=== PATIENT | male | born 1930 | race Caucasian/White ===

== ENCOUNTER → 2016-03-05 | Day surgery (SDC) | payer OTHER ==
[2016-02-26 10:08] VITALS: Ht 174 cm; Wt 75.0 kg
[~2016-03-05] VITALS: Ht 174 cm; Wt 75.0 kg
[~2016-03-05] MED LIST: ACET-1256 PO; ALBINS/ INH; ASCO500T16 PO; ASPI325T39 PO; ASPI81TA28 PO; BISM262T3 PO; CHOL1000 PO; CLC150 PO; CLR10 PO; CMD/2 PO; CMD5 PO; COLC0.6T54 PO; DIPH-416 PO; ERYOPO TOP; ETOMIDATE 2 MG/ML 20 ML VIAL IV ONE; EpHEDrine SULFATE 50MG/5ML SYR ONE; FERR1TAB13 PO; FERR325T PO; FRS/40 PO; LEUP1INJ15 IM; LIDOCAINE HCL 2% 2 ML VIAL (20MG/ML) ONE; MELO15TA10 PO; MELO7.5T5 PO; MESA800T5 PO; METO25TA3 PO; MULT-506 PO; MULT-513 PO; OXYB5TAB74 PO; OXYC-57 PO; PANT40TA PO; POTA20TA16 PO; PRLSR20 PO; PROPOFOL IV EMULSION 10 MG/ML 20 ML VIAL IV ONE; SIMV10TA2 PO; SIMV20TA2 PO; TAMS0.4C38 PO; WARF3TAB6 PO
--- NOTE | 2016-03-05 14:51 | Endo History and Physical ---
History & Physical Date of Service: Mar 05, 2016. Chief Complaint: DIARRHEA Referring Physician: SUNIL PACHECO History of Present Illness For colonoscopy Past Surgical History Hx Cardiac Surgery: No Hx Internal Defibrillator: No Hx Pacemaker: No Hx Abdominal Surgery: Yes ("STOMACH ULCER REPAIR") Hx of Implantable Prosthesis: No Hx Post-Op Nausea and Vomiting: No Hx Cancer Surgery: No Hx Thoracic Surgery: No Hx Orthopedic: Yes (RT TKA) Hx Urinary Tract Surgery: No Family History None Social History Smoking Status: Never Smoker Hx Substance Use: No Hx Alcohol Use: No Allergies Coded Allergies: No Known Allergies (Verified , 03/05/16) Current Medications Reported Home Medications Medications Dose Route/Sig Max Daily Dose Days Date Category Zocor (Simvastatin) 20 Mg Tab 0.5 Tab PO HS 11/25/15 Reported Flomax (Tamsulosin Hcl) 0.4 Mg Cap 0.4 Mg PO HS 11/25/15 Reported Kp Ferrous Sulfate (Ferrous Sulfate) 325 Mg Tab 1 Tab PO QPM 11/25/15 Reported Ascorbic Acid 500 Mg Tab 500 Mg PO QPM 11/25/15 Reported Multivitamin (Multivitamins) Tab 1 Tab PO NOON 11/25/15 Reported Ditropan (Oxybutynin Chloride) 5 Mg Tab 5 Mg PO BID 11/25/15 Reported Vitamin D3 (Cholecalciferol) 1,000 Unit Tab 2 Tabs PO NOON 11/25/15 Reported Aspirin Ec (Aspirin) 325 Mg Tab 325 Mg PO NOON 11/25/15 Reported Toprol-Xl (Metoprolol Succinate) 25 Mg Tabcr 0.5 Mg PO BID 11/25/15 Reported Lasix (Furosemide) 40 Mg Tab 40 Mg PO QAM 11/25/15 Reported Klor-Con (Potassium Chloride) 20 Meq Tabcr 20 Meq PO QAM 11/25/15 Reported Prilosec (Omeprazole) 20 Mg Capcr 20 Mg PO QAM 11/25/15 Reported Lomotil (Diphenoxylate HCl/Atropine) Tab 2 Tabs PO QID 11/25/15 Reported Vital Signs Weight (Kilograms): 75 Height (Feet): 5 Height (Inches): 8.5 Date Time Temp Pulse Resp B/P Pulse Ox O2 Delivery O2 Flow Rate FiO2 03/05/16 14:10 36.8 66 18 136/75 97 Room Air Physical Exam General Appearance: WD/WN Respiratory/Chest: Respiratory effort: no dyspnea Cardiovascular: Heart Auscultation: RRR Abdomen: Inspection & Palpation: soft Assessment and Plan diarrhea for colonoscopy
--- NOTE | 2016-03-05 15:17 | Discharge Instructions ---
Endoscopy Patient Instructions Date / Procedure(s) Performed Mar 05, 2016. Colonoscopy Allergy Information Coded Allergies: No Known Allergies (Verified , 03/05/16) Discharge Date / Findings Mar 05, 2016. Diverticulosis, hemorrhoids, polyp Medication Instructions Stopped Medication(s): ASPIRIN STOPPED 03/02/16 Restart Stopped Medication(s): resume meds Reported Home Medications Medications Dose Route/Sig Max Daily Dose Days Date Category Zocor (Simvastatin) 20 Mg Tab 0.5 Tab PO HS 11/25/15 Reported Flomax (Tamsulosin Hcl) 0.4 Mg Cap 0.4 Mg PO HS 11/25/15 Reported Kp Ferrous Sulfate (Ferrous Sulfate) 325 Mg Tab 1 Tab PO QPM 11/25/15 Reported Ascorbic Acid 500 Mg Tab 500 Mg PO QPM 11/25/15 Reported Multivitamin (Multivitamins) Tab 1 Tab PO NOON 11/25/15 Reported Ditropan (Oxybutynin Chloride) 5 Mg Tab 5 Mg PO BID 11/25/15 Reported Vitamin D3 (Cholecalciferol) 1,000 Unit Tab 2 Tabs PO NOON 11/25/15 Reported Aspirin Ec (Aspirin) 325 Mg Tab 325 Mg PO NOON 11/25/15 Reported Toprol-Xl (Metoprolol Succinate) 25 Mg Tabcr 0.5 Mg PO BID 11/25/15 Reported Lasix (Furosemide) 40 Mg Tab 40 Mg PO QAM 11/25/15 Reported Klor-Con (Potassium Chloride) 20 Meq Tabcr 20 Meq PO QAM 11/25/15 Reported Prilosec (Omeprazole) 20 Mg Capcr 20 Mg PO QAM 11/25/15 Reported Lomotil (Diphenoxylate HCl/Atropine) Tab 2 Tabs PO QID 11/25/15 Reported Provider Instructions Activity Restrictions - No exercising or heavy lifting for 24 hours. - Do not drink alcohol the day of the procedure. - Do not drive a car or operate machinery until the day after the procedure. - Do not make any important decisions or sign important papers in 24 hours after the procedure. Following Day: - Return to full activity which may include returning to work/school. Diet Start your diet with liquids and light foods (jello, soup, juice, toast). Then eat your usual diet if not nauseated. Treatment For Common After Affects For mild abdominal pain, bloating, or excessive gas: - Rest - Eat lightly - Lie on right side Follow-Up Information Follow-up with SUNIL PACHECO as scheduled Anesthesia Information What You Should Know You have had a procedure that required some medicine to reduce anxiety and discomfort. This treatment is called moderate sedation. After receiving the treatment, you may be sleepy, but you will be able to breathe on your own. The effects of the treatment may last for several hours. Follow these instructions along with Activity/Diet recommendations noted above: * Do NOT do anything where dizziness or clumsiness would be dangerous. * Rest quietly at home today, then you can be up and about tomorrow. * Have a responsible person stay with you the rest of today. * You may have had an I.V. today. If so, you may take the dressing off later today. Recommendations Call your doctor if: * Trouble breathing * Continuous vomiting for more than 24 hours * Temperature above 101 degrees * Severe abdominal pain or bloating * Pain not relieved by pain medicine ordered * There is increased drainage or redness from any incision * A large amount of rectal bleeding greater than 2-3 tablespoons. (If you had a polyp/s removed or have hemorrhoids, a small amount of blood - from the rectum is to be expected.) * You have any unanswered questions or concerns. IN THE EVENT OF A SERIOUS EMERGENCY, GO TO THE NEAREST EMERGENCY ROOM Your discharge instructions were prepared by provider Billy Hernandez. Patient Instructions Signature Page Charles Tyler Patient (or Guardian) Signature/Date: I have read and understand the instructions given to me by my caregivers. Caregiver/RN/Doctor Signature/Date: The above-named patient and/or guardian has received patient instructions on this date. + Original Patient Signature Page (only) stays with chart. Please make copy for patient.
--- NOTE | 2016-03-05 15:22 | GI REPORT ---
Procedure Date: 03/05/2016 2:52 PM Procedure: Colonoscopy Indications: Clinically significant diarrhea of unexplained origin Medicines: Propofol total dose 100 mg IV, Ephedrine 10 mg IV, Lidocaine 40 mg IV Complications: No immediate complications. Estimated Blood Loss: Estimated blood loss was minimal. Procedure: Pre-Anesthesia Assessment: - Prior to the procedure, a History and Physical was performed, and patient medications, allergies and sensitivities were reviewed. The patient's tolerance of previous anesthesia was reviewed. - The risks and benefits of the procedure and the sedation options and risks were discussed with the patient. All questions were answered and informed consent was obtained. After I obtained informed consent, the scope was passed under direct vision. Throughout the procedure, the patient's blood pressure, pulse, and oxygen saturations were monitored continuously. The On-site loaner was introduced through the anus and advanced to the cecum, identified by appendiceal orifice and ileocecal valve. The colonoscopy was performed without difficulty. The patient tolerated the procedure well. The quality of the bowel preparation was good. Findings: Multiple diverticula were found in the sigmoid colon. Non-bleeding internal hemorrhoids were found during endoscopy. The hemorrhoids were mild. A 18 mm polyp was found in the cecum. The polyp was sessile. The polyp was removed with a hot snare. Resection and retrieval were complete. To prevent bleeding post-intervention, one hemostatic clip was successfully placed (MR conditional). There was no bleeding during, and at the end, of the procedure. Estimated blood loss: none. Normal mucosa was found in the entire colon. Biopsies for histology were taken with a cold forceps from the ascending colon, transverse colon, descending colon and sigmoid colon for evaluation of microscopic colitis. Estimated blood loss was minimal. Impression: - Diverticulosis in the sigmoid colon. - Non-bleeding internal hemorrhoids. - One 18 mm polyp in the cecum, removed with a hot snare. Resected and retrieved. Clip (MR conditional) was placed. Recommendation: - Discharge patient to home (ambulatory). - Continue present medications. - Await pathology results. - Return to primary care physician PRN. Billy Hernandez M.D. Billy Hernandez MD 03/05/2016 3:21:21 PM This report has been signed electronically. Note Initiated On: 03/05/2016 2:52 PM
[2016-03-05 15:49] VITALS: BP 159/84; PULSE 68; O2SAT 96
--- NOTE | 2016-03-05 15:53 | Anesthesiology Progress Note ---
Anesthesia Post Op Note Date & Time Mar 05, 2016 at 15:49 Vital Signs Pain Intensity: 0 Vital Signs Past 12 Hours Date Time Temp Pulse Resp B/P Pulse Ox O2 Delivery O2 Flow Rate FiO2 03/05/16 15:34 72 20 134/80 96 Room Air 03/05/16 15:19 66 20 137/84 98 Room Air 03/05/16 14:10 36.8 66 18 136/75 97 Room Air Notes Mental Status: alert / awake / arousable, participated in evaluation Pt Amnestic to Procedure: Yes Nausea / Vomiting: adequately controlled Pain: adequately controlled Airway Patency, RR, SpO2: stable & adequate BP & HR: stable & adequate, see Notes Hydration State: stable & adequate Anesthetic Complications: no major complications apparent Preoperatively the patient had a questionable history of arrhythmia, but no EKG was available. The patient was noted to be in possible afib during the procedure. A 12 lead EKG was obtained in recovery that showed afib rate controlled along with a bifascicular block. I spoke with Dr. Meyer who follows the patient and told me that this is his normal baseline. The patient is not on anticoagulation due to his fall risk. The patient's vital signs are otherwise stable and he is awake and comfortable.
== END | disposition home or self-care (01) ==
LOC: C.GI 13:35
PROVIDERS: ATTEND Internal Medicine Gastroenterology
DX: D12.0 Benign neoplasm of cecum (principal); K57.30 Diverticulosis of large intestine without perforation or abscess without bleeding; K64.8 Other hemorrhoids; R19.7 Diarrhea, unspecified; G47.33 Obstructive sleep apnea (adult) (pediatric); I10 Essential (primary) hypertension; I73.9 Peripheral vascular disease, unspecified; E78.5 Hyperlipidemia, unspecified; Z86.79 Personal history of other diseases of the circulatory system; K21.9 Gastro-esophageal reflux disease without esophagitis; K25.9 Gastric ulcer, unspecified as acute or chronic, without hemorrhage or perforation; G62.9 Polyneuropathy, unspecified; Z85.46 Personal history of malignant neoplasm of prostate; M21.372 Foot drop, left foot

== ENCOUNTER 2016-06-05 21:06 | Inpatient (IN) | payer OTHER ==
[~2016-06-05] VITALS: Ht 172.7 cm; Wt 79.6 kg
[~2016-06-05 21:06] MED LIST changes: -ACET-1256 PO; -ALBINS/ INH; -ASPI81TA28 PO; -BISM262T3 PO; -CLC150 PO; -CLR10 PO; -CMD/2 PO; -CMD5 PO; -COLC0.6T54 PO; +DTR/5 PO; -ERYOPO TOP; -ETOMIDATE 2 MG/ML 20 ML VIAL IV ONE; -EpHEDrine SULFATE 50MG/5ML SYR ONE; -FERR325T PO; -LEUP1INJ15 IM; -LIDOCAINE HCL 2% 2 ML VIAL (20MG/ML) ONE; -MELO15TA10 PO; -MELO7.5T5 PO; -MESA800T5 PO; -MULT-513 PO; -OXYB5TAB74 PO; -OXYC-57 PO; -PANT40TA PO; -PROPOFOL IV EMULSION 10 MG/ML 20 ML VIAL IV ONE; -SIMV10TA2 PO; -WARF3TAB6 PO
[2016-06-05] MEDS ORDERED: SODIUM CHLORIDE 0.9% 1000ML 250 ML IV STA (22:10)
[2016-06-05] MEDS ORDERED: SODIUM CHLORIDE 0.9% 1000ML 1,000 ML IV STA (22:10)
--- NOTE | 2016-06-05 22:11 | EMERGENCY ROOM VISIT NOTE ---
History Report prepared by Phani: Derrick Arreguin Under the Supervision of: Dr. Werner Uribe M.D. First contact with patient: 22:00 Chief Complaint: INFECTION Stated Complaint: INFECTION IN BLOODSTREAM, INFECTION ON FACE Nursing Triage Summary: see triage note History of Present Illness The patient is an 85 year old male who presents to the Emergency Room with complaints of a worsening facial infection for the past week. The patient's symptoms started with a red nose that resembled sun burn six days ago. Throughout the week the redness spread down his cheeks and around his eyes. The patient's right eye became swollen shut. His family notes that there was pus draining from his face. He was admitted to [facility] ED in [place] three days ago, where he was given IV antibiotics. His family decided to bring him here so he left that hospital earlier today. The patient is reportedly feeling and looking a lot better than he did prior to admission. He does complain of shortness of breath. He denies fevers, headaches, chest pain, or abdominal pain. Source of History: patient, family Onset: one week Position: other (face) Quality: other (skin infection) Timing: worsening Associated Symptoms: + SOB, No abdominal pain, No chest pain, No fevers, No headache Review of Systems See HPI for pertinent positives & negatives. A total of 10 systems reviewed and were otherwise negative. Past Medical & Surgical Medical Problems: (1) Cellulitis and abscess of face (2) HLD (hyperlipidemia) (3) HTN (hypertension) Old medical records were reviewed. Nurse's notes were reviewed and I agree with. Family History No pertinent family history Social History Smoking Status: Never Smoker Drug Use: none Housing Status: lives with family Current/Historical Medications Scheduled Ascorbic Acid (Ascorbic Acid), 500 MG PO QPM Aspirin (Aspirin Ec), 325 MG PO NOON Bismuth Subsalicylate (Pepto Bismol Chew Tab), 2 TAB PO BID Cholecalciferol (Vitamin D3), 2 TABS PO NOON Diphenoxylate/Atropine (Lomotil), 2 TABS PO QID Ferrous Sulfate (Ferrous Sulfate), 325 MG PO QAM Furosemide (Lasix), 40 MG PO QAM Leuprolide Acetate (Lupron Depot), 1 DOSE IM q6 months Loratadine (Claritin), 10 MG PO DAILY Meloxicam (Mobic), 15 MG PO DAILY Mesalamine (Asacol Hd), 800 MG PO TID Metoprolol Succ (Toprol Xl) (Toprol-Xl), 0.5 MG PO BID Multivitamin (Multivitamin), 1 TAB PO NOON Omeprazole (Prilosec), 20 MG PO QAM Oxybutynin Chloride (Ditropan), 5 MG PO BID Potassium Ext Rel (Klor-Con), 20 MEQ PO QAM Simvastatin (Zocor), 0.5 TAB PO HS Tamsulosin Hcl (Flomax), 0.4 MG PO HS Scheduled PRN Albuterol Sulf (Proventil 0.083% 2.5MG/3ML), 2.5 MG INH Q6 PRN for Wheezing Allergies Coded Allergies: No Known Allergies (Verified , 03/05/16) Physical Exam Vital Signs Date Time Temp Pulse Resp B/P Pulse Ox O2 Delivery O2 Flow Rate FiO2 06/05/16 23:52 74 18 103/71 95 Room Air 06/05/16 22:42 66 06/05/16 22:31 88 18 143/78 95 Room Air 06/05/16 21:17 36.5 71 20 137/79 91 Room Air Physical Exam General: Non ill appearing older male in no acute distress, redness and swelling of the right side of face with crusty scaling, no definite purulent lesions, unable to open eyelid secondary to pain and swelling. HEENT: Normal cephalic atraumatic. Extraocular movements are intact. Sclera anicteric. Oropharynx is pink with moist mucous membranes. No swelling of the mouth lips or tongue. Neck: Supple with a midline trachea. No meningeal signs or stiffness, no JVD or bruits. No Stridor. Chest: Clear to auscultation bilaterally. No wheezes or rhonchi. No increased work of breathing. Heart: regular rate and rhythm. Abdomen: Soft nontender, nondistended without rebound guarding or rigidity. Extremities: No cyanosis clubbing or edema. No calf tenderness or assymetry Spine/Back. Non tender to palpation. No CVA tenderness Skin: Good turgor. Neurologic exam: Cranial nerves two through 12 are intact. Motor and sensation are intact and symmetrical throughout. Medical Decision & Procedures Laboratory Results 06/05/16 21:40 Red Blood Count 3.73, Mean Corpuscular Volume 96.2, Mean Corpuscular Hemoglobin 33.2, Mean Corpuscular Hemoglobin Concent 34.5, Mean Platelet Volume 9.9, Neutrophils (%) (Auto) 66.3, Lymphocytes (%) (Auto) 19.8, Monocytes (%) (Auto) 7.9, Eosinophils (%) (Auto) 4.8, Basophils (%) (Auto) 0.2, Neutrophils # (Auto) 5.55, Lymphocytes # (Auto) 1.66, Monocytes # (Auto) 0.66, Eosinophils # (Auto) 0.40, Basophils # (Auto) 0.02 06/05/16 21:40 Test 06/05/16 21:40 06/05/16 22:28 06/05/16 23:47 White Blood Count 8.37 K/uL (4.8-10.8) Red Blood Count 3.73 M/uL (4.7-6.1) Hemoglobin 12.4 g/dL (14.0-18.0) Hematocrit 35.9 % (42-52) Mean Corpuscular Volume 96.2 fL (80-100) Mean Corpuscular Hemoglobin 33.2 pg (25-34) Mean Corpuscular Hemoglobin Concent 34.5 g/dl (32-36) Platelet Count 192 K/uL (130-400) Mean Platelet Volume 9.9 fL (7.4-10.4) Neutrophils (%) (Auto) 66.3 % Lymphocytes (%) (Auto) 19.8 % Monocytes (%) (Auto) 7.9 % Eosinophils (%) (Auto) 4.8 % Basophils (%) (Auto) 0.2 % Neutrophils # (Auto) 5.55 K/uL (1.4-6.5) Lymphocytes # (Auto) 1.66 K/uL (1.2-3.4) Monocytes # (Auto) 0.66 K/uL (0.11-0.59) Eosinophils # (Auto) 0.40 K/uL (0-0.5) Basophils # (Auto) 0.02 K/uL (0-0.2) RDW Standard Deviation 50.0 fL (36.4-46.3) RDW Coefficient of Variation 14.1 % (11.5-14.5) Immature Granulocyte % (Auto) 1.0 % Immature Granulocyte # (Auto) 0.08 K/uL (0.00-0.02) Anion Gap 9.0 mmol/L (3-11) Estimated GFR () 78.6 Estimated GFR (Non- 67.8 BUN/Creatinine Ratio 24.0 (10-20) Calcium Level 9.0 mg/dl (8.5-10.1) Total Bilirubin 0.3 mg/dl (0.2-1) Direct Bilirubin < 0.1 mg/dl (0-0.2) Aspartate Amino Transf (AST/SGOT) 66 U/L (15-37) Alanine Aminotransferase (ALT/SGPT) 53 U/L (12-78) Alkaline Phosphatase 103 U/L (45-117) Total Protein 6.5 gm/dl (6.4-8.2) Albumin 2.6 gm/dl (3.4-5.0) Lipase 40 U/L (73-393) Bedside Lactic Acid Venous 1.64 mmol/L (0.90-1.70) Laboratory studies as stated above per my review. Medications Administered Medications (Trade) Dose Ordered Sig/Desmond Route Start Time Stop Time Status Last Admin Dose Admin Sodium Chloride 250 ml @ 999 mls/hr Q16M STAT IV 06/05/16 22:10 06/05/16 22:25 DC 06/05/16 22:33 999 MLS/HR Sodium Chloride (Nss 1000ml) 1,000 ml @ 100 mls/hr Q10H STAT IV 06/05/16 22:10 06/06/16 08:09 06/05/16 22:33 100 MLS/HR ECG Indication: SOB/dyspnea Rate (beats per minute): 57 Rhythm: atrial fibrillation Findings: LAFB, RBBB Change: Lateral T wave inversions have improved compared to EKG dated 2016 ED Course 2200: Past medical records reviewed. The patient was evaluated in room A10, and a complete history and physical examination were performed. 0: NSS 1000 ml @ 100 mls/hr, NSS 250 ml @ 999 mls/hr. 5: Patient's records show that he was seen by Ophthalmology earlier today. They signed off on him and said that he was doing much better. 2301: Discussed the case with Dr. Johnson, [facility]ist. The patient will be evaluated. Medical Decision Differential diagnosis includes facial cellulitis, shingles, abscess, electrolyte or metabolic abnormality. This patient comes in as described above. He has a facial cellulitis. Because of the swelling, I am unable to see his right orbit. He has no proptosis. He was just discharged from a hospital in [place] today. He has had his morning IV antibiotics. He had ID and ophthalmologic consult apparently as well. I read the ophthalmology consult today they felt that he had gotten significantly better. They did not think it was shingles at this point although I think that still in the differential. He has been receiving acyclovir as well as Rocephin at one point also received IV vancomycin. He did have a CAT scan at one point which did not show any orbital cellulitis and he is clinically getting better. According the family, they wanted to keep him longer but he refused to stay and signed out and came here which is close to his home. IV access established EKG shows baseline A. fib. he has no white count or elevated lactic acid to suggest sepsis. I do think he needs to be admitted for further treatment and evaluation further antibiotics. I have consulted Dr. Steward who saw the patient the ER will admit him for these measures. Consults Time Called: [phone] Consulting Physician: Dr. Johnson, [facility]. Returned Call: [phone]: Discussed the case with Dr. Johnson, [facility]. The patient will be evaluated. Impression Primary Impression: Facial cellulitis Scribe Attestation The scribe's documentation has been prepared under my direction and personally reviewed by me in its entirety. I confirm that the note above accurately reflects all work, treatment, procedures, and medical decision making performed by me. Departure Information Dispostion Being Evaluated By Hospitalist Referrals Kayleen Thomas (PCP) Patient Instructions My [facility]
[2016-06-05 22:20] LABS: BASO % 0.2 %; BASO ABS # 0.02 K/uL (0-0.2); COMPLETE YES; EOS % 4.8 %; HEMATOCRIT 35.9 % (42-52); LYMPH % 19.8 %; LYMPH ABS # 1.66 K/uL (1.2-3.4); MEAN CELL VOLUME 96.2 fL (80-100); MEAN CORPUSCULAR HEMOGLOBIN 33.2 pg (25-34); MEAN CORPUSCULAR HGB CONC 34.5 g/dl (32-36); MEAN PLATELET VOLUME 9.9 fL (7.4-10.4); MONO % 7.9 %; NEUT % 66.3 %; PLATELET COUNT 192 K/uL (130-400); RED BLOOD COUNT 3.73 M/uL (4.7-6.1); WHITE BLOOD COUNT 8.37 K/uL (4.8-10.8)
[2016-06-05 22:27] LABS: ALT/SGPT 53 U/L (12-78); BLOOD UREA NITROGEN 24 mg/dl (7-18); CARBON DIOXIDE 29 mmol/L (21-32); CHLORIDE 100 mmol/L (98-107); GLUCOSE 111 mg/dl (70-99); POTASSIUM 3.4 mmol/L (3.5-5.1); SODIUM 138 mmol/L (136-145)
[2016-06-05 22:30] LABS: ALKALINE PHOSPHATASE 103 U/L (45-117); AST/SGOT 66 U/L (15-37)
--- NOTE | 2016-06-05 22:56 | History and Physical ---
History & Physical Date & Time of Service: Jun 05, 2016 at 22:56 Chief Complaint: Infection In Bloodstream, Infection On Face Primary Care Physician: Kayleen Thomas History of Present Illness Source: patient, family The patient is an 85-year-old male who presents to the emergency department with history of a right sided facial infection. The patient was in [place] at the time, when 6 days ago he developed a sunburn type redness of his nose, that throughout the week spread down his cheeks and around his eyes. His right eye became swollen shut and his family noticed that there was pus draining from his face as well. He was admitted to [facility] in [place] 3 days ago, and was placed on IV antibiotics. He left the hospital earlier in the day today, returns back to this area, and his hemoglobin brought him into the emergency department to hopefully finish treatment. 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 Past Medical/Surgical History Medical Problems: (1) HLD (hyperlipidemia) Status: Chronic (2) HTN (hypertension) Status: Chronic Family History No pertinent family history Social History Smoking Status: Never Smoker Smokeless Tobacco Use: No Drug Use: none Occupational Status: retired Multi-Drug Resistant Organisms History of MDRO: No Allergies Coded Allergies: No Known Allergies (Verified , 03/05/16) Home Medications Scheduled Ascorbic Acid (Ascorbic Acid), 500 MG PO QPM Aspirin (Aspirin Ec), 325 MG PO NOON Bismuth Subsalicylate (Pepto Bismol Chew Tab), 2 TAB PO BID Cholecalciferol (Vitamin D3), 2 TABS PO NOON Diphenoxylate/Atropine (Lomotil), 2 TABS PO QID Ferrous Sulfate (Ferrous Sulfate), 325 MG PO QAM Furosemide (Lasix), 40 MG PO QAM Leuprolide Acetate (Lupron Depot), 1 DOSE IM q6 months Loratadine (Claritin), 10 MG PO DAILY Meloxicam (Mobic), 15 MG PO DAILY Mesalamine (Asacol Hd), 800 MG PO TID Metoprolol Succ (Toprol Xl) (Toprol-Xl), 0.5 MG PO BID Multivitamin (Multivitamin), 1 TAB PO NOON Omeprazole (Prilosec), 20 MG PO QAM Oxybutynin Chloride (Ditropan), 5 MG PO BID Potassium Ext Rel (Klor-Con), 20 MEQ PO QAM Simvastatin (Zocor), 0.5 TAB PO HS Tamsulosin Hcl (Flomax), 0.4 MG PO HS Scheduled PRN Albuterol Sulf (Proventil 0.083% 2.5MG/3ML), 2.5 MG INH Q6 PRN for Wheezing Review of Systems The patient denies chest pain, palpitations, shortness of breath, lower extremity swelling, vision change, hearing change, chills, sweats, weight change , nausea, vomiting, abdominal pain, pelvic pain, blood in urine or stool, dysuria, urinary frequency or urgency, lightheadedness, dizziness, memory loss , rash, abnormal bruising or bleeding, imbalance, focal or generalized weakness , numbness or tingling in arms or legs, arthralgias or myalgias, back or neck pain, night sweats, or allergy symptoms. The review of systems is otherwise negative other than for that already noted above, and at least 10 systems have been reviewed. Physical Exam Vital Signs Date Time Temp Pulse Resp B/P Pulse Ox O2 Delivery O2 Flow Rate FiO2 06/05/16 22:42 66 06/05/16 22:31 88 18 143/78 95 Room Air 06/05/16 21:17 36.5 71 20 137/79 91 Room Air The patient is awake, well-developed and adequately nourished, alert and oriented 3, has a resolving mildly erythematous/scab right side of face bulbing right frontal area supraorbital and infraorbital skin with right eye closed shut. HEENT--mucous membranes and oropharynx dry. Neck--supple, no JVD or bruits, thyroid normal, trachea midline, no adenopathy. Heart--normal S1 and S2, no extra beats, no murmurs, rubs or gallops. Lungs--few scattered rhonchi bilaterally, no respiratory distress, no accessory muscle use. Abdomen--normal bowel sounds and soft, nontender and nondistended, no hernias or masses, no organomegaly. Extremities--no cyanosis, clubbing or edema. There are good distal pulses b/l. Dermatologic--normal skin turgor, normal color, warm and dry, no abnormal lymph nodes, no rash. Neurologic--cranial nerves II through XII grossly intact, motor and sensory examination normal. Rheumatologic--normal range of motion, nontender, muscles and joints. Psychiatric--normal affect. Diagnostics Laboratory Results Results Past 24 Hours Test 06/05/16 21:40 06/05/16 22:28 Range/Units White Blood Count 8.37 4.8-10.8 K/uL Red Blood Count 3.73 4.7-6.1 M/uL Hemoglobin 12.4 14.0-18.0 g/dL Hematocrit 35.9 42-52 % Mean Corpuscular Volume 96.2 80-100 fL Mean Corpuscular Hemoglobin 33.2 25-34 pg Mean Corpuscular Hemoglobin Concent 34.5 32-36 g/dl Platelet Count 192 130-400 K/uL Mean Platelet Volume 9.9 7.4-10.4 fL Neutrophils (%) (Auto) 66.3 % Lymphocytes (%) (Auto) 19.8 % Monocytes (%) (Auto) 7.9 % Eosinophils (%) (Auto) 4.8 % Basophils (%) (Auto) 0.2 % Neutrophils # (Auto) 5.55 1.4-6.5 K/uL Lymphocytes # (Auto) 1.66 1.2-3.4 K/uL Monocytes # (Auto) 0.66 0.11-0.59 K/uL Eosinophils # (Auto) 0.40 0-0.5 K/uL Basophils # (Auto) 0.02 0-0.2 K/uL RDW Standard Deviation 50.0 36.4-46.3 fL RDW Coefficient of Variation 14.1 11.5-14.5 % Immature Granulocyte % (Auto) 1.0 % Immature Granulocyte # (Auto) 0.08 0.00-0.02 K/uL Sodium Level 138 136-145 mmol/L Potassium Level 3.4 3.5-5.1 mmol/L Chloride Level 100 98-107 mmol/L Carbon Dioxide Level 29 21-32 mmol/L Anion Gap 9.0 3-11 mmol/L Blood Urea Nitrogen 24 7-18 mg/dl Creatinine 1.00 0.60-1.40 mg/dl Estimated GFR () 78.6 Estimated GFR (Non- 67.8 BUN/Creatinine Ratio 24.0 10-20 Random Glucose 111 70-99 mg/dl Calcium Level 9.0 8.5-10.1 mg/dl Total Bilirubin 0.3 0.2-1 mg/dl Direct Bilirubin < 0.1 0-0.2 mg/dl Aspartate Amino Transf (AST/SGOT) 66 15-37 U/L Alanine Aminotransferase (ALT/SGPT) 53 12-78 U/L Alkaline Phosphatase 103 45-117 U/L Total Protein 6.5 6.4-8.2 gm/dl Albumin 2.6 3.4-5.0 gm/dl Lipase 40 73-393 U/L Bedside Lactic Acid Venous 1.64 0.90-1.70 mmol/L Microbiology Results 06/05/16 Blood Culture, Received Pending 06/05/16 Blood Culture, Received Pending Impression Assessment and Plan Right sided facial cellulitis and abscess--the patient did complete 3 days of IV Zosyn, ceftriaxone and acyclovir in [place], and then wanted to return to [facility]. He'll be admitted to the medical floor, placed on vancomycin IV, Zosyn 4.5 g IV every 8 hours, and acyclovir 800 mg IV every 8 hours. We'll consult infectious disease. The patient reportedly had cultures performed that didn't reveal an organism, however, is documentation that he brought with him from the hospital there does not show any culture results. He was seen by ophthalmology at the [facility], he was felt to not have any herpetic lesions. Hypercholesterolemia--continue simvastatin. GERD--change omeprazole to pantoprazole. Hypertension--continue metoprolol succinate, enteric-coated aspirin and hold furosemide. Bladder spasm--continue oxybutynin chloride 5 mg by mouth twice a day. Chronic diarrhea--continue Lomotil 2 tablets by mouth 4 times a day. Prostate cancer in the outpatient setting has Lupron Depot shots IM every 6 months. Continue tamsulosin 0.4 mg by mouth at bedtime. Inflammatory bowel disease--continue mesalamine and milligrams by mouth 3 times a day. Level of Care Med/Surg Advanced Directives Existing Advance Directive: No Existing Living Will: No Existing Power of Flare Stitcher: No Resuscitation Status FULL RESUSCITATION VTE Prophylaxis VTE Risk Assessment Done? Y/N: Yes Risk Level: Moderate Given or contraindicated: SCD's
[2016-06-05] MEDS ORDERED: ALBINS/ INH (23:39)
[2016-06-05] MEDS ORDERED: VANCOMYCIN INJ 1,000 MG in SODIUM CHLORIDE 0.9% 250ML 250 ML IV STA (23:41)
[2016-06-05] MEDS ORDERED: FERR1TAB62 PO (23:43)
[2016-06-05] MEDS ORDERED: CLR10 PO (23:43)
[2016-06-05] MEDS ORDERED: PIPERACILL/TAZOBAC IV 4.5 GM in DEXTROSE 5% 100ML 100 ML IV SCH (23:45)
[2016-06-05] MEDS ORDERED: BISM262T3 PO (23:45)
[2016-06-05] MEDS ORDERED: MESA800T5 PO (23:45)
[2016-06-05] MEDS ORDERED: ZOLPIDEM TARTRATE 5 MG TAB PO PRN (23:45)
[2016-06-05] MEDS ORDERED: MELO15TA10 PO (23:46)
[2016-06-05] MEDS ORDERED: LEUP1INJ15 IM (23:48)
[2016-06-05] MEDS ORDERED: VANCOMYCIN INJ 1,600 MG in SODIUM CHLORIDE 0.9% 500ML 500 ML IV STA (23:57)
[2016-06-06] MEDS ORDERED: PIPERACILL/TAZOBAC CONSULT ACTIVE PRN (00:30)
[2016-06-06] MEDS ORDERED: VANCOMYCIN CONSULT ACTIVE PRN (00:30)
[2016-06-06 00:44] LABS: LYME DISEASE AB IGG NEG (NEG); LYME DISEASE AB IGM NEG (NEG)
[2016-06-06 00:52] VITALS: BP 158/81; PULSE 77; TEMP 36.4; O2SAT 94
[2016-06-06] MEDS: ACETAMINOPHEN 325 MG TAB PO PRN (01:18)
[2016-06-06] MEDS: ACYCLOVIR SOD INJ 800 MG in DEXTROSE 5% 250ML 250 ML IV SCH ×3 (01:19→17:42)
[2016-06-06 01:44] VITALS: BP 158/87; PULSE 77; TEMP 36; O2SAT 94; Ht 172.7 cm; Wt 79.6 kg
[2016-06-06] MEDS ORDERED: PIPERACILL/TAZOBAC IV 3.375 GM in DEXTROSE 5% 100ML IV ONE (02:00)
[2016-06-06] MEDS: PIPERACILL/TAZOBAC IV 3.375 GM in DEXTROSE 5% 100ML IV SCH ×3 (05:45→22:44)
[2016-06-06 06:58] VITALS: BP 116/54; PULSE 64; TEMP 36.4; O2SAT 97
[2016-06-06] MEDS: MULTIVITAMIN TAB PO SCH (09:05)
[2016-06-06] MEDS: DIPHENOXYLATE/ATROPINE 2.5/0.025MG TAB PO SCH ×4 (09:05→22:49)
[2016-06-06] MEDS: PANTOprazole SOD 40 MG TAB PO SCH (09:05)
[2016-06-06] MEDS: FUROSEMIDE 40 MG TAB PO SCH (09:05)
[2016-06-06] MEDS: OXYBUTYNIN CHLORIDE 5 MG TAB PO SCH ×2 (09:06→22:46)
[2016-06-06] MEDS: POTASSIUM CHLORIDE 20 MEQ TABCR PO SCH (09:06)
[2016-06-06] MEDS: METOPROLOL SUCC 25MG EXT REL TAB PO SCH ×2 (09:06→22:47)
[2016-06-06] MEDS: FERROUS SULFATE 325 MG TAB PO SCH (09:06)
--- NOTE | 2016-06-06 10:43 | Pharmacy Progress Note ---
Pharmacy Antibiotic Consult Date of Service: Jun 06, 2016. Pharmacy Dosing Scope Pharmacy is consulted to initiate IV Vancomycin dosing therapy, order appropriate labs and adjust drug dose/frequency. Subjective The patient is a 85 year old male admitted on Jun 05, 2016 at 23:37. Objective Height (Feet): 5 Height (Inches): 8.00 Weight (Kilograms): 79.600 Lab Results (24hrs): Laboratory Tests Test 06/05/16 21:40 BUN/Creatinine Ratio 24.0 Blood Urea Nitrogen 24 mg/dl Creatinine 1.00 mg/dl White Blood Count 8.37 K/uL Red Blood Count 3.73 M/uL Hemoglobin 12.4 g/dL Hematocrit 35.9 % Mean Corpuscular Volume 96.2 fL Mean Corpuscular Hemoglobin 33.2 pg Mean Corpuscular Hemoglobin Concent 34.5 g/dl Platelet Count 192 K/uL Mean Platelet Volume 9.9 fL Neutrophils (%) (Auto) 66.3 % Lymphocytes (%) (Auto) 19.8 % Monocytes (%) (Auto) 7.9 % Eosinophils (%) (Auto) 4.8 % Basophils (%) (Auto) 0.2 % Neutrophils # (Auto) 5.55 K/uL Lymphocytes # (Auto) 1.66 K/uL Monocytes # (Auto) 0.66 K/uL Eosinophils # (Auto) 0.40 K/uL Basophils # (Auto) 0.02 K/uL Micro Results: Item Value Date Time Blood Culture Received 06/05/16 2140 Blood Pending Blood Culture Received 06/05/16 2220 Blood Pending Recent Pertinent Medications Item Value Date Time Vancomycin HCl 532 ml @ 200 mls/hr 06/05/16 2357 1600 mg/Sodium NOW STAT/IV 06/06/16 0117 Chloride Vancomycin HCl 274 ml @ 125 mls/hr 06/06/16 1100 1200 mg/Sodium Q12@1000,2200/IV Chloride Item Value Date Time Piperacillin Sod/ 115 ml @ 230 mls/hr 06/06/16 0200 Tazobactam Sod TODAY@0200 ONCE/IV 06/06/16 0237 3.375 gm/Dextrose Piperacillin Sod/ 115 ml @ 28.75 mls/hr 06/06/16 0600 Tazobactam Sod Q8H/IV 06/06/16 0545 3.375 gm/Dextrose Item Value Date Time Acyclovir Sodium 266 ml @ 265 mls/hr 06/06/16 0100 800 mg/Dextrose Q8H/IV 06/06/16 0905 Assessment & Plan Vancomycin * 85 yo M admitted with right-sided facial cellulitis/abscess (rec'd 3 days of IV zosyn, rocephin & acyclovir at hospital in [place]) * Loading dose: Vancomycin 1600mg IV x 1 dose * Goal peak level: 30-40mcg/mL * Goal trough level: ~15mcg/mL * Est half-life ~ 10hr * Maintenance dose: Vancomycin 1200mg IV q12h * Trough level has been ordered for: 06/07/16 1000 dose Pharmacy will continue to follow and will adjust dose/frequency as necessary. Thank you
[2016-06-06] MEDS: VANCOMYCIN INJ 1,200 MG in SODIUM CHLORIDE 0.9% 250ML 250 ML IV SCH ×2 (10:50→22:44)
[2016-06-06] MEDS: ASPIRIN 325 MG ECTAB PO SCH (11:38)
[2016-06-06] MEDS: CHOLECALCIFEROL 1000 INTER.UNIT TAB PO SCH (11:38)
[2016-06-06 14:52] VITALS: BP 128/77; PULSE 93; TEMP 36.8; O2SAT 96
--- NOTE | 2016-06-06 15:02 | Progress Note ---
Subjective Date of Service: Jun 06, 2016. Subjective Pt evaluation today including: conversation w/ patient, physical exam, chart review, lab review, review of inpatient medication list waiting on records from [facility] notes that he thinks he's feeling a little better - definitely better than when he first came in no f/c/s did have shaking chills before admission in [place]; also notes that he previously had pain from about the side of his head to his shoulder - now just numb. can't really open eye, but moves it and no pain with eye movement. relates ophtho eval in [place] - again waiting on records whole thing seems to have come on fairly suddenly - was out fishing and things felt just like sunburn, then seems that fairly quickly it devolved into large area of painful swelling and chills Problem List Medical Problems: (1) Facial cellulitis Status: Acute Review of Systems ros otherwise negative except for as above Objective Vital Signs Date Time Temp Pulse Resp B/P Pulse Ox O2 Delivery O2 Flow Rate FiO2 06/06/16 08:30 Room Air 06/06/16 06:58 36.4 64 20 116/54 97 Nasal Cannula 2.0 06/06/16 01:44 36.0 77 24 158/87 94 Nasal Cannula 2.0 06/06/16 00:52 36.4 77 24 158/81 94 Nasal Cannula 2.0 06/05/16 23:52 74 18 103/71 95 Room Air 06/05/16 22:42 66 06/05/16 22:31 88 18 143/78 95 Room Air 06/05/16 21:17 36.5 71 20 137/79 91 Room Air Physical Exam General Appearance: no apparent distress Eyes: EOMI (L eye. can see that he's moving right eye under swelling but can' t fully assess truly EOMI. clearly no pain with movement though) ENT: hearing grossly normal, + pertinent finding (R eyelid and cheek, side of head extending towards temporal area red, tender, not really hot no clear fluctuance, crusted scab in the middle of the area, no vesicles/pustules. 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, alert, normal mood/affect Skin: normal color, warm/dry Laboratory Results Last 24 Hours Test 06/05/16 21:40 06/05/16 22:28 06/05/16 23:47 White Blood Count 8.37 K/uL Red Blood Count 3.73 M/uL Hemoglobin 12.4 g/dL Hematocrit 35.9 % Mean Corpuscular Volume 96.2 fL Mean Corpuscular Hemoglobin 33.2 pg Mean Corpuscular Hemoglobin Concent 34.5 g/dl Platelet Count 192 K/uL Mean Platelet Volume 9.9 fL Neutrophils (%) (Auto) 66.3 % Lymphocytes (%) (Auto) 19.8 % Monocytes (%) (Auto) 7.9 % Eosinophils (%) (Auto) 4.8 % Basophils (%) (Auto) 0.2 % Neutrophils # (Auto) 5.55 K/uL Lymphocytes # (Auto) 1.66 K/uL Monocytes # (Auto) 0.66 K/uL Eosinophils # (Auto) 0.40 K/uL Basophils # (Auto) 0.02 K/uL RDW Standard Deviation 50.0 fL RDW Coefficient of Variation 14.1 % Immature Granulocyte % (Auto) 1.0 % Immature Granulocyte # (Auto) 0.08 K/uL Sodium Level 138 mmol/L Potassium Level 3.4 mmol/L Chloride Level 100 mmol/L Carbon Dioxide Level 29 mmol/L Anion Gap 9.0 mmol/L Blood Urea Nitrogen 24 mg/dl Creatinine 1.00 mg/dl Estimated GFR () 78.6 Estimated GFR (Non- 67.8 BUN/Creatinine Ratio 24.0 Random Glucose 111 mg/dl Calcium Level 9.0 mg/dl Total Bilirubin 0.3 mg/dl Direct Bilirubin < 0.1 mg/dl Aspartate Amino Transf (AST/SGOT) 66 U/L Alanine Aminotransferase (ALT/SGPT) 53 U/L Alkaline Phosphatase 103 U/L Total Protein 6.5 gm/dl Albumin 2.6 gm/dl Lipase 40 U/L Bedside Lactic Acid Venous 1.64 mmol/L Lyme Disease IgG Antibody NEG Lyme Disease IgM Antibody NEG Assessment and Plan Right sided facial cellulitis and ?abscess (listed as such by admitting physician, no discrete area of fluctuance i can appreciate; awaiting imaging done in [facility]) --the patient did complete 3 days of IV Zosyn, ceftriaxone and acyclovir in [place], and then wanted to return to [facility]. -continue zosyn/vanco pending further input from ID and/or culture results from [place] -continue acyclovir for now - doesn't clearly fit a V1 distribution but quite unilateral and crusted. VERY abrupt onset favors bacterial, but until clearly not shingles, he appears to be tolerating acyclovir well. -await records on imaging and consultations (reportedly had ophthalmology eval there not c/w shingles on eye) mild hypokalemia -recheck Hypercholesterolemia--continue simvastatin. GERD-- no complaints; on pantoprazole Hypertension--continue metoprolol succinate, enteric-coated aspirin and hold furosemide for now; continue to follow. BP somewhat erratic thus far but overall reasonable control Bladder spasm--continue oxybutynin chloride 5 mg by mouth twice a day. Chronic diarrhea--continue Lomotil 2 tablets by mouth 4 times a day. Prostate cancer in the outpatient setting has Lupron Depot shots IM every 6 months. Continue tamsulosin 0.4 mg by mouth at bedtime. Inflammatory bowel disease--continue mesalamine and milligrams by mouth 3 times a day. DVT proph - lovenox
[2016-06-06 16:19] LABS: PROTHROMBIN TIME (PATIENT) 10.9 SECONDS (9.0-12.0)
[2016-06-06] MEDS: ASCORBIC ACID 500 MG TAB PO SCH (22:46)
[2016-06-06] MEDS: SIMVASTATIN 20 MG TAB PO SCH (22:47)
[2016-06-06] MEDS: TAMSULOSIN HCL 0.4 MG CAP PO SCH (22:49)
[2016-06-06 23:07] VITALS: BP 135/75; PULSE 74; TEMP 36.4; O2SAT 95
[2016-06-07] MEDS: ACYCLOVIR SOD INJ 800 MG in DEXTROSE 5% 250ML 250 ML IV SCH ×2 (01:18→09:56)
[2016-06-07] MEDS: PIPERACILL/TAZOBAC IV 3.375 GM in DEXTROSE 5% 100ML IV SCH ×3 (05:59→21:59)
[2016-06-07 07:17] VITALS: BP 129/68; PULSE 70; TEMP 37.1; O2SAT 92
[2016-06-07] MEDS: FERROUS SULFATE 325 MG TAB PO SCH (08:23)
[2016-06-07] MEDS: MULTIVITAMIN TAB PO SCH (08:26)
[2016-06-07] MEDS: ENOXAPARIN 40 MG/0.4 ML SYR SQ SCH (08:26)
[2016-06-07] MEDS: OXYBUTYNIN CHLORIDE 5 MG TAB PO SCH ×2 (08:26→20:54)
[2016-06-07] MEDS: DIPHENOXYLATE/ATROPINE 2.5/0.025MG TAB PO SCH ×4 (08:26→20:53)
[2016-06-07] MEDS: FUROSEMIDE 40 MG TAB PO SCH (08:27)
[2016-06-07] MEDS: POTASSIUM CHLORIDE 20 MEQ TABCR PO SCH (08:27)
[2016-06-07] MEDS: PANTOprazole SOD 40 MG TAB PO SCH (08:27)
[2016-06-07] MEDS: METOPROLOL SUCC 25MG EXT REL TAB PO SCH ×2 (08:28→20:53)
[2016-06-07] MEDS ORDERED: VANCOMYCIN TROUGH SCH (09:30)
[2016-06-07] MEDS: VANCOMYCIN INJ 1,200 MG in SODIUM CHLORIDE 0.9% 250ML 250 ML IV SCH (09:56)
[2016-06-07 09:58] LABS: MEAN CELL VOLUME 97.5 fL (80-100); MEAN CORPUSCULAR HEMOGLOBIN 31.5 pg (25-34); MEAN CORPUSCULAR HGB CONC 32.3 g/dl (32-36); MEAN PLATELET VOLUME 9.3 fL (7.4-10.4); PLATELET COUNT 175 K/uL (130-400); RED BLOOD COUNT 3.59 M/uL (4.7-6.1); WHITE BLOOD COUNT 9.13 K/uL (4.8-10.8)
--- NOTE | 2016-06-07 10:04 | Family Medicine Progress Note ---
Progress Note Date of Service Jun 07, 2016. Subjective Pt evaluation today including: conversation w/ patient, physical exam, chart review, lab review Pain: denied pain PO Intake: good Voiding: no voiding problems 85-year-old male presented to the ER with complaints of right-sided facial cellulitis involving his right eyelid which started about 6 days ago. He was treated at a hospital in [place] and he transferred care to [facility]. Denies any pain currently but complains of tenderness on palpation on the affected area. Is still unable to open his right eye. Denies any painful eye movements. Denies any fevers or chills. Constitutional: No chills, No fever Eyes: + problem reported (right eye swelling with eye shut) ENT: + problem reported (facial swelling), No hearing loss Respiratory: No cough, No shortness of breath, No sputum, No wheezing Cardiovascular: No chest pain Abdomen: + diarrhea, No nausea, No pain, No vomiting Musculoskeletal: No joint pain Male : No dysuria Neurologic: No memory loss Medications Current Inpatient Medications Medications (Trade) Dose Ordered Sig/Desmond Route Start Time Stop Time Status Last Admin Dose Admin Acetaminophen (Tylenol Tab) 650 mg Q4H PRN PO 06/05/16 23:45 07/05/16 23:44 06/06/16 01:18 650 MG Zolpidem Tartrate (Ambien Tab) 5 mg HSZ PRN PO 06/05/16 23:45 07/05/16 23:44 Ascorbic Acid (Vitamin C Tab) 500 mg QPM PO 06/06/16 21:00 07/06/16 20:59 06/06/16 22:46 500 MG Aspirin (Ecotrin Tab) 325 mg DAILY@1200 PO 06/06/16 12:00 07/06/16 11:59 06/06/16 11:38 325 MG Cholecalciferol (Vitamin D Tab) 2,000 inter.unit DAILY@1200 PO 06/06/16 12:00 07/06/16 11:59 06/06/16 11:38 2,000 INTER.UNIT Diphenoxylate HCl/ Atropine (Lomotil Tab) 2 tab QID PO 06/06/16 09:00 07/06/16 08:59 06/07/16 08:26 2 TAB Furosemide (Lasix Tab) 40 mg QAM PO 06/06/16 09:00 07/06/16 08:59 06/07/16 08:27 40 MG Metoprolol Succinate (Toprol Xl Tab) 12.5 mg BID PO 06/06/16 09:00 07/06/16 08:59 06/07/16 08:28 12.5 MG Multivitamins (Multivitamin Tab) 1 tab DAILY PO 06/06/16 09:00 07/06/16 08:59 06/07/16 08:26 1 TAB Oxybutynin Chloride (Ditropan Tab) 5 mg BID PO 06/06/16 09:00 07/06/16 08:59 06/07/16 08:26 5 MG Potassium Chloride (Klor-Con Tab) 20 meq QAM PO 06/06/16 09:00 07/06/16 08:59 06/07/16 08:27 20 MEQ Simvastatin (Zocor Tab) 10 mg HS PO 06/06/16 21:00 07/06/16 20:59 06/06/16 22:47 10 MG Tamsulosin HCl (Flomax Cap) 0.4 mg HS PO 06/06/16 21:00 07/06/16 20:59 06/06/16 22:49 0.4 MG Ferrous Sulfate (Feosol Tab) 325 mg QAM PO 06/06/16 09:00 07/06/16 08:59 06/07/16 08:23 325 MG Pantoprazole Sodium 40 mg 40 mg QAM PO 06/06/16 09:00 07/06/16 08:59 06/07/16 08:27 40 MG Acyclovir Sodium/ Dextrose (Zovirax Inj/D5 250ml) 266 ml @ 265 mls/hr Q8H IV 06/06/16 01:00 06/16/16 00:59 06/07/16 09:56 265 MLS/HR Vancomycin HCl (Consult) 1 ea UD PRN N/A 06/06/16 00:30 07/06/16 00:29 Piperacillin Sod/ Tazobactam Sod 1 ea 1 ea UD PRN N/A 06/06/16 00:30 07/06/16 00:29 Piperacillin Sod/ Tazobactam Sod 3.375 gm/Dextrose 115 ml @ 28.75 mls/ hr Q8H IV 06/06/16 06:00 06/16/16 05:59 06/07/16 05:59 28.75 MLS/HR Vancomycin HCl/ Sodium Chloride (Vancomycin Inj/ Nss 250ml) 274 ml @ 125 mls/hr Q12@1000,2200 IV 06/06/16 11:00 06/16/16 10:59 06/07/16 09:56 125 MLS/HR Enoxaparin Sodium (Lovenox Inj) 40 mg QAM SQ 06/07/16 09:00 07/07/16 08:59 06/07/16 08:26 40 MG Objective Vital Signs Date Time Temp Pulse Resp B/P Pulse Ox O2 Delivery O2 Flow Rate FiO2 06/07/16 08:00 Room Air 06/07/16 07:17 37.1 70 20 129/68 92 Room Air 06/06/16 23:59 Room Air 06/06/16 23:07 36.4 74 24 135/75 95 Room Air 06/06/16 16:00 Room Air 06/06/16 14:52 36.8 93 20 128/77 96 Room Air Physical Exam General Appearance: WD/WN, no apparent distress Eyes: + pertinent finding (Right periorbital area swelling with tenderness and crusted lesions. ) Neck: supple Respiratory/Chest: chest non-tender, lungs clear, normal breath sounds, no accessory muscle use Abdomen: normal bowel sounds, non tender, soft Extremities: normal range of motion, non-tender, normal inspection Neurologic/Psychiatric: alert, normal mood/affect, oriented x 3 Skin: normal color Laboratory Results 06/07/16 09:45 Red Blood Count 3.59, Mean Corpuscular Volume 97.5, Mean Corpuscular Hemoglobin 31.5, Mean Corpuscular Hemoglobin Concent 32.3, Mean Platelet Volume 9.3, Neutrophils (%) (Auto) 68.9, Lymphocytes (%) (Auto) 15.3, Monocytes (%) (Auto) 9.9, Eosinophils (%) (Auto) 4.3, Basophils (%) (Auto) 0.2, Neutrophils # (Auto) 6.29, Lymphocytes # (Auto) 1.40, Monocytes # (Auto) 0.90, Eosinophils # (Auto) 0.39, Basophils # (Auto) 0.02 06/07/16 09:45 Test 06/07/16 09:45 White Blood Count 9.13 K/uL (4.8-10.8) Red Blood Count 3.59 M/uL (4.7-6.1) Hemoglobin 11.3 g/dL (14.0-18.0) Hematocrit 35.0 % (42-52) Mean Corpuscular Volume 97.5 fL (80-100) Mean Corpuscular Hemoglobin 31.5 pg (25-34) Mean Corpuscular Hemoglobin Concent 32.3 g/dl (32-36) Platelet Count 175 K/uL (130-400) Mean Platelet Volume 9.3 fL (7.4-10.4) Neutrophils (%) (Auto) 68.9 % Lymphocytes (%) (Auto) 15.3 % Monocytes (%) (Auto) 9.9 % Eosinophils (%) (Auto) 4.3 % Basophils (%) (Auto) 0.2 % Neutrophils # (Auto) 6.29 K/uL (1.4-6.5) Lymphocytes # (Auto) 1.40 K/uL (1.2-3.4) Monocytes # (Auto) 0.90 K/uL (0.11-0.59) Eosinophils # (Auto) 0.39 K/uL (0-0.5) Basophils # (Auto) 0.02 K/uL (0-0.2) RDW Standard Deviation 50.4 fL (36.4-46.3) RDW Coefficient of Variation 14.1 % (11.5-14.5) Immature Granulocyte % (Auto) 1.4 % Immature Granulocyte # (Auto) 0.13 K/uL (0.00-0.02) Toxic Granulation 3+ Anion Gap 10.0 mmol/L (3-11) Est Creatinine Clear Calc Drug Dose 46.6 ml/min Estimated GFR () 70.1 Estimated GFR (Non- 60.5 BUN/Creatinine Ratio 12.4 (10-20) Calcium Level 8.2 mg/dl (8.5-10.1) Vancomycin Level Trough 23.6 mcg/ml (SEE COMMENT) Assessment and Plan 85-year-old male presented to the ER with complaints of right-sided facial cellulitis involving his right eyelid which started about 6 days ago. He was treated at a hospital in [place] and he transferred care to [facility]. Right sided facial cellulitis and periorbital cellulitis - Results obtained from [facility] revealed strep pyo on wound culture and blood cultures 2 - received Zosyn, ceftriaxone and acyclovir X 3 days at outside hospital - ID consult- appreciate input - Continue Zosyn, acyclovir, vancomycin - Concern for herpes zoster ophthalmicus: - Per records from [facility] [place]: HSV culture negative and HSV 1/2 IGM negative Hypercholesterolemia - continue simvastatin. GERD: - Continue pantoprazole Hypertension - continue metoprolol succinate, enteric-coated aspirin and hold furosemide for now; continue to follow. Bladder spasm -continue oxybutynin chloride 5 mg by mouth twice a day. Chronic diarrhea -continue Lomotil 2 tablets by mouth 4 times a day. Prostate cancer: - Continue tamsulosin 0.4 mg by mouth at bedtime. Inflammatory bowel disease--continue mesalamine and milligrams by mouth 3 times a day. DVT proph - lovenox Full code Disposition: MedSur Resident Physician Supervision Note: I was present with Dr. Spann during the history and exam. I discussed the case with the resident and agree with the findings and plan as documented in the note. Any exceptions or clarifications are listed here: Upon initial examination, there is a lobe of a diagnostic dilemma. Parts of his exam seemed to suggest zoster, although we reviewed with the patient provided history, it seems more consistent with a cellulitis. Unfortunately, records are received from the hospital where he was hospitalized previous for the same condition - it appears as if he signed out AGAINST MEDICAL ADVICE and was driven by his family here to [place]. The records indicate the patient had a wound culture and 2 out of 2 blood cultures for strep pyogenes , and a wound cultures negative for HSV; this along with the inpatient notes there seem to support that this is a cellulitis and not zoster. THE first day of seeing the patient, per the patient's report and reviewing prior records, there seems to be interval improvement with each day. Documented By: Jhony Hirsch Resident Tracking Resident Involvement: Resident Care Provided Care Provided: Adult Hospital Medicine
--- NOTE | 2016-06-07 10:08 | Progress Note ---
Progress Note Date of Service Jun 07, 2016. Progress Note ID Consult Dictated #[id number] A/P: 1. Facial Cellulitis/?Zoster -Continue current abx and IV acyclovir -Would suggest ct orbit as he has induration and reports increase purulent drainage -Warm compress -Will follow, thank you
--- NOTE | 2016-06-07 10:27 | INFECT. DISEASE CONSULTATION ---
DATE OF CONSULTATION: 06/07/2016 DATE OF CONSULTATION: 06/07/2016. REQUESTING PHYSICIAN: Dr. Johnson. HISTORY OF PRESENT ILLNESS: This is an 85-year-old gentleman who was admitted to the hospital for ongoing treatment of previously diagnosed facial cellulitis. He was recently in [place] when he had sudden onset of erythema over the nose and progression to the right cheek and cross his eye. His right eye was swollen shut and there is report per the H\T\P that there is purulent drainage from the face. He was admitted to hospital in [place] and was placed on IV antibiotics. He requested returning home and was discharged from the hospital with plans to present to the Emergency Room here. He presented here on the and was admitted to the hospital. He was placed on vancomycin, Zosyn and the Acyclovir for concern of shingles. He states overall he feels he is improving. He is tolerating his antibiotics well. He has no fevers or chills. He states yesterday he had a significant amount of purulent drainage from around the eye. He states the pain is mostly gone, but he still does admit to tenderness to palpation over that area. He has not had leukocytosis. Blood cultures were obtained here and are negative; however, he did have at least 3 days of IV antibiotics prior to presentation here. Records were requested from this hospital in [place] and those are pending. He currently denies any headache. He denies any neck pain. He denies any difficulty with eating. He has no nausea, vomiting, diarrhea or abdominal pain. He has no chest pain, cough or shortness of breath. He has no other areas of rash on his skin. All remaining review of systems are reviewed and are negative. PAST MEDICAL HISTORY: Significant for high cholesterol and hypertension. FAMILY HISTORY: Noncontributory. SOCIAL HISTORY: Negative for tobacco use, alcohol use or drug use. ALLERGIES: He has no known drug allergies. CURRENT MEDICATIONS: Include Lovenox, vitamin C, Zocor, Flomax, Ecotrin, vitamin D, vancomycin, , Lasix, Toprol-XL, multivitamins, Ditropan, potassium, iron, Protonix, Zosyn, acyclovir intravenous, Tylenol and Ambien. PHYSICAL EXAMINATION: VITAL SIGNS: He is afebrile and has been since admission to the hospital, pulse is 70, respiratory rate is 20, blood pressure is 129/68. Oxygen saturation is 92-96% on room air. GENERAL: He is awake, alert and oriented x3. He is in no acute distress. HEAD, EYES, EARS, NOSE, AND THROAT: Mucous membranes are moist. Left eye is within normal limits, however there is significant swelling and erythema around the right eye and this is closed shut. There is some drainage from the area noted. There is erythema and crusted lesions over the area of the right eye extending back to the right islam. This does not cross the midline of his face. There are no vesicular lesions noted on exam; however, there is significant crusting and scabbing noted. There is underlying induration, warmth, tenderness and erythema. HEART: Regular. LUNGS: Clear bilaterally. ABDOMEN: Soft, nontender, nondistended. There is no lower extremity edema bilaterally. SKIN EXAMINATION: Otherwise unremarkable. LABORATORY STUDIES: CBC reveals a white blood cell count of 8.3, hemoglobin 12.4 and platelets are 192. Chemistry panel reveals a sodium of 138, potassium 3.4, chloride 100, bicarbonate 29, BUN 24, creatinine 1.0, glucose 111. LFTs are within normal limits with the exception of a mildly elevated AST is 66 on admission. Repeat laboratory studies from this morning are pending. Vancomycin level is pending. A Lyme titer was negative. Blood cultures are no growth to date x2 sets from the Emergency Room. There is no imaging to review. ASSESSMENT AND PLAN: Facial cellulitis concerned for bacterial infection such as impetigo in addition to zoster. He does not have any vesicular lesions on my exam; however, he has had multiple days of antibiotics and antivirals and this may be the reason for this. Certainly, this does not cross the midline and does have a distribution that would be typical for shingles. I would recommend continuing acyclovir. He does have significant induration and had significant drainage from the face yesterday. I would recommend CT of the orbit to look for any drainable focus. His blood cultures are negative. His records from [place] are pending at this time. I would not make changes to antibiotics at this time. He does have a warm compress on his face and I would continue with this. An ophthalmology exam may be required, although he claims to have had one done while hospitalized in [place]. We will follow along with you. Thank you for this consultation. RASTA
[2016-06-07 10:31] LABS: BASO % 0.2 %; BASO ABS # 0.02 K/uL (0-0.2); COMPLETE YES; EOS % 4.3 %; IG% 1.4 %; LYMPH % 15.3 %; MONO % 9.9 %; NEUT % 68.9 %; TOXIC GRANULATION 3+
[2016-06-07 11:13] LABS: BUN/CREATININE RATIO 12.4 (10-20); CALCIUM 8.2 mg/dl (8.5-10.1); CREATININE 1.1 mg/dl (0.60-1.40); POTASSIUM 3.8 mmol/L (3.5-5.1)
[2016-06-07] MEDS: ASPIRIN 325 MG ECTAB PO SCH (11:47)
[2016-06-07] MEDS: CHOLECALCIFEROL 1000 INTER.UNIT TAB PO SCH (11:47)
--- NOTE | 2016-06-07 14:25 | Pharmacy Progress Note ---
Pharmacy Antibiotic Prog Note Date of Service Jun 07, 2016. Subjective The patient is currently receiving Vancomycin 1200mg IV every 12 hours. The patient is currently on day # 3 of Vancomycin IV therapy. Objective Height (Feet): 5 Height (Inches): 8.00 Weight (Kilograms): 79.600 Levels: Item Value Date Time Vancomycin Level Trough 23.6 mcg/ml 06/07/16 0945 Lab Results (24hrs): Laboratory Tests Test 06/07/16 09:45 BUN/Creatinine Ratio 12.4 Blood Urea Nitrogen 14 mg/dl Creatinine 1.10 mg/dl White Blood Count 9.13 K/uL Red Blood Count 3.59 M/uL Hemoglobin 11.3 g/dL Hematocrit 35.0 % Mean Corpuscular Volume 97.5 fL Mean Corpuscular Hemoglobin 31.5 pg Mean Corpuscular Hemoglobin Concent 32.3 g/dl Platelet Count 175 K/uL Mean Platelet Volume 9.3 fL Neutrophils (%) (Auto) 68.9 % Lymphocytes (%) (Auto) 15.3 % Monocytes (%) (Auto) 9.9 % Eosinophils (%) (Auto) 4.3 % Basophils (%) (Auto) 0.2 % Neutrophils # (Auto) 6.29 K/uL Lymphocytes # (Auto) 1.40 K/uL Monocytes # (Auto) 0.90 K/uL Eosinophils # (Auto) 0.39 K/uL Basophils # (Auto) 0.02 K/uL Micro Results: Item Value Date Time Blood Culture - Preliminary Resulted 06/05/16 2220 Blood NO GROWTH TO DATE. Blood Culture - Preliminary Resulted 06/05/16 2140 Blood NO GROWTH TO DATE. Recent Pertinent Medications Item Value Date Time Piperacillin Sod/ 115 ml @ 28.75 mls/hr 06/06/16 0600 Tazobactam Sod Q8H/IV 06/07/16 1409 3.375 gm/Dextrose Acyclovir Sodium 266 ml @ 265 mls/hr 06/06/16 0100 800 mg/Dextrose Q8H/IV 06/07/16 0956 Assessment & Plan This drug level is: Supratherapeutic. Based on high trough I will change frequency of Vancomycin to every 18 hours. I will check a trough level prior to 06/10/16 midnight dose. Patient remains with severe facial cellulitis/Zoster Goal trough level estimate: between 15-20 mcg/mL. Pharmacy will continue to follow and will adjust dose/frequency as necessary. Thank you
[2016-06-07] MEDS ORDERED: ACYCLOVIR CONSULT ACTIVE PRN (14:45)
[2016-06-07 15:06] VITALS: BP 119/76; PULSE 70; TEMP 36.7; O2SAT 94
[2016-06-07] MEDS: ACYCLOVIR SOD INJ 650 MG in DEXTROSE 5% 100ML 100 ML IV SCH (17:13)
[2016-06-07] MEDS: TAMSULOSIN HCL 0.4 MG CAP PO SCH (20:51)
[2016-06-07] MEDS: ASCORBIC ACID 500 MG TAB PO SCH (20:52)
[2016-06-07] MEDS: SIMVASTATIN 20 MG TAB PO SCH (20:53)
[2016-06-08 00:32] VITALS: BP 110/66; PULSE 61; TEMP 36.6; O2SAT 96
[2016-06-08] MEDS: ACYCLOVIR SOD INJ 650 MG in DEXTROSE 5% 100ML 100 ML IV SCH ×2 (01:01→09:20)
[2016-06-08] MEDS: PIPERACILL/TAZOBAC IV 3.375 GM in DEXTROSE 5% 100ML IV SCH (05:49)
[2016-06-08 07:23] VITALS: BP 131/73; PULSE 63; TEMP 36.5; O2SAT 96
[2016-06-08 07:40] LABS: HEMATOCRIT 33.5 % (42-52); MEAN CELL VOLUME 98.2 fL (80-100); MEAN CORPUSCULAR HEMOGLOBIN 32.3 pg (25-34); MEAN CORPUSCULAR HGB CONC 32.8 g/dl (32-36); MEAN PLATELET VOLUME 9.7 fL (7.4-10.4); PLATELET COUNT 170 K/uL (130-400); RED BLOOD COUNT 3.41 M/uL (4.7-6.1); WHITE BLOOD COUNT 8.27 K/uL (4.8-10.8)
[2016-06-08 08:00] LABS: CALCIUM 8.2 mg/dl (8.5-10.1); CREATININE 0.98 mg/dl (0.60-1.40); POTASSIUM 3.9 mmol/L (3.5-5.1)
[2016-06-08] MEDS: OXYBUTYNIN CHLORIDE 5 MG TAB PO SCH ×2 (09:03→20:03)
[2016-06-08] MEDS: FUROSEMIDE 40 MG TAB PO SCH (09:04)
[2016-06-08] MEDS: POTASSIUM CHLORIDE 20 MEQ TABCR PO SCH (09:04)
[2016-06-08] MEDS: MULTIVITAMIN TAB PO SCH (09:05)
[2016-06-08] MEDS: DIPHENOXYLATE/ATROPINE 2.5/0.025MG TAB PO SCH ×4 (09:05→20:02)
[2016-06-08] MEDS: FERROUS SULFATE 325 MG TAB PO SCH (09:05)
[2016-06-08] MEDS: PANTOprazole SOD 40 MG TAB PO SCH (09:06)
[2016-06-08] MEDS: ENOXAPARIN 40 MG/0.4 ML SYR SQ SCH (09:06)
[2016-06-08] MEDS: METOPROLOL SUCC 25MG EXT REL TAB PO SCH ×2 (09:06→20:10)
--- NOTE | 2016-06-08 11:26 | Progress Note ---
Subjective Date of Service: Jun 08, 2016. Subjective facial swelling, drainage less today. still with significant findings, crusting skin, eye remains closed. afebrile overnight. tolerating abx. blood cultures negative to date. tolerating abx. wbc nml today. Old records reviewed, had GAS in blood initially, no echo done, ct and ultrasound negative for abscess, optho eval nml. unclear if repeat blood cultures done there, hsv culture negative of eye drainage. Problem List Medical Problems: (1) Facial cellulitis Status: Acute Objective Vital Signs Date Time Temp Pulse Resp B/P Pulse Ox O2 Delivery O2 Flow Rate FiO2 06/08/16 08:00 Room Air 06/08/16 07:23 36.5 63 18 131/73 96 Nasal Cannula 2.0 06/08/16 00:32 36.6 61 19 110/66 96 Nasal Cannula 2.0 06/08/16 00:00 Nasal Cannula 2.0 06/07/16 16:00 Room Air 06/07/16 15:06 36.7 70 20 119/76 94 Room Air Physical Exam General Appearance: WD/WN, no apparent distress Eyes: + pertinent finding (right eye remains swollen shut, still wih erythema but improvd today, less drainage, no vesicles, some crusting) Neck: supple Respiratory/Chest: normal breath sounds, no respiratory distress Cardiovascular: no edema Extremities: no pedal edema Skin: normal color Laboratory Results Item Value Date Time Blood Culture - Preliminary Resulted 06/05/160 Blood NO GROWTH TO DATE. Blood Culture - Preliminary Resulted 06/05/160 Blood NO GROWTH TO DATE. Last 24 Hours Test 06/08/16 06:50 06/08/16 06:54 White Blood Count 8.27 K/uL Red Blood Count 3.41 M/uL Hemoglobin 11.0 g/dL Hematocrit 33.5 % Mean Corpuscular Volume 98.2 fL Mean Corpuscular Hemoglobin 32.3 pg Mean Corpuscular Hemoglobin Concent 32.8 g/dl RDW Standard Deviation 51.7 fL RDW Coefficient of Variation 14.3 % Platelet Count 170 K/uL Mean Platelet Volume 9.7 fL Sodium Level 141 mmol/L Potassium Level 3.9 mmol/L Chloride Level 106 mmol/L Carbon Dioxide Level 31 mmol/L Anion Gap 4.0 mmol/L Blood Urea Nitrogen 11 mg/dl Creatinine 0.98 mg/dl Est Creatinine Clear Calc Drug Dose 52.3 ml/min Estimated GFR () 80.6 Estimated GFR (Non- 69.5 BUN/Creatinine Ratio 11.0 Random Glucose 109 mg/dl Calcium Level 8.2 mg/dl Assessment and Plan (1) Facial cellulitis Assessment & Plan: pt with GAS sepsis in [place], blood culture negative here, would check echo r/o veg for completeness. will change abx to cx and po clinda. will stop additional abx. Doubt seeding of joint but will continue IV abx. continue warm compress. will follow.
[2016-06-08] MEDS ORDERED: VANCOMYCIN INJ 1,200 MG in SODIUM CHLORIDE 0.9% 250ML 250 ML IV SCH (12:00)
[2016-06-08] MEDS: CEFTRIAXONE SOD INJ 2,000 MG in DEXTROSE 5% 50ML 50 ML IV SCH (13:13)
[2016-06-08] MEDS: CHOLECALCIFEROL 1000 INTER.UNIT TAB PO SCH (13:13)
[2016-06-08] MEDS: CLINDAMYCIN HCL 150 MG CAP PO SCH ×2 (13:13→17:48)
[2016-06-08] MEDS: ASPIRIN 325 MG ECTAB PO SCH (13:14)
--- NOTE | 2016-06-08 13:15 | Family Medicine Progress Note ---
Progress Note Date of Service Jun 08, 2016. Subjective Pt evaluation today including: conversation w/ patient, physical exam, chart review, lab review Pain: denies pain PO Intake: good Voiding: no voiding problems 85-year-old male presented to the ER with complaints of right-sided facial cellulitis involving his right eyelid which started about 6 days ago. He was treated at a hospital in [place] and he transferred care to [facility]. Denies any pain currently but complains of soreness in the affected area .is still unable to open his right eye. Denies any painful eye movements. Denies any fevers or chills. No acute events overnight Constitutional: No chills, No fever Eyes: No worsening of vision ENT: No hearing loss Respiratory: No cough Breast: No breast lump Abdomen: No nausea, No pain Male : No dysuria Neurologic: No memory loss Psychiatric: No depression symptoms Heme: No abnormal bleeding/bruising Medications Current Inpatient Medications Medications (Trade) Dose Ordered Sig/Desmond Route Start Time Stop Time Status Last Admin Dose Admin Acetaminophen (Tylenol Tab) 650 mg Q4H PRN PO 06/05/16 23:45 07/05/16 23:44 06/06/16 01:18 650 MG Zolpidem Tartrate (Ambien Tab) 5 mg HSZ PRN PO 06/05/16 23:45 07/05/16 23:44 Ascorbic Acid (Vitamin C Tab) 500 mg QPM PO 06/06/16 21:00 07/06/16 20:59 06/07/16 20:52 500 MG Aspirin (Ecotrin Tab) 325 mg DAILY@1200 PO 06/06/16 12:00 07/06/16 11:59 06/08/16 13:14 325 MG Cholecalciferol (Vitamin D Tab) 2,000 inter.unit DAILY@1200 PO 06/06/16 12:00 07/06/16 11:59 06/08/16 13:13 2,000 INTER.UNIT Diphenoxylate HCl/ Atropine (Lomotil Tab) 2 tab QID PO 06/06/16 09:00 07/06/16 08:59 06/08/16 13:14 2 TAB Furosemide (Lasix Tab) 40 mg QAM PO 06/06/16 09:00 07/06/16 08:59 06/08/16 09:04 40 MG Metoprolol Succinate (Toprol Xl Tab) 12.5 mg BID PO 06/06/16 09:00 07/06/16 08:59 06/08/16 09:06 12.5 MG Multivitamins (Multivitamin Tab) 1 tab DAILY PO 06/06/16 09:00 07/06/16 08:59 06/08/16 09:05 1 TAB Oxybutynin Chloride (Ditropan Tab) 5 mg BID PO 06/06/16 09:00 07/06/16 08:59 06/08/16 09:03 5 MG Potassium Chloride (Klor-Con Tab) 20 meq QAM PO 06/06/16 09:00 07/06/16 08:59 06/08/16 09:04 20 MEQ Simvastatin (Zocor Tab) 10 mg HS PO 06/06/16 21:00 07/06/16 20:59 06/07/16 20:53 10 MG Tamsulosin HCl (Flomax Cap) 0.4 mg HS PO 06/06/16 21:00 07/06/16 20:59 06/07/16 20:51 0.4 MG Ferrous Sulfate (Feosol Tab) 325 mg QAM PO 06/06/16 09:00 07/06/16 08:59 06/08/16 09:05 325 MG Pantoprazole Sodium (Protonix Tab) 40 mg QAM PO 06/06/16 09:00 07/06/16 08:59 06/08/16 09:06 40 MG Enoxaparin Sodium 40 mg 40 mg QAM SQ 06/07/16 09:00 07/07/16 08:59 06/08/16 09:06 40 MG Ceftriaxone Sodium/Dextrose (Rocephin Inj/D5 50ml) 70 ml @ 100 mls/hr Q24H IV 06/08/16 13:00 06/22/16 11:29 06/08/16 13:13 100 MLS/HR Clindamycin HCl (Cleocin Cap) 300 mg Q6 PO 06/08/16 12:00 06/10/16 11:59 06/08/16 13:13 300 MG Objective Vital Signs Date Time Temp Pulse Resp B/P Pulse Ox O2 Delivery O2 Flow Rate FiO2 06/08/16 14:55 36.5 58 20 131/64 94 Nasal Cannula 2.0 06/08/16 08:00 Room Air 06/08/16 07:23 36.5 63 18 131/73 96 Nasal Cannula 2.0 06/08/16 00:32 36.6 61 19 110/66 96 Nasal Cannula 2.0 06/08/16 00:00 Nasal Cannula 2.0 06/07/16 16:00 Room Air Physical Exam General Appearance: WD/WN, no apparent distress Eyes: + pertinent finding (right eye closure with crusted lesions in the periorbital area. Swelling decreased compared to yesterday. Tender to palpation.) Neck: supple Respiratory/Chest: chest non-tender, lungs clear Abdomen: normal bowel sounds, non tender, soft Extremities: non-tender, no pedal edema Neurologic/Psychiatric: alert, normal mood/affect, oriented x 3 Laboratory Results Last 24 Hours Test 06/08/16 06:50 06/08/16 06:54 White Blood Count 8.27 K/uL Red Blood Count 3.41 M/uL Hemoglobin 11.0 g/dL Hematocrit 33.5 % Mean Corpuscular Volume 98.2 fL Mean Corpuscular Hemoglobin 32.3 pg Mean Corpuscular Hemoglobin Concent 32.8 g/dl RDW Standard Deviation 51.7 fL RDW Coefficient of Variation 14.3 % Platelet Count 170 K/uL Mean Platelet Volume 9.7 fL Sodium Level 141 mmol/L Potassium Level 3.9 mmol/L Chloride Level 106 mmol/L Carbon Dioxide Level 31 mmol/L Anion Gap 4.0 mmol/L Blood Urea Nitrogen 11 mg/dl Creatinine 0.98 mg/dl Est Creatinine Clear Calc Drug Dose 52.3 ml/min Estimated GFR () 80.6 Estimated GFR (Non- 69.5 BUN/Creatinine Ratio 11.0 Random Glucose 109 mg/dl Calcium Level 8.2 mg/dl Assessment and Plan 85-year-old male presented to the ER with complaints of right-sided facial cellulitis involving his right eyelid which started about 6 days ago. He was treated at a hospital in [place] and he transferred care to [facility]. Blood cultures while at [place] had grown strep pyogenes. 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 GERD: - Continue pantoprazole Hypertension - continue metoprolol succinate, enteric-coated aspirin and hold furosemide for now; continue to follow. Bladder spasm -continue oxybutynin chloride 5 mg by mouth twice a day. Chronic diarrhea -continue Lomotil 2 tablets by mouth 4 times a day. Prostate cancer: - Continue tamsulosin 0.4 mg by mouth at bedtime. Inflammatory bowel disease--continue mesalamine and milligrams by mouth 3 times a day. DVT proph - lovenox Full code Disposition: MedSur Resident Physician Supervision Note: I was present with Dr. Spann during the history and exam. I discussed the case with the resident and agree with the findings and plan as documented in the note. Any exceptions or clarifications are listed here: Upon exam today, the swelling on the right eye seems to have lessened, although I was still unable to manually separate the eye lids. I personally discussed the case with ID outside solar sales consultant. 1) Streamline antibiotics for Group A strep identified in blood (x2) and wound culture at OSH. 2) Echocardiogram 3) PT/OT consult. Documented By: Jhony Hirsch Resident Tracking Resident Involvement: Resident Care Provided Care Provided: Adult Hospital Medicine
[2016-06-08 14:55] VITALS: BP 131/64; PULSE 58; TEMP 36.5; O2SAT 94
[2016-06-08 20:00] VITALS: BP 129/65; PULSE 56; O2SAT 96
[2016-06-08] MEDS: SIMVASTATIN 20 MG TAB PO SCH (20:00)
[2016-06-08] MEDS: ASCORBIC ACID 500 MG TAB PO SCH (20:03)
[2016-06-08] MEDS: TAMSULOSIN HCL 0.4 MG CAP PO SCH (20:04)
[2016-06-08 23:25] VITALS: BP 102/52; PULSE 59; TEMP 36.4; O2SAT 95
[2016-06-09] MEDS: CLINDAMYCIN HCL 150 MG CAP PO SCH ×4 (00:22→17:21)
[2016-06-09 07:40] VITALS: BP 104/64; PULSE 88; TEMP 36.7; O2SAT 98
[2016-06-09 07:42] LABS: HEMATOCRIT 33.4 % (42-52); MEAN CELL VOLUME 98.8 fL (80-100); MEAN CORPUSCULAR HEMOGLOBIN 32.5 pg (25-34); MEAN CORPUSCULAR HGB CONC 32.9 g/dl (32-36); MEAN PLATELET VOLUME 9.9 fL (7.4-10.4); PLATELET COUNT 191 K/uL (130-400); RED BLOOD COUNT 3.38 M/uL (4.7-6.1); WHITE BLOOD COUNT 9.44 K/uL (4.8-10.8)
[2016-06-09 08:16] LABS: CREATININE 0.91 mg/dl (0.60-1.40)
[2016-06-09] MEDS: METOPROLOL SUCC 25MG EXT REL TAB PO SCH ×2 (08:53→20:37)
[2016-06-09] MEDS: POTASSIUM CHLORIDE 20 MEQ TABCR PO SCH (08:53)
[2016-06-09] MEDS: DIPHENOXYLATE/ATROPINE 2.5/0.025MG TAB PO SCH ×4 (08:54→20:35)
[2016-06-09] MEDS: MULTIVITAMIN TAB PO SCH (08:54)
[2016-06-09] MEDS: FUROSEMIDE 40 MG TAB PO SCH (08:54)
[2016-06-09] MEDS: OXYBUTYNIN CHLORIDE 5 MG TAB PO SCH ×2 (08:54→20:37)
[2016-06-09] MEDS: FERROUS SULFATE 325 MG TAB PO SCH (08:54)
[2016-06-09] MEDS: PANTOprazole SOD 40 MG TAB PO SCH (08:54)
[2016-06-09] MEDS: ENOXAPARIN 40 MG/0.4 ML SYR SQ SCH (08:55)
--- NOTE | 2016-06-09 11:30 | Progress Note ---
Subjective Date of Service: Jun 09, 2016. Subjective changed to ctx and clinda yesterday, tolerating, 06/05 blood culture negative to date, echo pending. eye culture obtained today, pending. afebrile. wbc nml. no overnight events. Problem List Medical Problems: (1) Facial cellulitis Status: Acute Objective Vital Signs Date Time Temp Pulse Resp B/P Pulse Ox O2 Delivery O2 Flow Rate FiO2 06/09/16 08:30 Nasal Cannula 2.0 06/09/16 07:40 36.7 88 20 104/64 98 Room Air 06/09/16 00:00 Nasal Cannula 2.0 06/08/16 23:25 36.4 59 20 102/52 95 Nasal Cannula 2.0 06/08/16 20:00 56 16 129/65 96 Nasal Cannula 2.0 06/08/16 20:00 Nasal Cannula 2.0 06/08/16 14:55 36.5 58 20 131/64 94 Nasal Cannula 2.0 Physical Exam General Appearance: WD/WN, no apparent distress Laboratory Results Item Value Date Time Blood Culture - Preliminary Resulted 06/05/16 2220 Blood NO GROWTH TO DATE. Blood Culture - Preliminary Resulted 06/05/16 2140 Blood NO GROWTH TO DATE. Last 24 Hours Test 06/09/16 07:17 White Blood Count 9.44 K/uL Red Blood Count 3.38 M/uL Hemoglobin 11.0 g/dL Hematocrit 33.4 % Mean Corpuscular Volume 98.8 fL Mean Corpuscular Hemoglobin 32.5 pg Mean Corpuscular Hemoglobin Concent 32.9 g/dl RDW Standard Deviation 50.9 fL RDW Coefficient of Variation 14.2 % Platelet Count 191 K/uL Mean Platelet Volume 9.9 fL Creatinine 0.91 mg/dl Est Creatinine Clear Calc Drug Dose 56.4 ml/min Estimated GFR () 88.1 Estimated GFR (Non- 76.0 Assessment and Plan (1) Facial cellulitis Assessment & Plan: pt with GAS sepsis in [place], blood culture negative here, would check echo r/o veg for completeness abx changed to cx and po clinda. Doubt seeding of joint but will continue IV abx. continue warm compress. will follow. await eye culture, would give 21 days abx.
--- NOTE | 2016-06-09 11:45 | Family Medicine Progress Note ---
Progress Note Date of Service Jun 09, 2016. Subjective Pt evaluation today including: conversation w/ patient, conversation w/ family , physical exam, chart review, lab review, review of studies Pain: denies pain PO Intake: good Voiding: no voiding problems has had some oozing today from one of the lesions around his right eye. denies fevers/chills. denies any worsening of pain. still able to move eye without pain but unable to open it. Constitutional: No chills, No fever Eyes: + discharge, No worsening of vision ENT: No hearing loss Respiratory: + shortness of breath, No cough, No sputum Cardiovascular: No chest pain Breast: No breast lump Abdomen: No nausea, No pain Musculoskeletal: No joint pain Male : No dysuria Psychiatric: No depression symptoms Medications Current Inpatient Medications Medications (Trade) Dose Ordered Sig/Desmond Route Start Time Stop Time Status Last Admin Dose Admin Acetaminophen (Tylenol Tab) 650 mg Q4H PRN PO 06/05/16 23:45 07/05/16 23:44 06/06/16 01:18 650 MG Zolpidem Tartrate (Ambien Tab) 5 mg HSZ PRN PO 06/05/16 23:45 07/05/16 23:44 Ascorbic Acid (Vitamin C Tab) 500 mg QPM PO 06/06/16 21:00 07/06/16 20:59 06/08/16 20:03 500 MG Aspirin (Ecotrin Tab) 325 mg DAILY@1200 PO 06/06/16 12:00 07/06/16 11:59 06/08/16 13:14 325 MG Cholecalciferol (Vitamin D Tab) 2,000 inter.unit DAILY@1200 PO 06/06/16 12:00 07/06/16 11:59 06/08/16 13:13 2,000 INTER.UNIT Diphenoxylate HCl/ Atropine (Lomotil Tab) 2 tab QID PO 06/06/16 09:00 07/06/16 08:59 06/09/16 08:54 2 TAB Furosemide (Lasix Tab) 40 mg QAM PO 06/06/16 09:00 07/06/16 08:59 06/09/16 08:54 40 MG Metoprolol Succinate (Toprol Xl Tab) 12.5 mg BID PO 06/06/16 09:00 07/06/16 08:59 06/09/16 08:53 12.5 MG Multivitamins (Multivitamin Tab) 1 tab DAILY PO 06/06/16 09:00 07/06/16 08:59 06/09/16 08:54 1 TAB Oxybutynin Chloride (Ditropan Tab) 5 mg BID PO 06/06/16 09:00 07/06/16 08:59 06/09/16 08:54 5 MG Potassium Chloride (Klor-Con Tab) 20 meq QAM PO 06/06/16 09:00 07/06/16 08:59 06/09/16 08:53 20 MEQ Simvastatin (Zocor Tab) 10 mg HS PO 06/06/16 21:00 07/06/16 20:59 06/08/16 20:00 10 MG Tamsulosin HCl (Flomax Cap) 0.4 mg HS PO 06/06/16 21:00 07/06/16 20:59 06/08/16 20:04 0.4 MG Ferrous Sulfate (Feosol Tab) 325 mg QAM PO 06/06/16 09:00 07/06/16 08:59 06/09/16 08:54 325 MG Pantoprazole Sodium (Protonix Tab) 40 mg QAM PO 06/06/16 09:00 07/06/16 08:59 06/09/16 08:54 40 MG Enoxaparin Sodium 40 mg 40 mg QAM SQ 06/07/16 09:00 07/07/16 08:59 06/09/16 08:55 40 MG Ceftriaxone Sodium/Dextrose (Rocephin Inj/D5 50ml) 70 ml @ 100 mls/hr Q24H IV 06/08/16 13:00 06/22/16 11:29 06/08/16 13:13 100 MLS/HR Clindamycin HCl (Cleocin Cap) 300 mg Q6 PO 06/08/16 12:00 06/10/16 11:59 06/09/16 06:05 300 MG Objective Vital Signs Date Time Temp Pulse Resp B/P Pulse Ox O2 Delivery O2 Flow Rate FiO2 06/09/16 08:30 Nasal Cannula 2.0 06/09/16 07:40 36.7 88 20 104/64 98 Room Air 06/09/16 00:00 Nasal Cannula 2.0 06/08/16 23:25 36.4 59 20 102/52 95 Nasal Cannula 2.0 06/08/16 20:00 56 16 129/65 96 Nasal Cannula 2.0 06/08/16 20:00 Nasal Cannula 2.0 06/08/16 14:55 36.5 58 20 131/64 94 Nasal Cannula 2.0 Physical Exam General Appearance: WD/WN, no apparent distress Eyes: + pertinent finding (Right periorbital area with crusted lesions. new serous/bloody drainage from one of the lesions. Tender to palpation) Neck: supple Respiratory/Chest: chest non-tender, lungs clear, no respiratory distress, no accessory muscle use, + pertinent finding (on nasal cannula) Cardiovascular: regular rate, rhythm Abdomen: normal bowel sounds, non tender, soft Extremities: normal range of motion, non-tender, normal inspection, no pedal edema Neurologic/Psychiatric: alert, normal mood/affect, oriented x 3 Laboratory Results 06/09/16 07:17 06/09/16 07:17 Test 06/09/16 07:17 Red Blood Count 3.38 M/uL (4.7-6.1) Mean Corpuscular Volume 98.8 fL (80-100) Mean Corpuscular Hemoglobin 32.5 pg (25-34) Mean Corpuscular Hemoglobin Concent 32.9 g/dl (32-36) RDW Standard Deviation 50.9 fL (36.4-46.3) RDW Coefficient of Variation 14.2 % (11.5-14.5) Mean Platelet Volume 9.9 fL (7.4-10.4) Est Creatinine Clear Calc Drug Dose 56.4 ml/min Estimated GFR () 88.1 Estimated GFR (Non- 76.0 Assessment and Plan 85-year-old male presented to the ER with complaints of right-sided facial cellulitis involving his right eyelid which started about 6 days ago. He was treated at a hospital in [place] and he transferred care to [facility]. Blood cultures while at [place] had grown strep pyogenes. had some serous drainage from one of the lesions since last night. 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 GERD: - Continue pantoprazole Hypertension - continue metoprolol succinate, enteric-coated aspirin and lasix Bladder spasm -continue oxybutynin chloride 5 mg by mouth twice a day. Chronic diarrhea -continue Lomotil 2 tablets by mouth 4 times a day. Prostate cancer: - Continue tamsulosin 0.4 mg by mouth at bedtime. Inflammatory bowel disease--continue mesalamine DVT proph - lovenox Full code Disposition: MedSur Resident Physician Supervision Note: I was present with Dr. Spann during the history and exam. I discussed the case with the resident and agree with the findings and plan as documented in the note. Any exceptions or clarifications are listed here: The erythema and swelling about the right eye appears similar to yesterday, with the exception of some yellow drainage - this has been cultured. He remains afebrile. There is not seem to be much pain and thus the skin around the eye manipulated. The patient had CT scan at the hospital in [place] which did not reveal any localized fluid collections. Certainly if improvement were to level off for the patient had increased pain or edema would consider reimaging. Documented By: Jhony Hirsch Continued [facility] stay due to: multiple IV medications needed Resident Tracking Resident Involvement: Resident Care Provided Care Provided: Adult Hospital Medicine
[2016-06-09] MEDS: CHOLECALCIFEROL 1000 INTER.UNIT TAB PO SCH (11:59)
[2016-06-09] MEDS: ASPIRIN 325 MG ECTAB PO SCH (11:59)
[2016-06-09] MEDS: CEFTRIAXONE SOD INJ 2,000 MG in DEXTROSE 5% 50ML 50 ML IV SCH (13:23)
[2016-06-09 14:52] VITALS: BP 119/73; PULSE 59; TEMP 36.5; O2SAT 96
[2016-06-09] MEDS ORDERED: PERFLUTREN LIPID MICROSPHERE (DEFINITY) IV ONE (15:55)
--- NOTE | 2016-06-09 18:36 | ECHOCARDIOGRAM REPORT ---
*NOTICE TO RECEIVING [facility] This information is strictly Confidential and protected under [place] law. [place] law prohibits you from making any further disclosure of this information unless further disclosure is expressly permitted by the written consent of the person to whom it pertains or is authorized by law. A general authorization for the release of medical or other information is not sufficient for this purpose. Hospital accepts no responsibility if the information is made available to any other person, INCLUDING THE PATIENT. Interpretation Summary * Name: JIGNESH KLEIN Study Date: 06/09/2016 03:04 PM BP: 119/73 mmHg * Patient Location: .MS2W\S\W260\S\1 HR: 59 * : 1930 (M/d/yyyy) Gender: Male Height: 68 in * Age: 85 yrs Ethnicity: [place] Weight: 175 lb * Ordering Physician: Jhony Hirsch * Referring Physician: Jeremy Le * Performed By: Elizabeth Easton RDCS * * Reason For Study: bacteremia * BSA: 1.9 m2 * Normal biventricular systolic function. * Mild concentric left ventricular hypertrophy. * Mild aortic root dilatation. * Trace aortic, pulmonic, and tricuspid regurgitation. * There is no evidence of a mass or vegetation. This does not rule out endocarditis. * -- Conclusions -- * Aortic valve sclerosis moderate, without significant aortic valvular stenosis. Procedure Details * A complete two-dimensional transthoracic echocardiogram was performed (2D, M-mode, Doppler and color flow Doppler). * The study was technically limited. * The study was technically difficult. * Limited views were obtained. * There were technical limitations due to patient'sbody habitus * A contrast injection of Definity was performed to improve assessment of LV function. * Contrast was injected into an intravenous site in the right arm. * One vial of Definity ultrasound contrast was diluted in normal saline to a total volume of 10 ml. A total of '2' ml of solution was administered during imaging. * Lot # [id number] of Definity utilized for procedure. * Expiration date JUN 01. * The attending nurse who injected the contrast agent was Afsaneh Vicente RN. Left Ventricle * The left ventricle is normal in size. * There is mild concentric left ventricular hypertrophy. * Left ventricular systolic function is normal. * Ejection Fraction = 55-60%. * The left ventricular wall motion is normal. Right Ventricle * The right ventricular systolic function is normal as assessed by tricuspid annular plane systolic excursion (TAPSE) (normal >1.5 cm). Atria * The left atrial size is normal. * Right atrial size is normal. * No ASD detected; PFO is not assessed. Mitral Valve * There is mild mitral annular calcification. * There is no vegetation seen on the mitral valve. * There is no mitral valve stenosis. * There is no mitral regurgitation noted. Tricuspid Valve * The tricuspid valve is not well visualized, but is grossly normal. * There is no tricuspid valve vegetation. * Right ventricular systolic pressure is normal. * There is trace tricuspid regurgitation. Aortic Valve * The aortic valve is trileaflet. * Aortic valve sclerosis moderate, without significant aortic valvular stenosis. * The aortic valve opens well. * There is no aortic valvular vegetation. * Trace aortic regurgitation. Pulmonic Valve * The pulmonic valve is not well visualized. * The pulmonary valve is inadequately visualized, but the Doppler data is adequate for interpretation. * There is no pulmonic valvular stenosis. * Trace pulmonic valvular regurgitation. Great Vessels * Mild aortic root dilatation. Pericardium/Pleural * There is no pericardial effusion. Great Vessels * Normal inferior vena cava diameter and respiratory variation suggests normal central venous pressure. MMode 2D Measurements and Calculations IVSd 1.3 cm LVIDd 5.2 cm LVIDs 3.5 cm LVPWd 1.3 cm IVS/LVPW 0.98 FS 32.2 % EDV(Teich) 127.1 ml ESV(Teich) 50.8 ml EF(Teich) 60.1 % EDV(cubed) 137.2 ml ESV(cubed) 42.8 ml EF(cubed) 68.8 % LV mass(C)d 265.7 grams LV mass(C)dI 137.6 grams/m\S\2 SV(Teich) 76.3 ml SI(Teich) 39.5 ml/m\S\2 SV(cubed) 94.5 ml SI(cubed) 48.9 ml/m\S\2 Ao root diam 4.2 cm Ao root area 14.2 cm\S\2 ACS 2.3 cm LA dimension 3.8 cm asc Aorta Diam 4.9 cm LA/Ao 0.90 LVOT diam 2.0 cm LVOT area 3.1 cm\S\2 Doppler Measurements and Calculations MV E max helena 101.4 cm/sec MV dec time 0.18 sec Ao V2 max 87.6 cm/sec Ao max PG 3.1 mmHg Ao max PG (full) 0.78 mmHg CHERELLE(V,A) 2.6 cm\S\2 CHERELLE(V,D) 2.6 cm\S\2 LV V1 max PG 2.3 mmHg LV V1 max 75.7 cm/sec PA V2 max 99.9 cm/sec PA max PG 4.0 mmHg PA acc slope 338.9 cm/sec\S\2 PA acc time 0.18 sec PI max helena 104.2 cm/sec PI max PG 4.3 mmHg PI dec slope 54.7 cm/sec\S\2 PI P1/2t 558.3 msec TR max helena 107.0 cm/sec PA pr(Accel) -0.22 mmHg
[2016-06-09] MEDS: TAMSULOSIN HCL 0.4 MG CAP PO SCH (20:35)
[2016-06-09] MEDS: ASCORBIC ACID 500 MG TAB PO SCH (20:35)
[2016-06-09] MEDS: SIMVASTATIN 20 MG TAB PO SCH (20:37)
[2016-06-09 20:38] VITALS: BP 113/73; PULSE 73; TEMP 36.7; O2SAT 96
[2016-06-09] MEDS ORDERED: VANCOMYCIN TROUGH SCH (23:30)
[2016-06-09 23:45] VITALS: BP 131/65; PULSE 60; TEMP 36.7; O2SAT 98
[2016-06-10] MEDS: CLINDAMYCIN HCL 150 MG CAP PO SCH ×4 (05:29→22:56)
[2016-06-10 07:45] VITALS: BP 124/82; PULSE 70; TEMP 36.6; O2SAT 98
[2016-06-10 08:12] LABS: HEMATOCRIT 33.9 % (42-52); MEAN CELL VOLUME 98.8 fL (80-100); MEAN CORPUSCULAR HEMOGLOBIN 32.4 pg (25-34); MEAN CORPUSCULAR HGB CONC 32.7 g/dl (32-36); MEAN PLATELET VOLUME 9.8 fL (7.4-10.4); PLATELET COUNT 225 K/uL (130-400); RED BLOOD COUNT 3.43 M/uL (4.7-6.1); WHITE BLOOD COUNT 9.34 K/uL (4.8-10.8)
[2016-06-10] MEDS: ENOXAPARIN 40 MG/0.4 ML SYR SQ SCH (08:19)
[2016-06-10] MEDS: DIPHENOXYLATE/ATROPINE 2.5/0.025MG TAB PO SCH ×4 (08:20→19:57)
[2016-06-10] MEDS: OXYBUTYNIN CHLORIDE 5 MG TAB PO SCH ×2 (08:21→19:56)
[2016-06-10] MEDS: POTASSIUM CHLORIDE 20 MEQ TABCR PO SCH (08:21)
[2016-06-10] MEDS: MULTIVITAMIN TAB PO SCH (08:21)
[2016-06-10] MEDS: METOPROLOL SUCC 25MG EXT REL TAB PO SCH ×2 (08:21→19:57)
[2016-06-10] MEDS: FERROUS SULFATE 325 MG TAB PO SCH (08:22)
[2016-06-10] MEDS: FUROSEMIDE 40 MG TAB PO SCH (08:22)
[2016-06-10] MEDS: PANTOprazole SOD 40 MG TAB PO SCH (08:23)
[2016-06-10] MEDS: ACETAMINOPHEN 325 MG TAB PO PRN (08:30)
[2016-06-10 08:42] LABS: CREATININE 0.83 mg/dl (0.60-1.40); POTASSIUM 4.1 mmol/L (3.5-5.1)
[2016-06-10 09:01] LABS: CALCIUM 8.7 mg/dl (8.5-10.1)
[2016-06-10] MEDS: ASPIRIN 325 MG ECTAB PO SCH (11:49)
[2016-06-10] MEDS: CHOLECALCIFEROL 1000 INTER.UNIT TAB PO SCH (11:49)
--- NOTE | 2016-06-10 12:13 | Progress Note ---
Subjective Date of Service: Jun 10, 2016. Subjective Pt evaluation today including: conversation w/ family, physical exam, chart review, lab review, conversation w/ spa consultant, review of inpatient medication list Pain: upon my examination, he does not complain of significant pain. PO Intake: excellent Voiding: no voiding problems, no incontinence 85-year-old male with strep pyogenes cellulitis of the right face with 2/2 positive blood cultures for same. I saw the patient this morning, he had just finished soaking his right eye with a warm washcloth. This had effectively debrided the scab material from the right eye; the eye remains erythematous and swollen shut. He does not complain of increased pain. Problem List Medical Problems: (1) Facial cellulitis Status: Acute Review of Systems Constitutional: No chills, No fever Eyes: + problem reported ENT: No problem reported Respiratory: No cough Cardiac: No chest pain Abdomen: No diarrhea, No nausea, No pain, No vomiting Male : No dysuria, No urinary frequency Objective Vital Signs Date Time Temp Pulse Resp B/P Pulse Ox O2 Delivery O2 Flow Rate FiO2 06/10/16 09:00 Nasal Cannula 2.0 06/10/16 07:45 36.6 70 18 124/82 98 2.0 06/10/16 00:00 Nasal Cannula 2.0 06/09/16 23:45 36.7 60 16 131/65 98 Room Air 06/09/16 21:00 Room Air 06/09/16 20:38 36.7 73 18 113/73 96 Room Air 06/09/16 15:35 Nasal Cannula 2.0 06/09/16 14:52 36.5 59 18 119/73 96 Nasal Cannula 2.0 Physical Exam General Appearance: WD/WN, no apparent distress Eyes: + pertinent finding (the right eye is erythematous. There is edema consistent with yesterday. The eye is swollen shut. Today I am able to manually separate the eyelids by a few millimeters to visualize the eyeball. This does not seem to cause discomfort. He does have some mild tenderness with palpation of the right upper eyelid. There is no discharge as it was yesterday. The right eye has been debrided of scabbed material. ) Neck: supple, no adenopathy Respiratory/Chest: chest non-tender, lungs clear Cardiovascular: regular rate, rhythm Abdomen: normal bowel sounds, non tender, soft Extremities: normal range of motion, non-tender, no pedal edema Neurologic/Psychiatric: no motor/sensory deficits, alert, normal mood/affect, oriented x 3 Laboratory Results Last 24 Hours Test 06/09/16 23:20 06/10/16 07:58 Vancomycin Level Trough 8.9 mcg/ml White Blood Count 9.34 K/uL Red Blood Count 3.43 M/uL Hemoglobin 11.1 g/dL Hematocrit 33.9 % Mean Corpuscular Volume 98.8 fL Mean Corpuscular Hemoglobin 32.4 pg Mean Corpuscular Hemoglobin Concent 32.7 g/dl RDW Standard Deviation 50.7 fL RDW Coefficient of Variation 14.3 % Platelet Count 225 K/uL Mean Platelet Volume 9.8 fL Sodium Level 138 mmol/L Potassium Level 4.1 mmol/L Chloride Level 103 mmol/L Carbon Dioxide Level 29 mmol/L Anion Gap 6.0 mmol/L Blood Urea Nitrogen 11 mg/dl Creatinine 0.83 mg/dl Est Creatinine Clear Calc Drug Dose 61.8 ml/min Estimated GFR () 92.3 Estimated GFR (Non- 79.7 BUN/Creatinine Ratio 13.0 Random Glucose 110 mg/dl Calcium Level 8.7 mg/dl Assessment and Plan 85-year-old male presented to the ER with complaints of right-sided facial cellulitis involving his right eyelid which started about 6 days ago. He was treated at a hospital in [place], [facility], and family subsequent drove him to the emergency department here at [place]. Blood cultures (03/18) while at [place] had grown strep pyogenes, as did a culture from the right eye. Right sided facial cellulitis and periorbital cellulitis He is now on monotherapy with ceftriaxone. Subtle improvement, but not as quickly as I would've hoped for. A culture of the discharge was obtained yesterday and is pending. Repeat blood cultures here upon admission have been negative. Echocardiogram completed yesterday (transthoracic) not have any signs of vegetations, suspicion for endocarditis was and remains low. I added erythromycin ophthalmic ointment today We'll discuss with infectious disease. DVT proph Lovenox daily Quiescent Issues Hypercholesterolemia Simvastatin GERD Pantoprazole Hypertension Good control metoprolol succinate, enteric-coated aspirin and lasix Bladder spasm oxybutynin chloride 5 mg by mouth twice a day. Chronic diarrhea Lomotil 2 tablets by mouth 4 times a day. Prostate cancer: tamsulosin 0.4 mg by mouth at bedtime. Inflammatory bowel disease mesalamine The patient is a full code. Remains hospitalized due to for need for intravenous antibiotics as well as monitoring of his infection. Continued [facility] stay due to: multiple IV medications needed
[2016-06-10] MEDS: ERYTHROMYCIN OP OINT 1 GM PKT OP SCH ×2 (13:50→19:56)
[2016-06-10] MEDS: CEFTRIAXONE SOD INJ 2,000 MG in DEXTROSE 5% 50ML 50 ML IV SCH (13:50)
--- NOTE | 2016-06-10 14:27 | Progress Note ---
Subjective Date of Service: Jun 10, 2016. Subjective blood cultures remain negative, echo negative for veg. wbc nml. afebrile. warm compress to face. eye drainage culture negative. tolerating ctx, clinda stopped. no overnight events. Problem List Medical Problems: (1) Facial cellulitis Status: Acute Objective Vital Signs Date Time Temp Pulse Resp B/P Pulse Ox O2 Delivery O2 Flow Rate FiO2 06/10/16 09:00 Nasal Cannula 2.0 06/10/16 07:45 36.6 70 18 124/82 98 2.0 06/10/16 00:00 Nasal Cannula 2.0 06/09/16 23:45 36.7 60 16 131/65 98 Room Air 06/09/16 21:00 Room Air 06/09/16 20:38 36.7 73 18 113/73 96 Room Air 06/09/16 15:35 Nasal Cannula 2.0 06/09/16 14:52 36.5 59 18 119/73 96 Nasal Cannula 2.0 Laboratory Results Last 24 Hours Test 06/09/16 23:20 06/10/16 07:58 Vancomycin Level Trough 8.9 mcg/ml White Blood Count 9.34 K/uL Red Blood Count 3.43 M/uL Hemoglobin 11.1 g/dL Hematocrit 33.9 % Mean Corpuscular Volume 98.8 fL Mean Corpuscular Hemoglobin 32.4 pg Mean Corpuscular Hemoglobin Concent 32.7 g/dl RDW Standard Deviation 50.7 fL RDW Coefficient of Variation 14.3 % Platelet Count 225 K/uL Mean Platelet Volume 9.8 fL Sodium Level 138 mmol/L Potassium Level 4.1 mmol/L Chloride Level 103 mmol/L Carbon Dioxide Level 29 mmol/L Anion Gap 6.0 mmol/L Blood Urea Nitrogen 11 mg/dl Creatinine 0.83 mg/dl Est Creatinine Clear Calc Drug Dose 61.8 ml/min Estimated GFR () 92.3 Estimated GFR (Non- 79.7 BUN/Creatinine Ratio 13.0 Random Glucose 110 mg/dl Calcium Level 8.7 mg/dl Assessment and Plan (1) Facial cellulitis Assessment & Plan: continue with current abx, will re order clinda, would give 21 days. continue local care to face. culture from drainage ngtd. Continued [facility] stay due to: multiple IV medications needed
[2016-06-10 16:04] VITALS: O2SAT 98
[2016-06-10 16:20] VITALS: BP 123/67; PULSE 66; TEMP 36.7; O2SAT 96
[2016-06-10 19:38] VITALS: O2SAT 97
[2016-06-10] MEDS: SIMVASTATIN 20 MG TAB PO SCH (19:56)
[2016-06-10] MEDS: ASCORBIC ACID 500 MG TAB PO SCH (19:56)
[2016-06-10] MEDS: TAMSULOSIN HCL 0.4 MG CAP PO SCH (22:13)
[2016-06-10 23:08] VITALS: BP 94/53; PULSE 60; TEMP 36.8; O2SAT 97
[2016-06-11] VITALS: O2SAT 97
[2016-06-11] MEDS: CLINDAMYCIN HCL 150 MG CAP PO SCH ×3 (05:19→17:34)
[2016-06-11] MEDS: ACETAMINOPHEN 325 MG TAB PO PRN (05:20)
[2016-06-11 07:29] VITALS: BP 111/66; PULSE 62; TEMP 36.3; O2SAT 96
[2016-06-11] MEDS: FERROUS SULFATE 325 MG TAB PO SCH (08:40)
[2016-06-11] MEDS: DIPHENOXYLATE/ATROPINE 2.5/0.025MG TAB PO SCH ×4 (08:40→21:33)
[2016-06-11] MEDS: POTASSIUM CHLORIDE 20 MEQ TABCR PO SCH (08:41)
[2016-06-11] MEDS: FUROSEMIDE 40 MG TAB PO SCH (08:41)
[2016-06-11] MEDS: MULTIVITAMIN TAB PO SCH (08:41)
[2016-06-11] MEDS: PANTOprazole SOD 40 MG TAB PO SCH (08:41)
[2016-06-11] MEDS: METOPROLOL SUCC 25MG EXT REL TAB PO SCH ×2 (08:41→21:34)
[2016-06-11] MEDS: ERYTHROMYCIN OP OINT 1 GM PKT OP SCH ×3 (08:42→21:33)
[2016-06-11] MEDS: ENOXAPARIN 40 MG/0.4 ML SYR SQ SCH (08:42)
[2016-06-11] MEDS: OXYBUTYNIN CHLORIDE 5 MG TAB PO SCH ×2 (09:46→21:34)
--- NOTE | 2016-06-11 11:40 | Family Medicine Progress Note ---
Progress Note Date of Service Jun 11, 2016. Subjective Pt evaluation today including: conversation w/ patient, conversation w/ family , physical exam, chart review, lab review Pain: denies pain PO Intake: good Voiding: no voiding problems 85-year-old male admitted for right sided facial cellulitis involving the right periorbital area Denies pain today. The scabs had fallen off yesterday. The area is still " sore on touching". still unable to open eye but denies any pain on eye movement. Denies fevers /chills, chest pain, shortness of breath, palpitations Constitutional: No chills, No fever Eyes: + problem reported (right-sided facial swelling around the periorbital area), No worsening of vision Respiratory: No cough, No shortness of breath, No sputum, No wheezing Cardiovascular: No chest pain Abdomen: No nausea, No pain Musculoskeletal: No joint pain Male : No dysuria Neurologic: No memory loss, No paralysis Heme: No abnormal bleeding/bruising Medications Current Inpatient Medications Medications (Trade) Dose Ordered Sig/Desmond Route Start Time Stop Time Status Last Admin Dose Admin Acetaminophen (Tylenol Tab) 650 mg Q4H PRN PO 06/05/16 23:45 07/05/16 23:44 06/11/16 05:20 650 MG Zolpidem Tartrate (Ambien Tab) 5 mg HSZ PRN PO 06/05/16 23:45 07/05/16 23:44 Ascorbic Acid (Vitamin C Tab) 500 mg QPM PO 06/06/16 21:00 07/06/16 20:59 06/10/16 19:56 500 MG Aspirin (Ecotrin Tab) 325 mg DAILY@1200 PO 06/06/16 12:00 07/06/16 11:59 06/10/16 11:49 325 MG Cholecalciferol (Vitamin D Tab) 2,000 inter.unit DAILY@1200 PO 06/06/16 12:00 07/06/16 11:59 06/10/16 11:49 2,000 INTER.UNIT Diphenoxylate HCl/ Atropine (Lomotil Tab) 2 tab QID PO 06/06/16 09:00 07/06/16 08:59 06/11/16 08:40 2 TAB Furosemide (Lasix Tab) 40 mg QAM PO 06/06/16 09:00 07/06/16 08:59 06/11/16 08:41 40 MG Metoprolol Succinate (Toprol Xl Tab) 12.5 mg BID PO 06/06/16 09:00 07/06/16 08:59 06/11/16 08:41 12.5 MG Multivitamins (Multivitamin Tab) 1 tab DAILY PO 06/06/16 09:00 07/06/16 08:59 06/11/16 08:41 1 TAB Oxybutynin Chloride (Ditropan Tab) 5 mg BID PO 06/06/16 09:00 07/06/16 08:59 06/11/16 09:46 5 MG Potassium Chloride (Klor-Con Tab) 20 meq QAM PO 06/06/16 09:00 07/06/16 08:59 06/11/16 08:41 20 MEQ Simvastatin (Zocor Tab) 10 mg HS PO 06/06/16 21:00 07/06/16 20:59 06/10/16 19:56 10 MG Tamsulosin HCl (Flomax Cap) 0.4 mg HS PO 06/06/16 21:00 07/06/16 20:59 06/10/16 22:13 0.4 MG Ferrous Sulfate (Feosol Tab) 325 mg QAM PO 06/06/16 09:00 07/06/16 08:59 06/11/16 08:40 325 MG Pantoprazole Sodium (Protonix Tab) 40 mg QAM PO 06/06/16 09:00 07/06/16 08:59 06/11/16 08:41 40 MG Enoxaparin Sodium 40 mg 40 mg QAM SQ 06/07/16 09:00 07/07/16 08:59 06/11/16 08:42 40 MG Ceftriaxone Sodium/Dextrose (Rocephin Inj/D5 50ml) 70 ml @ 100 mls/hr Q24H IV 06/08/16 13:00 06/22/16 11:29 06/10/16 13:50 100 MLS/HR Erythromycin (Erythromycin Oph Oint) 1 appln TID OP 06/10/16 14:00 06/20/16 13:59 06/11/16 08:42 1 APPLN Clindamycin HCl (Cleocin Cap) 300 mg Q6 PO 06/10/16 18:00 06/24/16 17:59 06/11/16 05:19 300 MG Objective Vital Signs Date Time Temp Pulse Resp B/P Pulse Ox O2 Delivery O2 Flow Rate FiO2 06/11/16 09:00 Nasal Cannula 2.0 06/11/16 07:29 36.3 62 16 111/66 96 Nasal Cannula 2.0 06/11/16 00:00 97 Nasal Cannula 2.0 06/10/16 23:08 36.8 60 18 94/53 97 Nasal Cannula 2.0 06/10/16 19:38 97 Nasal Cannula 2.0 06/10/16 16:20 36.7 66 20 123/67 96 Nasal Cannula 2.0 06/10/16 16:04 98 Nasal Cannula 2.0 Physical Exam General Appearance: WD/WN, no apparent distress Eyes: + pertinent finding (right-sided periorbital area swollen with no crusted areas/scabs. TTP.) Neck: supple Respiratory/Chest: chest non-tender, lungs clear, normal breath sounds Cardiovascular: regular rate, rhythm Abdomen: normal bowel sounds, non tender, soft Extremities: no pedal edema Neurologic/Psychiatric: alert, normal mood/affect, oriented x 3 Skin: normal color Laboratory Results Test 06/11/16 06:51 Erythrocyte Sedimentation Rate 53 mm/hr (0-14) C-Reactive Protein 2.53 mg/dl (0-0.29) Assessment and Plan 85-year-old male presented to the ER with complaints of right-sided facial cellulitis involving his right eyelid which started about 6 days ago. He was treated at a hospital in [place] and he transferred care to [facility]. Blood cultures while at [place] had grown strep pyogenes. The dried crusted areas/scabs had fallen off yesterday . Still unable to open the right eye but denies any pain with eye movement. Will discuss with ID about using prednisone for decreasing the swelling Right sided facial cellulitis and periorbital cellulitis - Results obtained from [place] [facility] revealed strep pyo on wound culture and blood cultures 2 - received Zosyn, ceftriaxone and acyclovir X 3 days at outside hospital - BC negative so far - Wound culture no growth so far - ID consult -appreciate input -Transthoracic echo ordered for possible vegetations considering bacteremia while at OSH- negative for vegetations -Switched to ceftriaxone only - Erythromycin ointment in the affected eye Hypercholesterolemia - continue simvastatin. GERD: - Continue pantoprazole Hypertension - continue metoprolol succinate, enteric-coated aspirin and lasix Bladder spasm -continue oxybutynin chloride 5 mg by mouth twice a day. Chronic diarrhea -continue Lomotil 2 tablets by mouth 4 times a day. Prostate cancer: - Continue tamsulosin 0.4 mg by mouth at bedtime. Inflammatory bowel disease--continue mesalamine DVT proph - lovenox PT/OT Full code Disposition: [facility] Resident Physician Supervision Note: I was present with Dr. Spann during the history and exam. I discussed the case with the resident and agree with the findings and plan as documented in the note. Any exceptions or clarifications are listed here: 1 compared to yesterday, there seems to be interval improvement. The erythema is less intense, admissions to be less edema. I'm able to separate the upper eyelid from the lower eyelid by about 0.5 cm, which is an improvement compared to yesterday. The patient has been afebrile. She does not note any increased pain. Both blood cultures and wound culture from this facility are negative. Blood cultures and wound cultures from outside facility reported as strep pyogenes. PLAN 1) continue IV ceftriaxone 2) continue topical erythromycin ophthalmic ointment 3) given the positive blood cultures, urine extended course of antibiotics. 4) given his duration of hospitalization and need for extended antibiotics, will likely need temporary skilled placement. This was discussed with the family today and with case management previously. I would not entertain the idea discharge until the swelling has decreased enough that the eye is visible. 5) PT consult placed. Documented By: Jhony Hirsch Continued [facility] stay due to: multiple IV medications needed Resident Tracking Resident Involvement: Resident Care Provided Care Provided: Adult [facility] Medicine
[2016-06-11] MEDS: ASPIRIN 325 MG ECTAB PO SCH (12:01)
[2016-06-11] MEDS: CHOLECALCIFEROL 1000 INTER.UNIT TAB PO SCH (12:01)
[2016-06-11] MEDS: CEFTRIAXONE SOD INJ 2,000 MG in DEXTROSE 5% 50ML 50 ML IV SCH (13:11)
[2016-06-11 14:56] VITALS: BP 110/69; PULSE 49; TEMP 36.2; O2SAT 98
[2016-06-11 21:32] VITALS: BP 110/70; PULSE 67
[2016-06-11] MEDS: TAMSULOSIN HCL 0.4 MG CAP PO SCH (21:33)
[2016-06-11] MEDS: SIMVASTATIN 20 MG TAB PO SCH (21:33)
[2016-06-11] MEDS: ASCORBIC ACID 500 MG TAB PO SCH (21:34)
[2016-06-11 23:57] VITALS: BP 111/67; PULSE 65; TEMP 36.6; O2SAT 96
[2016-06-12] MEDS: CLINDAMYCIN HCL 150 MG CAP PO SCH ×5 (00:50→23:38)
[2016-06-12 06:20] LABS: HEMATOCRIT 33.7 % (42-52); MEAN CELL VOLUME 99.1 fL (80-100); MEAN CORPUSCULAR HEMOGLOBIN 32.4 pg (25-34); MEAN CORPUSCULAR HGB CONC 32.6 g/dl (32-36); MEAN PLATELET VOLUME 9.8 fL (7.4-10.4); PLATELET COUNT 273 K/uL (130-400); WHITE BLOOD COUNT 8.98 K/uL (4.8-10.8)
[2016-06-12 07:57] VITALS: BP 134/74; PULSE 63; TEMP 36.9; O2SAT 97
[2016-06-12] MEDS: POTASSIUM CHLORIDE 20 MEQ TABCR PO SCH (08:20)
[2016-06-12] MEDS: PANTOprazole SOD 40 MG TAB PO SCH (08:21)
[2016-06-12] MEDS: FERROUS SULFATE 325 MG TAB PO SCH (08:21)
[2016-06-12] MEDS: DIPHENOXYLATE/ATROPINE 2.5/0.025MG TAB PO SCH ×4 (08:21→20:19)
[2016-06-12] MEDS: FUROSEMIDE 40 MG TAB PO SCH (08:21)
[2016-06-12] MEDS: ENOXAPARIN 40 MG/0.4 ML SYR SQ SCH (08:21)
[2016-06-12] MEDS: MULTIVITAMIN TAB PO SCH (08:21)
[2016-06-12] MEDS: ERYTHROMYCIN OP OINT 1 GM PKT OP SCH ×3 (08:22→20:18)
--- NOTE | 2016-06-12 09:45 | Family Medicine Progress Note ---
Progress Note Date of Service Jun 12, 2016. Subjective Pt seen and examined at bedside. No acute events overnight. Pt feels that aching face pain around the eye has improved marginally from previous. Still unable to spontaneously open the eye. Still painful w/ touch to the face. Reports no fever, PATHAK, n/t/w, lightheadedness/dizziness, n/v/d/c Constitutional: No chills, No fatigue, No fever, No sweats Eyes: + redness, No discharge, No eye pain, No worsening of vision ENT: No dental problems, No nasal symptoms, No sore throat Respiratory: No cough, No dyspnea at rest, No shortness of breath, No wheezing Cardiovascular: No chest pain, No edema, No palpitations Medications Current Inpatient Medications Medications (Trade) Dose Ordered Sig/Desmond Route Start Time Stop Time Status Last Admin Dose Admin Acetaminophen (Tylenol Tab) 650 mg Q4H PRN PO 06/05/16 23:45 07/05/16 23:44 06/11/16 05:20 650 MG Zolpidem Tartrate (Ambien Tab) 5 mg HSZ PRN PO 06/05/16 23:45 07/05/16 23:44 Ascorbic Acid (Vitamin C Tab) 500 mg QPM PO 06/06/16 21:00 07/06/16 20:59 06/11/16 21:34 500 MG Aspirin (Ecotrin Tab) 325 mg DAILY@1200 PO 06/06/16 12:00 07/06/16 11:59 06/11/16 12:01 325 MG Cholecalciferol (Vitamin D Tab) 2,000 inter.unit DAILY@1200 PO 06/06/16 12:00 07/06/16 11:59 06/11/16 12:01 2,000 INTER.UNIT Diphenoxylate HCl/ Atropine (Lomotil Tab) 2 tab QID PO 06/06/16 09:00 07/06/16 08:59 06/12/16 08:21 2 TAB Furosemide (Lasix Tab) 40 mg QAM PO 06/06/16 09:00 07/06/16 08:59 06/12/16 08:21 40 MG Metoprolol Succinate (Toprol Xl Tab) 12.5 mg BID PO 06/06/16 09:00 07/06/16 08:59 06/11/16 21:34 12.5 MG Multivitamins (Multivitamin Tab) 1 tab DAILY PO 06/06/16 09:00 07/06/16 08:59 06/12/16 08:21 1 TAB Oxybutynin Chloride (Ditropan Tab) 5 mg BID PO 06/06/16 09:00 07/06/16 08:59 06/11/16 21:34 5 MG Potassium Chloride (Klor-Con Tab) 20 meq QAM PO 06/06/16 09:00 07/06/16 08:59 06/12/16 08:20 20 MEQ Simvastatin (Zocor Tab) 10 mg HS PO 06/06/16 21:00 07/06/16 20:59 06/11/16 21:33 10 MG Tamsulosin HCl (Flomax Cap) 0.4 mg HS PO 06/06/16 21:00 07/06/16 20:59 06/11/16 21:33 0.4 MG Ferrous Sulfate (Feosol Tab) 325 mg QAM PO 06/06/16 09:00 07/06/16 08:59 06/12/16 08:21 325 MG Pantoprazole Sodium (Protonix Tab) 40 mg QAM PO 06/06/16 09:00 07/06/16 08:59 06/12/16 08:21 40 MG Enoxaparin Sodium 40 mg 40 mg QAM SQ 06/07/16 09:00 07/07/16 08:59 06/12/16 08:21 40 MG Ceftriaxone Sodium/Dextrose (Rocephin Inj/D5 50ml) 70 ml @ 100 mls/hr Q24H IV 06/08/16 13:00 06/22/16 11:29 06/11/16 13:11 100 MLS/HR Erythromycin (Erythromycin Oph Oint) 1 appln TID OP 06/10/16 14:00 06/20/16 13:59 06/12/16 08:22 1 APPLN Clindamycin HCl (Cleocin Cap) 300 mg Q6 PO 06/10/16 18:00 06/24/16 17:59 06/12/16 06:34 300 MG Objective Vital Signs Date Time Temp Pulse Resp B/P Pulse Ox O2 Delivery O2 Flow Rate FiO2 06/12/16 07:57 36.9 63 20 134/74 97 Nasal Cannula 2.0 06/12/16 00:00 Nasal Cannula 2.0 06/11/16 23:57 36.6 65 19 111/67 96 Nasal Cannula 2.0 06/11/16 21:32 67 110/70 06/11/16 16:00 Nasal Cannula 2.0 06/11/16 14:56 36.2 49 20 110/69 98 Physical Exam General Appearance: WD/WN, no apparent distress Eyes: PERRL, + pertinent finding (significant right periorbital swelling w/ erythema and mild TTP over zygoma w/ approx 5mm of eye opening at present without pain w/ assistance) ENT: normal ENT inspection, hearing grossly normal, TMs normal, pharynx normal Neck: supple, no adenopathy Respiratory/Chest: chest non-tender, lungs clear, normal breath sounds, no respiratory distress Cardiovascular: regular rate, rhythm, no gallop, no murmur Laboratory Results 06/12/16 05:35 06/12/16 05:38 Test 06/12/16 05:35 06/12/16 05:38 Red Blood Count 3.40 M/uL (4.7-6.1) Mean Corpuscular Volume 99.1 fL (80-100) Mean Corpuscular Hemoglobin 32.4 pg (25-34) Mean Corpuscular Hemoglobin Concent 32.6 g/dl (32-36) RDW Standard Deviation 50.6 fL (36.4-46.3) RDW Coefficient of Variation 14.4 % (11.5-14.5) Mean Platelet Volume 9.8 fL (7.4-10.4) Est Creatinine Clear Calc Drug Dose 51.3 ml/min Estimated GFR () 78.6 Estimated GFR (Non- 67.8 Assessment and Plan 85 y/o male h/o prostate CA, HLD p/w R facial and periorbital cellulitis Facial and orbital cellulitis, right - TTE completed - continue ceftriaxone & erythromycin ointment - ID aware, input appreciated - ? course duration HLD - continue simvastatin GERD - continue pantoprazole HTN - continue metoprolol, ASA, lasix Bladder spasm - continue oxybutynin Chronic diarrhea - continue Lomotil Prostate CA - continue tamsulosin IBD - continue mesalamine DVT PPX - lovenox f/u PT/OT Full code
[2016-06-12] MEDS: OXYBUTYNIN CHLORIDE 5 MG TAB PO SCH ×2 (09:56→20:17)
[2016-06-12] MEDS: METOPROLOL SUCC 25MG EXT REL TAB PO SCH ×2 (09:56→20:19)
[2016-06-12] MEDS: CHOLECALCIFEROL 1000 INTER.UNIT TAB PO SCH (11:30)
[2016-06-12] MEDS: ASPIRIN 325 MG ECTAB PO SCH (11:30)
[2016-06-12] MEDS: CEFTRIAXONE SOD INJ 2,000 MG in DEXTROSE 5% 50ML 50 ML IV SCH (14:09)
[2016-06-12 15:59] VITALS: BP 135/72
[2016-06-12] MEDS: TAMSULOSIN HCL 0.4 MG CAP PO SCH (20:18)
[2016-06-12] MEDS: ASCORBIC ACID 500 MG TAB PO SCH (20:20)
[2016-06-12] MEDS: SIMVASTATIN 20 MG TAB PO SCH (20:20)
[2016-06-12 23:55] VITALS: BP 106/65; PULSE 49; TEMP 36.4; O2SAT 98
[2016-06-13 05:00] VITALS: PULSE 65
[2016-06-13] MEDS: CLINDAMYCIN HCL 150 MG CAP PO SCH ×3 (06:09→18:25)
[2016-06-13 07:17] VITALS: BP 138/73; PULSE 45; TEMP 36.6; O2SAT 98
[2016-06-13] MEDS: ERYTHROMYCIN OP OINT 1 GM PKT OP SCH ×3 (08:05→20:20)
[2016-06-13] MEDS: ENOXAPARIN 40 MG/0.4 ML SYR SQ SCH (08:05)
[2016-06-13] MEDS: FUROSEMIDE 40 MG TAB PO SCH (08:06)
[2016-06-13] MEDS: POTASSIUM CHLORIDE 20 MEQ TABCR PO SCH (08:06)
[2016-06-13] MEDS: PANTOprazole SOD 40 MG TAB PO SCH (08:06)
[2016-06-13] MEDS: METOPROLOL SUCC 25MG EXT REL TAB PO SCH ×2 (08:06→20:18)
[2016-06-13] MEDS: MULTIVITAMIN TAB PO SCH (08:06)
[2016-06-13] MEDS: DIPHENOXYLATE/ATROPINE 2.5/0.025MG TAB PO SCH ×4 (08:07→20:19)
[2016-06-13] MEDS: FERROUS SULFATE 325 MG TAB PO SCH (08:07)
[2016-06-13] MEDS: OXYBUTYNIN CHLORIDE 5 MG TAB PO SCH ×2 (08:07→20:18)
--- NOTE | 2016-06-13 10:27 | Family Medicine Progress Note ---
Progress Note Date of Service Jun 13, 2016. Subjective Pt seen and examined at bedside. No acute events overnight. Up and walking with nursing and family without difficulty. Reports improved pain in the right face and eye with less trouble with headaches than previous. Still cannot spontaneously open his eye on the right. Reports no drainage, headache, dizziness, hearing changes, earache, sinus congestion/pain, other rashes, lightheadedness, palpitations. Constitutional: No chills, No fatigue, No fever, No sweats Eyes: + eye pain, + redness, No discharge, No worsening of vision ENT: No dental problems, No hearing loss, No nasal symptoms Respiratory: No cough, No dyspnea at rest, No shortness of breath, No wheezing Cardiovascular: No PND, No chest pain, No edema, No palpitations Medications Current Inpatient Medications Medications (Trade) Dose Ordered Sig/Desmond Route Start Time Stop Time Status Last Admin Dose Admin Acetaminophen (Tylenol Tab) 650 mg Q4H PRN PO 06/05/16 23:45 07/05/16 23:44 06/11/16 05:20 650 MG Zolpidem Tartrate (Ambien Tab) 5 mg HSZ PRN PO 06/05/16 23:45 07/05/16 23:44 Ascorbic Acid (Vitamin C Tab) 500 mg QPM PO 06/06/16 21:00 07/06/16 20:59 06/12/16 20:20 500 MG Aspirin (Ecotrin Tab) 325 mg DAILY@1200 PO 06/06/16 12:00 07/06/16 11:59 06/12/16 11:30 325 MG Cholecalciferol (Vitamin D Tab) 2,000 inter.unit DAILY@1200 PO 06/06/16 12:00 07/06/16 11:59 06/12/16 11:30 2,000 INTER.UNIT Diphenoxylate HCl/ Atropine (Lomotil Tab) 2 tab QID PO 06/06/16 09:00 07/06/16 08:59 06/13/16 08:07 2 TAB Furosemide (Lasix Tab) 40 mg QAM PO 06/06/16 09:00 07/06/16 08:59 06/13/16 08:06 40 MG Metoprolol Succinate (Toprol Xl Tab) 12.5 mg BID PO 06/06/16 09:00 07/06/16 08:59 06/13/16 08:06 12.5 MG Multivitamins (Multivitamin Tab) 1 tab DAILY PO 06/06/16 09:00 07/06/16 08:59 06/13/16 08:06 1 TAB Oxybutynin Chloride (Ditropan Tab) 5 mg BID PO 06/06/16 09:00 07/06/16 08:59 06/13/16 08:07 5 MG Potassium Chloride (Klor-Con Tab) 20 meq QAM PO 06/06/16 09:00 07/06/16 08:59 06/13/16 08:06 20 MEQ Simvastatin (Zocor Tab) 10 mg HS PO 06/06/16 21:00 07/06/16 20:59 06/12/16 20:20 10 MG Tamsulosin HCl (Flomax Cap) 0.4 mg HS PO 06/06/16 21:00 07/06/16 20:59 06/12/16 20:18 0.4 MG Ferrous Sulfate (Feosol Tab) 325 mg QAM PO 06/06/16 09:00 07/06/16 08:59 06/13/16 08:07 325 MG Pantoprazole Sodium (Protonix Tab) 40 mg QAM PO 06/06/16 09:00 07/06/16 08:59 06/13/16 08:06 40 MG Enoxaparin Sodium 40 mg 40 mg QAM SQ 06/07/16 09:00 07/07/16 08:59 06/13/16 08:05 40 MG Ceftriaxone Sodium/Dextrose (Rocephin Inj/D5 50ml) 70 ml @ 100 mls/hr Q24H IV 06/08/16 13:00 06/22/16 11:29 06/12/16 14:09 100 MLS/HR Erythromycin (Erythromycin Oph Oint) 1 appln TID OP 06/10/16 14:00 06/20/16 13:59 06/13/16 08:05 1 APPLN Clindamycin HCl (Cleocin Cap) 300 mg Q6 PO 06/10/16 18:00 06/24/16 17:59 06/13/16 06:09 300 MG Objective Vital Signs Date Time Temp Pulse Resp B/P Pulse Ox O2 Delivery O2 Flow Rate FiO2 06/13/16 08:00 Nasal Cannula 2.0 06/13/16 07:17 36.6 45 20 138/73 98 Nasal Cannula 2.0 06/13/16 05:00 65 06/12/16 23:59 Nasal Cannula 2.0 06/12/16 23:55 36.4 49 20 106/65 98 Nasal Cannula 2.0 06/12/16 16:00 Nasal Cannula 2.0 06/12/16 15:59 135/72 Physical Exam General Appearance: WD/WN, no apparent distress Eyes: PERRL, + pertinent finding (improved swelling of the right face/eye with decreased erythema and tension. No apparent discharge/drainage. Still cannot open eye without assist. On assist, opens ~5mm) ENT: normal ENT inspection, hearing grossly normal, pharynx normal Neck: supple, no adenopathy, trachea midline Respiratory/Chest: chest non-tender, lungs clear, normal breath sounds, no respiratory distress, no accessory muscle use Assessment and Plan 85 y/o male h/o prostate CA, HLD p/w R facial and periorbital cellulitis Facial and orbital cellulitis, right - TTE completed - improving gradually - continue ceftriaxone & erythromycin ointment - ID aware, input appreciated - ? course duration HLD - continue simvastatin GERD - continue pantoprazole HTN - continue metoprolol, ASA, lasix Bladder spasm - continue oxybutynin Chronic diarrhea - continue Lomotil Prostate CA - continue tamsulosin IBD - continue mesalamine DVT PPX - lovenox PT/OT onboard Full code
[2016-06-13] MEDS: ASPIRIN 325 MG ECTAB PO SCH (13:11)
[2016-06-13] MEDS: CHOLECALCIFEROL 1000 INTER.UNIT TAB PO SCH (13:11)
[2016-06-13] MEDS: CEFTRIAXONE SOD INJ 2,000 MG in DEXTROSE 5% 50ML 50 ML IV SCH (13:16)
[2016-06-13 14:56] VITALS: BP 136/83; PULSE 68; TEMP 36.4; O2SAT 95
[2016-06-13] MEDS: SIMVASTATIN 20 MG TAB PO SCH (20:18)
[2016-06-13] MEDS: TAMSULOSIN HCL 0.4 MG CAP PO SCH (20:19)
[2016-06-13] MEDS: ASCORBIC ACID 500 MG TAB PO SCH (20:19)
[2016-06-14] VITALS: O2SAT 97
[2016-06-14 00:12] VITALS: BP 124/64; PULSE 70; TEMP 36.8; O2SAT 97
[2016-06-14] MEDS: CLINDAMYCIN HCL 150 MG CAP PO SCH ×5 (00:29→23:57)
[2016-06-14] MEDS: ACETAMINOPHEN 325 MG TAB PO PRN (04:54)
[2016-06-14] MEDS: ERYTHROMYCIN OP OINT 1 GM PKT OP SCH ×3 (07:33→20:49)
[2016-06-14] MEDS: ENOXAPARIN 40 MG/0.4 ML SYR SQ SCH (07:34)
[2016-06-14 07:35] VITALS: BP 91/57; PULSE 62; TEMP 36.8; O2SAT 98
[2016-06-14 07:35] LABS: BASO % 0.6 %; BASO ABS # 0.05 K/uL (0-0.2); COMPLETE YES; EOS % 2.5 %; HEMATOCRIT 33.2 % (42-52); IG% 0.6 %; LYMPH % 24.6 %; LYMPH ABS # 1.94 K/uL (1.2-3.4); MEAN CORPUSCULAR HEMOGLOBIN 32.8 pg (25-34); MEAN CORPUSCULAR HGB CONC 32.8 g/dl (32-36); MEAN PLATELET VOLUME 10.1 fL (7.4-10.4); MONO % 10.9 %; NEUT % 60.8 %; PLATELET COUNT 285 K/uL (130-400); RED BLOOD COUNT 3.32 M/uL (4.7-6.1); WHITE BLOOD COUNT 7.89 K/uL (4.8-10.8)
[2016-06-14] MEDS: OXYBUTYNIN CHLORIDE 5 MG TAB PO SCH ×2 (07:35→20:51)
[2016-06-14] MEDS: MULTIVITAMIN TAB PO SCH (07:35)
[2016-06-14] MEDS: METOPROLOL SUCC 25MG EXT REL TAB PO SCH ×2 (07:35→20:52)
[2016-06-14] MEDS: DIPHENOXYLATE/ATROPINE 2.5/0.025MG TAB PO SCH ×4 (07:35→20:51)
[2016-06-14] MEDS: FUROSEMIDE 40 MG TAB PO SCH (07:36)
[2016-06-14] MEDS: POTASSIUM CHLORIDE 20 MEQ TABCR PO SCH (07:36)
[2016-06-14] MEDS: PANTOprazole SOD 40 MG TAB PO SCH (07:36)
[2016-06-14] MEDS: FERROUS SULFATE 325 MG TAB PO SCH (07:36)
[2016-06-14] MEDS: CEFTRIAXONE SOD INJ 2,000 MG in DEXTROSE 5% 50ML 50 ML IV SCH (11:56)
[2016-06-14] MEDS: CHOLECALCIFEROL 1000 INTER.UNIT TAB PO SCH (11:57)
[2016-06-14] MEDS: ASPIRIN 325 MG ECTAB PO SCH (11:57)
--- NOTE | 2016-06-14 13:24 | Progress Note ---
Subjective Date of Service: June 14, 2016. Subjective Pt evaluation today including: conversation w/ patient, physical exam, chart review, lab review, review of studies, review of inpatient medication list Reports soreness on right face no worsening pain no fevers or chills or acute events overnight Problem List Medical Problems: (1) Facial cellulitis Status: Acute Review of Systems Constitutional: No chills, No fever Eyes: + problem reported (right perioribtal cellulitis), No eye pain Respiratory: No cough, No dyspnea on exertion, No shortness of breath, No sputum, No wheezing Cardiac: No chest pain, No orthopnea Abdomen: No constipation, No diarrhea, No nausea, No pain, No vomiting Musculoskeletal: No joint pain, No muscle pain Male : No dysuria, No urinary frequency Objective Vital Signs Date Time Temp Pulse Resp B/P Pulse Ox O2 Delivery O2 Flow Rate FiO2 06/14/16 08:00 Nasal Cannula 2.0 06/14/16 07:35 36.8 62 18 91/57 98 Room Air 91/57 06/14/16 00:12 36.8 70 18 124/64 97 2.0 06/14/16 00:00 97 Nasal Cannula 2.0 06/13/16 20:00 Nasal Cannula 2.0 06/13/16 15:15 Nasal Cannula 2.0 06/13/16 14:56 36.4 68 20 136/83 95 Nasal Cannula 2.0 Physical Exam General Appearance: WD/WN, no apparent distress Eyes: PERRL, + pertinent finding (righ facial, periorbital tenderness, less redness) Neck: supple, no adenopathy Respiratory/Chest: lungs clear, normal breath sounds Cardiovascular: no edema, no gallop Abdomen: non tender, soft, no organomegaly Neurologic/Psychiatric: alert, normal mood/affect Laboratory Results Last 24 Hours Test 06/14/16 06:42 White Blood Count 7.89 K/uL Red Blood Count 3.32 M/uL Hemoglobin 10.9 g/dL Hematocrit 33.2 % Mean Corpuscular Volume 100.0 fL Mean Corpuscular Hemoglobin 32.8 pg Mean Corpuscular Hemoglobin Concent 32.8 g/dl Platelet Count 285 K/uL Mean Platelet Volume 10.1 fL Neutrophils (%) (Auto) 60.8 % Lymphocytes (%) (Auto) 24.6 % Monocytes (%) (Auto) 10.9 % Eosinophils (%) (Auto) 2.5 % Basophils (%) (Auto) 0.6 % Neutrophils # (Auto) 4.79 K/uL Lymphocytes # (Auto) 1.94 K/uL Monocytes # (Auto) 0.86 K/uL Eosinophils # (Auto) 0.20 K/uL Basophils # (Auto) 0.05 K/uL RDW Standard Deviation 52.6 fL RDW Coefficient of Variation 14.5 % Immature Granulocyte % (Auto) 0.6 % Immature Granulocyte # (Auto) 0.05 K/uL Assessment and Plan 85 y/o male h/o prostate CA, HLD p/w R facial and periorbital cellulitis Facial and orbital cellulitis, right - TTE completed - improving gradually Cont clindamycin for 21 days total. DC rocephin. No worsening pain, fevers or leukocytosis. Appreciate ID recs at this time HLD - continue simvastatin GERD - continue pantoprazole HTN - continue metoprolol, ASA, lasix Bladder spasm - continue oxybutynin Chronic diarrhea - continue Lomotil Prostate CA - continue tamsulosin IBD - continue mesalamine DVT PPX - lovenox Full code Continued [facility] stay due to: multiple IV medications needed
[2016-06-14 15:33] VITALS: BP 127/80; PULSE 65; TEMP 36.5; O2SAT 98
[2016-06-14 16:00] VITALS: O2SAT 98
[2016-06-14 20:51] VITALS: BP 113/58; PULSE 65
[2016-06-14] MEDS: SIMVASTATIN 20 MG TAB PO SCH (20:52)
[2016-06-14] MEDS: TAMSULOSIN HCL 0.4 MG CAP PO SCH (20:53)
[2016-06-14] MEDS: ASCORBIC ACID 500 MG TAB PO SCH (20:53)
[2016-06-15 00:05] VITALS: BP 109/65; PULSE 54; TEMP 36.3; O2SAT 97
[2016-06-15] MEDS: CLINDAMYCIN HCL 150 MG CAP PO SCH ×2 (06:17→13:41)
[2016-06-15 07:06] LABS: HEMATOCRIT 34.6 % (42-52); MEAN CELL VOLUME 99.7 fL (80-100); MEAN CORPUSCULAR HEMOGLOBIN 32.9 pg (25-34); MEAN CORPUSCULAR HGB CONC 32.9 g/dl (32-36); PLATELET COUNT 299 K/uL (130-400); RED BLOOD COUNT 3.47 M/uL (4.7-6.1); WHITE BLOOD COUNT 9.72 K/uL (4.8-10.8)
[2016-06-15 07:31] VITALS: BP 115/72; PULSE 50; TEMP 36.4; O2SAT 99
[2016-06-15 07:39] LABS: CREATININE 1.1 mg/dl (0.60-1.40)
[2016-06-15] MEDS: OXYBUTYNIN CHLORIDE 5 MG TAB PO SCH (07:49)
[2016-06-15] MEDS: ERYTHROMYCIN OP OINT 1 GM PKT OP SCH ×2 (07:49→13:41)
[2016-06-15] MEDS: FERROUS SULFATE 325 MG TAB PO SCH (07:49)
[2016-06-15] MEDS: DIPHENOXYLATE/ATROPINE 2.5/0.025MG TAB PO SCH ×2 (07:49→13:41)
[2016-06-15] MEDS: PANTOprazole SOD 40 MG TAB PO SCH (07:50)
[2016-06-15] MEDS: MULTIVITAMIN TAB PO SCH (07:50)
[2016-06-15] MEDS: METOPROLOL SUCC 25MG EXT REL TAB PO SCH (07:50)
[2016-06-15] MEDS: FUROSEMIDE 40 MG TAB PO SCH (07:50)
[2016-06-15] MEDS: POTASSIUM CHLORIDE 20 MEQ TABCR PO SCH (07:51)
[2016-06-15] MEDS: ENOXAPARIN 40 MG/0.4 ML SYR SQ SCH (07:51)
[2016-06-15 08:00] VITALS: O2SAT 99
[2016-06-15] MEDS ORDERED: CLC150 PO (10:25)
[2016-06-15] MEDS ORDERED: ERYOPO TOP (10:25)
--- NOTE | 2016-06-15 10:29 | Discharge Instructions ---
Discharge Instructions Date of Service June 15, 2016. Admission Reason for Admission: Cellulitis And Abscess On Face Discharge Discharge Diagnosis / Problem: Facial cellulitis Discharge Goals Goal(s): Decrease discomfort, Improve function, Increase independence, Improve disease control, Learn about illness, Diagnostic testing, Prevent Disease Progression Activity Recommendations Activity Limitations: resume your previous activity Exercise/Sports Limitations: none Shower/Bathe: no limitations . Instructions / Follow-Up Instructions / Follow-Up Patient diagnosed with facial cellulitis Patient to be discharged home Please take antibiotic clindamycin (300mg) tablet four times a day for next 15 days Also prescribed antibiotic ointment erythromycin which can be taken up to 4 times a day to affected eye, please take as directed Prescriptions sent electronically to pharmacy If worsening eye pain, blurriness, redness or swelling please report to ER Follow up with Teresa Thomas in 1-2 weeks Current Hospital Diet Patient's current hospital diet: Regular Diet Discharge Diet Recommended Diet: Regular Diet Pending Studies Studies pending at discharge: no Medical Emergencies . Who to Call and When: Medical Emergencies: If at any time you feel your situation is an emergency, please call 911 immediately. . Non-Emergent Contact Non-Emergency issues call your: Primary Care Provider Call Non-Emergent contact if: you have a fever, your pain is worsening . . "Provider Documentation" section prepared by Francisco Beltre. . VTE Core Measure Inpt VTE Proph given/why not?: SCD's
[2016-06-15 10:33] VITALS: BP 115/72; PULSE 50; TEMP 36.4; O2SAT 99
[2016-06-15] MEDS: CEFTRIAXONE SOD INJ 2,000 MG in DEXTROSE 5% 50ML 50 ML IV SCH (12:30)
--- NOTE | 2016-06-15 12:53 | Discharge Summary ---
Discharge Summary Date of Service June 15, 2016. Discharge Summary Admission Date: Jun 05, 2016 at 23:37 Discharge Date: June 15, 2016 Discharge Disposition: Home Principal Diagnosis: Facial cellulitis Consultations: ID Medication Reconciliation New Medications: Erythromycin Opth (Erythromycin Opth) 12 Appln/3.5 Gm Oint 1 CM TOP Q6, #3 BOX Clindamycin HCl (Clindamycin HCl) 150 Mg Cap 300 MG PO Q6 for 15 Days, #60 CAP Continued Medications: Albuterol Sulf (Proventil 0.083% 2.5MG/3ML) 2.5 Mg/3 Ml Nebu 2.5 MG INH Q6 PRN for Wheezing, EA Ascorbic Acid (Ascorbic Acid) 500 Mg Tab 500 MG PO QPM Aspirin (Aspirin Ec) 325 Mg Tab 325 MG PO NOON Bismuth Subsalicylate (Pepto Bismol Chew Tab) 262 Mg Tab 2 TAB PO BID, TAB Cholecalciferol (Vitamin D3) 1,000 Unit Tab 2 TABS PO NOON Diphenoxylate/Atropine (Lomotil) Tab 2 TABS PO QID Ferrous Sulfate (Ferrous Sulfate) 325 Mg Tab 325 MG PO QAM Furosemide (Lasix) 40 Mg Tab 40 MG PO QAM, TAB Leuprolide Acetate (Lupron Depot) 22.5 Mg Kit 1 DOSE IM q6 months Loratadine (Claritin) 10 Mg Tab 10 MG PO DAILY, TAB Meloxicam (Mobic) 15 Mg Tab 15 MG PO DAILY, TAB Mesalamine (Asacol Hd) 800 Mg Tab 800 MG PO TID Metoprolol Succ (Toprol Xl) (Toprol-Xl) 25 Mg Tabcr 0.5 MG PO BID Multivitamin (Multivitamin) Tab 1 TAB PO NOON, TAB Omeprazole (Prilosec) 20 Mg Capcr 20 MG PO QAM, CAP Oxybutynin Chloride (Ditropan) 5 Mg Tab 5 MG PO BID Potassium Ext Rel (Klor-Con) 20 Meq Tabcr 20 MEQ PO QAM Simvastatin (Zocor) 20 Mg Tab 0.5 TAB PO HS Tamsulosin Hcl (Flomax) 0.4 Mg Cap 0.4 MG PO HS Discharge Exam Review of Systems: Constitutional: No chills, No fever Eyes: No diplopia, No discharge, No eye pain, No redness, No worsening of vision ENT: No nasal symptoms, No sore throat, No tinnitus, No unusual epistaxis Respiratory: No cough, No sputum Cardiovascular: No chest pain, No orthopnea Abdomen: No diarrhea, No nausea, No pain, No vomiting Musculoskeletal: No joint pain, No muscle pain Genitourinary - Male: No dysuria, No hematuria Psychiatric: No anxiety, No depression symptoms Endocrine: No excessive thirst, No fatigue Physical Exam: General Appearance: WD/WN, no apparent distress Eyes: PERRL, EOMI Neck: supple, no adenopathy Respiratory/Chest: lungs clear, normal breath sounds Cardiovascular: no edema, no gallop Abdomen / GI: non tender, soft Neurologic/Psychiatric: alert, oriented x 3 Skin: normal color, warm/dry Hospital Course 85 y/o male h/o prostate CA, HLD p/w R facial and periorbital cellulitis Facial and orbital cellulitis, right - improving gradually on rocephin, ID consulted and switched to clindamycin. Cont clindamycin for 21 days total in addition to erythromycin ointment to affected eye. DC rocephin. No worsening pain, fevers or leukocytosis. Blood and wound cx neg HLD - continue simvastatin GERD - continue pantoprazole HTN - continue metoprolol, ASA, lasix Bladder spasm - continue oxybutynin Chronic diarrhea - continue Lomotil Prostate CA - continue tamsulosin IBD - continue mesalamine DVT PPX - lovenox Full code Total Time Spent: Greater than 30 minutes This includes examination of the patient, discharge planning, medication reconciliation, and communication with other providers. Discharge Instructions Please refer to the electronic Patient Visit Report (Discharge Instructions) for additional information. Additional Copies To Kayleen Thomas
[2016-06-15] MEDS: ASPIRIN 325 MG ECTAB PO SCH (13:40)
[2016-06-15] MEDS: CHOLECALCIFEROL 1000 INTER.UNIT TAB PO SCH (13:41)
== END 2016-06-15 15:52 | disposition home health service (06) | DRG 603 ==
LOC: ENRESERVTM → ENRESERVDT → C.EDB 21:08 → C.MS2W 23:37
PROVIDERS: ADMIT Hospitalist; ATTEND Hospitalist
DX: L03.211 Cellulitis of face (principal); E78.5 Hyperlipidemia, unspecified; I10 Essential (primary) hypertension; I48.91 Unspecified atrial fibrillation; Z79.82 Long term (current) use of aspirin; K21.9 Gastro-esophageal reflux disease without esophagitis; N32.89 Other specified disorders of bladder; C61 Malignant neoplasm of prostate; K58.9 Irritable bowel syndrome, unspecified; R19.7 Diarrhea, unspecified; E87.6 Hypokalemia

== ENCOUNTER 2016-08-29 16:08 | Inpatient (IN) | payer OTHER ==
[~2016-08-29] VITALS: Ht 167.6 cm; Wt 81.8 kg
[~2016-08-29 16:08] MED LIST changes: +ALBINS/ INH; +BISM262T3 PO; +CLC150 PO; +CLR10 PO; -DTR/5 PO; +ERYOPO TOP; -FERR1TAB13 PO; +FERR325T PO; +LEUP1INJ15 IM; +MELO15TA10 PO; +MESA800T5 PO; +OXYB5TAB74 PO
[2016-08-29 18:43] VITALS: BP 122/85; PULSE 77; TEMP 36.5; O2SAT 92; Ht 167.6 cm; Wt 81.8 kg
[2016-08-29] MEDS ORDERED: MAGNESIUM HYDROXIDE SUSP 30 ML UDC PO PRN ×2 (18:45→19:00)
[2016-08-29] MEDS ORDERED: BISACODYL 10 MG SUPP PR PRN (18:45)
[2016-08-29] MEDS ORDERED: ACETAMINOPHEN 325 MG TAB PO PRN ×2 (18:45→19:00)
[2016-08-29] MEDS ORDERED: SOD PHOSPHATE/SOD BIPHOSPHATE ENEMA 132 ML BTL PR PRN (18:45)
[2016-08-29] MEDS ORDERED: HYDROmorphone INJ 0.5 MG/0.5 ML SYR IV PRN (18:45)
[2016-08-29] MEDS ORDERED: POLYETHYLENE (MIRALAX) 17 GM PACK PO PRN ×2 (18:45→19:00)
[2016-08-29] MEDS ORDERED: NALOXONE HCL 0.4 MG/1 ML VIAL/CARP IV PRN (18:45)
--- NOTE | 2016-08-29 18:54 | History and Physical ---
History & Physical Date Aug 29, 2016. Chief Complaint Left hip pain History of Present Illness The patient is a 85 year old male with complaints of left hip pain. Was standing on a 2-3 foot rolling stool slipped and fell off injuring his left hip. Hethat he cannot walk on his left leg. He lies in bed with his leg slightly abducted externally rotated and shortened. He denies any other problems. He denies any headache shortness breath fever chills nausea vomiting or headache. Past Medical/Surgical History Medical Problems: (1) Cellulitis and abscess of face (2) HLD (hyperlipidemia) (3) HTN (hypertension) #4 abdominal aortic aneurysm #5 atrial fibrillation Additional History Hepatic Disease: No Endocrine Disorder: No Kidney Disease: Hypertension: Heart Disease: Yes Bleeding Tendencies: No Infectious Diseases: No Allergies Coded Allergies: No Known Allergies (Verified , 03/05/16) Home Medications Scheduled Ascorbic Acid (Ascorbic Acid), 500 MG PO QPM Aspirin (Aspirin Ec), 325 MG PO NOON Bismuth Subsalicylate (Pepto Bismol Chew Tab), 2 TAB PO BID Cholecalciferol (Vitamin D3), 2 TABS PO NOON Clindamycin HCl (Clindamycin HCl), 300 MG PO Q6 Diphenoxylate/Atropine (Lomotil), 2 TABS PO QID Erythromycin Opth (Erythromycin Opth), 1 CM TOP Q6 Ferrous Sulfate (Ferrous Sulfate), 325 MG PO QAM Furosemide (Lasix), 40 MG PO QAM Leuprolide Acetate (Lupron Depot), 1 DOSE IM q6 months Loratadine (Claritin), 10 MG PO DAILY Meloxicam (Mobic), 15 MG PO DAILY Mesalamine (Asacol Hd), 800 MG PO TID Metoprolol Succ (Toprol Xl) (Toprol-Xl), 0.5 MG PO BID Multivitamin (Multivitamin), 1 TAB PO NOON Omeprazole (Prilosec), 20 MG PO QAM Oxybutynin Chloride (Ditropan), 5 MG PO BID Potassium Ext Rel (Klor-Con), 20 MEQ PO QAM Simvastatin (Zocor), 0.5 TAB PO HS Tamsulosin Hcl (Flomax), 0.4 MG PO HS Scheduled PRN Albuterol Sulf (Proventil 0.083% 2.5MG/3ML), 2.5 MG INH Q6 PRN for Wheezing Physical Examination Skin: warm/dry Eyes: normal inspection ENT: normal ENT inspection Head: normocephalic Neck: supple, no adenopathy Respiratory/Chest: lungs clear Cardiovascular: no murmur, + irregularly irregular Abdomen / GI: normal bowel sounds Extremities: + pertinent finding (left shortened/exterally rotated) Neurologic/Psych: no motor/sensory deficits Diagnosis Left 4 part intertrochanteric hip fracture We'll need medical clearance. Laboratory work within acceptable limits. Nothing by mouth after midnight. Hibiclens scrub. DVT prophylaxis with SCDs and not start heparin per medicine postop. To much of a risk for Coumadin based on falling. Perioperative Ancef ordered. Plan of Treatment See above.
[2016-08-29] MEDS ORDERED: ALBUTEROL 0.083% NEBU SOLN 3 ML VIAL INH PRN (19:00)
[2016-08-29] MEDS ORDERED: ONDANSETRON INJ 2 MG/ML 2 ML VIAL IV PRN (19:00)
[2016-08-29] MEDS ORDERED: PANTOprazole SOD 40 MG TAB PO STA (19:00)
[2016-08-29] MEDS ORDERED: ALUMINUM/MAGNESIUM/SIMETH (MAALOX MAX) 30 ML UDC PO PRN (19:00)
[2016-08-29 19:11] LABS: MEAN CELL VOLUME 98.4 fL (80-100); MEAN CORPUSCULAR HGB CONC 33.5 g/dl (32-36); MEAN PLATELET VOLUME 9.7 fL (7.4-10.4); PLATELET COUNT 133 K/uL (130-400); RED BLOOD COUNT 3.76 M/uL (4.7-6.1); WHITE BLOOD COUNT 10.09 K/uL (4.8-10.8)
[2016-08-29 19:18] LABS: ALT/SGPT 27 U/L (12-78); BLOOD UREA NITROGEN 18 mg/dl (7-18); BUN/CREATININE RATIO 18.1 (10-20); CALCIUM 8.5 mg/dl (8.5-10.1); CARBON DIOXIDE 23 mmol/L (21-32); CHLORIDE 107 mmol/L (98-107); GLUCOSE 121 mg/dl (70-99); POTASSIUM 4.7 mmol/L (3.5-5.1); SODIUM 140 mmol/L (136-145)
[2016-08-29 19:21] LABS: ALB/GLOB RATIO 1.2 (0.9-2); ALKALINE PHOSPHATASE 81 U/L (45-117); AST/SGOT 26 U/L (15-37)
[2016-08-29] MEDS ORDERED: PATIENT'S HEIGHT AND/OR WEIGHT NEEDED SCH (19:30)
--- NOTE | 2016-08-29 19:30 | History and Physical ---
History & Physical Date & Time of Service: Aug 29, 2016 at 19:07 Chief Complaint: Acute Left Hip Fracture Primary Care Physician: Kayleen Thomas History of Present Illness Source: patient 85 y/o M Hx chronic AF, AAA, HTN, prostata CA, UC. Pt suffered a mechanical fall and sustained a L intertrochanteric fracture. He was initially at [facility] and transferred to [facility] for evaluation by orthopedics. He is scheduled to undergo surgery AM. The pt denies symptoms preceding his fall such as lightheadedness, palpitations , CP, SOB. Past Medical/Surgical History 1) HTN 2) Chronic AF - has declined anticoagualtion 3) HPL 4) Abdominal and thoracic aneurysms - Has declined intervention 5) Prostate CA 6) UC Family History No pertinent family history Social History Smoking Status: Never Smoker Drug Use: none Occupational Status: retired Multi-Drug Resistant Organisms History of MDRO: No Allergies Coded Allergies: No Known Allergies (Verified , 03/05/16) Home Medications Scheduled Ascorbic Acid (Ascorbic Acid), 500 MG PO QPM Aspirin (Aspirin Ec), 325 MG PO NOON Bismuth Subsalicylate (Pepto Bismol Chew Tab), 2 TAB PO BID Cholecalciferol (Vitamin D3), 2 TABS PO NOON Clindamycin HCl (Clindamycin HCl), 300 MG PO Q6 Diphenoxylate/Atropine (Lomotil), 2 TABS PO QID Erythromycin Opth (Erythromycin Opth), 1 CM TOP Q6 Ferrous Sulfate (Ferrous Sulfate), 325 MG PO QAM Furosemide (Lasix), 40 MG PO QAM Leuprolide Acetate (Lupron Depot), 1 DOSE IM q6 months Loratadine (Claritin), 10 MG PO DAILY Meloxicam (Mobic), 15 MG PO DAILY Mesalamine (Asacol Hd), 800 MG PO TID Metoprolol Succ (Toprol Xl) (Toprol-Xl), 0.5 MG PO BID Multivitamin (Multivitamin), 1 TAB PO NOON Omeprazole (Prilosec), 20 MG PO QAM Oxybutynin Chloride (Ditropan), 5 MG PO BID Potassium Ext Rel (Klor-Con), 20 MEQ PO QAM Simvastatin (Zocor), 0.5 TAB PO HS Tamsulosin Hcl (Flomax), 0.4 MG PO HS Scheduled PRN Albuterol Sulf (Proventil 0.083% 2.5MG/3ML), 2.5 MG INH Q6 PRN for Wheezing Review of Systems Constitutional: No fever, No chills, No sweats Eyes: No worsening of vision ENT: No hearing loss, No unusual epistaxis Respiratory: No cough, No sputum, No wheezing, No shortness of breath, No dyspnea on exertion Cardiovascular: No chest pain, No orthopnea Abdomen: No pain, No nausea, No vomiting Musculoskeletal: + joint pain (Hip pain at fracture ite) Genitourinary - Male: No hematuria, No dysuria, No urinary frequency Neurologic: No memory loss, No paralysis Psychiatric: No depression symptoms Endocrine: No fatigue Hematologic / Lymphatic: No abnormal bleeding/bruising Integumentary: No rash Physical Exam General Appearance: WD/WN, no apparent distress Head: normocephalic Eyes: normal inspection ENT: normal ENT inspection, pharynx normal Neck: supple, no JVD Respiratory/Chest: chest non-tender, lungs clear, normal breath sounds Cardiovascular: no edema, no gallop, no JVD, + irregularly irregular Abdomen/GI: normal bowel sounds, non tender, soft, no organomegaly Back: normal inspection, no CVA tenderness, no muscle spasm Extremities/Musculoskelatal: no calf tenderness, normal capillary refill, + pertinent finding (LLE shotened and rotated) Neurologic/Psych: learning design specialist II-XII nml as tested, no motor/sensory deficits, alert, normal mood/affect, normal reflexes, oriented x 3 Skin: normal color, warm/dry, no rash Diagnostics Laboratory Results Results Past 24 Hours Test 08/29/16 18:42 Range/Units Microbiology Results 08/29/16 MRSA DNA Surveillance Screen, Herman Batch Pending Diagnostic Radiology L intertrochanteric fracture Impression Assessment and Plan 85 y/o M Hx chronic AF, AAA, HTN, prostate CA. Pt suffered a mechanical fall and sustained a L intertrochanteric fracture. He was initially at [facility] and transferred to [facility] for evaluation by orthopedics. He is scheduled to undergo surgery AM. The pt denies symptoms preceding his fall such as lightheadedness, palpitations , CP, SOB. 1) L intertrochanteric fracture - Pt will likely proceed to the OR in the AM. He had an echo at our facility 05/31 which did not show any significant dysfunction. His risk, strictly per his RCRI he is 0.4%. He does not have a reported coagulopathy or history of surgical complications. He is active and denies exertional dyspnea. We will hold his diuretics and he can continue the majority of his home medications - as ordered by the medical service - perioperatively. 2) AF - ASA held - has refused anticoagulation in past although he should receive prophylaxis post-op regardless - cont B enrique for rate control. 3) HPL - cont Zocor 4) UC - cont Asacol following post-op labs 5) HTN - Cont Toprol 6) BPH, prostate CA - receives Lupron - cont Flomax rosemarie-op 7) AAA, thoracic aneurysm - has declined intervention - BP and rate control should be optimized rosemarie-op - cont Toprol - he is aware we do not have appropriate services to deal with emergent rupture in house. Full code - Heparin prophylaxis recommended post-op Total time for this admit including review of labs, meds, records EKG - discussion with attending at [facility] and pt - 36 min VTE Prophylaxis VTE Risk Assessment Done? Y/N: Yes Risk Level: Moderate
[2016-08-29] MEDS ORDERED: METOPROLOL SUCC 25MG EXT REL TAB PO SCH (21:00)
[2016-08-29] MEDS: DOCUSATE SODIUM/SENNA 50/8.6MG TAB PO SCH (21:00)
[2016-08-29] MEDS ORDERED: BISMUTH SUBSALICYLATE 262 MG CHEW PO PRN (21:00)
[2016-08-29] MEDS ORDERED: TAMSULOSIN HCL 0.4 MG CAP PO SCH (21:00)
[2016-08-29] MEDS ORDERED: SIMVASTATIN 10 MG TAB PO SCH (21:00)
[2016-08-29] MEDS: D5W AND 1/2NSS 1,000 ML IV SCH (21:15)
[2016-08-29] MEDS: TAMSULOSIN HCL 0.4 MG CAP PO SCH (21:16)
[2016-08-29] MEDS: OXYBUTYNIN CHLORIDE 5 MG TAB PO SCH (21:16)
[2016-08-29] MEDS: SIMVASTATIN 20 MG TAB PO SCH (21:17)
--- NOTE | 2016-08-29 21:21 | Anesthesiology Progress Note ---
Anesthesia Progress Note Date of Service Aug 29, 2016. Progress Notes Pt is scheduled for L hip surgery on 08/30/16. Pt is an 85M who had a mechanical fall today. The pt has a h/o chronic afib, AAA, TAA, HTN, hyperlipidemia, MANNY, ulcerative colitis, recent facial cellulitis, L foot drop, prostate ca, BPH, GERD. Pt has good functional status, 4 METs. The pt had a recent echo on showing EF 55-60%, mild LVH, and mild AR dilatation. I spoke with Dr. Michelle , and the pt will be getting an abdominal ultrasound to ascertain the approximate size of his AAA. Due to the nature of his injury, the pt is an acceptable candidate for spinal vs. general anesthesia +/- arterial line. Consent was obtained from the patient. All questions and concerns were addressed.
--- NOTE | 2016-08-29 22:07 | DIAGNOSTIC IMAGING REPORT ---
AORTIC ANEURYSM RETRO NIKITA CLINICAL HISTORY: Known AAA ?size, preop for surgery in morning TECHNIQUE: Ultrasound COMPARISON STUDY: None FINDINGS: Moderate aneurysmal dilatation of the mid abdominal aorta. Maximum transaxial measurement of 3.5 x 3.4 cm. The proximal aorta measures 3.2 x 3.4 cm. Distal measurement is 2.7 x 2.6 cm. Mild ectasia of the proximal iliac vasculature bilaterally. IMPRESSION: Moderate generalized aneurysmal distention of the proximal to mid abdominal aorta with maximum diameters of 3.5 x 3.4 cm The above report was generated using voice recognition software. It may contain grammatical, syntax or spelling errors. Electronically signed by: Luca Golden M.D. 08/29/2016 10:06 PM Dictated Date/Time: 08/29/2016 10:05 PM
--- NOTE | 2016-08-29 22:20 | DIAGNOSTIC IMAGING REPORT ---
CHEST ONE VIEW PORTABLE CLINICAL HISTORY: left hip fracture preoperative evaluation COMPARISON STUDY: 12/04/2015 FINDINGS: Mild stable cardiomegaly. Diaphragms smooth. Lungs are clear. IMPRESSION: Mild stable cardia megaly. Otherwise negative study The above report was generated using voice recognition software. It may contain grammatical, syntax or spelling errors. Electronically signed by: Luca Golden M.D. 08/29/2016 10:19 PM Dictated Date/Time: 08/29/2016 10:18 PM
[2016-08-29 23:05] VITALS: BP 159/75; PULSE 60; TEMP 36.7; O2SAT 96
[2016-08-30] VITALS (10 sets, daily range): BP systolic 100–154; BP diastolic 63–99; PULSE 56–87; TEMP 36.3–36.7; O2SAT 97–100
[2016-08-30 00:14] LABS: URINE APPEARANCE CLEAR (CLEAR); URINE BILIRUBIN NEG (NEG); URINE COLOR YELLOW; URINE NITRITE NEG (NEG); URINE SPECIFIC GRAVITY 1.018 (1.000-1.030); UROBILINOGEN NEG (NEG); ZZUR CULT IF INDIC CLEAN CATCH NO
[2016-08-30 00:25] LABS: MANUAL MICROSCOPIC REQUIRED? NO; REVIEW REQ? NO
[2016-08-30] MEDS ORDERED: CEFAZOLIN IV 2,000 MG in DEXTROSE 5% 50ML 50 ML IV SCH (06:00)
[2016-08-30] MEDS ORDERED: CEFAZOLIN 2000 MG/60 ML D5W IV SCH (06:00)
--- NOTE | 2016-08-30 06:17 | Progress Note ---
Progress Note Date of Service Aug 30, 2016. Progress Note Patient relates surgical intervention for left intertrochanteric hip fracture. At this point, risks and consequences of been discussed with him and the family and medicine has seen the patient. We'll await or time. Vital signs are stable he's afebrile. Physical exam unchanged from yesterday. Assessment intertrochanteric hip fracture left hip proceed to surgery when schedule permits.
[2016-08-30] MEDS: MoRPHine SULFATE 4 MG/ML 1 ML CARP\\VIAL IV PRN ×3 (07:29→23:54)
[2016-08-30] MEDS: METOPROLOL SUCC 25MG EXT REL TAB PO SCH (08:29)
--- NOTE | 2016-08-30 08:29 | History & Physical Bridge Note ---
H&P Re-Evaluation Bridge Note: I have examined the patient, reviewed the History & Physical and in the interval since the performance of the History & Physical I have noted the following changes of clinical significance: No changes noted
[2016-08-30] MEDS ORDERED: POTASSIUM CHLORIDE 20 MEQ TABCR PO SCH (09:00)
[2016-08-30] MEDS: OXYBUTYNIN CHLORIDE 5 MG TAB PO SCH ×2 (10:25→20:35)
[2016-08-30] MEDS: FUROSEMIDE 20 MG TAB PO SCH ×2 (10:25→17:32)
[2016-08-30] MEDS: D5W AND 1/2NSS 1,000 ML IV SCH (10:25)
[2016-08-30] MEDS ORDERED: LIDOCAINE HCL 2% 2 ML VIAL (20MG/ML) ONE (11:23)
[2016-08-30] MEDS ORDERED: MIDAZOLAM HCL 1 MG/ML 2ML VIAL ONE (11:23)
[2016-08-30] MEDS ORDERED: FENTANYL CITRATE INJ 50 MCG/1 ML 2 ML VIAL ONE (11:24)
[2016-08-30] MEDS ORDERED: PROPOFOL IV EMULSION 10 MG/ML 20 ML VIAL IV ONE (11:25)
[2016-08-30] MEDS ORDERED: EpHEDrine SULFATE INJ 50 MG/ML AMP IV PRN (12:00)
[2016-08-30] MEDS ORDERED: ATROPINE SULFATE 0.1 MG/ML 5ML SYR IV PRN (12:00)
[2016-08-30] MEDS ORDERED: PROMETHAZINE HCL INJ 6.25 MG in SODIUM CHLORIDE 0.9% 50ML 50 ML IV PRN (12:00)
[2016-08-30] MEDS ORDERED: ONDANSETRON INJ 2 MG/ML 2 ML VIAL IV PRN ×2 (12:00→14:15)
[2016-08-30] MEDS ORDERED: FENTANYL CITRATE INJ 50 MCG/1 ML 2 ML VIAL IV PRN (12:00)
--- NOTE | 2016-08-30 13:55 | [facility] Post Operative Brief Note ---
Immediate Operative Summary Operative Date Aug 30, 2016. Pre-Operative Diagnosis Left Hip Intertrochanteric Fracture Post-Operative Diagnosis Left Hip Intertrochanteric Fracture Procedure(s) Performed Insertion Trochanteric Nail Left Hip Fracture Surgeon Dr. Schaffer Escalator Mechanic Surgeon(s) ERYES Juarez Estimated Blood Loss 100 ml Findings 4 part fracture Specimens none per surgeon Drains none Anesthesia spinal Complication(s) None Disposition Recovery Room / PACU
--- NOTE | 2016-08-30 14:07 | DIAGNOSTIC IMAGING REPORT ---
HIP OR FILMS CLINICAL HISTORY: LT TROCH NAILhip fracture COMPARISON STUDY: None FLUOROSCOPY TIME: 1 minute 30 seconds. FINDINGS: Image intensifier utilized for a left hip nailing procedure. IMPRESSION: Image intensifier utilized for left hip nailing procedure. The above report was generated using voice recognition software. It may contain grammatical, syntax or spelling errors. Electronically signed by: Luca Golden M.D. 08/30/2016 2:05 PM Dictated Date/Time: 08/30/2016 2:04 PM
[2016-08-30] MEDS ORDERED: PHENYLEPHRINE HCL INJ 10 MG/ML VIAL ONE (14:08)
--- NOTE | 2016-08-30 14:10 | [facility] Operative Report ---
Operative Report Date of Service Aug 30, 2016. Operative Report Preoperative diagnosis four-part intertrochanteric fracture left hip Postoperative diagnosis same Operation performed: Closed reduction stroke nail locked proximal distal intramedullary fixation left four-part fracture image intertrochanteric pattern left hip Surgeon: Karime Joyner.: López Perioperative situation: Medically clear male who slipped and fell off a rolling stool sustaining a four-part intertrochanteric fracture of his left hip. He is cleared for surgery. Procedure after the patient was appropriately identified site verified consent verified 2 g of Ancef confirmed as being given the patient received a spinal anesthesia and the left lower extremity prepped and draped in usual routine fashion. Excellent traction alignment was obtained. The guidepin was then passed percutaneously into the tip of the trochanter into the canal. Once was verified on AP and lateral planes a small stab incision made and blunt dissection carried down to the trochanter. The large drill was then placed. A 12 mm 130 angled cannulated trocar nail was then placed in excellent position on AP and lateral. Incision was then made distally for the helical blade this was then inserted under guidewire control was 110 mm in length left millimeters in diameter with excellent purchase and excellent positioning. Once the nail was locked proximally the distal locking nail was placed after small stab incision made and blunt dissection carried on the femur and the drill passed and a 5 mm 38 mm length locking screw placed with excellent purchase. Multiple plane image revealed anatomic reduction and excellent hardware positioning intramedullary and lock nails were excellent. The wounds were then irrigated and closed with #1 Vicryl for the deep layer 2-0 Vicryl subcutaneous/status to clips for skin. Estimated blood loss was 4 mL crystalloid thousand cc. Patient's high risk for falls of DVT prophylaxis per medicine. Discontinue Dewitt mobilize LISA social service involvement for placement. Summary of implant Synthes/Depue 12 mm 130 mm degree titanium cannulated trochanteric fixation nail 170 mm length: 11 mm titanium titanium helical blade 110mm in length: Distal locking screw 5 mm 38 mm I attest to the content of the Intraoperative Record and any orders documented therein. Any exceptions are noted below.
[2016-08-30] MEDS ORDERED: MAGNESIUM HYDROXIDE SUSP 30 ML UDC PO PRN (14:15)
[2016-08-30] MEDS ORDERED: ACETAMINOPHEN 325 MG TAB PO PRN (14:15)
[2016-08-30] MEDS ORDERED: BISACODYL 10 MG SUPP PR PRN (14:15)
[2016-08-30] MEDS ORDERED: ACETAMINOPHEN IV 650 MG in EMPTY BAG 0 ML IV PRN (14:15)
--- NOTE | 2016-08-30 14:33 | Anesthesiology Progress Note ---
Anesthesia Post Op Note Date & Time Aug 30, 2016 at 14:33 Vital Signs Pain Intensity: 0 Vital Signs Past 12 Hours Date Time Temp Pulse Resp B/P (MAP) Pulse Ox O2 Delivery O2 Flow Rate FiO2 08/30/16 14:20 75 18 95/59 96 Mask 10 08/30/16 14:10 65 18 100/63 98 Mask 10 08/30/16 14:00 36.8 82 18 140/99 95 Mask 10 08/30/16 07:47 36.7 87 16 154/98 (116) 100 2.0 08/30/16 07:30 Nasal Cannula 2.0 Notes Mental Status: alert / awake / arousable, participated in evaluation Pt Amnestic to Procedure: Yes Nausea / Vomiting: adequately controlled Pain: adequately controlled Airway Patency, RR, SpO2: stable & adequate BP & HR: stable & adequate Hydration State: stable & adequate Neuraxial Anesthesia: was administered, sensory block is resolving Anesthetic Complications: no major complications apparent
[2016-08-30] MEDS: LORATADINE 10 MG TAB PO SCH (15:57)
[2016-08-30] MEDS: POTASSIUM CHLORIDE PWD 20 MEQ PACK PO SCH (16:01)
[2016-08-30] MEDS: D5W AND NSS 1,000 ML IV SCH ×2 (16:05→23:34)
--- NOTE | 2016-08-30 16:06 | Family Medicine Progress Note ---
Progress Note Date of Service Aug 30, 2016.
--- NOTE | 2016-08-30 17:13 | Family Medicine Progress Note ---
Progress Note Date of Service Aug 30, 2016. Subjective Pt evaluation today including: conversation w/ patient, physical exam, chart review, lab review, review of studies Pain: patient complains of left-sided hip pain with any movement of the lower ext Voiding: no voiding problems, no incontinence The patient complains of left-sided hip pain with any movement, but that the pain is well controlled at rest. He denies any nausea, vomiting, abdominal pain , calf pain, numbness or tingling in the leg, or any other acute complaints. Constitutional: No fever, No chills Respiratory: No cough, No shortness of breath Cardiovascular: No chest pain, No palpitations Abdomen: No pain, No nausea, No vomiting Musculoskeletal: + joint pain (left sided hip pain), No swelling, No calf pain Male : No dysuria Medications Current Inpatient Medications Medications (Trade) Dose Ordered Sig/Desmond Route Start Time Stop Time Status Last Admin Dose Admin Hydromorphone HCl (Dilaudid Inj) 0.25 mg Q20M PRN IV 08/29/16 18:45 09/12/16 18:44 Hydromorphone HCl (Dilaudid Inj) 0.5 mg Q20M PRN IV 08/29/16 18:45 09/12/16 18:44 Naloxone HCl (Narcan Inj) 0.1 mg PRN PRN IV 08/29/16 18:45 09/28/16 18:44 Senna/Docusate Sodium (Senokot S Tab) 2 tab HS PO 08/29/16 21:00 09/28/16 20:59 Bisacodyl (Dulcolax Supp) 10 mg DAILY PRN [place] 08/29/16 18:45 09/28/16 18:44 Sodium Biphosphate/ Sodium Phosphate (Fleet Enema) 132 ml PRN PRN [place] 08/29/16 18:45 Albuterol Sulfate (Ventolin 0.083% 2.5MG/3ML Neb) 2.5 mg Q6 PRN INH 08/29/16 19:00 09/28/16 18:59 Bismuth Subsalicylate (Pepto-Bismol Chew Tab) 2 tab BID PRN PO 08/29/16 21:00 09/28/16 20:59 Loratadine (Claritin Tab) 10 mg DAILY PO 08/30/16 09:00 09/29/16 08:59 08/30/16 15:57 10 MG Oxybutynin Chloride (Ditropan Tab) 5 mg BID PO 08/29/16 21:00 09/28/16 20:59 08/29/16 21:16 5 MG Tamsulosin HCl (Flomax Cap) 0.4 mg HS PO 08/29/16 21:00 09/28/16 20:59 08/29/16 21:16 0.4 MG Acetaminophen (Tylenol Tab) 650 mg Q4H PRN PO 08/29/16 19:00 09/28/16 18:59 Al Hydrox/Mg Hydrox/Simethicone (Maalox Max Susp) 15 ml Q4H PRN PO 08/29/16 19:00 09/28/16 18:59 Magnesium Hydroxide (Milk Of Magnesia Susp) 30 ml Q6H PRN PO 08/29/16 19:00 09/28/16 18:59 Polyethylene (Miralax Powder Packet) 17 gm DAILY PRN PO 08/29/16 19:00 09/28/16 18:59 Ondansetron HCl (Zofran Inj) 4 mg Q6H PRN IV 08/29/16 19:00 09/28/16 18:59 Morphine Sulfate (MoRPHine SULFATE INJ) 3 mg Q3H PRN IV 08/29/16 19:00 09/12/16 18:59 08/30/16 07:29 3 MG Metoprolol Succinate (Toprol Xl Tab) 25 mg QAM PO 08/30/16 09:00 09/29/16 08:59 08/30/16 08:29 25 MG Simvastatin (Zocor Tab) 20 mg PM PO 08/29/16 21:00 09/28/16 20:59 08/29/16 21:17 20 MG Potassium Chloride (Klor-Con Pwd) 20 meq QAM PO 08/30/16 09:00 09/29/16 08:59 08/30/16 16:01 20 MEQ Furosemide (Lasix Tab) 20 mg BID17 PO 08/30/16 09:00 09/29/16 08:59 Promethazine HCl 6.25 mg/Sodium Chloride 50.25 ml @ 202 mls/hr ONE PRN IV 08/30/16 12:00 08/30/16 17:00 Dextrose/Sodium Chloride 1,000 ml @ 125 mls/hr Q8H IV 08/30/16 14:45 08/31/16 14:44 08/30/16 16:05 125 MLS/HR Cefazolin Sodium 2000 mg/Dextrose 60 ml @ 100 mls/hr Q8H IV 08/30/16 20:00 08/31/16 04:35 Ondansetron HCl (Zofran Inj) 4 mg Q6H PRN IV 08/30/16 14:15 09/29/16 14:14 Acetaminophen (Tylenol Tab) 650 mg Q6H PRN PO 08/30/16 14:15 09/29/16 14:14 Senna/Docusate Sodium (Senokot S Tab) 2 tab HS PO 08/30/16 21:00 09/29/16 20:59 Magnesium Hydroxide (Milk Of Magnesia Susp) 30 ml DAILY PRN PO 08/30/16 14:15 09/29/16 14:14 Bisacodyl (Dulcolax Supp) 10 mg DAILY PRN [place] 08/30/16 14:15 09/29/16 14:14 Acetaminophen 650 mg/Empty Bag 65 ml @ 260 mls/hr Q6H PRN IV 08/30/16 14:15 09/29/16 14:14 Objective Vital Signs Date Time Temp Pulse Resp B/P (MAP) Pulse Ox O2 Delivery O2 Flow Rate FiO2 08/30/16 15:45 36.6 69 18 119/79 (92) 97 Nasal Cannula 2.0 08/30/16 15:15 36.7 59 18 120/68 (85) 98 Nasal Cannula 2.0 08/30/16 14:45 98 Nasal Cannula 2.0 08/30/16 14:45 36.7 75 16 122/99 (107) 98 Nasal Cannula 2.0 08/30/16 14:30 36.6 75 18 110/69 96 Nasal Cannula 2 08/30/16 14:20 75 18 95/59 96 Mask 10 08/30/16 14:10 65 18 100/63 98 Mask 10 08/30/16 14:00 36.8 82 18 140/99 95 Mask 10 08/30/16 07:47 36.7 87 16 154/98 (116) 100 2.0 08/30/16 07:30 Nasal Cannula 2.0 08/29/16 23:30 Nasal Cannula 2.0 08/29/16 23:30 Room Air 08/29/16 23:05 36.7 60 16 159/75 (103) 96 Nasal Cannula 2.0 08/29/16 18:43 36.5 77 16 122/85 92 Nasal Cannula 2.0 08/29/16 17:40 Nasal Cannula 2.0 Physical Exam General Appearance: WD/WN, no apparent distress Eyes: normal inspection, sclerae normal Respiratory/Chest: chest non-tender, lungs clear, normal breath sounds Cardiovascular: regular rate, rhythm, no edema, no murmur Abdomen: normal bowel sounds, non tender, soft Extremities: + pertinent finding (left hip is externally rotated. Patient complains of significant tenderness with any manipulation of the left leg. Patient has full sensation of the left lower extremity and 2+ pulses are palpated.) Neurologic/Psychiatric: alert, normal mood/affect, oriented x 3 Laboratory Results Results Past 24 Hours Test 08/29/16 18:42 08/30/16 00:02 Range/Units White Blood Count 10.09 4.8-10.8 K/uL Red Blood Count 3.76 4.7-6.1 M/uL Hemoglobin 12.4 14.0-18.0 g/dL Hematocrit 37.0 42-52 % Mean Corpuscular Volume 98.4 80-100 fL Mean Corpuscular Hemoglobin 33.0 25-34 pg Mean Corpuscular Hemoglobin Concent 33.5 32-36 g/dl RDW Standard Deviation 49.7 36.4-46.3 fL RDW Coefficient of Variation 13.9 11.5-14.5 % Platelet Count 133 130-400 K/uL Mean Platelet Volume 9.7 7.4-10.4 fL Prothrombin Time 11.0 9.0-12.0 SECONDS Prothromb Time International Ratio 1.0 0.9-1.1 Sodium Level 140 136-145 mmol/L Potassium Level 4.7 3.5-5.1 mmol/L Chloride Level 107 98-107 mmol/L Carbon Dioxide Level 23 21-32 mmol/L Anion Gap 10.0 3-11 mmol/L Blood Urea Nitrogen 18 7-18 mg/dl Creatinine 1.00 0.60-1.40 mg/dl Estimated GFR () 78.6 Estimated GFR (Non- 67.8 BUN/Creatinine Ratio 18.1 10-20 Random Glucose 121 70-99 mg/dl Calcium Level 8.5 8.5-10.1 mg/dl Total Bilirubin 0.5 0.2-1 mg/dl Aspartate Amino Transf (AST/SGOT) 26 15-37 U/L Alanine Aminotransferase (ALT/SGPT) 27 12-78 U/L Alkaline Phosphatase 81 45-117 U/L Total Protein 6.0 6.4-8.2 gm/dl Albumin 3.3 3.4-5.0 gm/dl Globulin 2.7 2.5-4.0 gm/dl Albumin/Globulin Ratio 1.2 0.9-2 Urine Color YELLOW Urine Appearance CLEAR CLEAR Urine pH 5.0 4.5-7.5 Urine Specific [place] 1.018 1.000-1.030 Urine Protein NEG NEG Urine Glucose (UA) NEG NEG Urine Ketones 1+ NEG Urine Occult Blood 2+ NEG Urine Nitrite NEG NEG Urine Bilirubin NEG NEG Urine Urobilinogen NEG NEG Urine Leukocyte Esterase TRACE NEG Urine WBC (Auto) 1-5 0-5 /hpf Urine RBC (Auto) 10-30 0-4 /hpf Urine Hyaline Casts (Auto) 0 0-5 /lpf Urine Epithelial Cells (Auto) 5-10 0-5 /lpf Urine Bacteria (Auto) NEG NEG Microbiology Results 08/29/16 MRSA DNA Surveillance Screen - Final, Complete Specimen Negative for MRSA by DNA Probe Assessment and Plan Patient is an 85-year-old male that presents with a left intertrochanteric fracture after a fall last night off a stool. Currently awaiting surgery at 12 PM with orthopedics, the patient complains of left hip pain but otherwise feels well. The patient is resting comfortably in bed with his left leg externally rotated. 1) Left intertrochanteric fracture - Surgery scheduled for 12 PM - Pain well-controlled with morphine 2) UTI? - Elevated Ketones, Blood, and Leuk Esterase - History of prostate cancer - Requires catheterization - Consider antibacterial treatment after surgery 3) AAA - Has declined intervention in the past, continue to monitor blood pressure 4) Atrial Fibrillation - Rate controlled with Toprol XL - Refused anticoagulation 5) Ulcerative Colitis - Mesalamine - Resume post-op 6) BPH/ Prostate Cancer - Lupron Depot - Flomax 7) Home Medications - Albuterol - Aspirin - Lomotil - Lasix - Lupron Depot - Mesalamine - Toprol XL - Omeprazole - Oxybutynin - Klor-Con 20meq - Simvastatin - Tamsulosin 8) DVT Prophylaxis - SCDs - Consider anticoagulation on discharge 9) Code Status - Full Resuscitation History Resident Physician Supervision Note: I was present with Dr. Villar during the history and exam. I discussed the case with the resident and agree with the findings and plan as documented in the note. Any exceptions or clarifications are listed here. Pt resting comfortably in bed with minimal pain at rest in the left hip and morphine for pain. Reports no n/v, lightheadedness, CP/SOB, palpitations, rashes , urinary complaints, abd pain. General Appearance: WD/WN, no apparent distress Respiratory: chest non-tender, lungs clear, normal breath sounds, no respiratory distress Cardiovascular: normal peripheral pulses, regular rate, rhythm, no murmur Extremities: other (visible rotational deformity of the left hip w/ swelling c/ w fx) Neurologic/Psychiatric: no motor/sensory deficits, alert, normal mood/affect, oriented x 3 Assessment/Plan 85 y/o male w/ h/o AAA, TAA, atrial fibrillation, HLD, UC p/w L intertrochanteric hip fracture L intertrochanteric hip fracture (POD 0) - pain control as a focus, management of hip and progression of WB per orthopaedic team AF - ASA held, refuses AC. Continue metoprolol. Will continue to discuss with patient in AM HLD - continue statin therapy UC - will restart treatment regimen tomorrow BPH w/ h/o prostate CA - continue present therapy h/o AAA/TAA - optimal medical management, patient aware of risks
--- NOTE | 2016-08-30 17:20 | Progress Note ---
Progress Note Date of Service Aug 30, 2016. Progress Note Postop check As resting in bed comfortably denies chest pain shortness breath fever chills nausea vomiting headache. Vital signs are stable afebrile. Neurovascular check left lower extremity within normal limits. Intraoperative fluoroscopy looks excellent. Assessment/plan: Doing well mobilized LISA discontinue Dewitt straight cath when necessary. Advance diet to tolerance. Any weightbearing to tolerance left lower extremity. Social service assessment LISA for placement. DVT prophylaxis per medicine.
[2016-08-30] MEDS: HYDROmorphone INJ 0.5 MG/0.5 ML SYR IV PRN (19:35)
[2016-08-30] MEDS: CEFAZOLIN IV 2,000 MG in DEXTROSE 5% 50ML 50 ML IV SCH (20:35)
[2016-08-30] MEDS: SIMVASTATIN 20 MG TAB PO SCH (20:36)
[2016-08-30] MEDS: TAMSULOSIN HCL 0.4 MG CAP PO SCH (20:36)
[2016-08-30] MEDS: DOCUSATE SODIUM/SENNA 50/8.6MG TAB PO SCH ×2 (20:37)
[2016-08-31 03:26] VITALS: BP 121/71; PULSE 84; TEMP 37; O2SAT 94
[2016-08-31] MEDS: CEFAZOLIN IV 2,000 MG in DEXTROSE 5% 50ML 50 ML IV SCH (04:04)
[2016-08-31] MEDS: D5W AND NSS 1,000 ML IV SCH ×2 (05:55→14:21)
[2016-08-31 06:00] VITALS: O2SAT 95
[2016-08-31] MEDS: MoRPHine SULFATE 4 MG/ML 1 ML CARP\\VIAL IV PRN ×2 (06:28→09:37)
--- NOTE | 2016-08-31 06:28 | Orthopedic Progress Note ---
Orthopedic Progress Note Date of Service Aug 31, 2016. Subjective Post OP Day: 1 Reports: feeling well, Denies: complaints, chest pain, SOB, nausea / vomiting, light headedness, calf pain, pain controlled w PO medications, using [employer] Objective calves soft nontender, N/V intact, dressing C/D/I Date Time Temp Pulse Resp B/P (MAP) Pulse Ox O2 Delivery O2 Flow Rate FiO2 08/31/16 03:26 37.0 84 16 121/71 (88) 94 Nasal Cannula 2.0 08/30/16 23:35 Nasal Cannula 2.0 08/30/16 23:16 36.6 86 16 100/63 (75) 97 Nasal Cannula 2.0 08/30/16 19:31 36.6 73 18 150/76 (100) 98 2.0 08/30/16 17:45 36.6 63 16 136/76 (96) 99 Nasal Cannula 2.0 08/30/16 16:45 36.6 56 16 105/65 (78) 97 Nasal Cannula 2.0 08/30/16 15:45 36.6 69 18 119/79 (92) 97 Nasal Cannula 2.0 08/30/16 15:30 Nasal Cannula 2.0 08/30/16 15:15 36.7 59 18 120/68 (85) 98 Nasal Cannula 2.0 08/30/16 14:45 98 Nasal Cannula 2.0 08/30/16 14:45 36.7 75 16 122/99 (107) 98 Nasal Cannula 2.0 08/30/16 14:30 36.6 75 18 110/69 96 Nasal Cannula 2 08/30/16 14:20 75 18 95/59 96 Mask 10 08/30/16 14:10 65 18 100/63 98 Mask 10 08/30/16 14:00 36.8 82 18 140/99 95 Mask 10 08/30/16 07:47 36.7 87 16 154/98 (116) 100 2.0 08/30/16 07:30 Nasal Cannula 2.0 Laboratory Results 24 Hours: Test 08/31/16 04:44 Assessment & Plan Assessment: start asa 325mg daily with food/mobilize Inhouse Planning DVT Prophylaxis: TEDs, SCDs, ASA Discharge Planning Discharge Planning: rehab hospital, detention facility Therapy: Physical Therapy, Occupational Therapy
[2016-08-31 08:09] VITALS: BP 117/75; PULSE 80; TEMP 36.7; O2SAT 95
[2016-08-31] MEDS: FUROSEMIDE 20 MG TAB PO SCH (08:24)
[2016-08-31] MEDS: OXYBUTYNIN CHLORIDE 5 MG TAB PO SCH ×2 (08:25→20:21)
[2016-08-31] MEDS: METOPROLOL SUCC 25MG EXT REL TAB PO SCH (08:25)
--- NOTE | 2016-08-31 08:25 | Family Medicine Progress Note ---
Progress Note Date of Service Aug 31, 2016. Subjective Pt evaluation today including: conversation w/ patient, physical exam, chart review, lab review, review of studies Pain: Patient reported 10 out of 10 pain in his left hip Voiding: no voiding problems, no incontinence Patient states that he is having continued pain in his left hip this morning. After discussion with the patient he states that he is willing to go on anticoagulation, And we will discuss this further with his electrical engineering technologist Dr. Nance. Patient is also not been eating because he states that he has no appetite. Constitutional: No fever, No chills Respiratory: No cough, No shortness of breath Cardiovascular: No chest pain, No edema Abdomen: No pain, No nausea, No vomiting Musculoskeletal: + joint pain (left hip pain) Male : No dysuria Neurologic: No numbness/tingling Medications Current Inpatient Medications Medications (Trade) Dose Ordered Sig/Desmond Route Start Time Stop Time Status Last Admin Dose Admin Hydromorphone HCl (Dilaudid Inj) 0.25 mg Q20M PRN IV 08/29/16 18:45 09/12/16 18:44 Hydromorphone HCl (Dilaudid Inj) 0.5 mg Q20M PRN IV 08/29/16 18:45 09/12/16 18:44 08/31/16 19:31 0.5 MG Naloxone HCl (Narcan Inj) 0.1 mg PRN PRN IV 08/29/16 18:45 09/28/16 18:44 Sodium Biphosphate/ Sodium Phosphate (Fleet Enema) 132 ml PRN PRN [place] 08/29/16 18:45 Albuterol Sulfate (Ventolin 0.083% 2.5MG/3ML Neb) 2.5 mg Q6 PRN INH 08/29/16 19:00 09/28/16 18:59 Bismuth Subsalicylate (Pepto-Bismol Chew Tab) 2 tab BID PRN PO 08/29/16 21:00 09/28/16 20:59 Loratadine (Claritin Tab) 10 mg DAILY PO 08/30/16 09:00 09/29/16 08:59 08/31/16 09:36 10 MG Oxybutynin Chloride (Ditropan Tab) 5 mg BID PO 08/29/16 21:00 09/28/16 20:59 08/31/16 08:25 5 MG Tamsulosin HCl (Flomax Cap) 0.4 mg HS PO 08/29/16 21:00 09/28/16 20:59 08/30/16 20:36 0.4 MG Al Hydrox/Mg Hydrox/Simethicone (Maalox Max Susp) 15 ml Q4H PRN PO 08/29/16 19:00 09/28/16 18:59 Magnesium Hydroxide (Milk Of Magnesia Susp) 30 ml Q6H PRN PO 08/29/16 19:00 09/28/16 18:59 Polyethylene (Miralax Powder Packet) 17 gm DAILY PRN PO 08/29/16 19:00 09/28/16 18:59 Morphine Sulfate (MoRPHine SULFATE INJ) 3 mg Q3H PRN IV 08/29/16 19:00 09/12/16 18:59 08/31/16 09:37 3 MG Metoprolol Succinate (Toprol Xl Tab) 25 mg QAM PO 08/30/16 09:00 09/29/16 08:59 08/31/16 08:25 25 MG Simvastatin (Zocor Tab) 20 mg PM PO 08/29/16 21:00 09/28/16 20:59 08/30/16 20:36 20 MG Potassium Chloride (Klor-Con Pwd) 20 meq QAM PO 08/30/16 09:00 09/29/16 08:59 08/31/16 09:37 20 MEQ Ondansetron HCl (Zofran Inj) 4 mg Q6H PRN IV 08/30/16 14:15 09/29/16 14:14 Acetaminophen (Tylenol Tab) 650 mg Q6H PRN PO 08/30/16 14:15 09/29/16 14:14 08/31/16 08:24 650 MG Senna/Docusate Sodium (Senokot S Tab) 2 tab HS PO 08/30/16 21:00 09/29/16 20:59 Magnesium Hydroxide (Milk Of Magnesia Susp) 30 ml DAILY PRN PO 08/30/16 14:15 09/29/16 14:14 Bisacodyl (Dulcolax Supp) 10 mg DAILY PRN [place] 08/30/16 14:15 09/29/16 14:14 Acetaminophen 650 mg/Empty Bag 65 ml @ 260 mls/hr Q6H PRN IV 08/30/16 14:15 09/29/16 14:14 Aspirin (Ecotrin Tab) 325 mg DAILY PO 09/01/16 09:00 10/01/16 08:59 Cholecalciferol (Vitamin D Tab) 1,000 inter.unit DAILY PO 09/01/16 09:00 10/01/16 08:59 Pantoprazole Sodium (Protonix Tab) 40 mg QAM PO 09/01/16 09:00 10/01/16 08:59 Furosemide (Lasix Tab) 40 mg QAM PO 09/01/16 09:00 10/01/16 08:59 Diphenoxylate HCl/ Atropine (Lomotil Tab) 2 tab QID PO 08/31/16 13:00 09/30/16 12:59 08/31/16 18:16 2 TAB Meloxicam (Mobic Tab) 15 mg DAILY PO 09/01/16 09:00 10/01/16 08:59 Miscellaneous Information (Order Awaiting Action) 1 ea QS N/A 08/31/16 16:00 09/30/16 15:59 Objective Vital Signs Date Time Temp Pulse Resp B/P (MAP) Pulse Ox O2 Delivery O2 Flow Rate FiO2 08/31/16 17:00 Room Air 08/31/16 15:34 36.7 66 16 92/60 (71) 95 Room Air 08/31/16 08:20 Room Air 08/31/16 08:09 36.7 80 16 117/75 (89) 95 Room Air 08/31/16 06:00 95 Room Air 08/31/16 03:26 37.0 84 16 121/71 (88) 94 Nasal Cannula 2.0 08/30/16 23:35 Nasal Cannula 2.0 08/30/16 23:16 36.6 86 16 100/63 (75) 97 Nasal Cannula 2.0 Physical Exam General Appearance: WD/WN, no apparent distress Respiratory/Chest: chest non-tender, lungs clear, normal breath sounds Cardiovascular: regular rate, rhythm, no edema, no gallop Abdomen: normal bowel sounds, non tender, soft Extremities: + pertinent finding (Tenderness to palpation over the left hip. surgical dressing in place and is clean, dry, and intact) Laboratory Results Results Past 24 Hours Test 7/18/17 08:42 Range/Units White Blood Count 8.33 4.8-10.8 K/uL Red Blood Count 2.98 4.7-6.1 M/uL Hemoglobin 9.7 14.0-18.0 g/dL Hematocrit 29.2 42-52 % Mean Corpuscular Volume 98.0 80-100 fL Mean Corpuscular Hemoglobin 32.6 25-34 pg Mean Corpuscular Hemoglobin Concent 33.2 32-36 g/dl RDW Standard Deviation 49.8 36.4-46.3 fL RDW Coefficient of Variation 13.9 11.5-14.5 % Platelet Count 99 130-400 K/uL Mean Platelet Volume 9.8 7.4-10.4 fL Platelet Estimate DECREASED Sodium Level 136 136-145 mmol/L Potassium Level 3.7 3.5-5.1 mmol/L Chloride Level 103 98-107 mmol/L Carbon Dioxide Level 27 21-32 mmol/L Anion Gap 6.0 3-11 mmol/L Blood Urea Nitrogen 11 7-18 mg/dl Creatinine 1.10 0.60-1.40 mg/dl Est Creatinine Clear Calc Drug Dose 48.4 ml/min Estimated GFR () 70.1 Estimated GFR (Non- 60.5 BUN/Creatinine Ratio 9.6 10-20 Random Glucose 151 70-99 mg/dl Calcium Level 7.8 8.5-10.1 mg/dl Assessment and Plan Patient is an 85-year-old male that presents with a left intertrochanteric fracture after a fall off a stool. 1) Left intertrochanteric fracture - Surgery successfully performed yesterday - Morphine 4mg q3h PRN for pain and Percocet 5/325 q4h for pain - Aspirin 325mg as per Ortho recommendations postoperatively 2) AAA - Has declined intervention in the past, continue to monitor blood pressure 3) Atrial Fibrillation - Rate controlled with Toprol XL - Coumadin 10 mg - Lovenox 1 mg/kilogram - Daily PT/INR 4) Ulcerative Colitis - Resume home medications - Mesalamine - Lomotil 5) BPH/ Prostate Cancer - Flomax - Oxybutynin 6) Diet - Consult made to dietitian 7) Home Medications - Albuterol - Lasix - Omeprazole - Klor-Con 20meq - Simvastatin 8) DVT Prophylaxis - SCDs - Lovenox and Coumadin 9) Code Status - Full Resuscitation History Resident Physician Supervision Note: I was present with Dr. Villar during the history and exam. I discussed the case with the resident and agree with the findings and plan as documented in the note. Any exceptions or clarifications are listed here. Pt seen and examined at bedside. Looking forward to PT. Pain is well controlled at present though having some difficulty with transfers. Open to starting AC - d /w Dr. Meyer who is onboard w/ same (initially stopped 2/2 frequent fall risk) General Appearance: WD/WN, no apparent distress Respiratory: chest non-tender, lungs clear, normal breath sounds, no respiratory distress Cardiovascular: normal peripheral pulses, no murmur, irregularly irregular Extremities: other (TTP of the L hip w/ limited ROM following repair) Assessment/Plan 85 y/o male w/ h/o AAA, TAA, atrial fibrillation, HLD, UC p/w L intertrochanteric hip fracture L intertrochanteric hip fracture (POD 1) - pain controlled, PT on board, management of hip and progression of WB per orthopaedic team AF - Continue metoprolol. EOD ASA 325mg. Restarting AC w/ lovenox/warfarin in AM HLD - continue statin therapy UC - restart home medication regimen BPH w/ h/o prostate CA - continue present therapy h/o AAA/TAA - optimal medical management, patient aware of risks Resident Tracking Resident Involvement: Resident Care Provided Care Provided: Adult Hospital Medicine
--- NOTE | 2016-08-31 08:35 | Anesthesiology Progress Note ---
Anesthesia Post Op Note Date & Time Aug 31, 2016 at 08:35 Vital Signs Pain Intensity: 10.0 Vital Signs Past 12 Hours Date Time Temp Pulse Resp B/P (MAP) Pulse Ox O2 Delivery O2 Flow Rate FiO2 08/31/16 08:09 36.7 80 16 117/75 (89) 95 Room Air 08/31/16 06:00 95 Room Air 08/31/16 03:26 37.0 84 16 121/71 (88) 94 Nasal Cannula 2.0 08/30/16 23:35 Nasal Cannula 2.0 08/30/16 23:16 36.6 86 16 100/63 (75) 97 Nasal Cannula 2.0 Notes Mental Status: alert / awake / arousable, participated in evaluation Pt Amnestic to Procedure: Yes Nausea / Vomiting: adequately controlled Pain: adequately controlled Airway Patency, RR, SpO2: stable & adequate BP & HR: stable & adequate Hydration State: stable & adequate Neuraxial Anesthesia: sensory block resolved Anesthetic Complications: no major complications apparent
--- NOTE | 2016-08-31 08:43 | Orthopedic Progress Note ---
Orthopedic Progress Note Date of Service Aug 31, 2016. Subjective Post OP Day: 1 Reports: feeling well, pain controlled w PO medications, Denies: complaints, chest pain, SOB, nausea / vomiting, light headedness, calf pain, using EQUIP MAINT ENG Objective calves soft nontender, N/V intact, hip located, capillary refill less than 2 sec., dressing C/D/I, incision C/D/I, A&O x3, toes mobile, CMS intact Date Time Temp Pulse Resp B/P (MAP) Pulse Ox O2 Delivery O2 Flow Rate FiO2 08/31/16 08:09 36.7 80 16 117/75 (89) 95 Room Air 08/31/16 06:00 95 Room Air 08/31/16 03:26 37.0 84 16 121/71 (88) 94 Nasal Cannula 2.0 08/30/16 23:35 Nasal Cannula 2.0 08/30/16 23:16 36.6 86 16 100/63 (75) 97 Nasal Cannula 2.0 08/30/16 19:31 36.6 73 18 150/76 (100) 98 2.0 08/30/16 17:45 36.6 63 16 136/76 (96) 99 Nasal Cannula 2.0 08/30/16 16:45 36.6 56 16 105/65 (78) 97 Nasal Cannula 2.0 08/30/16 15:45 36.6 69 18 119/79 (92) 97 Nasal Cannula 2.0 08/30/16 15:30 Nasal Cannula 2.0 08/30/16 15:15 36.7 59 18 120/68 (85) 98 Nasal Cannula 2.0 08/30/16 14:45 98 Nasal Cannula 2.0 08/30/16 14:45 36.7 75 16 122/99 (107) 98 Nasal Cannula 2.0 08/30/16 14:30 36.6 75 18 110/69 96 Nasal Cannula 2 08/30/16 14:20 75 18 95/59 96 Mask 10 08/30/16 14:10 65 18 100/63 98 Mask 10 08/30/16 14:00 36.8 82 18 140/99 95 Mask 10 Laboratory Results 24 Hours: Test 08/31/16 04:44 Assessment & Plan Assessment: Day 1 Intertrochanteric nailing of Left hip fracture Plan: Start PO ASA 325 mg today with food. PT/OT today WBAT on Left lower extremity with walker aid Cont PO pain meds for control Matthew and SCD's for DVT Prophylaxis Dressing changed. Discharge Planning Discharge Planning: rehab hospital, residential facility Therapy: Physical Therapy, Occupational Therapy
[2016-08-31] MEDS ORDERED: ASPIRIN/ALUM/MAGNES/CAL CARB 325 MG TAB PO SCH (09:00)
[2016-08-31 09:17] LABS: HEMATOCRIT 29.2 % (42-52); MEAN CORPUSCULAR HEMOGLOBIN 32.6 pg (25-34); MEAN CORPUSCULAR HGB CONC 33.2 g/dl (32-36); RED BLOOD COUNT 2.98 M/uL (4.7-6.1); WHITE BLOOD COUNT 8.33 K/uL (4.8-10.8)
[2016-08-31] MEDS: LORATADINE 10 MG TAB PO SCH (09:36)
[2016-08-31] MEDS: POTASSIUM CHLORIDE PWD 20 MEQ PACK PO SCH (09:37)
[2016-08-31 09:50] LABS: BUN/CREATININE RATIO 9.6 (10-20); CALCIUM 7.8 mg/dl (8.5-10.1); CREATININE 1.1 mg/dl (0.60-1.40)
[2016-08-31 09:51] LABS: POTASSIUM 3.7 mmol/L (3.5-5.1)
[2016-08-31 10:14] LABS: MEAN PLATELET VOLUME 9.8 fL (7.4-10.4); PLATELET COUNT 99 K/uL (130-400)
[2016-08-31 10:16] LABS: PLT ESTIMATE DECREASED
[2016-08-31] MEDS ORDERED: CHOLECALCIFEROL 1000 INTER.UNIT TAB PO ONE (12:00)
[2016-08-31] MEDS ORDERED: ASPIRIN 325 MG ECTAB PO ONE (12:00)
[2016-08-31] MEDS: DIPHENOXYLATE/ATROPINE 2.5/0.025MG TAB PO SCH ×3 (12:34→20:21)
--- NOTE | 2016-08-31 13:24 | [facility] Operative Report ---
Operative Report Operative Date Aug 31, 2016. Pre-Operative Diagnosis Left Hip Intertrochanteric Fracture Post-Operative Diagnosis Left Hip Intertrochanteric Fracture Procedure(s) Performed Insertion Trochanteric Nail Left Hip (ORIF) Surgeon Dr. Schaffer Dynamite Cartridge Crimper Surgeon(s) REYES Juarez Estimated Blood Loss 100 ml Findings Intertrochanteric hip fracture, left Specimens none per surgeon Drains none Anesthesia spinal Complication(s) None Disposition Recovery Room / PACU Indications This 85-year-old white male had fallen at home and was initially brought to the knee. Films at the time confirmed an intertrochanteric hip fracture. He was admitted is a patient of surgery today. He has been NPO overnight. Description of Procedure Patient was taken to the operating room and administered a spinal anesthetic area he was prepped and draped in usual sterile fashion. Please see Dr. Mora's operative report for specifics of the procedure. I was present for and/or case from initial patient positioning through final wound closure. Assistance was provided and patient positioning, hemostasis, tissue traction, hardware placement, and final wound closure. Patient was taken to the recovery room in satisfactory condition. I attest to the content of the Intraoperative Record and any orders documented therein. Any exceptions are noted below.
[2016-08-31 15:34] VITALS: BP 92/60; PULSE 66; TEMP 36.7; O2SAT 95
[2016-08-31] MEDS: HYDROmorphone INJ 0.5 MG/0.5 ML SYR IV PRN (19:31)
[2016-08-31] MEDS ORDERED: ENOXAPARIN 1 MG/KG SQ SCH (20:15)
[2016-08-31] MEDS: SIMVASTATIN 20 MG TAB PO SCH (20:21)
[2016-08-31] MEDS: DOCUSATE SODIUM/SENNA 50/8.6MG TAB PO SCH (20:21)
[2016-08-31] MEDS: TAMSULOSIN HCL 0.4 MG CAP PO SCH (20:21)
[2016-08-31] MEDS ORDERED: OXYCODONE/ACETAMINOPHEN 5-325 TAB PO PRN (20:30)
[2016-08-31] MEDS ORDERED: WARFARIN SOD 10 MG TAB PO ONE (21:00)
[2016-08-31] MEDS ORDERED: ENOXAPARIN 80 MG/0.8 ML SYR SQ SCH (21:00)
[2016-08-31 22:50] VITALS: BP 104/66; PULSE 84; TEMP 37; O2SAT 95
[2016-09-01] VITALS (7 sets, daily range): BP systolic 87–114; BP diastolic 50–63; PULSE 58–78; TEMP 36.5–36.8; O2SAT 93–97
[2016-09-01 07:30] LABS: PROTHROMBIN TIME (PATIENT) 11.2 SECONDS (9.0-12.0)
--- NOTE | 2016-09-01 07:46 | Progress Note ---
Progress Note Date of Service Sep 01, 2016. Progress Note Postoperative day #2 status post ORIF left 4 part intratrochanteric hip fracture. Subjectively patient has some thigh ache but has no major pain. He is able to move his leg roll his leg can move his toes. He was sitting up the approximate 6 hours yesterday. He denies chest pain shortness breath fever chills nausea vomiting or headache. Vital signs stable afebrile. Abdomen soft nontender no change in AAA. Nontender. Wound dressing clean dry and intact no major attentions to the thigh. Can flex hip easily to 30-40 can log roll the leg and apply axial pressure on the leg with no pain. Calves nontender. Heels nontender. Assessment making good progress. Can be transferred to SNF or rehabilitation facility at any time. Suggest adjusting pain medications to Tylenol 1000 mg by mouth every 8 hours ATC for 3-5 days. Add Celebrex 200 mg by mouth daily for 5 days. Minimize narcotic use. Continue Protonix and Maalox. 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 Follow-up orthopedics in roughly 2 weeks for staple removal. Can be discharged per medicine coverage at any time.
--- NOTE | 2016-09-01 08:06 | Family Medicine Progress Note ---
Progress Note Date of Service Sep 01, 2016. Subjective Pt evaluation today including: conversation w/ patient, physical exam, chart review, lab review, review of studies Pain: Patient states the pain 2-3 out of 10 Voiding: no voiding problems, no incontinence Patient is resting comfortably this morning with no acute complaints, and states that his pain is improved to 2-3/10 in the left hip. This morning we discussed anticoagulation therapy with the patient, who was agreeable to starting with Coumadin. He has no other complaints at this time that he would like to go for inpatient rehabilitation to [facility] in [place]. Constitutional: No fever, No chills, No sweats, No weight loss Respiratory: No cough, No sputum, No wheezing Cardiovascular: No chest pain, No palpitations Abdomen: No pain, No nausea, No vomiting Musculoskeletal: + problem reported (left hip pain) Neurologic: No weakness Heme: No abnormal bleeding/bruising, No clotting problems Medications Current Inpatient Medications Medications (Trade) Dose Ordered Sig/Desmond Route Start Time Stop Time Status Last Admin Dose Admin Naloxone HCl (Narcan Inj) 0.1 mg PRN PRN IV 08/29/16 18:45 09/28/16 18:44 Sodium Biphosphate/ Sodium Phosphate (Fleet Enema) 132 ml PRN PRN NH 08/29/16 18:45 Albuterol Sulfate (Ventolin 0.083% 2.5MG/3ML Neb) 2.5 mg Q6 PRN INH 08/29/16 19:00 09/28/16 18:59 Bismuth Subsalicylate (Pepto-Bismol Chew Tab) 2 tab BID PRN PO 08/29/16 21:00 09/28/16 20:59 Loratadine (Claritin Tab) 10 mg DAILY PO 08/30/16 09:00 09/29/16 08:59 09/01/16 08:52 10 MG Oxybutynin Chloride (Ditropan Tab) 5 mg BID PO 08/29/16 21:00 09/28/16 20:59 09/01/16 08:52 5 MG Tamsulosin HCl (Flomax Cap) 0.4 mg HS PO 08/29/16 21:00 09/28/16 20:59 08/31/16 20:21 0.4 MG Al Hydrox/Mg Hydrox/Simethicone (Maalox Max Susp) 15 ml Q4H PRN PO 08/29/16 19:00 09/28/16 18:59 Magnesium Hydroxide (Milk Of Magnesia Susp) 30 ml Q6H PRN PO 08/29/16 19:00 09/28/16 18:59 Polyethylene (Miralax Powder Packet) 17 gm DAILY PRN PO 08/29/16 19:00 09/28/16 18:59 Metoprolol Succinate (Toprol Xl Tab) 25 mg QAM PO 08/30/16 09:00 09/29/16 08:59 09/01/16 08:52 25 MG Simvastatin (Zocor Tab) 20 mg PM PO 08/29/16 21:00 09/28/16 20:59 08/31/16 20:21 20 MG Potassium Chloride (Klor-Con Pwd) 20 meq QAM PO 08/30/16 09:00 09/29/16 08:59 09/01/16 08:54 20 MEQ Ondansetron HCl (Zofran Inj) 4 mg Q6H PRN IV 08/30/16 14:15 09/29/16 14:14 Senna/Docusate Sodium (Senokot S Tab) 2 tab HS PO 08/30/16 21:00 09/29/16 20:59 08/31/16 20:21 2 TAB Magnesium Hydroxide (Milk Of Magnesia Susp) 30 ml DAILY PRN PO 08/30/16 14:15 09/29/16 14:14 Bisacodyl (Dulcolax Supp) 10 mg DAILY PRN NH 08/30/16 14:15 09/29/16 14:14 Aspirin (Ecotrin Tab) 325 mg DAILY PO 09/01/16 09:00 10/01/16 08:59 09/01/16 08:52 325 MG Cholecalciferol (Vitamin D Tab) 1,000 inter.unit DAILY PO 09/01/16 09:00 10/01/16 08:59 09/01/16 08:52 1,000 INTER.UNIT Pantoprazole Sodium (Protonix Tab) 40 mg QAM PO 09/01/16 09:00 10/01/16 08:59 09/01/16 08:52 40 MG Furosemide (Lasix Tab) 40 mg QAM PO 09/01/16 09:00 10/01/16 08:59 09/01/16 08:53 40 MG Diphenoxylate HCl/ Atropine (Lomotil Tab) 2 tab QID PO 08/31/16 13:00 09/30/16 12:59 08/31/16 20:21 2 TAB Miscellaneous Information (Order Awaiting Action) 1 ea QS N/A 08/31/16 16:00 09/30/16 15:59 Acetaminophen (Tylenol Tab) 1,000 mg Q8 PO 09/01/16 14:00 09/06/16 13:59 09/01/16 13:49 1,000 MG Enoxaparin Sodium (Lovenox Inj) 40 mg Q12H SQ 09/01/16 09:00 09/05/16 21:01 09/01/16 08:54 40 MG Celecoxib (CeleBREX CAP) 200 mg QAM PO 09/01/16 09:00 09/05/16 09:01 09/01/16 08:53 200 MG Al Hydrox/Mg Hydrox/Simethicone (Maalox Max Susp) 15 ml Q6H PO 09/01/16 08:30 10/01/16 08:29 Acetaminophen (Tylenol Tab) 1,000 mg Q8 PRN PO 09/06/16 14:00 10/06/16 13:59 Hydromorphone HCl (Dilaudid Tab) 2 mg Q3H PRN PO 09/01/16 08:30 09/15/16 08:29 Warfarin Sodium (Coumadin Tab) 5 mg DAILY@16 PO 09/01/16 16:00 10/01/16 15:59 Objective Vital Signs Date Time Temp Pulse Resp B/P (MAP) Pulse Ox O2 Delivery O2 Flow Rate FiO2 09/01/16 08:25 94 Room Air 09/01/16 08:01 36.8 78 22 114/54 (74) 94 Room Air 09/01/16 07:20 Room Air 09/01/16 00:00 Room Air 08/31/16 22:50 37.0 84 18 104/66 (79) 95 Room Air 08/31/16 17:00 Room Air Physical Exam General Appearance: WD/WN, no apparent distress Neck: supple, no carotid bruits Respiratory/Chest: chest non-tender, lungs clear, normal breath sounds Cardiovascular: + irregularly irregular Abdomen: normal bowel sounds, non tender, soft Extremities: no calf tenderness, + pertinent finding (left hip pain with palpation, dressing is clean, dry, and intact over the left hip) Neurologic/Psychiatric: alert, normal mood/affect, oriented x 3 Skin: no rash Laboratory Results Results Past 24 Hours Test 09/01/16 07:08 Range/Units Prothrombin Time 11.2 9.0-12.0 SECONDS Prothromb Time International Ratio 1.0 0.9-1.1 Assessment and Plan Patient is an 85-year-old male that presents with a left intertrochanteric fracture after a fall last night off a stool. Patient underwent surgery on Tuesday afternoon, and is currently doing well controlled. He has been weightbearing, participating in physical therapy, and is planned to be discharged home when placement is available. An attempt today was made to place the patient in rehabilitation in the facility in [place], but we were unable to make the placement and a referral was made to [facility]. 1) Left intertrochanteric fracture - Surgery successfully performed on Tuesday - Pain well-controlled today - Morphine 4mg q3h PRN for pain and Percocet 5/325 q4h for pain - Aspirin 325mg as per Ortho recommendations postoperatively - Lovenox 40mg PO BID - Coumadin 5mg daily after discussion with Grand-daughter Lanny 2) AAA - Has declined intervention in the past, continue to monitor blood pressure 3) Atrial Fibrillation - Rate controlled with Toprol XL - Coumadin 5 mg - Lovenox 1 mg/kilogram - Daily PT/INR 4) Ulcerative Colitis - Resume home medications - Mesalamine - Lomotil 5) BPH/ Prostate Cancer - Flomax - Oxybutynin 6) Diet - Consult made to dietitian 7) Home Medications - Albuterol - Lasix - Omeprazole - Klor-Con 20meq - Simvastatin 8) DVT Prophylaxis - SCDs - Lovenox and Coumadin 9) Code Status - Full Resuscitation 10) Disposition - Patient will require inpatient rehabilitation - Requested [facility] in [place] but no bed availability - Referral made to [facility] Resident Tracking Resident Involvement: Resident Care Provided Care Provided: Adult Hospital Medicine History Resident Physician Supervision Note: I was present with Dr. Villar during the history and exam. I discussed the case with the resident and agree with the findings and plan as documented in the note. Any exceptions or clarifications are listed here. Improved pain at rest in chair, able to ambulate w/ walker to commode and back. Reports no CP, SOB, lightheadedness, n/v, numbness, weakness. General Appearance: WD/WN, no apparent distress Cardiovascular: normal peripheral pulses, no murmur, irregularly irregular Assessment/Plan 85 y/o male w/ h/o AAA, TAA, atrial fibrillation, HLD, UC p/w L intertrochanteric hip fracture L intertrochanteric hip fracture (POD 2) - pain controlled, PT on board, management of hip and progression of WB per orthopaedic team AF - Continue metoprolol. EOD ASA 325mg. AC w/ lovenox to coumadin while at rehab. Will likely d/c @ home 2/2 patient propensity to not avoid falls HLD - continue statin therapy UC - continue present regimen BPH w/ h/o prostate CA - continue present therapy h/o AAA/TAA - optimal medical management, patient aware of risks
--- NOTE | 2016-09-01 08:22 | Discharge Instructions ---
Discharge Instructions Date of Service Sep 01, 2016. Admission Reason for Admission: Acute Left Hip Fracture Discharge Discharge Diagnosis / Problem: acute left hip fracture Discharge Goals Goal(s): Decrease discomfort, Improve function, Increase independence Activity Recommendations Activity Level: Assistance Required Therapies: Physical Therapy, Weight Bearing Status, Occupational Therapy Weightbearing Status: Left weightbearing (as tolerated) . Additional Information Patient informed of condition: Yes Advance Directives: No DNR: No Level of Care: Skilled Communicable Disease: No Prognosis: Stable Dewitt Catheter: No Instructions / Follow-Up Instructions / Follow-Up New Medicine: * You will likely be taking one or more of these medicines: 1. Celebrex - 200 mg once daily x 5 days 2. Tylenol - 1000 mg every 8 hours as needed for pain x 3-5 days 3. Tramadol - 50 -100 mg every 8 hours as needed for severe pain 4. Lovenox 40 mg twice daily x 2 weeks 5. Protonix 40 mg once daily 6. Maalox daily as needed. * The most common side effects of pain medicine are nausea and constipation. If nausea or constipation is too much of a problem or if you have any questions about your new medicines or doses, call [facility] at . We will try to help you manage these issues. VERY IMPORTANT TO READ AND REVIEW" Blood Clots and Blood Thinning Medicine: * You are given Coumadin during the immediate post-operative period to lessen the risk of blood clots forming in your legs and/or lungs. Coumadin is usually given for six weeks after surgery. * The prescription is for 2 mg tablets. At discharge, you should understand your dose and take it all at the same time every day, preferably after dinner. * You need to get your blood checked 1 - 2 times per week for six weeks, or as directed. * If your dose needs to change, we will call you. Do not take your medication on the day of the blood test until we call you. * If you don't hear from us after your blood draws, keep taking the same dose. Pain: * The immediate post-operative period after hip replacement surgery is often quite painful. * You are given a prescription for pain medicine. You should take it, as directed, when you need it, especially before physical therapy and before going to bed. Pain that interferes with sleep is very common and can last several months. * You will likely need pain medicine for the first two to four weeks. It will not stop all of the pain. The pain will lessen and as you feel better, you may change to milder pain medicine such as Tylenol. * The most common side effects of pain medicine are nausea and constipation, so don't take more than you need. Physical Therapy: * Follow the "Hip Precautions Instructions." * In some cases, the hospice social worker at the hospital will arrange to have a therapist come to your house for the first couple of weeks to help you learn these skills. * You need to practice on your own or with the help of a family member as needed. * When you learn these skills, most of the therapy can be done on your own. Home Exercise: * You were shown a series of exercises in the hospital. Do these exercises three to four times each day including the exercises you were shown in physical therapy. Walking: * Get up and walk several times each day. For the first four weeks, try not to stand or walk for more than one hour at a time. If you do stand or walk for more than one hour, you will not hurt anything, but your leg will likely swell. * As you feel comfortable, you may change from the walker or crutches to a cane and then to independent walking. SELF CARE INSTRUCTIONS AFTER TOTAL HIP REPLACEMENT Until the incision and soft tissues around your hip have healed, there is a possibility that the hip prosthesis could dislocate. A. Observe the following precautions to prevent dislocation: 1. Don't bend your hip greater than 90 degrees. 2. Avoid crossing your legs or ankles while standing or lying. 3. Sit with your feet placed 6 inches apart. 4. When sitting, keep your knees below your hips. Sit on a firm surface, avoid deep, soft chairs and couches. Use an elevated toilet seat in the bathroom. 5. Don't bend over at the waist. Use a long handled shoehorn and a sock aid to help you put on your shoes and socks. A principal technical writer can help you oyster picker objects that are too high or too low to reach. 6. Keep car riding to a minimum for at least one month after surgery. B. Your balance may be shaky for a while. Use crutches or a walker until directed by your doctor. C. Use hand rails when walking on stairs. D. Wear low heeled shoes with non-slip soles. E. Be sure that your floors are free of things that could trip you - throw rugs , electrical cords, small objects. Avoid wet and waxed floors, especially with crutches and canes. F. Try to walk several times a day with rest periods between. G. Continue with all the exercises taught to you in the hospital. Again, make walking a part of your daily routine. VERY IMPORTANT TO READ AND REVIEW A. Take Coumadin, or Lovenox (blood thinning medications) as directed by your doctor. If you are on Coumadin, have a pro-time (blood test) drawn according to your doctor's instructions. This will tell the doctor how well the Coumadin is thinning your blood. B. There are a few signs you need to watch for after you are home. If you notice any of the followin. Increased severe hip pain. Some pain is expected especially when you exercise. 2. Increased swelling in your leg or knee; pain or swelling of the calf muscle in either lower leg. 3. Any fluid drainage from the incision. 4. Shortness of breath or chest pain. TEDs/Elastic Stockings: * The white elastic stockings help limit swelling and prevent blood clots from forming in your legs. The more you wear them, the more they work. * Wear them for six weeks. Prevention of Infection: * Take antibiotics one hour before any dental cleaning, dental work, urological procedure, gastrointestinal procedure or any invasive surgery in order to prevent your new joint from getting infected. * You may get the antibiotics from the doctor performing the procedure or we will call in a prescription to the pharmacy of your choice. Call the office for a prescription at least 2 days prior to your appointment. Things to Watch For: * Drainage from the incision site that occurs more than one week after your surgery. * Severely increased leg pain or swelling. * Increased redness at the incision site. * Fever above 101 degrees Fahrenheit. * Unusual chest pain or shortness of breath. * Unusual pain or burning with urination. Current Hospital Diet Patient's current hospital diet: Regular Diet Discharge Diet Recommended Diet: Regular Diet Procedures Procedures Performed: Insertion Trochanteric Nail Left Hip (ORIF) Pending Studies Studies pending at discharge: no Physician Orders On Transfer Special Precautions: Full ROM allowed left hip, WBAT LLE; use walker to assist with ambulation Dressing Changes: Keep incision covered until follow up appointment. Keep incision clean and dry. Cover for showering or bathing. Vital Signs: per routine Medical Emergencies . Who to Call and When: Medical Emergencies: If at any time you feel your situation is an emergency, please call 911 immediately. . Non-Emergent Contact Non-Emergency issues call your: Surgeon Call Non-Emergent contact if: temperature is above 101, your pain is not controlled, wound has increased drainage, wound has increased redness, wound has increased pain, you have any medication questions . . "Provider Documentation" section prepared by Dinorah Arias. . Core Measure Problem Core Measures: None
[2016-09-01] MEDS ORDERED: HYDROmorphone HCL 2 MG TAB PO PRN (08:30)
[2016-09-01] MEDS: ALUMINUM/MAGNESIUM/SIMETH (MAALOX MAX) 30 ML UDC PO SCH ×3 (08:30→21:12)
--- NOTE | 2016-09-01 08:34 | Consultant Recommendations ---
Coroner Recommendations Date of Service Sep 01, 2016. Coroner Recommendations Full ROM left hip as tolerated Weight bear as tolerated left hip with the assistance of a walker Ice to left hip as needed for pain/swelling Keep incision covered, change dressings daily. Keep dry while showering or bathing. Elevate left leg as needed for swelling. CHERISE stockings bilateral lower extremities daily until your follow up appointment. PT/OT daily. Limit narcotic use. Lovenox 40mg BID for DVT prophylaxis. Tylenol and Celebrex for pain as ordered. Follow up with [facility] on 09/13/16 at 9:00 a.m. Please call [phone] with any questions or concerns.
[2016-09-01] MEDS: DIPHENOXYLATE/ATROPINE 2.5/0.025MG TAB PO SCH ×4 (08:51→21:00)
[2016-09-01] MEDS: PANTOprazole SOD 40 MG TAB PO SCH (08:52)
[2016-09-01] MEDS: CHOLECALCIFEROL 1000 INTER.UNIT TAB PO SCH (08:52)
[2016-09-01] MEDS: METOPROLOL SUCC 25MG EXT REL TAB PO SCH (08:52)
[2016-09-01] MEDS: OXYBUTYNIN CHLORIDE 5 MG TAB PO SCH ×2 (08:52→21:03)
[2016-09-01] MEDS: LORATADINE 10 MG TAB PO SCH (08:52)
[2016-09-01] MEDS: ASPIRIN 325 MG ECTAB PO SCH (08:52)
[2016-09-01] MEDS: FUROSEMIDE 40 MG TAB PO SCH (08:53)
[2016-09-01] MEDS: CeleBREX 200 MG CAP PO SCH (08:53)
[2016-09-01] MEDS: POTASSIUM CHLORIDE PWD 20 MEQ PACK PO SCH (08:54)
[2016-09-01] MEDS: ENOXAPARIN 40 MG/0.4 ML SYR SQ SCH ×2 (08:54→21:05)
[2016-09-01] MEDS ORDERED: MELOXICAM 7.5 MG TAB PO SCH (09:00)
[2016-09-01] MEDS: ACETAMINOPHEN 500 MG TAB PO SCH ×2 (13:49→22:07)
[2016-09-01] MEDS: WARFARIN SOD 5 MG TAB PO SCH (16:52)
[2016-09-01] MEDS: TAMSULOSIN HCL 0.4 MG CAP PO SCH (21:02)
[2016-09-01] MEDS: DOCUSATE SODIUM/SENNA 50/8.6MG TAB PO SCH (21:03)
[2016-09-01] MEDS: SIMVASTATIN 20 MG TAB PO SCH (21:04)
[2016-09-02] VITALS (8 sets, daily range): BP systolic 86–124; BP diastolic 51–85; PULSE 59–67; TEMP 36.6–36.7; O2SAT 92–97
[2016-09-02] MEDS: ALUMINUM/MAGNESIUM/SIMETH (MAALOX MAX) 30 ML UDC PO SCH ×4 (02:21→20:50)
[2016-09-02] MEDS: ACETAMINOPHEN 500 MG TAB PO SCH ×3 (05:38→20:54)
[2016-09-02 06:37] LABS: INR 1.2 (0.9-1.1); PROTHROMBIN TIME (PATIENT) 12.8 SECONDS (9.0-12.0)
--- NOTE | 2016-09-02 08:31 | Progress Note ---
Orthopedic SOAP Note Subjective Date of Service: Sep 02, 2016. 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 Problem List Medical Problems: (1) Facial cellulitis Status: Acute Objective calves soft nontender, N/V intact, capillary refill less than 2 sec., dressing C /D/I (some blood on the dressings, nothing excessive, no serous drainage), incision C/D/I, A&O x3, toes mobile Date Time Temp Pulse Resp B/P (MAP) Pulse Ox O2 Delivery O2 Flow Rate FiO2 09/02/16 07:56 97 Nasal Cannula 2.0 09/02/16 07:51 36.6 61 18 100/58 (72) 97 Nasal Cannula 2.0 09/01/16 23:40 Nasal Cannula 2.0 09/01/16 23:34 36.5 75 20 93/50 (64) 93 Room Air 09/01/16 22:06 70 14 93 Room Air 09/01/16 20:03 36.5 75 16 87/63 (71) 97 Room Air 09/01/16 19:16 95 Room Air 09/01/16 16:20 Room Air 09/01/16 15:45 36.6 58 16 87/58 (68) 95 Room Air 09/01/16 08:25 94 Room Air Laboratory Results 24 Hours: Test 09/02/16 06:10 Prothromb Time International Ratio 1.2 Prothrombin Time 12.8 SECONDS Assessment Post op Day 2 Intertrochanteric nailing of Left hip fracture Plan DVT with Lovenox, Aspirin, and Coumadin. Spoke with Dr. Domingo Villar, whom spoke with Dr. Meyer, and Coumadin has been approved. WBAT on Left lower extremity with walker aid Cont PO pain meds for control Matthew and SCD's for DVT Prophylaxis Dressing changed by me 09/02/16. Dressing changes every other day to prevent skin abrasion from tape Will continue to follow orthopedically Social service note states denied from [facility] and new referral placed to [facility]. Will await acceptance/approval Ultimately discharge per Medicine
[2016-09-02] MEDS: METOPROLOL SUCC 25MG EXT REL TAB PO SCH (08:32)
[2016-09-02] MEDS: ASPIRIN 325 MG ECTAB PO SCH (08:34)
[2016-09-02] MEDS: DIPHENOXYLATE/ATROPINE 2.5/0.025MG TAB PO SCH ×4 (08:34→20:51)
[2016-09-02] MEDS: CHOLECALCIFEROL 1000 INTER.UNIT TAB PO SCH (08:34)
[2016-09-02] MEDS: CeleBREX 200 MG CAP PO SCH (08:34)
[2016-09-02] MEDS: OXYBUTYNIN CHLORIDE 5 MG TAB PO SCH ×2 (08:35→20:52)
[2016-09-02] MEDS: PANTOprazole SOD 40 MG TAB PO SCH (08:35)
[2016-09-02] MEDS: LORATADINE 10 MG TAB PO SCH (08:35)
[2016-09-02] MEDS: ENOXAPARIN 40 MG/0.4 ML SYR SQ SCH ×2 (08:36→20:51)
[2016-09-02] MEDS: POTASSIUM CHLORIDE PWD 20 MEQ PACK PO SCH (08:36)
[2016-09-02] MEDS: FUROSEMIDE 40 MG TAB PO SCH (09:00)
[2016-09-02] MEDS: WARFARIN SOD 5 MG TAB PO SCH (16:51)
--- NOTE | 2016-09-02 17:33 | Family Medicine Progress Note ---
Progress Note Date of Service Sep 02, 2016. History Resident Physician Supervision Note: I was present with Dr. Villar during the history and exam. I discussed the case with the resident and agree with the findings and plan as documented in the note. Any exceptions or clarifications are listed here. Pt reports continued improvement in L hip pain with good ambulation about the room. Denies lightheadedness, CP/palpitations, vision changes, weakness while ambulating or at rest. General Appearance: WD/WN, no apparent distress Respiratory: chest non-tender, lungs clear, normal breath sounds, no respiratory distress Cardiovascular: normal peripheral pulses, no murmur, irregularly irregular Assessment/Plan 85 y/o male w/ h/o AAA, TAA, atrial fibrillation, HLD, UC p/w L intertrochanteric hip fracture L intertrochanteric hip fracture (POD 2) - pain controlled, PT on board, management of hip and progression of WB per orthopaedic team Low BP - asymptomatic at this time, holding BP medications and lasix - 250cc NSS bolus and monitor BP AF - Continue metoprolol. EOD ASA 325mg. AC w/ lovenox to coumadin while at rehab. Will likely d/c @ home 2/2 patient propensity to not avoid falls HLD - continue statin therapy UC - continue present regimen BPH w/ h/o prostate CA - continue present therapy h/o AAA/TAA - optimal medical management, patient aware of risks
--- NOTE | 2016-09-02 17:43 | Family Medicine Progress Note ---
Progress Note Date of Service Sep 02, 2016. Subjective Pt evaluation today including: conversation w/ patient, physical exam, chart review, lab review, review of studies Pain: 2/10 pain in the left hip Voiding: no voiding problems, no incontinence Patient is resting comfortably in bed this morning with no acute complaints overnight. Continues to complain of left hip pain but has been doing very well with PT and states that he was able to get out of bed and ambulate across the room to his walker. Constitutional: No fever, No chills Respiratory: No cough, No sputum, No wheezing, No shortness of breath Cardiovascular: No chest pain, No palpitations Abdomen: No pain, No nausea, No vomiting Musculoskeletal: + problem reported (Left sided hip pain) Male : No dysuria Medications Current Inpatient Medications Medications (Trade) Dose Ordered Sig/Desmond Route Start Time Stop Time Status Last Admin Dose Admin Naloxone HCl (Narcan Inj) 0.1 mg PRN PRN IV 08/29/16 18:45 09/28/16 18:44 Sodium Biphosphate/ Sodium Phosphate (Fleet Enema) 132 ml PRN PRN NE 08/29/16 18:45 Albuterol Sulfate (Ventolin 0.083% 2.5MG/3ML Neb) 2.5 mg Q6 PRN INH 08/29/16 19:00 09/28/16 18:59 Bismuth Subsalicylate (Pepto-Bismol Chew Tab) 2 tab BID PRN PO 08/29/16 21:00 09/28/16 20:59 Loratadine (Claritin Tab) 10 mg DAILY PO 08/30/16 09:00 09/29/16 08:59 09/02/16 08:35 10 MG Oxybutynin Chloride (Ditropan Tab) 5 mg BID PO 08/29/16 21:00 09/28/16 20:59 09/02/16 20:52 5 MG Tamsulosin HCl (Flomax Cap) 0.4 mg HS PO 08/29/16 21:00 09/28/16 20:59 09/02/16 20:52 0.4 MG Magnesium Hydroxide (Milk Of Magnesia Susp) 30 ml Q6H PRN PO 08/29/16 19:00 09/28/16 18:59 Polyethylene (Miralax Powder Packet) 17 gm DAILY PRN PO 08/29/16 19:00 09/28/16 18:59 Metoprolol Succinate (Toprol Xl Tab) 25 mg QAM PO 08/30/16 09:00 09/29/16 08:59 Future Hold 09/01/16 08:52 25 MG Simvastatin (Zocor Tab) 20 mg PM PO 08/29/16 21:00 09/28/16 20:59 09/02/16 20:53 20 MG Potassium Chloride (Klor-Con Pwd) 20 meq QAM PO 08/30/16 09:00 09/29/16 08:59 09/02/16 08:36 20 MEQ Ondansetron HCl (Zofran Inj) 4 mg Q6H PRN IV 08/30/16 14:15 09/29/16 14:14 Senna/Docusate Sodium (Senokot S Tab) 2 tab HS PO 08/30/16 21:00 09/29/16 20:59 09/02/16 20:53 2 TAB Magnesium Hydroxide (Milk Of Magnesia Susp) 30 ml DAILY PRN PO 08/30/16 14:15 09/29/16 14:14 Bisacodyl (Dulcolax Supp) 10 mg DAILY PRN NE 08/30/16 14:15 09/29/16 14:14 Aspirin (Ecotrin Tab) 325 mg DAILY PO 09/01/16 09:00 10/01/16 08:59 09/02/16 08:34 325 MG Cholecalciferol (Vitamin D Tab) 1,000 inter.unit DAILY PO 09/01/16 09:00 10/01/16 08:59 09/02/16 08:34 1,000 INTER.UNIT Pantoprazole Sodium (Protonix Tab) 40 mg QAM PO 09/01/16 09:00 10/01/16 08:59 09/02/16 08:35 40 MG Furosemide (Lasix Tab) 40 mg QAM PO 09/01/16 09:00 10/01/16 08:59 Future Hold 09/01/16 08:53 40 MG Diphenoxylate HCl/ Atropine (Lomotil Tab) 2 tab QID PO 08/31/16 13:00 09/30/16 12:59 09/02/16 20:51 2 TAB Miscellaneous Information (Order Awaiting Action) 1 ea QS N/A 08/31/16 16:00 09/30/16 15:59 Acetaminophen (Tylenol Tab) 1,000 mg Q8 PO 09/01/16 14:00 09/06/16 13:59 09/02/16 20:54 1,000 MG Enoxaparin Sodium (Lovenox Inj) 40 mg Q12H SQ 09/01/16 09:00 09/05/16 21:01 09/02/16 20:51 40 MG Celecoxib (CeleBREX CAP) 200 mg QAM PO 09/01/16 09:00 09/05/16 09:01 09/02/16 08:34 200 MG Al Hydrox/Mg Hydrox/Simethicone (Maalox Max Susp) 15 ml Q6H PO 09/01/16 08:30 10/01/16 08:29 09/02/16 20:50 15 ML Acetaminophen (Tylenol Tab) 1,000 mg Q8 PRN PO 09/06/16 14:00 10/06/16 13:59 Hydromorphone HCl (Dilaudid Tab) 2 mg Q3H PRN PO 09/01/16 08:30 09/15/16 08:29 Warfarin Sodium (Coumadin Tab) 5 mg DAILY@16 PO 09/01/16 16:00 10/01/16 15:59 09/02/16 16:51 5 MG Objective Vital Signs Date Time Temp Pulse Resp B/P (MAP) Pulse Ox O2 Delivery O2 Flow Rate FiO2 09/02/16 19:09 124/65 (84) 09/02/16 18:30 67 98/63 (75) 09/02/16 15:05 36.6 63 18 89/51 (64) 97 Room Air 09/02/16 11:37 59 91/51 (64) 61 09/02/16 08:40 Room Air 09/02/16 07:56 97 Nasal Cannula 2.0 09/02/16 07:51 36.6 61 18 100/58 (72) 97 Nasal Cannula 2.0 09/01/16 23:40 Nasal Cannula 2.0 09/01/16 23:34 36.5 75 20 93/50 (64) 93 Room Air 09/01/16 22:06 70 14 93 Room Air Physical Exam General Appearance: WD/WN, no apparent distress Eyes: normal inspection, sclerae normal Neck: supple, no carotid bruits Respiratory/Chest: chest non-tender, lungs clear, normal breath sounds Cardiovascular: no edema, no gallop, + irregularly irregular Abdomen: normal bowel sounds, non tender, soft Extremities: normal range of motion, non-tender, no calf tenderness Neurologic/Psychiatric: alert, normal mood/affect Laboratory Results Results Past 24 Hours Test 09/02/16 06:10 Range/Units Prothrombin Time 12.8 9.0-12.0 SECONDS Prothromb Time International Ratio 1.2 0.9-1.1 Assessment and Plan Patient is an 85-year-old male that presents with a left intertrochanteric fracture after a fall last night off a stool. Patient underwent surgery on Tuesday afternoon, and is currently doing well controlled. He has been weightbearing, participating in physical therapy, and is planned to be discharged home when placement is available. An attempt today was made to place the patient in rehabilitation in the facility in [place], but we were unable to make the placement and a referral was made to [facility]. 1) Left intertrochanteric fracture - Surgery successfully performed on Tuesday - Pain well-controlled today - Doing well with physical therapy - Morphine 4mg q3h PRN for pain, ambulating and able to weight bear - Aspirin 325mg as per Ortho recommendations postoperatively 2) AAA - Has declined intervention in the past, continue to monitor blood pressure 3) Atrial Fibrillation - Rate controlled with Toprol XL - Coumadin 5 mg - Lovenox 1 mg/kilogram - Daily PT/INR 4) Ulcerative Colitis - Resume home medications - Mesalamine - Lomotil 5) BPH/ Prostate Cancer - Flomax - Oxybutynin 6) Home Medications - Albuterol - Lasix - Omeprazole - Klor-Con 20meq - Simvastatin 7) DVT Prophylaxis - SCDs - Lovenox and Coumadin 8) Code Status - Full Resuscitation 9) Disposition - Patient will require inpatient rehabilitation - Accepted to [facility] - Transport when bed available Resident Tracking Resident Involvement: Resident Care Provided Care Provided: Adult Hospital Medicine Resident Tracking Resident Involvement: Resident Care Provided Care Provided: Adult Hospital Medicine Assessment/Plan Resident Physician Supervision Note: I was present with Dr. Villar during the history and exam. I discussed the case with the resident and agree with the findings and plan as documented in the note. Any exceptions or clarifications are listed here. For full attending documentation and examination, please see accompanying note from me from this day.
[2016-09-02] MEDS ORDERED: SODIUM CHLORIDE 0.9% 500ML 500 ML IV ONE (17:45)
[2016-09-02] MEDS ORDERED: NURSING VERBAL MED ORDER ONE (18:45)
[2016-09-02] MEDS: TAMSULOSIN HCL 0.4 MG CAP PO SCH (20:52)
[2016-09-02] MEDS: SIMVASTATIN 20 MG TAB PO SCH (20:53)
[2016-09-02] MEDS: DOCUSATE SODIUM/SENNA 50/8.6MG TAB PO SCH (20:53)
[2016-09-03 01:11] VITALS: BP 113/69
[2016-09-03] MEDS: ALUMINUM/MAGNESIUM/SIMETH (MAALOX MAX) 30 ML UDC PO SCH ×3 (02:38→14:25)
[2016-09-03] MEDS: ACETAMINOPHEN 500 MG TAB PO SCH ×2 (05:53→13:38)
[2016-09-03 06:56] LABS: INR 2.5 (0.9-1.1); PROTHROMBIN TIME (PATIENT) 27.9 SECONDS (9.0-12.0)
[2016-09-03 07:51] VITALS: BP 110/64; PULSE 74; TEMP 36.7; O2SAT 95
--- NOTE | 2016-09-03 08:16 | Progress Note ---
Orthopedic SOAP Note Subjective Date of Service: Sep 03, 2016. Post OP Day: 4 Reports: feeling well, pain controlled w PO medications, Denies: complaints, chest pain, SOB, nausea / vomiting, light headedness, calf pain, using DERMATOLOGIST Problem List Medical Problems: (1) Facial cellulitis Status: Acute Objective calves soft nontender, N/V intact, capillary refill less than 2 sec., dressing C /D/I, incision C/D/I (some surrounding ecchymosis around the proximal incision but nothing excessive, no erythema or drainage otherwise), A&O x3, toes mobile Patient sitting in bedside chair, fully dressed, ready to be discharged, pleasant, NAD Date Time Temp Pulse Resp B/P (MAP) Pulse Ox O2 Delivery O2 Flow Rate FiO2 09/03/16 07:51 36.7 74 20 110/64 (79) 95 Room Air 09/03/16 01:11 113/69 (84) 09/02/16 23:43 36.7 17 86/55 (65) 92 Room Air 09/02/16 20:45 97 Room Air 09/02/16 19:09 124/65 (84) 09/02/16 18:30 67 98/63 (75) 09/02/16 15:05 36.6 63 18 89/51 (64) 97 Room Air 09/02/16 11:37 59 91/51 (64) 61 09/02/16 08:40 Room Air Laboratory Results 24 Hours: Test 09/03/16 06:30 Prothromb Time International Ratio 2.5 Prothrombin Time 27.9 SECONDS Assessment Post op Day 3 Intertrochanteric nailing of Left hip fracture Plan Patient accepted to [facility] DVT with Lovenox, Aspirin, and Coumadin. (Coumadin approved per Dr. Meyer) WBAT on Left lower extremity with walker aid Cont PO pain meds for control Matthew and SCD's for DVT Prophylaxis Dressing changed by me 09/02/16. Dressing changes every other day to prevent skin abrasion from tape Will continue to follow orthopedically Discharge today per Medicine
[2016-09-03] MEDS: CeleBREX 200 MG CAP PO SCH (09:13)
[2016-09-03] MEDS: ASPIRIN 325 MG ECTAB PO SCH (09:13)
[2016-09-03] MEDS: OXYBUTYNIN CHLORIDE 5 MG TAB PO SCH (09:13)
[2016-09-03] MEDS: CHOLECALCIFEROL 1000 INTER.UNIT TAB PO SCH (09:13)
[2016-09-03] MEDS: LORATADINE 10 MG TAB PO SCH (09:14)
[2016-09-03] MEDS: DIPHENOXYLATE/ATROPINE 2.5/0.025MG TAB PO SCH ×2 (09:14→12:43)
[2016-09-03] MEDS: PANTOprazole SOD 40 MG TAB PO SCH (09:14)
[2016-09-03] MEDS: ENOXAPARIN 40 MG/0.4 ML SYR SQ SCH (09:15)
[2016-09-03 10:06] VITALS: BP 136/47; PULSE 91; O2SAT 99
[2016-09-03] MEDS ORDERED: OXYC-57 PO (10:32)
[2016-09-03] MEDS ORDERED: CMD5 PO (10:32)
--- NOTE | 2016-09-03 10:50 | Discharge Instructions ---
Discharge Instructions Date of Service Sep 03, 2016. Admission Reason for Admission: Acute Left Hip Fracture Discharge Discharge Diagnosis / Problem: Left sided hip fracture Discharge Goals Goal(s): Decrease discomfort, Improve function Activity Recommendations Activity Limitations: per Instructions/Follow-up section Lifting Limitations: gradually increase as tolerated Exercise/Sports Limitations: gradually increase as tolerated . Instructions / Follow-Up Instructions / Follow-Up - Please take Warfarin 5mg daily and continue to monitor INR while at [facility] - On discharge from Rehab, re-evaluate whether anticoagulation of the patient is appropriate. He has Atrial Fibrillation but is a very high risk for falls. 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 Meyer on discharge or have the patient follow up with Cardiology to make this decision. - Take Percocet 5/325mg every 4 hours as needed for pain - Your blood pressure was low while on pain medications and you were given 250ml of fluid to raise you blood pressure - To make sure your blood pressure remains normal, make the following medication changes for the time being: - Take half your dose of Lasix (20mg instead of 40 mg) in the morning - Take Metoprolol 25mg once daily instead of twice daily Current Hospital Diet Patient's current hospital diet: Regular Diet Discharge Diet Recommended Diet: AHA Diet (Heart Healthy) Procedures Procedures Performed: Insertion Trochanteric Nail Left Hip (ORIF) Pending Studies Studies pending at discharge: no Medical Emergencies . Who to Call and When: Medical Emergencies: If at any time you feel your situation is an emergency, please call 911 immediately. . Non-Emergent Contact Non-Emergency issues call your: Primary Care Provider . . "Provider Documentation" section prepared by Kvng Villar. . Coal Mill Operator Recommendations Coal Mill Operator Recommendations: Full ROM left hip as tolerated Weight bear as tolerated left hip with the assistance of a walker Ice to left hip as needed for pain/swelling Keep incision covered, change dressings daily. Keep dry while showering or bathing. Elevate left leg as needed for swelling. CHERISE stockings bilateral lower extremities daily until your follow up appointment. PT/OT daily. Limit narcotic use. Lovenox 40mg BID for DVT prophylaxis. Tylenol and Celebrex for pain as ordered. Follow up with [facility] on 09/13/16 at 9:00 a.m. Please call [phone] with any questions or concerns. VTE Core Measure Inpt VTE Proph given/why not?: Enoxaparin (Lovenox)SQ, Warfarin (Coumadin)
[2016-09-03] MEDS: POTASSIUM CHLORIDE PWD 20 MEQ PACK PO SCH (11:01)
[2016-09-03 13:11] VITALS: BP 110/64; PULSE 74; TEMP 36.7; O2SAT 95
[2016-09-03] MEDS: WARFARIN SOD 5 MG TAB PO SCH (16:37)
--- NOTE | 2016-09-03 19:08 | Family Medicine Progress Note ---
Progress Note Date of Service Sep 03, 2016. History Resident Physician Supervision Note: I was present with Dr. Villar during the history and exam. I discussed the case with the resident and agree with the findings and plan as documented in the note. Any exceptions or clarifications are listed here. Pt reports continued improvement in left hip pain. Tolerating AC well at this time. Understands that he will need to be cautious henceforth, not just w/ the AC but in general. He states he understands but likely will not change his behaviors after rehab. General Appearance: no apparent distress, cachetic Respiratory: chest non-tender, no respiratory distress, decreased breath sounds (b/l bases, unchanged) Cardiovascular: normal peripheral pulses, no murmur, irregularly irregular Gastrointestinal: normal bowel sounds, non tender, soft, no organomegaly Assessment/Plan 85 y/o male w/ h/o AAA, TAA, atrial fibrillation, HLD, UC p/w L intertrochanteric hip fracture L intertrochanteric hip fracture - pain controlled, transition to acute rehabilitation w/ good follow up with orthopaedics Low BP - resolved - restart lasix and metoprolol at half dose and escalate as BP improves AF - Continue metoprolol. EOD ASA 325mg. AC w/ lovenox to coumadin while at rehab. Will likely d/c @ home 2/2 patient propensity to not avoid falls HLD - continue statin therapy UC - home regimen BPH w/ h/o prostate CA - continue present therapy h/o AAA/TAA - optimal medical management, patient aware of risks
--- NOTE | 2016-09-03 19:18 | Discharge Summary ---
Discharge Summary Date of Service Sep 03, 2016. (Kvng Villar MD) Discharge Summary Admission Date: Aug 29, 2016 at 17:48 Discharge Date: Sep 03, 2016 Discharge Disposition: Rehab Principal Diagnosis: Left intertrochanteric fracture (Kvng Villar MD) Medication Reconciliation New Medications: Oxycodone/Acetaminophen 5MG/325MG (Percocet 5MG/325MG) Tab 1 TABLET PO Q4H PRN for Pain for 7 Days, TAB PAIN Warfarin Sod (Coumadin) 5 Mg Tab 5 MG PO DAILY@16 for 30 Days, #30 TAB Continued Medications: Albuterol Sulf (Proventil 0.083% 2.5MG/3ML) 2.5 Mg/3 Ml Nebu 2.5 MG INH Q6 PRN for Wheezing, EA Ascorbic Acid (Ascorbic Acid) 500 Mg Tab 500 MG PO QPM Aspirin (Aspirin Ec) 325 Mg Tab 325 MG PO NOON Bismuth Subsalicylate (Pepto Bismol Chew Tab) 262 Mg Tab 2 TAB PO BID, TAB Cholecalciferol (Vitamin D3) 1,000 Unit Tab 2 TABS PO NOON Diphenoxylate/Atropine (Lomotil) Tab 2 TABS PO QID Erythromycin Opth (Erythromycin Opth) 12 Appln/3.5 Gm Oint 1 CM TOP Q6, #3 BOX Ferrous Sulfate (Ferrous Sulfate) 325 Mg Tab 325 MG PO QAM Furosemide (Lasix) 40 Mg Tab 40 MG PO QAM, TAB Leuprolide Acetate (Lupron Depot) 22.5 Mg Kit 1 DOSE IM q6 months Loratadine (Claritin) 10 Mg Tab 10 MG PO DAILY, TAB Meloxicam (Mobic) 15 Mg Tab 15 MG PO DAILY, TAB Mesalamine (Asacol Hd) 800 Mg Tab 800 MG PO TID Metoprolol Succ (Toprol Xl) (Toprol-Xl) 25 Mg Tabcr 0.5 MG PO BID Multivitamin (Multivitamin) Tab 1 TAB PO NOON, TAB Omeprazole (Prilosec) 20 Mg Capcr 20 MG PO QAM, CAP Oxybutynin Chloride (Ditropan) 5 Mg Tab 5 MG PO BID Potassium Ext Rel (Klor-Con) 20 Meq Tabcr 20 MEQ PO QAM Simvastatin (Zocor) 20 Mg Tab 0.5 TAB PO HS Tamsulosin Hcl (Flomax) 0.4 Mg Cap 0.4 MG PO HS Discontinued Medications: Clindamycin HCl (Clindamycin HCl) 150 Mg Cap 300 MG PO Q6 for 15 Days, #60 CAP Discharge Exam Review of Systems: Constitutional: No fever, No chills Respiratory: No cough, No sputum, No shortness of breath Cardiovascular: No chest pain, No palpitations Abdomen: No pain, No nausea, No vomiting, No diarrhea Musculoskeletal: + joint pain (left hip pain) Genitourinary - Male: No dysuria Physical Exam: General Appearance: WD/WN, no apparent distress Respiratory/Chest: chest non-tender, lungs clear, normal breath sounds Cardiovascular: no edema, no gallop, + irregularly irregular Abdomen / GI: normal bowel sounds, non tender, soft Extremities: normal inspection, no calf tenderness, + pertinent finding ( left sided hip pain with palpation) Neurologic/Psychiatric: alert, normal mood/affect (Kvng Villar MD) Hospital Course Patient is an 85 year old male that presented to the ED after a fall onto his left hip. The patient on imaging was found to have a left intertrochanteric fracture. He was taken to the OR by Dr. Schaffer for reapir. The fracture was successfully repaired and the patient began working with PT/OT as an inpatient. It was determined that the patient would require inpatient rehabilitation and a referral was made to [facility]. During his stay we were able to control his pain with both percocet and morphine, although his blood pressure appeared to drop slightly. After a 250ml bolus, his blood pressure stablized nd we resumed his home blood pressure medications. Total Time Spent: Greater than 30 minutes This includes examination of the patient, discharge planning, medication reconciliation, and communication with other providers. (Kvng Villar MD) Discharge Instructions Please refer to the electronic Patient Visit Report (Discharge Instructions) for additional information. (Kvng Villar MD) Additional Copies To Kayleen Thomas Resident Tracking Resident Involvement: Resident Care Provided Care Provided: [facility] Medicine (Kvng Villar MD) Resident Tracking Resident Involvement: Resident Care Provided Care Provided: [facility] Medicine (Kvng Villar MD) Assessment/Plan Resident Physician Supervision Note: I was present with Dr. Villar during the history and exam. I discussed the case with the resident and agree with the findings and plan as documented in the note. Any exceptions or clarifications are listed here. For full attending documentation and examination, please see accompanying note from me from this day. (Marshall Mcgill MD)
[2016-09-06] MEDS ORDERED: ACETAMINOPHEN 500 MG TAB PO PRN (14:00)
== END 2016-09-03 16:47 | DRG 481 ==
LOC: C.MSW 17:48
PROVIDERS: ADMIT Internal Medicine; ATTEND Family Medicine
PROC: 0QS736Z Reposition Left Upper Femur with Intramedullary Internal Fixation Device, Percutaneous Approach (ICD-10-PCS; principal; 2016-08-30 12:00)
DX: S72.142A Displaced intertrochanteric fracture of left femur, initial encounter for closed fracture (principal); K51.90 Ulcerative colitis, unspecified, without complications; C61 Malignant neoplasm of prostate; I10 Essential (primary) hypertension; E78.5 Hyperlipidemia, unspecified; I48.2 Chronic atrial fibrillation; I71.6 Thoracoabdominal aortic aneurysm, without rupture; N40.0 Benign prostatic hyperplasia without lower urinary tract symptoms; Z79.82 Long term (current) use of aspirin; Z79.899 Other long term (current) drug therapy; W08.XXXA Fall from other furniture, initial encounter; Y92.009 Unspecified place in unspecified non-institutional (private) residence as the place of occurrence of the external cause

== ENCOUNTER 2016-09-09 08:47 | Inpatient (IN) | payer OTHER ==
[~2016-09-09] VITALS: Ht 167.6 cm; Wt 80.1 kg
[~2016-09-09 08:47] MED LIST changes: -CLC150 PO; +CMD5 PO; +OXYC-57 PO
[2016-09-09] MEDS ORDERED: ONDANSETRON INJ 2 MG/ML 2 ML VIAL IV STA (09:06)
[2016-09-09] MEDS ORDERED: MoRPHine SULFATE 10 MG/ML CARP/VIAL IV STA (09:06)
[2016-09-09] MEDS ORDERED: SODIUM CHLORIDE 0.9% 500ML 500 ML IV STA (09:06)
[2016-09-09 09:41] LABS: BASO % 0.4 %; BASO ABS # 0.03 K/uL (0-0.2); COMPLETE YES; EOS % 2.4 %; IG% 0.4 %; LYMPH % 22.5 %; LYMPH ABS # 1.81 K/uL (1.2-3.4); MEAN CELL VOLUME 99.7 fL (80-100); MEAN CORPUSCULAR HEMOGLOBIN 32.6 pg (25-34); MEAN CORPUSCULAR HGB CONC 32.8 g/dl (32-36); MEAN PLATELET VOLUME 9.6 fL (7.4-10.4); MONO % 8.2 %; NEUT % 66.1 %; PLATELET COUNT 272 K/uL (130-400); RED BLOOD COUNT 2.91 M/uL (4.7-6.1); WHITE BLOOD COUNT 8.05 K/uL (4.8-10.8)
[2016-09-09 09:47] LABS: INR 2.2 (0.9-1.1); PROTHROMBIN TIME (PATIENT) 24.9 SECONDS (9.0-12.0)
[2016-09-09 10:02] LABS: BLOOD UREA NITROGEN 30 mg/dl (7-18); BUN/CREATININE RATIO 25.3 (10-20); CALCIUM 9.1 mg/dl (8.5-10.1); CARBON DIOXIDE 27 mmol/L (21-32); CHLORIDE 104 mmol/L (98-107); GLUCOSE 117 mg/dl (70-99); POTASSIUM 4.6 mmol/L (3.5-5.1); SODIUM 138 mmol/L (136-145)
--- NOTE | 2016-09-09 10:12 | DIAGNOSTIC IMAGING REPORT ---
PELVIS 1 OR 2 VIEW ROUTINE CLINICAL HISTORY: l leg pain pain COMPARISON: 08/30/2016 DISCUSSION: Status post left hip nailing procedure. Avulsion lesser trochanter. Pre-existing fracture base left femoral neck. No new or interval process. Significant degenerative change right hip low lumbar spine and to a lesser extent sacroiliac joints. There is no evidence for soft tissue swelling. IMPRESSION: Stable postoperative change left hip. The above report was generated using voice recognition software. It may contain grammatical, syntax or spelling errors. Electronically signed by: Luca Golden M.D. 09/09/2016 10:10 AM Dictated Date/Time: 09/09/2016 10:09 AM
--- NOTE | 2016-09-09 10:13 | DIAGNOSTIC IMAGING REPORT ---
LEFT FEMUR 2 VIEWS ROUTINE CLINICAL HISTORY: l leg pain pain COMPARISON: None. DISCUSSION: Status post left hip nailing procedure. Short segment intramedullary alin is present. No acute or interval bony abnormality. Pre-existing fracture left femoral neck with a pre-existing avulsion fracture lesser trochanter. There is no evidence for soft tissue swelling. IMPRESSION: Stable postoperative change left hip and proximal femur. Degenerative change left knee. No acute or interval process compared to the prior exam. The above report was generated using voice recognition software. It may contain grammatical, syntax or spelling errors. Electronically signed by: Luca Golden M.D. 09/09/2016 10:12 AM Dictated Date/Time: 09/09/2016 10:11 AM
--- NOTE | 2016-09-09 10:14 | DIAGNOSTIC IMAGING REPORT ---
LEFT KNEE 3 VIEWS CLINICAL HISTORY: l knee pain pain COMPARISON: None. DISCUSSION: Considerable degenerative change all major joint compartments. Underlying chondrocalcinosis. Moderate reactive osteophytic change. No acute process. No specific evidence for fracture. There is no evidence for soft tissue swelling. IMPRESSION: Considerable degenerative change. No acute bony abnormality. The above report was generated using voice recognition software. It may contain grammatical, syntax or spelling errors. Electronically signed by: Luca Golden M.D. 09/09/2016 10:13 AM Dictated Date/Time: 09/09/2016 10:12 AM
[2016-09-09] MEDS ORDERED: ACET-1256 PO (10:45)
[2016-09-09] MEDS ORDERED: SIMV10TA2 PO (10:45)
[2016-09-09] MEDS ORDERED: WARF3TAB6 PO (10:45)
[2016-09-09] MEDS ORDERED: MULT-513 PO (10:45)
[2016-09-09] MEDS ORDERED: PANT40TA PO (10:45)
[2016-09-09] MEDS ORDERED: MELO7.5T5 PO (10:45)
--- NOTE | 2016-09-09 11:17 | DIAGNOSTIC IMAGING REPORT ---
LEFT VENOUS DOPP LOWER EXT UNILAT CLINICAL HISTORY: 85 years-old Male presenting with severe lle pain . TECHNIQUE: Real-time grayscale and color and spectral Doppler ultrasound imaging of the veins of the left lower extremity was performed. Compression and augmentation were also utilized. COMPARISON: None. FINDINGS: Left: Common femoral vein: Patent. Femoral vein: Patent. Greater saphenous vein: Patent. Popliteal vein: Patent. Calf veins: Patent. Other: None. IMPRESSION: No evidence of deep venous thrombosis. Electronically signed by: uRi Paulson M.D. 09/09/2016 11:16 AM Dictated Date/Time: 09/09/2016 11:15 AM
[2016-09-09] MEDS ORDERED: MoRPHine SULFATE 4 MG/ML 1 ML CARP\\VIAL IV STA (11:33)
[2016-09-09 12:00] VITALS: O2SAT 99; Ht 167.6 cm; Wt 80.1 kg
--- NOTE | 2016-09-09 12:21 | DIAGNOSTIC IMAGING REPORT ---
LEFT LOWER EXTREMITY WITHOUT CLINICAL HISTORY: 85 years-old Male presenting with L leg pain from hip down to knee . TECHNIQUE: Multidetector CT of the left femur was performed without the use of intravenous contrast. IV contrast: None. A dose lowering technique was used consistent with the principles of ALARA (as low as reasonably achievable). COMPARISON: None. CT DOSE (mGy.cm): The estimated cumulative dose is 811.78 mGy.cm. FINDINGS: Box Car Bracer topogram: Dynamic nail fixation of the proximal left femoral neck with intramedullary alin through the proximal metadiaphysis with interlocking screw fixation. Total right knee arthroplasty noted. Dynamic screw fixation across the minimally comminuted left femoral neck fracture. Basocervical fracture plane remains evident with 3 to 4 mm of diastases at the fracture site. Extension of the fracture plane obliquely towards the distal end posterior cortex with a separate fracture fragment consisting of the greater and lesser trochanters. 6 mm of diastases of the trochanteric fracture fragment from the distal fracture fragment with slight anterior displacement of the distal fracture fragment relative to the trochanteric fragment. No malalignment at the femoral neck. No hardware complication. Mild subcutaneous edema along the lateral upper thigh with overlying skin thickening and skin roosevelt. Several subjacent high density collections measuring 2 to 3 cm along the surgical incision site consistent with hematomas. Mild diffuse muscle atrophy. Tricompartmental degenerative changes at the knee. Atherosclerosis. Visualized portion of the pelvis demonstrates a distended urinary bladder. IMPRESSION: 1. Postsurgical changes of dynamic screw fixation across the minimally comminuted left femoral neck and intertrochanteric fracture. Minimal diastases at the fracture planes as detailed above. No significant malalignment of the femoral neck component. No hardware competition. 2. Small hematomas associated with the surgical incision site. Diffuse subcutaneous edema with overlying skin thickening at the surgical site may be within the expected range of normal. Correlate clinically. Electronically signed by: Rui Paulson M.D. 09/09/2016 12:20 PM Dictated Date/Time: 09/09/2016 12:11 PM
[2016-09-09] MEDS ORDERED: ALBUTEROL 0.083% NEBU SOLN 3 ML VIAL INH PRN (13:45)
[2016-09-09] MEDS ORDERED: METHYLPREDNISOLONE ACETATE 80 MG/ML VIAL IA STA (14:05)
[2016-09-09] MEDS ORDERED: BUPIVACAINE 0.5 % 5 MG/1 ML MPF 30ML VIAL ONE (14:10)
[2016-09-09] MEDS ORDERED: LIDOCAINE/EPINEPHRINE 1% 20 ML VIAL ONE (14:10)
[2016-09-09] MEDS ORDERED: ALUMINUM/MAGNESIUM/SIMETH (MAALOX MAX) 30 ML UDC PO PRN (14:30)
[2016-09-09] MEDS ORDERED: ACETAMINOPHEN 500 MG TAB PO PRN (14:30)
[2016-09-09] MEDS ORDERED: MAGNESIUM HYDROXIDE SUSP 30 ML UDC PO PRN (14:30)
--- NOTE | 2016-09-09 15:15 | Medical Consult ---
Consultation Date of Consultation: Sep 09, 2016. Attending Physician: Dr. Gama Reason for Consultation: Acute left knee pain; status post ORIF left intertrochanteric hip fracture on by Dr. Schaffer History of Present Illness Patient is a pleasant 85-year-old male who is status post an ORIF of his left intertrochanteric hip fracture status post fall on 08/31/2016. His surgery was performed by Dr. Jose Maria Schaffer. He states that his left knee has hurt since that fall on the . He states that his knee bothered him on and off prior to that. He has known underlying degenerative joint disease of the left knee and has undergone what sounds like viscous supplementation injections many years ago with no significant relief. He does have a history of having a right total knee arthroplasty. His knee has been tolerable and has never hurt as bad as it does today. Prior to his fall on the he was walking with the assistance of a cane. After his hip fracture he has been using a walker for ambulation assistance. He's been at [facility]. He states that over the last couple of days his knee has progressively gotten worse. He said yesterday was able to participate in physical therapy but still complained of left knee pain. He states that when he woke up this morning he was unable to bear weight on his left lower extremity due to his pain in his knee. They brought him to the emergency room for evaluation. He states that he has been applying ice a few days ago while at [facility]. He has not had any new injury to his left knee. He denies any history of gout, fever or chills. States that his left hip does still have some pain in it but that is improving. He describes left knee pain as sharp stabbing pain with any type of movement. Emergency room physician asked us to evaluate him for his left knee. He has been admitted by medicine for his intractable left knee pain. Past Medical/Surgical History Medical Problems: (1) Facial cellulitis Status: Acute 2. Acute left knee pain 3. DJD left knee 4. Status post right total knee arthroplasty in 1999 5. Status post ORIF left hip fracture 08/31/2016 Family History No pertinent family history Social History Smoking Status: Never Smoker Drug Use: none Housing Status: lives with family Occupation Status: retired Allergies Coded Allergies: No Known Allergies (Verified , 1/20/17) Home Medications Active Percocet 5MG/325MG (Oxycodone/Acetaminophen) Tab 1 Tablet PO Q4H PRN 7 Days PAIN Erythromycin Opth (Erythromycin) 12 Appln/3.5 Gm Oint 1 Cm TOP Q6 Reported Tylenol (Acetaminophen) 500 Mg Tab 500 Mg PO Q4 Jantoven (Warfarin Sodium) 3 Mg Tab 3 Mg PO DAILY Zocor (Simvastatin) 10 Mg Tab 10 Mg PO QPM Protonix (Pantoprazole) 40 Mg Tab 40 Mg PO DAILY Mvi With Minerals (Multivitamins/Minerals) Tab 1 Tab PO DAILY Mobic (Meloxicam) 7.5 Mg Tab 15 Mg PO DAILY TWO 7.5 MG TABLETS. Lupron Depot (Leuprolide Acetate) 22.5 Mg Kit 1 Dose IM Q6 MONTHS Asacol Hd (Mesalamine) 800 Mg Tab 800 Mg PO Q8 Claritin (Loratadine) 10 Mg Tab 10 Mg PO DAILY Ferrous Sulfate 325 Mg Tab 325 Mg PO QAM Proventil 0.083% 2.5MG/3ML (Albuterol Sulf) 2.5 Mg/3 Ml Nebu 2.5 Mg INH Q6 PRN Flomax (Tamsulosin Hcl) 0.4 Mg Cap 0.4 Mg PO HS Ascorbic Acid 500 Mg Tab 500 Mg PO QPM Ditropan (Oxybutynin Chloride) 5 Mg Tab 5 Mg PO Q12 Vitamin D3 (Cholecalciferol) 1,000 Unit Tab 2 Tabs PO NOON Aspirin Ec (Aspirin) 325 Mg Tab 325 Mg PO DAILY Toprol-Xl (Metoprolol Succinate) 25 Mg Tabcr 12.5 Mg PO Q12 Lasix (Furosemide) 40 Mg Tab 40 Mg PO QAM Klor-Con (Potassium Chloride) 20 Meq Tabcr 20 Meq PO QAM Lomotil (Diphenoxylate HCl/Atropine) Tab 2 Tabs PO QID Current Inpatient Medications Current Inpatient Medications Medications (Trade) Dose Ordered Sig/Desmond Route Start Time Stop Time Status Last Admin Dose Admin Albuterol Sulfate (Ventolin 0.083% 2.5MG/3ML Neb) 2.5 mg Q6 PRN INH 09/09/16 13:45 10/09/16 13:44 Ascorbic Acid (Vitamin C Tab) 500 mg QPM PO 09/09/16 21:00 10/09/16 20:59 Cholecalciferol (Vitamin D Tab) 1,000 inter.unit DAILY PO 09/10/16 09:00 10/10/16 08:59 Furosemide (Lasix Tab) 40 mg QAM PO 09/10/16 09:00 10/10/16 08:59 Loratadine (Claritin Tab) 10 mg DAILY PO 09/10/16 09:00 10/10/16 08:59 Metoprolol Succinate (Toprol Xl Tab) 12.5 mg Q12 PO 09/09/16 21:00 10/09/16 20:59 UNV Multivitamins/ Minerals (Multivitamin W/ Minerals Tab) 1 tab DAILY PO 09/10/16 09:00 10/10/16 08:59 UNV Oxybutynin Chloride (Ditropan Tab) 5 mg Q12 PO 09/09/16 21:00 10/09/16 20:59 UNV Oxycodone/ Acetaminophen (Percocet 5-325mg Tab) 1 tab Q4H PRN PO 09/09/16 13:45 09/23/16 13:44 Pantoprazole Sodium (Protonix Tab) 40 mg DAILY PO 09/10/16 09:00 10/10/16 08:59 UNV Potassium Chloride (Klor-Con Tab) 20 meq QAM PO 09/10/16 09:00 10/10/16 08:59 UNV Simvastatin (Zocor Tab) 10 mg QPM PO 09/09/16 21:00 10/09/16 20:59 UNV Tamsulosin HCl (Flomax Cap) 0.4 mg HS PO 09/09/16 21:00 10/09/16 20:59 UNV Warfarin Sodium (Coumadin Tab) 3 mg DAILY@1600 PO 09/09/16 16:00 10/09/16 15:59 UNV Ferrous Sulfate (Feosol Tab) 325 mg DAILY PO 09/10/16 09:00 10/10/16 08:59 UNV Miscellaneous Information (Order Awaiting Action) 1 ea QS N/A 09/09/16 16:00 10/09/16 15:59 Colchicine (Colchicine Tab) 0.6 mg BID PO 09/09/16 21:00 09/12/16 21:00 UNV Hydrocortisone Sodium Succinate 100 mg/Syringe 2 ml @ 4 mls/min Q8H IV 09/09/16 13:45 09/11/16 13:45 UNV Acetaminophen (Tylenol Tab) 650 mg Q4H PRN PO 09/09/16 14:30 10/09/16 14:29 Al Hydrox/Mg Hydrox/Simethicone (Maalox Max Susp) 15 ml Q4H PRN PO 09/09/16 14:30 10/09/16 14:29 Magnesium Hydroxide (Milk Of Magnesia Susp) 30 ml Q6H PRN PO 09/09/16 14:30 10/09/16 14:29 Review of Systems Constitutional: No fever, No chills, No sweats, No weight loss Respiratory: No cough, No sputum, No wheezing, No shortness of breath Cardiovascular: No chest pain, No edema, No palpitations Abdomen: No pain, No nausea, No vomiting, No diarrhea, No constipation Musculoskeletal: + joint pain (left knee with radiation in the left thigh), + swelling (mild), No calf pain Genitourinary - Male: No urinary frequency, No urinary urgency Neurologic: No numbness/tingling Hematologic / Lymphatic: No abnormal bleeding/bruising, No clotting problems Integumentary: No rash, No itch Physical Exam Date Time Temp Pulse Resp B/P (MAP) Pulse Ox O2 Delivery O2 Flow Rate FiO2 09/09/16 13:45 58 19 108/68 96 Nasal Cannula 2.0 09/09/16 13:00 58 21 113/62 96 Nasal Cannula 2.0 09/09/16 12:09 62 20 123/70 99 Nasal Cannula 2.0 09/09/16 12:00 99 Nasal Cannula 2.0 09/09/16 11:30 58 24 130/69 95 Nasal Cannula 2.0 09/09/16 10:30 66 15 104/59 97 Nasal Cannula 2.0 09/09/16 10:17 Nasal Cannula 2.0 09/09/16 10:07 68 24 105/63 97 Room Air 09/09/16 09:36 68 26 106/67 93 Room Air 09/09/16 09:34 Room Air 09/09/16 09:34 76 34 74/61 09/09/16 09:31 62 09/09/16 09:26 72 26 114/63 96 Room Air 09/09/16 08:55 36.7 76 20 105/61 98 Room Air General Appearance: WD/WN, + mild distress (due to left knee pain.) Head: normocephalic, atraumatic Extremities/Musculoskelatal: no calf tenderness, normal capillary refill, + pertinent finding (left lower extremity has mild edema. He is nontender throughout his left foot and left ankle. He tolerates gentle range of motion with dorsiflexion and plantarflexion of his left ankle dorsalis pedis and posterior tibial pulses are 1+. He does have a trace effusion of his left knee. There is no erythema or warmth to the left knee. He has pain with any type of flexion or extension of his left knee. He does not really tolerate any type of exam on his left knee today. He has pain with attempts at straight leg raising although is able to do that with mild assistance. Tolerates gentle internal and external logrolling of his left hip. His left hip incisions are clean dry and intact roosevelt are retained. He has some resolving ecchymosis of his left thigh. No edema of his left thigh. Mildly tender with palpation of his left thigh around the incisions and anterior aspect of the thigh. Skin is intact on his left lower extremity. He holds his knee in a flexed position of about 10 for comfort. He has no prepatellar effusion.) Laboratory Results Last 24 Hours Test 09/09/16 09:15 White Blood Count 8.05 K/uL Red Blood Count 2.91 M/uL Hemoglobin 9.5 g/dL Hematocrit 29.0 % Mean Corpuscular Volume 99.7 fL Mean Corpuscular Hemoglobin 32.6 pg Mean Corpuscular Hemoglobin Concent 32.8 g/dl Platelet Count 272 K/uL Mean Platelet Volume 9.6 fL Neutrophils (%) (Auto) 66.1 % Lymphocytes (%) (Auto) 22.5 % Monocytes (%) (Auto) 8.2 % Eosinophils (%) (Auto) 2.4 % Basophils (%) (Auto) 0.4 % Neutrophils # (Auto) 5.33 K/uL Lymphocytes # (Auto) 1.81 K/uL Monocytes # (Auto) 0.66 K/uL Eosinophils # (Auto) 0.19 K/uL Basophils # (Auto) 0.03 K/uL RDW Standard Deviation 53.2 fL RDW Coefficient of Variation 15.0 % Immature Granulocyte % (Auto) 0.4 % Immature Granulocyte # (Auto) 0.03 K/uL Prothrombin Time 24.9 SECONDS Prothromb Time International Ratio 2.2 Sodium Level 138 mmol/L Potassium Level 4.6 mmol/L Chloride Level 104 mmol/L Carbon Dioxide Level 27 mmol/L Anion Gap 7.0 mmol/L Blood Urea Nitrogen 30 mg/dl Creatinine 1.20 mg/dl Estimated GFR () 63.1 Estimated GFR (Non- 54.4 BUN/Creatinine Ratio 25.3 Random Glucose 117 mg/dl Calcium Level 9.1 mg/dl Radiology images: (All performed on 09/09/2016) PELVIS 1 OR 2 VIEW ROUTINE CLINICAL HISTORY: l leg pain pain COMPARISON: 08/30/2016 DISCUSSION: Status post left hip nailing procedure. Avulsion lesser trochanter. Pre-existing fracture base left femoral neck. No new or interval process. Significant degenerative change right hip low lumbar spine and to a lesser extent sacroiliac joints. There is no evidence for soft tissue swelling. IMPRESSION: Stable postoperative change left hip. LEFT KNEE 3 VIEWS CLINICAL HISTORY: l knee pain pain COMPARISON: None. DISCUSSION: Considerable degenerative change all major joint compartments. Underlying chondrocalcinosis. Moderate reactive osteophytic change. No acute process. No specific evidence for fracture. There is no evidence for soft tissue swelling. IMPRESSION: Considerable degenerative change. No acute bony abnormality. LEFT FEMUR 2 VIEWS ROUTINE CLINICAL HISTORY: l leg pain pain COMPARISON: None. DISCUSSION: Status post left hip nailing procedure. Short segment intramedullary alin is present. No acute or interval bony abnormality. Pre-existing fracture left femoral neck with a pre-existing avulsion fracture lesser trochanter. There is no evidence for soft tissue swelling. IMPRESSION: Stable postoperative change left hip and proximal femur. Degenerative change left knee. No acute or interval process compared to the prior exam. LEFT VENOUS DOPP LOWER EXT UNILAT CLINICAL HISTORY: 85 years-old Male presenting with severe lle pain . TECHNIQUE: Real-time grayscale and color and spectral Doppler ultrasound imaging of the veins of the left lower extremity was performed. Compression and augmentation were also utilized. COMPARISON: None. FINDINGS: Left: Common femoral vein: Patent. Femoral vein: Patent. Greater saphenous vein: Patent. Popliteal vein: Patent. Calf veins: Patent. Other: None. IMPRESSION: No evidence of deep venous thrombosis. LEFT LOWER EXTREMITY WITHOUT CLINICAL HISTORY: 85 years-old Male presenting with L leg pain from hip down to knee . TECHNIQUE: Multidetector CT of the left femur was performed without the use of intravenous contrast. IV contrast: None. A dose lowering technique was used consistent with the principles of ALARA (as low as reasonably achievable). COMPARISON: None. CT DOSE (mGy.cm): The estimated cumulative dose is 811.78 mGy.cm. FINDINGS: Quality Control Projectionist topogram: Dynamic nail fixation of the proximal left femoral neck with intramedullary alin through the proximal metadiaphysis with interlocking screw fixation. Total right knee arthroplasty noted. Dynamic screw fixation across the minimally comminuted left femoral neck fracture. Basocervical fracture plane remains evident with 3 to 4 mm of diastases at the fracture site. Extension of the fracture plane obliquely towards the distal end posterior cortex with a separate fracture fragment consisting of the greater and lesser trochanters. 6 mm of diastases of the trochanteric fracture fragment from the distal fracture fragment with slight anterior displacement of the distal fracture fragment relative to the trochanteric fragment. No malalignment at the femoral neck. No hardware complication. Mild subcutaneous edema along the lateral upper thigh with overlying skin thickening and skin roosevelt. Several subjacent high density collections measuring 2 to 3 cm along the surgical incision site consistent with hematomas. Mild diffuse muscle atrophy. Tricompartmental degenerative changes at the knee. Atherosclerosis. Visualized portion of the pelvis demonstrates a distended urinary bladder. IMPRESSION: 1. Postsurgical changes of dynamic screw fixation across the minimally comminuted left femoral neck and intertrochanteric fracture. Minimal diastases at the fracture planes as detailed above. No significant malalignment of the femoral neck component. No hardware competition. 2. Small hematomas associated with the surgical incision site. Diffuse subcutaneous edema with overlying skin thickening at the surgical site may be within the expected range of normal. Correlate clinically. Assessment & Plan Assessment: 1. Acute left knee pain suspect exacerbation of degenerative joint disease versus gouty arthritis 2. Status post ORIF left intertrochanteric hip fracture 08/31/2016 Plan: X-rays reviewed by Dr. Lazaro today. No evidence of acute bony abnormality of his left knee. He does have underlying end-stage degenerative joint disease. He does not have any evidence of infection today. Discussed with the patient using ice for comfort to his left knee. We offered him an aspiration and injection of his left knee. He agreed to proceed. An aspiration was completed and sent to the lab for fluid analysis, Gram stain, aerobic and anaerobic culture and crystal analysis. Cortisone injection was then given as the fluid did not look infectious. He will be admitted by the medical service for further valuation and workup of his left knee pain. Sedimentation rate and CRP are ordered and pending. He can be out of bed, weightbearing as tolerated left lower extremity with the assistance of a walker. He can do full range of motion of his left ankle knee and left hip as tolerated. Elevation to the left leg as needed for pain and swelling. Nick bandage to the left knee for swelling. CHERISE stockings can be worn for DVT prophylaxis. SCDs for DVT prophylaxis. He will be placed on Coumadin for DVT prophylaxis due to his recent left hip surgery. We will recheck in the morning to see how his knee pain is doing. Findings will be discussed with Dr. Lazaro. PROCEDURE: The patient has agreed to undergo an aspiration and injection of his left knee. Timeout verbal consent was obtained. His left knee was identified appropriately. The superior lateral portal was marked and cleansed with alcohol. Sterile technique was used. He's an 18-gauge needle and 20 mL syringe and aspirated 3 mL of class I synovial fluid and a small drop of blood. There is no purulence to the fluid. It was not turbid. I then injected Depo- Medrol 80 mg, 1 mL of half percent Marcaine, and 1 mL of 1% lidocaine with epinephrine in his left knee joint. History following throughout the joint. He tolerated the aspiration and injection well. Band-Aid was applied.
--- NOTE | 2016-09-09 15:21 | EMERGENCY ROOM VISIT NOTE ---
History Report prepared by Phani: Laura Mays Under the Supervision of: Dr. Yvan Naranjo D.O. 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 He is also experiencing pain in his left thigh. The patient came to the ED via ambulance from [facility]. The patient states that he was getting up from the toilet when his left knee started to hurt. 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 The patient fractured his left hip after falling and had surgery to repair the fracture on August 30, 2016. The patient is unsure of if there is tingling or numbness in his left leg. He denies chest pain, shortness of breath , abdominal pain, and any pain in his right leg. He denies falling since he broke his hip. 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 A total of 10 systems reviewed and were otherwise negative. Past Medical & Surgical Medical Problems: (1) Cellulitis and abscess of face (2) Hip fracture (3) HLD (hyperlipidemia) (4) HTN (hypertension) (5) Left knee pain Family History No pertinent family history Social History Smoking Status: Never Smoker Drug Use: none Housing Status: lives with family Occupation Status: retired Current/Historical Medications Scheduled Acetaminophen (Tylenol), 500 MG PO Q4 Ascorbic Acid (Ascorbic Acid), 500 MG PO QPM Aspirin (Aspirin Ec), 325 MG PO DAILY Cholecalciferol (Vitamin D3), 2 TABS PO NOON Diphenoxylate/Atropine (Lomotil), 2 TABS PO QID Erythromycin Opth (Erythromycin Opth), 1 CM TOP Q6 Ferrous Sulfate (Ferrous Sulfate), 325 MG PO QAM Furosemide (Lasix), 40 MG PO QAM Leuprolide Acetate (Lupron Depot), 1 DOSE IM q6 months Loratadine (Claritin), 10 MG PO DAILY Meloxicam (Mobic), 15 MG PO DAILY Mesalamine (Asacol Hd), 800 MG PO Q8 Metoprolol Succ (Toprol Xl) (Toprol-Xl), 12.5 MG PO Q12 Multivitamins/Minerals (Mvi With Minerals), 1 TAB PO DAILY Oxybutynin Chloride (Ditropan), 5 MG PO Q12 Pantoprazole (Protonix), 40 MG PO DAILY Potassium Ext Rel (Klor-Con), 20 MEQ PO QAM Simvastatin (Zocor), 10 MG PO QPM Tamsulosin Hcl (Flomax), 0.4 MG PO HS Warfarin Sod (Jantoven), 3 MG PO DAILY Scheduled PRN Albuterol Sulf (Proventil 0.083% 2.5MG/3ML), 2.5 MG INH Q6 PRN for Wheezing Oxycodone/Acetaminophen 5MG/325MG (Percocet 5MG/325MG), 1 TABLET PO Q4H PRN for Pain Allergies Coded Allergies: No Known Allergies (Verified , 03/05/16) Physical Exam Vital Signs Date Time Temp Pulse Resp B/P (MAP) Pulse Ox O2 Delivery O2 Flow Rate FiO2 09/09/16 13:45 58 19 108/68 96 Nasal Cannula 2.0 09/09/16 13:00 58 21 113/62 96 Nasal Cannula 2.0 09/09/16 12:09 62 20 123/70 99 Nasal Cannula 2.0 09/09/16 12:00 99 Nasal Cannula 2.0 09/09/16 11:30 58 24 130/69 95 Nasal Cannula 2.0 09/09/16 10:30 66 15 104/59 97 Nasal Cannula 2.0 09/09/16 10:17 Nasal Cannula 2.0 09/09/16 10:07 68 24 105/63 97 Room Air 09/09/16 09:36 68 26 106/67 93 Room Air 09/09/16 09:34 Room Air 09/09/16 09:34 76 34 74/61 09/09/16 09:31 62 09/09/16 09:26 72 26 114/63 96 Room Air 09/09/16 08:55 36.7 76 20 105/61 98 Room Air Physical Exam GENERAL: alert, well appearing, well nourished, no distress, non-toxic EYE EXAM: normal conjunctiva, PERRL and EOM's grossly intact OROPHARYNX: no exudate, no erythema, lips, buccal mucosa, and tongue normal and mucous membranes are moist NECK: supple, no nuchal rigidity, no adenopathy, non-tender LUNGS: Clear to auscultation. Normal chest wall mechanics HEART: no murmurs, S1 normal and S2 normal ABDOMEN: abdomen soft, non-tender, normo-active bowel sounds, no masses, no rebound or guarding. BACK: Back is symmetrical on inspection and there is no deformity, no midline tenderness, no CVA tenderness. SKIN: no rashes and no bruising UPPER EXTREMITIES: upper extremities are grossly normal. LOWER EXTREMITIES: [address] over left hip without drainage, bruising along left lateral aspect with [address] and another [address] just inferior to that, left lower extremity is swollen with severe pain over the proximal femur/knee, DPs 2/4, significant pain with flexion of left femur and knee, pelvis stable to compression. NEURO EXAM: Normal sensorium, cranial nerves II-XII grossly intact, normal speech, no gross weakness of arms Medical Decision & Procedures ER Provider Diagnostic Interpretation: Radiology results as stated below per my review and the radiologist's interpretation: PELVIS 1 OR 2 VIEW ROUTINE DISCUSSION: Status post left hip nailing procedure. Avulsion lesser trochanter. Pre-existing fracture base left femoral neck. No new or interval process. Significant degenerative change right hip low lumbar spine and to a lesser extent sacroiliac joints. There is no evidence for soft tissue swelling. IMPRESSION: Stable postoperative change left hip. The above report was generated using voice recognition software. It may contain grammatical, syntax or spelling errors. Electronically signed by: Luca Golden M.D. 09/09/2016 10:10 AM Dictated Date/Time: 09/09/2016 10:09 AM LEFT FEMUR 2 VIEWS ROUTINE DISCUSSION: Status post left hip nailing procedure. Short segment intramedullary alin is present. No acute or interval bony abnormality. Pre-existing fracture left femoral neck with a pre-existing avulsion fracture lesser trochanter. There is no evidence for soft tissue swelling. IMPRESSION: Stable postoperative change left hip and proximal femur. Degenerative change left knee. No acute or interval process compared to the prior exam. The above report was generated using voice recognition software. It may contain grammatical, syntax or spelling errors. Electronically signed by: Luca Golden M.D. 09/09/2016 10:12 AM Dictated Date/Time: 09/09/2016 10:11 AM LEFT KNEE 3 VIEWS DISCUSSION: Considerable degenerative change all major joint compartments. Underlying chondrocalcinosis. Moderate reactive osteophytic change. No acute process. No specific evidence for fracture. There is no evidence for soft tissue swelling. IMPRESSION: Considerable degenerative change. No acute bony abnormality. The above report was generated using voice recognition software. It may contain grammatical, syntax or spelling errors. Electronically signed by: Luca Golden M.D. 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 Total right knee arthroplasty noted. Dynamic screw fixation across the minimally comminuted left femoral neck fracture. Basocervical fracture plane remains evident with 3 to 4 mm of diastases at the fracture site. Extension of the fracture plane obliquely towards the distal end posterior cortex with a separate fracture fragment consisting of the greater and lesser trochanters. 6 mm of diastases of the trochanteric fracture fragment from the distal fracture fragment with slight anterior displacement of the distal fracture fragment relative to the trochanteric fragment. No malalignment at the femoral neck. No hardware complication. Mild subcutaneous edema along the lateral upper thigh with overlying skin thickening and skin roosevelt. Several subjacent high density collections measuring 2 to 3 cm along the surgical incision site consistent with hematomas. Mild diffuse muscle atrophy. Tricompartmental degenerative changes at the knee. Atherosclerosis. Visualized portion of the pelvis demonstrates a distended urinary bladder. IMPRESSION: 1. Postsurgical changes of dynamic screw fixation across the minimally comminuted left femoral neck and intertrochanteric fracture. Minimal diastases at the fracture planes as detailed above. No significant malalignment of the femoral neck component. No hardware competition. 2. Small hematomas associated with the surgical incision site. Diffuse subcutaneous edema with overlying skin thickening at the surgical site may be within the expected range of normal. Correlate clinically. Electronically signed by: Rui Paulson M.D. 09/09/2016 12:20 PM Dictated Date/Time: 09/09/2016 12:11 PM LEFT VENOUS DOPP LOWER EXT UNILAT FINDINGS: Left: Common femoral vein: Patent. Femoral vein: Patent. Greater saphenous vein: Patent. Popliteal vein: Patent. Calf veins: Patent. Other: None. IMPRESSION: No evidence of deep venous thrombosis. Electronically signed by: Rui Paulson M.D. 09/09/2016 11:16 AM Dictated Date/Time: 09/09/2016 11:15 AM Laboratory Results 09/09/16 09:15 Red Blood Count 2.91, Mean Corpuscular Volume 99.7, Mean Corpuscular Hemoglobin 32.6, Mean Corpuscular Hemoglobin Concent 32.8, Mean Platelet Volume 9.6, Neutrophils (%) (Auto) 66.1, Lymphocytes (%) (Auto) 22.5, Monocytes (%) (Auto) 8.2, Eosinophils (%) (Auto) 2.4, Basophils (%) (Auto) 0.4, Neutrophils # (Auto) 5.33, Lymphocytes # (Auto) 1.81, Monocytes # (Auto) 0.66, Eosinophils # (Auto) 0.19, Basophils # (Auto) 0.03 09/09/16 09:15 Test 09/09/16 09:15 White Blood Count 8.05 K/uL (4.8-10.8) Red Blood Count 2.91 M/uL (4.7-6.1) Hemoglobin 9.5 g/dL (14.0-18.0) Hematocrit 29.0 % (42-52) Mean Corpuscular Volume 99.7 fL (80-100) Mean Corpuscular Hemoglobin 32.6 pg (25-34) Mean Corpuscular Hemoglobin Concent 32.8 g/dl (32-36) Platelet Count 272 K/uL (130-400) Mean Platelet Volume 9.6 fL (7.4-10.4) Neutrophils (%) (Auto) 66.1 % Lymphocytes (%) (Auto) 22.5 % Monocytes (%) (Auto) 8.2 % Eosinophils (%) (Auto) 2.4 % Basophils (%) (Auto) 0.4 % Neutrophils # (Auto) 5.33 K/uL (1.4-6.5) Lymphocytes # (Auto) 1.81 K/uL (1.2-3.4) Monocytes # (Auto) 0.66 K/uL (0.11-0.59) Eosinophils # (Auto) 0.19 K/uL (0-0.5) Basophils # (Auto) 0.03 K/uL (0-0.2) RDW Standard Deviation 53.2 fL (36.4-46.3) RDW Coefficient of Variation 15.0 % (11.5-14.5) Immature Granulocyte % (Auto) 0.4 % Immature Granulocyte # (Auto) 0.03 K/uL (0.00-0.02) Erythrocyte Sedimentation Rate 13 mm/hr (0-14) Prothrombin Time 24.9 SECONDS (9.0-12.0) Prothromb Time International Ratio 2.2 (0.9-1.1) Anion Gap 7.0 mmol/L (3-11) Estimated GFR () 63.1 Estimated GFR (Non- 54.4 BUN/Creatinine Ratio 25.3 (10-20) Uric Acid 8.7 mg/dl (2.6-7.2) Calcium Level 9.1 mg/dl (8.5-10.1) C-Reactive Protein 0.77 mg/dl (0-0.29) Laboratory results per my review. Medications Administered Medications (Trade) Dose Ordered Sig/Desmond Route Start Time Stop Time Status Last Admin Dose Admin Morphine Sulfate (MoRPHine SULFATE INJ) 6 mg NOW STAT IV 09/09/16 09:06 09/09/16 09:09 DC 09/09/16 09:26 6 MG Ondansetron HCl (Zofran Inj) 4 mg NOW STAT IV 09/09/16 09:06 09/09/16 09:10 DC 09/09/16 09:25 4 MG Sodium Chloride 500 ml @ 999 mls/hr Q31M STAT IV 09/09/16 09:06 09/09/16 09:36 DC 09/09/16 09:06 999 MLS/HR ED Course ED COURSE: Vital signs were reviewed and showed normal. The patients medical record was reviewed The above diagnostic studies were performed and reviewed. ED treatments and interventions as stated above. 0855: The patient was evaluated in room B12. A complete history and physical examination was performed. 0906: Ordered Sodium Chloride 500 ml @ 999 mls/hr IV, Zofran Inj 4 mg IV, Morphine Sulfate 6 mg IV 1130: I reviewed the patient's case with Dr. Shannon Gama of the [facility]. He will evaluate the patient for further management. 1133: Ordered Morphine Sulfate 4 mg IV 1230: Upon reevaluation, the patient is resting comfortably. I discussed my findings with the patient and he understands and agrees with the treatment plan. Based on the patients age, coexisting illnesses, exam and lab findings the decision to treat as an inpatient was made. The patient remained stable while under my care. The patient will be evaluated for further management. 1240: Dr. Shannon Gama asked if I could consult orthopedic surgery. 1251: I reviewed the patient's case with Amadou Dawn PA-C - Orthopedic Surgery. He recommends admitting the patient to medicine and said he is able to continue blood thinners. Medical Decision Differential diagnoses includes but is not limited to fracture, dislocation, neurovascular compromise, compartment syndrome, soft tissue injury. Patient is an 85-year-old male who presents the ER for severe left leg pain which is located on the left distal femur. No signs of infection. There is swelling but expected postop. Incisions appear clean dry and intact. X-rays show no acute fracture. Duplex was negative. CT was negative. Patient continued to have severe issue shooting pain and was unable to move the leg. He was given morphine but dropped his pressure. He was given fluids. CBC and BMP were unremarkable. Discussed case with internal medicine and patient was admitted to internal medicine for pain control. I also discussed case with orthopedics and they agreed with management at this time. Medication Reconcilliation Current Medication List: was personally reviewed by me Blood Pressure Screening Patient's blood pressure: Normal blood pressure Consults Time Called: 1128 Consulting Physician: Dr. Shannon Gama - [facility] [place] Returned Call: 1130 I reviewed the patient's case with Dr. Shannon Gama of the [facility]. He will evaluate the patient for further management. Impression Primary Impression: Left leg pain Scribe Attestation The scribe's documentation has been prepared under my direction and personally reviewed by me in its entirety. I confirm that the note above accurately reflects all work, treatment, procedures, and medical decision making performed by me. Departure Information Dispostion Being Evaluated By Hospitalist Referrals Kayleen Thomas (PCP)
--- NOTE | 2016-09-09 15:33 | HISTORY & PHYSICAL EXAMINATION ---
DATE OF ADMISSION: 09/09/2016 CHIEF COMPLAINT: Severe left-sided lower extremity pain. HISTORY OF PRESENT ILLNESS: The patient is an 85-year-old male with a past medical history of hypertension and chronic atrial fibrillation. The patient was in his regular state of health until 1 week ago when he fell and fractured his left hip status post repair, open reduction internal fixation. After that, the patient was discharged to a rehab and was doing well in rehab until yesterday he developed severe pain in his left knee, was intractable was sent to the ED for further evaluation and management. PAST MEDICAL HISTORY: 1. Hypertension. 2. Chronic atrial fibrillation, currently on Coumadin with therapeutic INR. 3. Dyslipidemia. 4. Abdominal and thoracic aortic aneurysm declined intervention in the past. As per daughter, there have been monitoring the aneurysm and they have been stable. 5. Prostate cancer. 6. History of ulcerative colitis. FAMILY HISTORY: No pertinent family history. SOCIAL HISTORY: Never smoked. Does not drink. 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 ALLERGIES: No known drug allergies. HOME MEDICATIONS: 1. Ascorbic acid supplement. 3. Aspirin. 4. Bismuth salicylate. 5. Vitamin D3. 6. Clindamycin. 7. Lamictal. 8. Erythromycin ophthalmic ointment. 9. Ferrous sulfate. 10. Lasix 40 mg daily. 11. He takes Lupron Depot shots every 6 months. 12. Claritin. 13. Meloxicam. 14. Asacol. 15. Toprol-XL. 16. Multivitamin. 17. Omeprazole. 18. Oxybutynin. 19. Potassium. 20. Simvastatin. 21. Flomax. 22. Coumadin 3 mg p.o. daily. REVIEW OF SYSTEMS: Denies any headache. Complains from some blurring of vision, which is old and has been seen by bin tripper operator as per daughter for that. Denies any chest pain, palpitation. Denies any cough, wheezing, shortness of breath. Denies any diarrhea, blood in the stool. Denies any burning sensation in the urine or blood. Denies any focal weakness, tingling, numbness. Admits to significant left knee pain. Rest of the review of system is negative. PHYSICAL EXAMINATION: VITAL SIGNS: Temperature is not measured yet, but he has been afebrile at 36.7, heart rate is 76, respirations 20, blood pressure 114/63, saturation 96% on room air. HEENT: No jaundice, no pallor with mucous membranes. NECK: Supple. HEART: S1, S2 normal, with an irregular irregularity. No murmur, gallop or rub. LUNGS: Clear to auscultation bilaterally. Normal chest wall expansion. ABDOMEN: Soft, nontender, nondistended. NEUROLOGIC: Awake, alert, oriented to time, place, and person. Moves all extremities. Sensation intact. Cranial nerves II-XII appears to be intact. Left knee is swollen, tender with some confusion, severe decreased range of motion. LABORATORY DATA: Sodium 138, potassium 4.6, creatinine 1.2, calcium 9.1, hemoglobin 9.5, white blood cell count 8 and platelet count is 272. INR is 2.2. Previous hemoglobin was 9.7 on August 31. ASSESSMENT: 1. Acute left knee swelling, pain most likely gout versus pseudogout, cannot rule out septic arthritis except highly unlikely due to lack of fever and leukocytosis. 2. Recent left hip open reduction internal fixation. 3. Chronic fibrillation on Coumadin. 4. Hypertension. 5. Dyslipidemia. PLAN: 1. Giving the likelihood of his left knee being secondary to gout or pseudogout rather than infection or trauma, we will initiate empiric treatment of gout with colchicine 0.6 twice a day for 3 days. His creatinine is 1.2. We will monitor creatinine during that time and monitor symptoms of toxicity that might be diarrhea at this point. We will also start him on hydrocortisone injections for 2 days 100 mg every 8 hours if he shows significant improvement that would confirm the diagnosis of gout or pseudogout. 2. Consult orthopedic physician for tapping the knee joint to confirm or rule out the diagnosis. Having said that, the patient's INR is 2.2. We will leave it up to the discretion of orthopedic if he is comfortable tapping with his INR or he wants to hold the Coumadin and then bridge him with something else to do with that being processed. 3. Obtain uric acid level, although it is not elevated does not rule out gout. 4. Being on Coumadin with therapeutic INR, we will actually hold his aspirin for now. We will also hold his meloxicam. We will leave it up to the primary physician at the time of discharge to decide whether he wants double protection with aspirin and Coumadin or not. My sense that Coumadin alone might be sufficient. 5. Continue outpatient medications as appropriate except what was mentioned above. 6. Obtain labs in a.m. including CMP and CBC and a mag and phosphatase. 7. Obtain anemia study since his hemoglobin, although has been stable since last week, it did drop from last month with about 2.5 grams, will include B12 and folate levels, iron studies, and occult blood in stools. 8. No need for DVT prophylaxis as the patient is already on Coumadin. 9. When I asked the patient about his code status and the daughter was at bedside, he told us me and the daughter that he changed his mind and he has things in his mind, he went to do so if his heart stop, he want us to resuscitate, so he is going to be actually a full code.
[2016-09-09 16:44] VITALS: BP 145/86; PULSE 81; TEMP 36.5; O2SAT 98
[2016-09-09] MEDS: OXYCODONE/ACETAMINOPHEN 5-325 TAB PO PRN (16:51)
[2016-09-09] MEDS: WARFARIN SOD 3 MG TAB PO SCH (17:42)
[2016-09-09] MEDS: HYDROCORTISONE IV 100 MG in SYRINGE 0 ML IV SCH (17:43)
[2016-09-09] MEDS: METOPROLOL SUCC 25MG EXT REL TAB PO SCH (21:00)
[2016-09-09 21:19] VITALS: BP 102/65
[2016-09-09] MEDS: OXYBUTYNIN CHLORIDE 5 MG TAB PO SCH (21:20)
[2016-09-09] MEDS: SIMVASTATIN 10 MG TAB PO SCH (21:21)
[2016-09-09] MEDS: COLCHICINE 0.6 MG TAB PO SCH (21:21)
[2016-09-09] MEDS: TAMSULOSIN HCL 0.4 MG CAP PO SCH (21:21)
[2016-09-09] MEDS: ASCORBIC ACID 500 MG TAB PO SCH (21:21)
[2016-09-09 22:55] VITALS: BP 116/65; PULSE 75; TEMP 36.7; O2SAT 96
[2016-09-10] MEDS: OXYCODONE/ACETAMINOPHEN 5-325 TAB PO PRN ×4 (00:53→17:45)
[2016-09-10] MEDS: HYDROCORTISONE IV 100 MG in SYRINGE 0 ML IV SCH (00:53)
[2016-09-10 06:57] LABS: BASO % 0.2 %; BASO ABS # 0.01 K/uL (0-0.2); COMPLETE YES; HEMATOCRIT 28.4 % (42-52); IG% 0.2 %; LYMPH % 20.8 %; LYMPH ABS # 0.99 K/uL (1.2-3.4); MEAN CELL VOLUME 100.4 fL (80-100); MEAN CORPUSCULAR HEMOGLOBIN 32.2 pg (25-34); MONO % 2.1 %; NEUT % 76.7 %; PLATELET COUNT 280 K/uL (130-400); RED BLOOD COUNT 2.83 M/uL (4.7-6.1); WHITE BLOOD COUNT 4.77 K/uL (4.8-10.8)
[2016-09-10 07:04] LABS: INR 2.7 (0.9-1.1); PROTHROMBIN TIME (PATIENT) 29.7 SECONDS (9.0-12.0)
[2016-09-10 07:31] LABS: BUN/CREATININE RATIO 20.6 (10-20); CALCIUM 8.6 mg/dl (8.5-10.1); CREATININE 1.3 mg/dl (0.60-1.40); MAGNESIUM 2.2 mg/dl (1.8-2.4); POTASSIUM 4.2 mmol/L (3.5-5.1)
[2016-09-10 07:34] LABS: PHOSPHORUS 4.5 mg/dl (2.5-4.9)
--- NOTE | 2016-09-10 08:01 | Orthopedic Progress Note ---
Orthopedic Progress Note Date of Service Sep 10, 2016. Subjective Reports: complaints (continues to have Left lower leg pain at the knee. States it occasionally goes from his groin to his heel. ), Denies: chest pain, nausea / vomiting, light headedness Additional Notes: Worst pain is at his knee. Motion of the hip or ankle causes increased pain at the knee. States he has never had gout before, also states "I have the gout" Objective N/V intact, capillary refill less than 2 sec., A&O x3, toes mobile No warmth or redness at the knee. No effusion. tender to palpation at the knee and medial gastroc. Surgical hip wounds look very good. Date Time Temp Pulse Resp B/P (MAP) Pulse Ox O2 Delivery O2 Flow Rate FiO2 09/09/16 22:55 36.7 75 16 116/65 (82) 96 Nasal Cannula 2.0 09/09/16 21:19 102/65 (77) 09/09/16 19:45 Nasal Cannula 2.0 09/09/16 16:45 Nasal Cannula 09/09/16 16:44 36.5 81 20 145/86 (105) 98 Nasal Cannula 2.0 09/09/16 16:23 63 16 123/70 98 09/09/16 15:52 63 16 123/70 98 Nasal Cannula 2.0 09/09/16 13:45 58 19 108/68 96 Nasal Cannula 2.0 09/09/16 13:00 58 21 113/62 96 Nasal Cannula 2.0 09/09/16 12:09 62 20 123/70 99 Nasal Cannula 2.0 09/09/16 12:00 99 Nasal Cannula 2.0 09/09/16 11:30 58 24 130/69 95 Nasal Cannula 2.0 09/09/16 10:30 66 15 104/59 97 Nasal Cannula 2.0 09/09/16 10:17 Nasal Cannula 2.0 09/09/16 10:07 68 24 105/63 97 Room Air 09/09/16 09:36 68 26 106/67 93 Room Air 09/09/16 09:34 Room Air 09/09/16 09:34 76 34 74/61 09/09/16 09:31 62 09/09/16 09:26 72 26 114/63 96 Room Air 09/09/16 08:55 36.7 76 20 105/61 98 Room Air Laboratory Results 24 Hours: Test 09/09/16 09:15 09/10/16 06:46 White Blood Count 8.05 K/uL 4.77 K/uL Red Blood Count 2.91 M/uL 2.83 M/uL Hemoglobin 9.5 g/dL 9.1 g/dL Hematocrit 29.0 % 28.4 % Mean Corpuscular Volume 99.7 fL 100.4 fL Mean Corpuscular Hemoglobin 32.6 pg 32.2 pg Mean Corpuscular Hemoglobin Concent 32.8 g/dl 32.0 g/dl Platelet Count 272 K/uL 280 K/uL Mean Platelet Volume 9.6 fL 9.0 fL Neutrophils (%) (Auto) 66.1 % 76.7 % Lymphocytes (%) (Auto) 22.5 % 20.8 % Monocytes (%) (Auto) 8.2 % 2.1 % Eosinophils (%) (Auto) 2.4 % 0.0 % Basophils (%) (Auto) 0.4 % 0.2 % Neutrophils # (Auto) 5.33 K/uL 3.66 K/uL Lymphocytes # (Auto) 1.81 K/uL 0.99 K/uL Monocytes # (Auto) 0.66 K/uL 0.10 K/uL Eosinophils # (Auto) 0.19 K/uL 0.00 K/uL Basophils # (Auto) 0.03 K/uL 0.01 K/uL Prothromb Time International Ratio 2.2 2.7 Prothrombin Time 24.9 SECONDS 29.7 SECONDS Assessment & Plan Assessment: Left knee pain Plan: Synovial crystals still pending Uric acid is elevated May get OOB to chair continue management per medicine. Continue coumadin for anticoagulation Discharge Planning DVT Prophylaxis: SCDs, Coumadin
[2016-09-10 08:04] VITALS: BP 104/70; PULSE 75; TEMP 36.5; O2SAT 97
[2016-09-10 08:18] VITALS: O2SAT 97
[2016-09-10] MEDS: LORATADINE 10 MG TAB PO SCH (08:48)
[2016-09-10] MEDS: OXYBUTYNIN CHLORIDE 5 MG TAB PO SCH ×2 (08:48→20:38)
[2016-09-10] MEDS: COLCHICINE 0.6 MG TAB PO SCH ×2 (08:48→20:38)
[2016-09-10] MEDS: FERROUS SULFATE 325 MG TAB PO SCH (08:49)
[2016-09-10] MEDS: CEROVITE ADV FORMULA TAB PO SCH (08:50)
[2016-09-10] MEDS: POTASSIUM CHLORIDE 20 MEQ TABCR PO SCH (08:50)
[2016-09-10] MEDS: CHOLECALCIFEROL 1000 INTER.UNIT TAB PO SCH (08:51)
[2016-09-10] MEDS: PANTOprazole SOD 40 MG TAB PO SCH (08:51)
[2016-09-10] MEDS: FUROSEMIDE 40 MG TAB PO SCH (08:51)
[2016-09-10 08:55] VITALS: BP 104/65; PULSE 69
[2016-09-10] MEDS: METOPROLOL SUCC 25MG EXT REL TAB PO SCH ×2 (08:56→20:40)
--- NOTE | 2016-09-10 09:40 | PROGRESS NOTE ---
DATE: 09/10/2016 The patient is sitting on the commode. At this point in time he notes that his knee pain is his primary concern. He has had appropriate workup and at this point in time we are awaiting final results on crystal analysis that has not been done yet. He is still afebrile. His white count is good. EXAMINATION: He does not reveal any increased swelling from previous reports that is actually decreased since the aspiration. He is being treated for gout appropriately. He also has some PT, OT orders. He is weightbearing as tolerance. Continue supportive management. Discharge when appropriate per medicine. Hip itself looks excellent.
[2016-09-10] MEDS ORDERED: DEXAMETHASONE INJ 10 MG in SYRINGE 0 ML IV ONE (10:15)
[2016-09-10 15:15] VITALS: BP 105/62; PULSE 69; TEMP 36.6; O2SAT 95
[2016-09-10] MEDS: WARFARIN SOD 3 MG TAB PO SCH (16:06)
--- NOTE | 2016-09-10 16:20 | Progress Note ---
Subjective Date of Service: Sep 10, 2016. Problem List Medical Problems: (1) Facial cellulitis Status: Acute (2) Left leg pain Status: Acute Objective Vital Signs Date Time Temp Pulse Resp B/P (MAP) Pulse Ox O2 Delivery O2 Flow Rate FiO2 09/10/16 15:15 36.6 69 18 105/62 (76) 95 Room Air 09/10/16 15:10 Room Air 09/10/16 08:55 69 104/65 (78) 09/10/16 08:18 97 Nasal Cannula 2.0 09/10/16 08:04 36.5 75 12 104/70 (81) 97 Nasal Cannula 2.0 09/10/16 07:30 Nasal Cannula 2.0 09/09/16 22:55 36.7 75 16 116/65 (82) 96 Nasal Cannula 2.0 09/09/16 21:19 102/65 (77) 09/09/16 19:45 Nasal Cannula 2.0 09/09/16 16:45 Nasal Cannula 09/09/16 16:44 36.5 81 20 145/86 (105) 98 Nasal Cannula 2.0 09/09/16 16:23 63 16 123/70 98 Laboratory Results Last 24 Hours Test 09/10/16 06:46 White Blood Count 4.77 K/uL Red Blood Count 2.83 M/uL Hemoglobin 9.1 g/dL Hematocrit 28.4 % Mean Corpuscular Volume 100.4 fL Mean Corpuscular Hemoglobin 32.2 pg Mean Corpuscular Hemoglobin Concent 32.0 g/dl Platelet Count 280 K/uL Mean Platelet Volume 9.0 fL Neutrophils (%) (Auto) 76.7 % Lymphocytes (%) (Auto) 20.8 % Monocytes (%) (Auto) 2.1 % Eosinophils (%) (Auto) 0.0 % Basophils (%) (Auto) 0.2 % Neutrophils # (Auto) 3.66 K/uL Lymphocytes # (Auto) 0.99 K/uL Monocytes # (Auto) 0.10 K/uL Eosinophils # (Auto) 0.00 K/uL Basophils # (Auto) 0.01 K/uL RDW Standard Deviation 52.9 fL RDW Coefficient of Variation 15.0 % Immature Granulocyte % (Auto) 0.2 % Immature Granulocyte # (Auto) 0.01 K/uL Prothrombin Time 29.7 SECONDS Prothromb Time International Ratio 2.7 Sodium Level 138 mmol/L Potassium Level 4.2 mmol/L Chloride Level 103 mmol/L Carbon Dioxide Level 29 mmol/L Anion Gap 6.0 mmol/L Blood Urea Nitrogen 27 mg/dl Creatinine 1.30 mg/dl Est Creatinine Clear Calc Drug Dose 40.6 ml/min Estimated GFR () 57.3 Estimated GFR (Non- 49.4 BUN/Creatinine Ratio 20.6 Random Glucose 177 mg/dl Calcium Level 8.6 mg/dl Phosphorus Level 4.5 mg/dl Magnesium Level 2.2 mg/dl Total Bilirubin 0.5 mg/dl Aspartate Amino Transf (AST/SGOT) 17 U/L Alanine Aminotransferase (ALT/SGPT) 19 U/L Alkaline Phosphatase 87 U/L Total Protein 5.6 gm/dl Albumin 2.8 gm/dl Globulin 2.8 gm/dl Albumin/Globulin Ratio 1.0 Assessment and Plan ASSESSMENT: Acute left knee swelling, pain most likely gout versus pseudogout, cannot rule out septic arthritis except highly unlikely due to lack of fever and Leukocytosis. Recent left hip open reduction internal fixation. Chronic fibrillation on Coumadin. Hypertension. Dyslipidemia. PLAN: Cont colchicine 0.6 twice a day for 3 days. Awaiting crystal analysis at this time. Appreciate ortho recs. Cont to ambulate. No luekocytosis or fevers noted. Decadron x 1 given Can continue coumadin at this time, trend INR Being on Coumadin with therapeutic INR, we will actually hold his aspirin for now. We will also hold his meloxicam. Continue outpatient medications as appropriate except what was mentioned above. Obtain anemia study since his hemoglobin, although has been stable since last week, it did drop from last month with about 2.5 grams, will include B12 and folate levels, iron studies, and occult blood in stools. DVT ppx with couamdin FULL CODE
[2016-09-10] MEDS: SIMVASTATIN 10 MG TAB PO SCH (20:38)
[2016-09-10] MEDS: ASCORBIC ACID 500 MG TAB PO SCH (20:38)
[2016-09-10] MEDS: TAMSULOSIN HCL 0.4 MG CAP PO SCH (20:38)
[2016-09-10 20:44] VITALS: BP 103/60; PULSE 56
[2016-09-10 23:03] VITALS: BP 110/69; PULSE 64; TEMP 37; O2SAT 95
[2016-09-11 07:24] VITALS: BP 113/53; PULSE 70; TEMP 36.7; O2SAT 97
[2016-09-11] MEDS ORDERED: DEXAMETHASONE INJ 6 MG in SYRINGE 0 ML IV ONE (08:15)
[2016-09-11 08:36] VITALS: BP 106/59; PULSE 80
--- NOTE | 2016-09-11 08:37 | PROGRESS NOTE ---
DATE: 09/11/2016 DATE: 09/11/2016 SUBJECTIVE: At this point in time, the patient is feeling better. He is oriented to person, place and time. He notes that he can move his leg better. He denies chest pain, shortness of breath, fever, chills, nausea or vomiting. OBJECTIVE: VITAL SIGNS: Stable. He is afebrile. T-max is 37. HEART: The heart rate is well controlled in the 60s and 70s. ABDOMEN: Soft, nontender. LEFT HIP: Wound of his hip is clean and dry. LEFT KNEE: Left knee reveals scant effusion, has better range of motion, much more tender to move the leg himself. Neurovascular check is normal. Calves are nontender. ASSESSMENT: Overall, doing well. Cultures are negative today of his left knee to let him be transferred back to [facility]. Weightbearing as tolerated. Do not overdo PT. Also do not overdo anticoagulation. He is at 2.7 yesterday, would be very careful not to get him over 2.5. Follow up in roughly a week in the office for staple removal.
[2016-09-11] MEDS: OXYBUTYNIN CHLORIDE 5 MG TAB PO SCH ×2 (08:39→21:28)
[2016-09-11] MEDS: FERROUS SULFATE 325 MG TAB PO SCH (08:39)
[2016-09-11] MEDS: COLCHICINE 0.6 MG TAB PO SCH ×2 (08:39→21:28)
[2016-09-11] MEDS: CEROVITE ADV FORMULA TAB PO SCH (08:39)
[2016-09-11] MEDS: LORATADINE 10 MG TAB PO SCH (08:39)
[2016-09-11] MEDS: PANTOprazole SOD 40 MG TAB PO SCH (08:39)
[2016-09-11] MEDS: FUROSEMIDE 40 MG TAB PO SCH (08:40)
[2016-09-11] MEDS: METOPROLOL SUCC 25MG EXT REL TAB PO SCH ×2 (08:41→21:00)
[2016-09-11] MEDS: CHOLECALCIFEROL 1000 INTER.UNIT TAB PO SCH (08:41)
[2016-09-11] MEDS: POTASSIUM CHLORIDE 20 MEQ TABCR PO SCH (08:41)
--- NOTE | 2016-09-11 08:53 | PROGRESS NOTE ---
DATE: 09/11/2016 DATE: 09/11/2016 ADDENDUM: I ordered 1 more dose of dexamethasone decreased from 10 mg to 6 mg IV. This should be his last dose. Continue colchicine until uric acid level is back to where it is normal or other additional treatment is recommended by medicine.
--- NOTE | 2016-09-11 15:22 | Progress Note ---
Subjective Date of Service: Sep 11, 2016. Subjective Pt evaluation today including: conversation w/ patient, physical exam, chart review, lab review, review of studies, review of inpatient medication list Pt reports pain resolved in knee No swelling or redness Problem List Medical Problems: (1) Facial cellulitis Status: Acute (2) Left leg pain Status: Acute Review of Systems Constitutional: No fever, No chills, No sweats, No weight loss, No weakness ENT: No hearing loss, No unusual epistaxis, No nasal symptoms, No sore throat Respiratory: No cough, No sputum, No wheezing, No shortness of breath, No dyspnea on exertion Cardiac: No chest pain, No orthopnea, No PND, No edema, No claudication Abdomen: No pain, No nausea, No vomiting, No diarrhea, No constipation Musculoskeletal: No joint pain, No muscle pain, No swelling, No calf pain Male : No dysuria, No urinary frequency, No incontinence, No slowing stream Neurologic: No memory loss, No paralysis, No weakness Psychiatric: No depression symptoms, No anhedonism, No anxiety, No insomnia Skin: No rash, No itch Objective Vital Signs Date Time Temp Pulse Resp B/P (MAP) Pulse Ox O2 Delivery O2 Flow Rate FiO2 09/11/16 08:36 80 106/59 (75) 09/11/16 07:24 36.7 70 17 113/53 (73) 97 Room Air 09/11/16 07:15 Room Air 09/10/16 23:50 Room Air 09/10/16 23:03 37.0 64 18 110/69 (83) 95 Room Air 09/10/16 20:44 56 103/60 (74) Physical Exam General Appearance: WD/WN, no apparent distress Eyes: normal inspection, PERRL, EOMI, sclerae normal Neck: supple, no adenopathy Respiratory/Chest: chest non-tender, lungs clear, normal breath sounds, no respiratory distress Cardiovascular: regular rate, rhythm, no edema, no gallop, no JVD Abdomen: normal bowel sounds, non tender, soft, no organomegaly Neurologic/Psychiatric: alert, normal mood/affect, oriented x 3 Laboratory Results Last 24 Hours Test 09/11/16 10:43 Uric Acid 8.8 mg/dl Assessment and Plan ASSESSMENT: Acute left knee swelling, pain most likely gout versus pseudogout, cannot rule out septic arthritis except highly unlikely due to lack of fever and Leukocytosis. Recent left hip open reduction internal fixation. Chronic fibrillation on Coumadin. Hypertension. Dyslipidemia. PLAN: Cont colchicine 0.6 twice a day for 3 days. crystal analysis neg for gout Appreciate ortho recs. Cont to ambulate. No leukocytosis or fevers noted. Decadron 2 doses given total Pain resolved Uric acid elevated at 8.7 Can continue coumadin at this time, trend INR Continue outpatient medications as appropriate except what was mentioned above. Will need PT/OT prior to return to [facility] DVT ppx with harry FULL CODE
[2016-09-11 15:54] VITALS: BP 100/49; PULSE 56; TEMP 36.8; O2SAT 96
[2016-09-11 16:34] LABS: INR 4.1 (0.9-1.1)
[2016-09-11] MEDS: WARFARIN SOD 3 MG TAB PO SCH (16:51)
[2016-09-11 17:34] VITALS: BP 124/72
[2016-09-11] MEDS: ACETAMINOPHEN 325 MG TAB PO PRN ×2 (18:51→23:44)
[2016-09-11 21:24] VITALS: BP 116/70; PULSE 56
[2016-09-11] MEDS: TAMSULOSIN HCL 0.4 MG CAP PO SCH (21:28)
[2016-09-11] MEDS: ASCORBIC ACID 500 MG TAB PO SCH (21:28)
[2016-09-11] MEDS: SIMVASTATIN 10 MG TAB PO SCH (21:29)
[2016-09-11 23:01] VITALS: BP 104/58; PULSE 60; TEMP 36.6; O2SAT 97
[2016-09-12 06:37] LABS: PROTHROMBIN TIME (PATIENT) 42.3 SECONDS (9.0-12.0)
[2016-09-12 06:44] LABS: INR 3.7 (0.9-1.1)
[2016-09-12 07:09] VITALS: BP 99/63; PULSE 55; TEMP 36.3; O2SAT 94
[2016-09-12 08:28] VITALS: BP 123/72; PULSE 66
[2016-09-12] MEDS: FERROUS SULFATE 325 MG TAB PO SCH (08:29)
[2016-09-12] MEDS: LORATADINE 10 MG TAB PO SCH (08:29)
[2016-09-12] MEDS: METOPROLOL SUCC 25MG EXT REL TAB PO SCH ×2 (08:29→20:42)
[2016-09-12] MEDS: OXYBUTYNIN CHLORIDE 5 MG TAB PO SCH ×2 (08:30→20:42)
[2016-09-12] MEDS: COLCHICINE 0.6 MG TAB PO SCH ×2 (08:30→20:41)
[2016-09-12] MEDS: PANTOprazole SOD 40 MG TAB PO SCH (08:31)
[2016-09-12] MEDS: FUROSEMIDE 40 MG TAB PO SCH (08:31)
[2016-09-12] MEDS: CHOLECALCIFEROL 1000 INTER.UNIT TAB PO SCH (08:31)
[2016-09-12] MEDS: POTASSIUM CHLORIDE 20 MEQ TABCR PO SCH (08:31)
[2016-09-12] MEDS: CEROVITE ADV FORMULA TAB PO SCH (08:31)
--- NOTE | 2016-09-12 14:51 | Progress Note ---
Subjective Date of Service: Sep 12, 2016. Subjective Pt evaluation today including: conversation w/ patient, physical exam, chart review, lab review, review of studies, review of inpatient medication list Pt resting comfortably in bed States soreness in left knee but no sharp pain No fevers or chills No acute distress Problem List Medical Problems: (1) Facial cellulitis Status: Acute (2) Left leg pain Status: Acute Review of Systems Constitutional: No fever, No chills, No sweats, No weight loss Eyes: No worsening of vision, No eye pain, No redness, No discharge ENT: No hearing loss, No unusual epistaxis, No nasal symptoms, No sore throat Respiratory: No cough, No sputum, No wheezing, No shortness of breath, No dyspnea on exertion Cardiac: No chest pain, No orthopnea, No PND, No edema Abdomen: No pain, No nausea, No vomiting, No diarrhea Musculoskeletal: No joint pain, No muscle pain, No swelling, No calf pain Male : No dysuria, No urinary frequency, No incontinence, No slowing stream Neurologic: No memory loss, No paralysis, No weakness, No numbness/tingling Psychiatric: No depression symptoms, No anhedonism, No anxiety, No insomnia Skin: No rash, No itch Objective Vital Signs Date Time Temp Pulse Resp B/P (MAP) Pulse Ox O2 Delivery O2 Flow Rate FiO2 09/12/16 08:28 66 123/72 (89) 09/12/16 07:30 Room Air 09/12/16 07:09 36.3 55 21 99/63 (75) 94 Room Air 09/11/16 23:40 Room Air 09/11/16 23:01 36.6 60 18 104/58 (73) 97 Room Air 09/11/16 21:24 56 116/70 (85) 09/11/16 17:34 124/72 (89) 09/11/16 15:54 36.8 56 17 100/49 (66) 96 Room Air 09/11/16 15:40 Room Air Physical Exam General Appearance: WD/WN, no apparent distress Eyes: normal inspection, PERRL, EOMI, sclerae normal Neck: supple, no adenopathy, thyroid normal, no JVD Respiratory/Chest: chest non-tender, lungs clear, normal breath sounds, no respiratory distress Cardiovascular: regular rate, rhythm, no edema, no gallop, no JVD Abdomen: normal bowel sounds, non tender, soft, no organomegaly Neurologic/Psychiatric: no motor/sensory deficits, alert, normal mood/affect, oriented x 3 Laboratory Results Last 24 Hours Test 09/11/16 16:04 09/12/16 05:42 Prothrombin Time 47.0 SECONDS 42.3 SECONDS Prothromb Time International Ratio 4.1 3.7 Assessment and Plan ASSESSMENT: Acute left knee swelling, pain most likely gout versus pseudogout, cannot rule out septic arthritis except highly unlikely due to lack of fever and Leukocytosis. Recent left hip open reduction internal fixation. Chronic fibrillation on Coumadin. Hypertension. Dyslipidemia. PLAN: Cont colchicine 0.6 twice a day for 3 days. crystal analysis neg for gout Appreciate ortho recs. Cont to ambulate. No leukocytosis or fevers noted. Decadron 2 doses given total Pain resolved Uric acid elevated at 8.7 Hold coumadin at this time, INR supratherapeutic Continue outpatient medications as appropriate except what was mentioned above. Will need PT/OT prior to return to [facility] DVT ppx with harry FULL CODE
[2016-09-12] MEDS: WARFARIN SOD 3 MG TAB PO SCH (15:32)
[2016-09-12 15:41] VITALS: BP 117/70; PULSE 45; TEMP 36.6; O2SAT 97
[2016-09-12 15:48] VITALS: PULSE 54
[2016-09-12] MEDS: OXYCODONE/ACETAMINOPHEN 5-325 TAB PO PRN ×2 (16:36→20:21)
[2016-09-12] MEDS: TAMSULOSIN HCL 0.4 MG CAP PO SCH (20:41)
[2016-09-12] MEDS: ASCORBIC ACID 500 MG TAB PO SCH (20:41)
[2016-09-12] MEDS: SIMVASTATIN 10 MG TAB PO SCH (20:42)
[2016-09-12 23:44] VITALS: BP 136/80; PULSE 63; TEMP 36.3; O2SAT 98
[2016-09-13] MEDS: OXYCODONE/ACETAMINOPHEN 5-325 TAB PO PRN ×2 (00:18→09:28)
[2016-09-13 06:12] LABS: INR 2.7 (0.9-1.1)
[2016-09-13 07:08] VITALS: BP 131/73; PULSE 43; TEMP 36.4; O2SAT 96
[2016-09-13 07:16] VITALS: PULSE 62
[2016-09-13] MEDS: LORATADINE 10 MG TAB PO SCH (09:25)
[2016-09-13] MEDS: FERROUS SULFATE 325 MG TAB PO SCH (09:26)
[2016-09-13] MEDS: POTASSIUM CHLORIDE 20 MEQ TABCR PO SCH (09:26)
[2016-09-13] MEDS: CEROVITE ADV FORMULA TAB PO SCH (09:26)
[2016-09-13] MEDS: OXYBUTYNIN CHLORIDE 5 MG TAB PO SCH (09:26)
[2016-09-13] MEDS: FUROSEMIDE 40 MG TAB PO SCH (09:26)
[2016-09-13] MEDS: CHOLECALCIFEROL 1000 INTER.UNIT TAB PO SCH (09:27)
[2016-09-13] MEDS: PANTOprazole SOD 40 MG TAB PO SCH (09:27)
[2016-09-13] MEDS: METOPROLOL SUCC 25MG EXT REL TAB PO SCH (09:31)
[2016-09-13 09:44] LABS: HEMATOCRIT 31.8 % (42-52); MEAN CELL VOLUME 100.6 fL (80-100); MEAN CORPUSCULAR HEMOGLOBIN 32.9 pg (25-34); MEAN CORPUSCULAR HGB CONC 32.7 g/dl (32-36); MEAN PLATELET VOLUME 9.3 fL (7.4-10.4); PLATELET COUNT 346 K/uL (130-400); RED BLOOD COUNT 3.16 M/uL (4.7-6.1); WHITE BLOOD COUNT 8.91 K/uL (4.8-10.8)
[2016-09-13 10:00] LABS: BUN/CREATININE RATIO 29.2 (10-20); CALCIUM 8.4 mg/dl (8.5-10.1); CREATININE 1.4 mg/dl (0.60-1.40); URIC ACID 8.7 mg/dl (2.6-7.2)
[2016-09-13] MEDS: ACETAMINOPHEN 325 MG TAB PO PRN (12:39)
[2016-09-13] MEDS ORDERED: CMD/2 PO (13:10)
[2016-09-13] MEDS ORDERED: METO25TA3 PO (13:10)
[2016-09-13] MEDS ORDERED: OXYC-57 PO (13:10)
[2016-09-13] MEDS ORDERED: COLC0.6T54 PO (13:12)
--- NOTE | 2016-09-13 13:22 | Discharge Instructions ---
Discharge Instructions Date of Service Sep 13, 2016. Admission Reason for Admission: L Knee Pain Discharge Discharge Diagnosis / Problem: PseudoGout Discharge Goals Goal(s): Decrease discomfort, Improve function, Increase independence Activity Recommendations Activity Level: Assistance Required Therapies: Physical Therapy, Occupational Therapy Weightbearing Status: Left weightbearing (as tolerated), Right weightbearing ( as tolerated) . Additional Information Patient informed of condition: Yes Advance Directives: Yes DNR: No Level of Care: Acute Rehab Communicable Disease: No Prognosis: Improving Instructions / Follow-Up Instructions / Follow-Up L Knee Swelling - Questioned Gout vs Pseudogout vs Septic Knee: - Patient has been afebrile and without leukocytosis - no crystals on aspiration - no bacterial growth -- May also be a component of pain caused from a recent L hip Fx - Had decadron while inpatient and finished 3 day course of Colchicine -- Will provide Rx for PRN Colchicine -- Will hold ASA and Mobic while colchicine is used and can be resumed after this - Uric acid remains elevated at 8.6 and can be rechecked as outpatient to monitor normalization - Orthopedics stating weightbearing as tolerated and to follow up in about a week as outpatient with Dr. Schaffer -- Request to be careful with INR and to avoid going over 2.7 -- Their recommendation is to not overdo PT services Chronic Atrial Fibrillation: - Resume Coumadin at lower dose of 2 mg daily with INR check tomorrow 09/14/16 and adjust dosing as necessary - INR today is 2.7 - Has had bradycardia, even into the 40s. Will reduce Metoprolol Succ from BID to daily - Metoprolol Succ 12.5 mg daily Current Hospital Diet Patient's current hospital diet: Regular Diet Discharge Diet Recommended Diet: Regular Diet Pending Studies Studies pending at discharge: no Medical Emergencies . Who to Call and When: Medical Emergencies: If at any time you feel your situation is an emergency, please call 911 immediately. . Non-Emergent Contact Non-Emergency issues call your: Primary Care Provider Call Non-Emergent contact if: you have a fever, your pain is concerning you, you have any medication questions . . "Provider Documentation" section prepared by Viviana Flor. . Core Measure Problem Core Measures: None
[2016-09-13] MEDS ORDERED: ASPI81TA28 PO (13:28)
--- NOTE | 2016-09-13 14:51 | Orthopedic Progress Note ---
Orthopedic Progress Note Date of Service Sep 13, 2016. Subjective Additional Notes: Patient states still having pain and left knee, it comes and goes. It is not near as bad as it was on when he was in the emergency room. He is able to weight-bear on it. He said that he is able to walk on it but it takes an hour or 2 for it to quiet back down. Denies any fevers or chills. Has been using a walker to assist with ambulation. Objective calves soft nontender, N/V intact, capillary refill less than 2 sec., incision C /D/I, A&O x3, toes mobile Distal pulses 1+, left leg, back of thigh and left calf area with purple ecchymosis. More evident as previously noted on . No calf tenderness with palpation. Mild distal edema. Moves ankle without any problems. Tolerates gentle range of motion of left hip without discomfort. Sybil retained left hip incisions. Incisions are clean dry and intact and healing nicely. Small effusion left knee, no warmth, no erythema. Tolerates full extension and flexion about 90 comfortably today. Date Time Temp Pulse Resp B/P (MAP) Pulse Ox O2 Delivery O2 Flow Rate FiO2 09/13/16 14:27 36.4 62 17 96 Room Air 09/13/16 08:05 Room Air 09/13/16 07:16 62 09/13/16 07:08 36.4 43 17 131/73 (92) 96 Room Air 09/13/16 00:00 Room Air 09/12/16 23:44 36.3 63 16 136/80 (98) 98 Room Air 09/12/16 15:48 54 09/12/16 15:41 36.6 45 16 117/70 (86) 97 Room Air 09/12/16 15:20 Room Air Laboratory Results 24 Hours: Test 09/13/16 05:30 09/13/16 09:27 Prothromb Time International Ratio 2.7 Prothrombin Time 30.0 SECONDS Hematocrit 31.8 % Hemoglobin 10.4 g/dL Assessment & Plan Assessment: Left knee pain with effusion - end-stage tricompartmental osteoarthritis Plan: continue management per medicine. Continue coumadin for anticoagulation May be out of bed, weightbearing as tolerated left lower extremity. Would recommend CHERISE stockings left lower extremity due to his recent left hip surgery and edema. He can advance activities and range of motion of his left knee as tolerated. Continue to use walker to assist with ambulation. Ice to left knee as needed. Encouraged ankle pumps and straight leg raising. Okay for more thorough standpoint for discharge to [facility]. Has follow-up scheduled for next week for staple removal of his left hip. All questions were answered today and he knows to notify our office with any concerns with regards to his left hip or left knee. Discharge Planning Discharge Planning: rehab hospital DVT Prophylaxis: TEDs, SCDs, Coumadin Therapy: Physical Therapy, Occupational Therapy
[2016-09-13 15:05] VITALS: BP 105/61; PULSE 67; TEMP 36.6; O2SAT 98
--- NOTE | 2016-09-13 17:19 | Discharge Summary ---
Discharge Summary Date of Service Sep 13, 2016. (Viviana Flor PA-C) Discharge Summary Admission Date: Sep 09, 2016 at 14:22 Discharge Date: Sep 13, 2016 Discharge Disposition: Rehab Principal Diagnosis: Gout vs Pseudogout vs Multifactorial L Knee Pain Problems/Secondary Diagnoses: PAST MEDICAL HISTORY: 1. Hypertension. 2. Chronic atrial fibrillation, currently on Coumadin with therapeutic INR. 3. Dyslipidemia. 4. Abdominal and thoracic aortic aneurysm declined intervention in the past. As per daughter, there have been monitoring the aneurysm and they have been stable. 5. Prostate cancer. 6. History of ulcerative colitis. Procedures: PELVIS 1 OR 2 VIEW ROUTINE DISCUSSION: Status post left hip nailing procedure. Avulsion lesser trochanter. Pre-existing fracture base left femoral neck. No new or interval process. Significant degenerative change right hip low lumbar spine and to a lesser extent sacroiliac joints. There is no evidence for soft tissue swelling. IMPRESSION: Stable postoperative change left hip. LEFT KNEE 3 VIEWS DISCUSSION: Considerable degenerative change all major joint compartments. Underlying chondrocalcinosis. Moderate reactive osteophytic change. No acute process. No specific evidence for fracture. There is no evidence for soft tissue swelling. IMPRESSION: Considerable degenerative change. No acute bony abnormality. LEFT VENOUS DOPP LOWER EXT UNILAT FINDINGS: Left: Common femoral vein: Patent. Femoral vein: Patent. Greater saphenous vein: Patent. Popliteal vein: Patent. Calf veins: Patent. Other: None. IMPRESSION: No evidence of deep venous thrombosis. LEFT LOWER EXTREMITY WITHOUT FINDINGS: [place] topogram: Dynamic nail fixation of the proximal left femoral neck with intramedullary alin through the proximal metadiaphysis with interlocking screw fixation. Total right knee arthroplasty noted. Dynamic screw fixation across the minimally comminuted left femoral neck fracture. Basocervical fracture plane remains evident with 3 to 4 mm of diastases at the fracture site. Extension of the fracture plane obliquely towards the distal end posterior cortex with a separate fracture fragment consisting of the greater and lesser trochanters. 6 mm of diastases of the trochanteric fracture fragment from the distal fracture fragment with slight anterior displacement of the distal fracture fragment relative to the trochanteric fragment. No malalignment at the femoral neck. No hardware complication. Mild subcutaneous edema along the lateral upper thigh with overlying skin thickening and skin sybil. Several subjacent high density collections measuring 2 to 3 cm along the surgical incision site consistent with hematomas. Mild diffuse muscle atrophy. Tricompartmental degenerative changes at the knee. Atherosclerosis. Visualized portion of the pelvis demonstrates a distended urinary bladder. IMPRESSION: 1. Postsurgical changes of dynamic screw fixation across the minimally comminuted left femoral neck and intertrochanteric fracture. Minimal diastases at the fracture planes as detailed above. No significant malalignment of the femoral neck component. No hardware competition. 2. Small hematomas associated with the surgical incision site. Diffuse subcutaneous edema with overlying skin thickening at the surgical site may be within the expected range of normal. Correlate clinically. Consultations: 1. Orthopedics 2. PT/OT (Viviana Flor, QUINTEN) Medication Reconciliation New Medications: Aspirin (Aspirin Ec) 81 Mg Tab 81 MG PO DAILY for 30 Days Colchicine (Colchicine) 0.6 Mg Tab 0.6 MG PO BID PRN for Pain/Gout for 3 Days, #6 TAB Oxycodone/Acetaminophen 5MG/325MG (Percocet 5MG/325MG) Tab 1 TAB PO Q4H PRN for Pain for 3 Days, #18 TAB PAIN Changed Medications: Metoprolol Succ (Toprol Xl) (Toprol-Xl) 25 Mg Tabcr 12.5 MG PO DAILY, #14 TABS (Changed from: Q12) Warfarin Sod (Jantoven) 2 Mg Tab 2 MG PO DAILY, #7 TABS (Changed from: Warfarin Sod (Jantoven) 3 Mg Tab 3 Mg PO DAILY) Continued Medications: Acetaminophen (Tylenol) 500 Mg Tab 500 MG PO Q4, TAB Albuterol Sulf (Proventil 0.083% 2.5MG/3ML) 2.5 Mg/3 Ml Nebu 2.5 MG INH Q6 PRN for Wheezing, EA Ascorbic Acid (Ascorbic Acid) 500 Mg Tab 500 MG PO QPM Cholecalciferol (Vitamin D3) 1,000 Unit Tab 2 TABS PO NOON Diphenoxylate/Atropine (Lomotil) Tab 2 TABS PO QID Erythromycin Opth (Erythromycin Opth) 12 Appln/3.5 Gm Oint 1 CM TOP Q6, #3 BOX Ferrous Sulfate (Ferrous Sulfate) 325 Mg Tab 325 MG PO QAM Furosemide (Lasix) 40 Mg Tab 40 MG PO QAM, TAB Leuprolide Acetate (Lupron Dep[place]) 22.5 Mg Kit 1 DOSE IM q6 months Loratadine (Claritin) 10 Mg Tab 10 MG PO DAILY, TAB Mesalamine (Asacol Hd) 800 Mg Tab 800 MG PO Q8 Multivitamins/Minerals (Mvi With Minerals) Tab 1 TAB PO DAILY, TAB Oxybutynin Chloride (Ditropan) 5 Mg Tab 5 MG PO Q12 Pantoprazole (Protonix) 40 Mg Tab 40 MG PO DAILY Potassium Ext Rel (Klor-Con) 20 Meq Tabcr 20 MEQ PO QAM Simvastatin (Zocor) 10 Mg Tab 10 MG PO QPM, TAB Tamsulosin Hcl (Flomax) 0.4 Mg Cap 0.4 MG PO HS Discontinued Medications: Aspirin (Aspirin Ec) 325 Mg Tab 325 MG PO DAILY Meloxicam (Mobic) 7.5 Mg Tab 15 MG PO DAILY TWO 7.5 MG TABLETS. Discharge Exam Review of Systems: Constitutional: No fever, No chills ENT: No nasal symptoms, No sore throat, No trouble swallowing Respiratory: No cough, No shortness of breath Cardiovascular: No chest pain Abdomen: No nausea, No vomiting, No diarrhea, No constipation Musculoskeletal: + joint pain (L knee and L hip), + swelling (L lower extremity), No calf pain Genitourinary - Male: No dysuria Hematologic / Lymphatic: No abnormal bleeding/bruising Integumentary: No rash Physical Exam: General Appearance: WD/WN, no apparent distress Eyes: sclerae normal ENT: hearing grossly normal Neck: supple, no JVD, trachea midline Respiratory/Chest: lungs clear, normal breath sounds, no respiratory distress, no accessory muscle use Cardiovascular: no gallop, no murmur, + irregularly irregular Abdomen / GI: normal bowel sounds, non tender, soft Extremities: no calf tenderness, + swelling (LLE from L knee to ankle - nonpitting; sybil in place at L hip without surrounding erythema/drainage - incision well approximated; no erythema/warmth of L knee) Neurologic/Psychiatric: alert, oriented x 3 Skin: warm/dry (Viviana Flor, PAStephenieC) Hospital Course ADMISSION: The patient is an 85-year-old male with a past medical history of hypertension and chronic atrial fibrillation. The patient was in his regular state of health until 1 week ago when he fell and fractured his left hip status post repair, open reduction internal fixation. After that, the patient was discharged to a rehab and was doing well in rehab until yesterday he developed severe pain in his left knee, was intractable was sent to the ED for further evaluation and management. HOSPITAL COURSE: Mr. Tyler was admitted for suspected gout vs pseudogout vs septic joint. Joint was aspirated that did not see presence of crystals and no evidence of growth or WBCs. Patient has been afebrile and currently without leukocytosis/leukopenia. Uric acid is elevated at 8.6. He was treated with IV Decadron and Colchicine x 3 days with some improvement in symptoms. Pain in L knee waxed and waned and does have some edema of LLE compared to RLE. Knee is without erythema or warmth. Possibly multifactorial given history of arthritis and recent L hip fx and repair. He was discharged on Colchicine PRN x 3 more days. U/S performed to R/O DVT. Imaging did not support malfunction/ misalignment of hardware. Due to bradycardia, his Metoprolol Succ was reduced to only 12.5 mg daily. His warfarin was reduced to 2 mg daily to try an average INRs around 2.5 to prevent supratherapeutic levels with recent surgery. Plan for orthopedic follow-up in the next few days. Patient is hemodynamically stable and optimal for D/C to [facility]. Did update [facility] medical provider. Total Time Spent: Greater than 30 minutes This includes examination of the patient, discharge planning, medication reconciliation, and communication with other providers. (Viviana Flor PA-C) Discharge Instructions Please refer to the electronic Patient Visit Report (Discharge Instructions) for additional information. (Viviana Flor PA-C) Additional Copies To [facility]; Kayleen Thomas Reviewed: Pt Seen/Exam by Me (Sakshi Staley MD) History Physician Registered Nursing Professor Supervision Note: I interviewed and examined the patient. Discussed with REYES Flor and agree with findings and plan as documented in the note. Any exceptions or clarifications are listed here: Patient states his left knee pain is improved since admission. There is no growth on the joint fluid culture and no crystals seen either. His creatinine is slightly increased and the colchicine has been stopped but can be used on an as-needed basis. He received 2 doses of IV Decadron which likely helped as well. This may have been from aggressive physical therapy after his hip repair. Vitals reviewed No acute distress, sitting in chair Irregularly irregular, no murmurs Rubs Clear to Auscultation Bilaterally, Breathing Unlabored Abdomen Positive Bowel Sounds Soft Nontender Nondistended Extremities Left Knee with Mild Tenderness to Palpation over the Patella, There Is Ecchymosis on the Lateral Left Thigh, Mild Effusion, Left Lateral Hip and Proximal Thigh with Sybil in Place without Any Surrounding Erythema, No Drainage from the Wound 85-year-old Male Here with Recent Left ORIF, Here with Acute Flare of Left Knee Osteoarthritis. -Colchicine When Necessary However There Were No Crystals and Would Use with Caution Given Rising Creatinine -Follow up with Orthopedics Next Week to Remove [place] from Hip Surgery and for Follow-Up on the Knee -Check INR Tomorrow and Restarted Coumadin at a Lower Dose of 2 Mg Today with Goal No More Than 2.5 As per Recommendations from Orthopedics Documented By: Sakshi Staley (Sakshi Staley MD)
== END 2016-09-13 16:00 | DRG 556 ==
LOC: EDBD 08:47 → C.EDB 08:49 → C.MSN 14:22 → ENRESERV 15:20
PROVIDERS: ADMIT Internal Medicine; ATTEND Family Medicine
DX: M25.562 Pain in left knee (principal); M10.9 Gout, unspecified; M11.262 Other chondrocalcinosis, left knee; I10 Essential (primary) hypertension; I48.2 Chronic atrial fibrillation; Z79.01 Long term (current) use of anticoagulants; E78.5 Hyperlipidemia, unspecified; Z85.46 Personal history of malignant neoplasm of prostate; Z87.19 Personal history of other diseases of the digestive system; Z79.82 Long term (current) use of aspirin

== ENCOUNTER → 2016-10-19 | Outpatient (CLI) | payer OTHER ==
[~2016-10-19] MED LIST changes: +ACET-1256 PO; -ASPI325T39 PO; +ASPI81TA28 PO; -BISM262T3 PO; +CMD/2 PO; -CMD5 PO; -MELO15TA10 PO; -MULT-506 PO; +MULT-513 PO; +PANT40TA PO; -PRLSR20 PO; +SIMV10TA2 PO; -SIMV20TA2 PO
--- NOTE | 2016-10-19 16:02 | DIAGNOSTIC IMAGING REPORT ---
CHEST 2 VIEWS ROUTINE CLINICAL HISTORY: COUGH dyspnea COMPARISON STUDY: 08/29/2016 FINDINGS: Mild stable cardiomegaly. Mild stable emphysematous change. No acute infiltrate. Diaphragms smooth but somewhat flattened. Minimal diaphragmatic calcification medial left hemidiaphragm is noted. IMPRESSION: Chronic change. No acute process. The above report was generated using voice recognition software. It may contain grammatical, syntax or spelling errors. Electronically signed by: Luca Golden M.D. 10/19/2016 4:00 PM Dictated Date/Time: 10/19/2016 4:00 PM
== END | disposition home or self-care (01) ==
LOC: C.RAD1850 15:45
PROVIDERS: ATTEND Family Medicine
DX: R05 Cough (principal)

== ENCOUNTER → 2016-10-25 | Outpatient (CLI) | payer OTHER | END | disposition home or self-care (01) | LOC: C.RDSM 11:19 | PROVIDERS: ATTEND Physical Medicine & Rehabilitation Sports Medicine | DX: Z87.81 Personal history of (healed) traumatic fracture (principal) ==

== ENCOUNTER → 2017-01-03 | Outpatient (CLI) | payer OTHER ==
[~2017-01-03] MED LIST changes: +DTR/5 PO; +FERR1TAB62 PO; -FERR325T PO; -OXYB5TAB74 PO
== END | disposition home or self-care (01) ==
LOC: C.RDSM 12:02
PROVIDERS: ATTEND Physical Medicine & Rehabilitation Sports Medicine
DX: M17.0 Bilateral primary osteoarthritis of knee (principal); Z87.81 Personal history of (healed) traumatic fracture; Z96.651 Presence of right artificial knee joint

== ENCOUNTER → 2017-04-11 | Outpatient (CLI) | payer OTHER | END | disposition home or self-care (01) | LOC: C.RDSM 20:11 | PROVIDERS: ATTEND Physical Medicine & Rehabilitation Sports Medicine | DX: Z87.81 Personal history of (healed) traumatic fracture (principal) ==

== ENCOUNTER 2018-05-01 14:05 | Inpatient (IN) ==
[2018-05-01] MEDS ORDERED: methylPREDNISolone 125 MG/2 ML VIAL IV STA (14:54)
[2018-05-01] MEDS ORDERED: SODIUM CHLORIDE 0.9% 1000ML 500 ML IV ONE (14:54)
[2018-05-01] MEDS ORDERED: ALBUT/IPRATROP 3MG/0.5MG NEB 3 ML VIAL NEB STA ×2 (14:54→18:02)
--- NOTE | 2018-05-01 15:23 | XRay Report ---
XR chest 1V portable CLINICAL HISTORY: Dyspnea COMPARISON STUDY: 04/27/2018 FINDINGS: The heart is borderline enlarged. There is aortic tortuosity/ectasia. There is radiographic evidence of emphysema. There is slight increase in the basilar interstitial fibrotic-type changes. A superimposed acute inflammatory process or an element of pulmonary vascular congestion cannot be exc luded. There is no lobar consolidation.[ IMPRESSION: Basilar interstitial fibrotic-type changes, slightly more prominent than on the preceding study. Electronically signed by: Vern Mccain M.D. 05/01/2018 3:22 PM
--- NOTE | 2018-05-01 16:23 | Emergency Department Note ---
ED Visit Note I assisted Dr. Jones in the evaluation and management of this patient. Please see his note for complete visit details. Jennyfer Enriquez, PGY2 Resident Physician [facility] and [facility] Medicine . Resident Activity Tracking Resident Involvement: Resident Care Provided Care Provided: Adult ED
[2018-05-01 16:35] LABS: Hematocrit (blood only) 37.3 % (42-52); Hemoglobin 12.7 g/dL (14.0-18.0); Mean Corpuscular Volume 95.9 fL (80-100); Mean Platelet Volume 10.3 fL (7.4-10.4); Platelet Count 107 K/uL (130-400); RDW Coefficient of Variation 14.3 % (11.5-14.5); RDW Standard Deviation 50.4 fL (36.4-46.3); Red Blood Count 3.89 M/uL (4.7-6.1); White Blood Count 5.78 K/uL (4.8-10.8)
[2018-05-01 16:45] LABS: Partial Thromboplastin Ratio 0.8; Partial Thromboplastin Time 21.1 Seconds (21.0-31.0); Prothrombin Time 10.3 Seconds (9.0-12.0)
[2018-05-01 16:56] LABS: Alanine Aminotransferase 24 U/L (12-78); Albumin Level 3.1 gm/dl (3.4-5.0); Aspartate Aminotransferase 39 U/L (15-37); BUN Creatinine Ratio 11.6 (10-20); Blood Urea Nitrogen 11 mg/dl (7-18); Calcium 7.9 mg/dl (8.5-10.1); Carbon Dioxide 28 mmol/L (21-32); Chloride 103 mmol/L (98-107); Est GFR (African American) 82.5; Est GFR (Non-African American) 71.2; Glucose 100 mg/dl (70-99); Potassium 3.7 mmol/L (3.5-5.1); Sodium 137 mmol/L (136-145)
[2018-05-01 17:01] LABS: Alkaline Phosphatase 77 U/L (45-117); Bilirubin,Total 0.4 mg/dl (0.2-1); Globulin 3.2 gm/dl (2.5-4.0); NT Pro B Type Natriuretic Pept 1543 pg/ml (0-1800); Total Protein 6.3 gm/dl (6.4-8.2); Troponin I 0.021 ng/ml (0-0.045)
[2018-05-01 17:09] LABS: Influenza B virus by PCR Neg for Influ B (Neg)
[2018-05-01 17:53] LABS: ALC (manual) 3.68 K/uL (1.2-3.4); Eosinophils % (manual) 1.8 %; Lymphocytes # (manual) 1.31 K/uL (1.2-3.4); Lymphocytes % (manual) 22.7 %; Monocytes # (manual) 0.37 K/uL (0.11-0.59); Monocytes % (manual) 6.4 %; Myelocytes # (manual) 0.05 K/uL (0-0); Myelocytes % (manual) 0.9 %; Neutrophils % (manual) 27.3 %; RBC Morphology Unremarkable; Reactive Lymphocytes # (manual) 2.36 K/uL
[2018-05-01] MEDS ORDERED: SODIUM CHLORIDE 0.9% 1000ML 1,000 ML IV ONE (18:02)
--- NOTE | 2018-05-01 18:05 | Emergency Department Note ---
Entered by Anabella Chan acting as a scribe for History of Present Illness General Chief complaint: Flu Like Symptoms Stated complaint: FLU Time Seen by Provider: 05/01/18 14:28 Source: patient Mode of arrival: ambulatory Limitations: no limitations History of Present Illness Onset (ago): day(s) 5 Location: chest Pain Consistency: + other (worsening) Quality: + other ("fluid in his lungs.) Associated symptoms: + cough (ocasio phlegm production), + fever/chills (The patient complains of fever. The patient denies chills.), + shortness of breath and + other (The patient complains of diarrhea .The patient denies urinary symptoms) The patient is an 87 year old male with a history of hyperlipidemia, atrial fibrillation, and pneumonia who presents to the ED with complaints of worsening flu like symptoms that onset 5 days ago. The patient states that he saw his PCP who prescribed him 2 pills for fluid in his lungs. He states that it is not pneumonia but is unsure what his diagnosis was. The patient notes that he is unsure if one of the pills was an antibiotic. He states that he had a fever of 103 at the time and was sent home. The patient notes that his symptoms have been worsening over the past 2 days. The patient complains of diarrhea for a week, shortness of breath for 5 days, and cough with ocasio phlegm production. The patient denies chills and urinary symptoms. Home Medications Home Medications Medication Instructions Recorded Confirmed Type Multi-Day Plus Minerals 1 dose PO DAILY 11/07/17 05/01/18 History ascorbic acid (vitamin C) 1 tab PO DAILY 11/07/17 05/01/18 History cholecalciferol (vitamin D3) 2,000 unit PO DAILY 11/07/17 05/01/18 History [Vitamin D3] ferrous sulfate 325 mg PO DAILY 11/07/17 05/01/18 History furosemide 40 mg PO 3XWK 11/07/17 05/01/18 History hydralazine 10 mg PO BID 11/07/17 05/01/18 History omeprazole 20 mg PO QAM 11/07/17 05/01/18 History potassium chloride 40 meq PO 3XWK 11/07/17 05/01/18 History pramipexole 0.125 mg PO DAILY 11/07/17 05/01/18 History tamsulosin 0.4 mg PO DAILY 11/07/17 05/01/18 History albuterol sulfate 3 ml INHALATION Q6 PRN 05/01/18 05/01/18 History amoxicillin-pot clavulanate 1 tab PO Q12H 05/01/18 05/01/18 History [Augmentin] azithromycin 1 dose PO DIRECTED 05/01/18 05/01/18 History cephalexin [Keflex] 500 mg PO TID 05/01/18 05/01/18 History leuprolide (3 month) 22.5 mg IM YEARLY 05/01/18 05/01/18 History Allergies Allergy/AdvReac Type Severity Reaction Status Date / Time No Known Allergies Allergy Verified 05/01/18 15:13 Past Med/Surg History Medical History HTN (hypertension) (Chronic) HLD (hyperlipidemia) (Chronic) Cellulitis and abscess of face Hip fracture Left knee pain Hypertension Sleep apnea CPAP Cancer PROSTATE, 1999, S/P XRT History of back injury "TAIL BONE TILTS OUT" GERD (gastroesophageal reflux disease) History of stomach ulcers History of hip fracture left hip Osteoarthritis 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 Chronic a-fib "NOT ON ANTICOAGULATION 2/2 FALLS WITH RELATIVE BRADYCARDIA AND NO AV TABBY BLOCKERS" PER CARDIO Chronic diastolic heart failure AAA (abdominal aortic aneurysm) Ascending aortic aneurysm Bifascicular block 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 (R), 2.0cm (L) Hearing deficit Restless leg syndrome Surgical History History of hip surgery FX - LEFT Hx of bilateral cataract extraction History of colonoscopy with polypectomy H/O total knee replacement R knee 1999 History of tonsillectomy History of total knee replacement LEFT (FALL 2017) Social History Preferred Language: French Communication Ability: Effective Posting Clerk Required: No Beliefs That Will Affect Care: None Current Living Situation: Alone Other Information That Helps Us Care for You: No Feels Safe at Home: Yes Safety Concerns: Feels Safe At This Time Smoking Status: Never smoker Hx Alcohol Use: No Hx Substance Use: No Review of Systems See HPI for pertinent positives & negatives. and A total of 10 systems reviewed and were otherwise negative Physical Exam Vital Signs Vital Signs - 24 hr 05/01/18 14:11 05/01/18 15:53 05/01/18 16:10 Temperature 36.5 C Temperature Source Oral Sepsis Recent Fever Within 48 Hours Yes Sepsis New/Unexplained Change in Mental Status No Sepsis Action Taken by Nursing No Action Required Pulse Rate 67 Pulse Rate [Apical] 58 L Pulse Rate [Exercises] Pulse Rate from SpO2 Sensor Pulse Rhythm [Apical] Irregular Pulse Strength [Apical] Respiratory Rate 24 22 Respiratory Rate [Exercises] Respiratory Effort / Characteristics Respiratory Depth Normal Respiratory Pattern Blood Pressure 129/85 Blood Pressure [Left Arm] Blood Pressure [Right Arm] Blood Pressure Mean 99 Blood Pressure Mean [Left Arm] Blood Pressure Mean [Right Arm] Blood Pressure Position [Left Arm] Blood Pressure Position [Right Arm] Pulse Oximetry 95 98 100 Pulse Oximetry [Exercises] Oxygen Delivery Method Room Air Room Air Nebulizer 05/01/18 16:17 05/01/18 16:31 05/01/18 17:01 Temperature Temperature Source Sepsis Recent Fever Within 48 Hours Sepsis New/Unexplained Change in Mental Status Sepsis Action Taken by Nursing Pulse Rate 64 65 Pulse Rate [Apical] 68 Pulse Rate [Exercises] Pulse Rate from SpO2 Sensor 67 69 Pulse Rhythm [Apical] Irregular Pulse Strength [Apical] Respiratory Rate 26 H 23 24 Respiratory Rate [Exercises] Respiratory Effort / Characteristics Respiratory Depth Respiratory Pattern Blood Pressure 153/89 H 152/82 H Blood Pressure [Left Arm] 139/78 Blood Pressure [Right Arm] Blood Pressure Mean 110 105 Blood Pressure Mean [Left Arm] 98 Blood Pressure Mean [Right Arm] Blood Pressure Position [Left Arm] Blood Pressure Position [Right Arm] Pulse Oximetry 99 97 95 Pulse Oximetry [Exercises] Oxygen Delivery Method Room Air 05/01/18 17:31 05/01/18 17:48 05/01/18 17:50 Temperature Temperature Source Sepsis Recent Fever Within 48 Hours Sepsis New/Unexplained Change in Mental Status Sepsis Action Taken by Nursing Pulse Rate 65 81 Pulse Rate [Apical] Pulse Rate [Exercises] 100 H Pulse Rate from SpO2 Sensor 64 77 Pulse Rhythm [Apical] Pulse Strength [Apical] Respiratory Rate 26 H 32 H Respiratory Rate [Exercises] 34 H Respiratory Effort / Characteristics Respiratory Depth Respiratory Pattern Blood Pressure 143/69 H 176/91 H Blood Pressure [Left Arm] Blood Pressure [Right Arm] Blood Pressure Mean 93 119 Blood Pressure Mean [Left Arm] Blood Pressure Mean [Right Arm] Blood Pressure Position [Left Arm] Blood Pressure Position [Right Arm] Pulse Oximetry 96 97 Pulse Oximetry [Exercises] 100 Oxygen Delivery Method Room Air 05/01/18 18:01 05/01/18 18:31 05/01/18 18:32 Temperature Temperature Source Sepsis Recent Fever Within 48 Hours Sepsis New/Unexplained Change in Mental Status Sepsis Action Taken by Nursing Pulse Rate 64 66 71 Pulse Rate [Apical] Pulse Rate [Exercises] Pulse Rate from SpO2 Sensor 59 L 71 74 Pulse Rhythm [Apical] Pulse Strength [Apical] Respiratory Rate 21 27 H 20 Respiratory Rate [Exercises] Respiratory Effort / Characteristics Respiratory Depth Respiratory Pattern Blood Pressure 161/77 H 135/85 135/85 Blood Pressure [Left Arm] Blood Pressure [Right Arm] Blood Pressure Mean 105 101 101 Blood Pressure Mean [Left Arm] Blood Pressure Mean [Right Arm] Blood Pressure Position [Left Arm] Blood Pressure Position [Right Arm] Pulse Oximetry 96 100 100 Pulse Oximetry [Exercises] Oxygen Delivery Method Nebulizer 05/01/18 19:00 05/01/18 19:30 05/01/18 20:00 Temperature Temperature Source Sepsis Recent Fever Within 48 Hours Sepsis New/Unexplained Change in Mental Status Sepsis Action Taken by Nursing Pulse Rate 75 77 85 Pulse Rate [Apical] Pulse Rate [Exercises] Pulse Rate from SpO2 Sensor 79 79 81 Pulse Rhythm [Apical] Pulse Strength [Apical] Respiratory Rate 23 25 H 23 Respiratory Rate [Exercises] Respiratory Effort / Characteristics Respiratory Depth Respiratory Pattern Blood Pressure 135/72 153/83 H Blood Pressure [Left Arm] Blood Pressure [Right Arm] Blood Pressure Mean 93 106 Blood Pressure Mean [Left Arm] Blood Pressure Mean [Right Arm] Blood Pressure Position [Left Arm] Blood Pressure Position [Right Arm] Pulse Oximetry 98 94 92 Pulse Oximetry [Exercises] Oxygen Delivery Method 05/01/18 20:01 05/01/18 20:30 05/01/18 21:38 Temperature 36.8 C Temperature Source Oral Sepsis Recent Fever Within 48 Hours Sepsis New/Unexplained Change in Mental Status Sepsis Action Taken by Nursing Pulse Rate 79 69 Pulse Rate [Apical] 84 Pulse Rate [Exercises] Pulse Rate from SpO2 Sensor 84 72 Pulse Rhythm [Apical] Pulse Strength [Apical] Normal Respiratory Rate 25 H 27 H 22 Respiratory Rate [Exercises] Respiratory Effort / Characteristics Non-Labored Spontaneous SOB on Exertion Respiratory Depth Normal Respiratory Pattern Regular Blood Pressure 114/66 141/71 H Blood Pressure [Left Arm] 164/90 H Blood Pressure [Right Arm] Blood Pressure Mean 82 94 Blood Pressure Mean [Left Arm] 114 Blood Pressure Mean [Right Arm] Blood Pressure Position [Left Arm] Sitting Blood Pressure Position [Right Arm] Pulse Oximetry 95 93 96 Pulse Oximetry [Exercises] Oxygen Delivery Method Room Air 05/01/18 21:58 05/01/18 23:05 05/01/18 23:13 Temperature Temperature Source Sepsis Recent Fever Within 48 Hours Sepsis New/Unexplained Change in Mental Status Sepsis Action Taken by Nursing Pulse Rate 83 Pulse Rate [Apical] 83 Pulse Rate [Exercises] Pulse Rate from SpO2 Sensor Pulse Rhythm [Apical] Pulse Strength [Apical] Respiratory Rate 18 18 Respiratory Rate [Exercises] Respiratory Effort / Characteristics Spontaneous Short of Breath SOB on Exertion Non-Labored Spontaneous Non-Labored Spontaneous Respiratory Depth Normal Normal Respiratory Pattern Regular Regular Blood Pressure Blood Pressure [Left Arm] Blood Pressure [Right Arm] Blood Pressure Mean Blood Pressure Mean [Left Arm] Blood Pressure Mean [Right Arm] Blood Pressure Position [Left Arm] Blood Pressure Position [Right Arm] Pulse Oximetry 95 96 Pulse Oximetry [Exercises] Oxygen Delivery Method Room Air CPAP 05/01/18 23:16 Temperature 36.8 C Temperature Source Oral Sepsis Recent Fever Within 48 Hours Sepsis New/Unexplained Change in Mental Status Sepsis Action Taken by Nursing Pulse Rate Pulse Rate [Apical] 76 Pulse Rate [Exercises] Pulse Rate from SpO2 Sensor Pulse Rhythm [Apical] Pulse Strength [Apical] Respiratory Rate 22 Respiratory Rate [Exercises] Respiratory Effort / Characteristics Respiratory Depth Respiratory Pattern Blood Pressure Blood Pressure [Left Arm] Blood Pressure [Right Arm] 128/66 Blood Pressure Mean Blood Pressure Mean [Left Arm] Blood Pressure Mean [Right Arm] 86 Blood Pressure Position [Left Arm] Blood Pressure Position [Right Arm] Lying Pulse Oximetry 93 Pulse Oximetry [Exercises] Oxygen Delivery Method CPAP GENERAL: Awake, alert, frail/cachectic and fatigued-appearing, mildly dyspneic in no distress HENT: Normocephalic, atraumatic. Oropharynx with dry mucous membranes and otherwise unremarkable. EYES: Normal conjunctiva. Sclera non-icteric. NECK: Supple. No nuchal rigidity. FROM. No JVD. RESPIRATORY: Scattered wheezing and rhonchi. CARDIAC: Regular rate, normal rhythm. Extremities warm and well perfused. Pulses equal. ABDOMEN: Soft, non-distended. No tenderness to palpation. No rebound or guarding. No masses. RECTAL: Deferred. MUSCULOSKELETAL: Chest examination reveals no tenderness. The back is symmetrical on inspection without obvious abnormality. There is no CVA tenderness to palpation. No joint edema. LOWER EXTREMITIES: Calves are equal size bilaterally and non-tender. No edema. No discoloration. NEURO: Normal sensorium. No sensory or motor deficits noted. SKIN: No rash or jaundice noted. Course 1440: Past medical records reviewed. The patient was evaluated in room C6, and a complete history and physical examination were performed. 1543: I updated the patient. Upon reevaluation, the patient is resting comfortably. Administered Medications Albuterol (Duoneb) 3 ml NEB Q4R RALPH Stop: 05/31/18 19:59 Last Admin: 05/01/18 23:06 Dose: 3 ml Documented by: [id number] Admin: 05/01/18 22:07 Dose: Not Given Documented by: [id number] Hydralazine HCl (Apresoline) 10 mg PO BID RALPH Stop: 05/31/18 20:59 Last Admin: 05/01/18 22:16 Dose: 10 mg Documented by: [id number] Sodium Chloride (Nss 1000ml) 1,000 mls @ 125 mls/hr IV .Q8H ONE Stop: 05/02/18 02:01 Last Admin: 05/01/18 18:17 Dose: 125 mls/hr Documented by: [id number] Furosemide 40 mg/ Syringe 4 mls @ 4 mls/min IV DAILY RALPH Stop: 05/31/18 19:29 Last Admin: 05/01/18 22:04 Dose: Not Given Documented by: [id number] Methylprednisolone 80 mg/ (Syringe) 1.28 mls @ 1.5 mls/min IV Q8 RALPH Stop: 05/31/18 21:59 Last Admin: 05/01/18 22:17 Dose: 1.5 mls/min Documented by: [id number] Ioversol (Optiray 320 125ml) 99 ml IV ONCE PRN PRN Reason: Interaction Checking Stop: 05/05/18 21:19 Last Admin: 05/01/18 21:20 Dose: 99 ml Documented by: [id number] Discontinued Medications Albuterol (Duoneb) 3 ml NEB NOW STA Stop: 05/01/18 14:55 Last Admin: 05/01/18 15:54 Dose: 3 ml Documented by: [id number] Albuterol (Duoneb) 3 ml NEB NOW STA Stop: 05/01/18 18:03 Last Admin: 05/01/18 18:16 Dose: 3 ml Documented by: [id number] Sodium Chloride (Nss 1000ml) 500 mls @ 999 mls/hr IV .Q31M ONE Stop: 05/01/18 15:24 Last Infusion: 05/01/18 17:55 Dose: 0 mls/hr Documented by: [id number] Admin: 05/01/18 16:12 Dose: 999 mls/hr Documented by: [id number] Methylprednisolone (Solumedrol) 125 mg IV NOW STA Stop: 05/01/18 14:55 Last Admin: 05/01/18 16:13 Dose: 125 mg Documented by: [id number] Oseltamivir Phosphate (Tamiflu) 75 mg PO BID RALPH Stop: 05/06/18 20:59 Last Admin: 05/01/18 22:09 Dose: Not Given Documented by: [id number] Oseltamivir Phosphate (Tamiflu) Confirm Administered Dose 75 mg .ROUTE .STK-MED ONE Stop: 05/01/18 19:24 Last Admin: 05/01/18 19:24 Dose: 75 mg Documented by: [id number] Medical Decision Making Differential Diagnosis Differential diagnosis: Etiologies such as infections, reactive airway disease, COPD, pneumonia, pleural effusion, pulmonary edema, ARDS, pneumothorax, CHF, cardiac ischemia, cardiac tamponade, dysrhythmia, anemia, pulmonary embolism, musculoskeletal, gastrointestinal process, as well as others were entertained. Medical Records Attestation: I reviewed the patient's medical records. Home Medications Current Medication List: was personally reviewed by me Laboratory Data Attestation: I reviewed the patient's lab results. Result diagrams: 05/01/18 16:10 05/01/18 21:38 Lab Results 05/01/18 05/01/18 05/01/18 Range/Units 16:10 16:10 16:10 WBC 5.78 (4.8-10.8) K/uL RBC 3.89 L (4.7-6.1) M/uL Hgb 12.7 L (14.0-18.0) g/dL Hct 37.3 L (42-52) % MCV 95.9 (80-100) fL MCH 32.6 (25-34) pg MCHC 34.0 (32-36) g/dL RDW Std Deviation 50.4 H (36.4-46.3) fL RDW Coeff of Henry 14.3 (11.5-14.5) % Plt Count 107 L (130-400) K/uL MPV 10.3 (7.4-10.4) fL Neutrophils % (Manual) 27.3 % Lymphocytes % (Manual) 22.7 % Reactive Lymphs % (Man) 40.9 % Monocytes % (Manual) 6.4 % Eosinophils % (Manual) 1.8 % Myelocytes % (Man) 0.9 % Neutrophils # (Manual) 1.58 (1.4-6.5) K/uL Total Absolute Neuts 1.58 (1.4-6.5) K/uL Lymphocytes # (Manual) 1.31 (1.2-3.4) K/uL Reactive Lymphs # 2.36 K/uL Total Abs Lymphocytes 3.68 H (1.2-3.4) K/uL Monocytes # (Manual) 0.37 (0.11-0.59) K/uL Eosinophils # (Manual) 0.10 (0-0.5) K/uL Myelocytes # (Manual) 0.05 H (0-0) K/uL RBC Morphology Unremarkable PT 10.3 (9.0-12.0) Seconds INR 1.0 (0.9-1.1) APTT 21.1 (21.0-31.0) Seconds PTT Ratio 0.8 D-Dimer (0-500) ug/L FEU VBG pH (7.36-7.41) VBG pCO2 (38-50) mmHg VBG pO2 mmHg VBG HCO3 mmol/L VBG O2 Saturation % VBG Base Excess mEq/L Barometric Pressure mm/Hg Sodium 137 (136-145) mmol/L Potassium 3.7 (3.5-5.1) mmol/L Chloride 103 (98-107) mmol/L Carbon Dioxide 28 (21-32) mmol/L Anion Gap 6.0 (3-11) BUN 11 (7-18) mg/dl Creatinine 0.95 (0.6-1.4) mg/dl Est Cr Clr Drug Dosing Not Reportable Est GFR ( Amer) 82.5 Est GFR (Non-Af Amer) 71.2 BUN/Creatinine Ratio 11.6 (10-20) Glucose 100 H (70-99) mg/dl Calcium 7.9 L (8.5-10.1) mg/dl Phosphorus 3.0 (2.5-4.9) mg/dl Magnesium 2.0 (1.8-2.4) mg/dl Total Bilirubin 0.4 (0.2-1) mg/dl AST 39 H (15-37) U/L ALT 24 (12-78) U/L Alkaline Phosphatase 77 (45-117) U/L Troponin I 0.021 (0-0.045) ng/ml NT-Pro-B Natriuret Pep 1543 (0-1800) pg/ml Total Protein 6.3 L (6.4-8.2) gm/dl Albumin 3.1 L (3.4-5.0) gm/dl Globulin 3.2 (2.5-4.0) gm/dl Albumin/Globulin Ratio 1.0 (0.9-2) Urine Color Urine Appearance (Clear) Urine pH (4.5-7.5) Ur Specific Cobb (1.000-1.030) Urine Protein (Negative) Urine Glucose (UA) (Negative) Urine Ketones (Negative) Urine Blood (Negative) Urine Nitrite (Negative) Urine Bilirubin (Negative) Urine Urobilinogen (Negative) Ur Leukocyte Esterase (Negative) Urine WBC (Auto) (0-5) /hpf Urine RBC (Auto) (0-4) /hpf U Hyaline Cast (Auto) (0-5) /lpf U Epithel Cells (Auto) (0-5) /lpf Urine Bacteria (Auto) (Negative) Influenza Type A (PCR) (Neg) Influenza Type B (PCR) (Neg) 05/01/18 05/01/18 05/01/18 Range/Units 16:10 16:22 17:55 WBC (4.8-10.8) K/uL RBC (4.7-6.1) M/uL Hgb (14.0-18.0) g/dL Hct (42-52) % MCV (80-100) fL MCH (25-34) pg MCHC (32-36) g/dL RDW Std Deviation (36.4-46.3) fL RDW Coeff of Henry (11.5-14.5) % Plt Count (130-400) K/uL MPV (7.4-10.4) fL Neutrophils % (Manual) % Lymphocytes % (Manual) % Reactive Lymphs % (Man) % Monocytes % (Manual) % Eosinophils % (Manual) % Myelocytes % (Man) % Neutrophils # (Manual) (1.4-6.5) K/uL Total Absolute Neuts (1.4-6.5) K/uL Lymphocytes # (Manual) (1.2-3.4) K/uL Reactive Lymphs # K/uL Total Abs Lymphocytes (1.2-3.4) K/uL Monocytes # (Manual) (0.11-0.59) K/uL Eosinophils # (Manual) (0-0.5) K/uL Myelocytes # (Manual) (0-0) K/uL RBC Morphology PT (9.0-12.0) Seconds INR (0.9-1.1) APTT (21.0-31.0) Seconds PTT Ratio D-Dimer 3450 H* (0-500) ug/L FEU VBG pH (7.36-7.41) VBG pCO2 (38-50) mmHg VBG pO2 mmHg VBG HCO3 mmol/L VBG O2 Saturation % VBG Base Excess mEq/L Barometric Pressure mm/Hg Sodium (136-145) mmol/L Potassium (3.5-5.1) mmol/L Chloride (98-107) mmol/L Carbon Dioxide (21-32) mmol/L Anion Gap (3-11) BUN (7-18) mg/dl Creatinine (0.6-1.4) mg/dl Est Cr Clr Drug Dosing Est GFR ( Amer) Est GFR (Non-Af Amer) BUN/Creatinine Ratio (10-20) Glucose (70-99) mg/dl Calcium (8.5-10.1) mg/dl Phosphorus (2.5-4.9) mg/dl Magnesium (1.8-2.4) mg/dl Total Bilirubin (0.2-1) mg/dl AST (15-37) U/L ALT (12-78) U/L Alkaline Phosphatase (45-117) U/L Troponin I (0-0.045) ng/ml NT-Pro-B Natriuret Pep (0-1800) pg/ml Total Protein (6.4-8.2) gm/dl Albumin (3.4-5.0) gm/dl Globulin (2.5-4.0) gm/dl Albumin/Globulin Ratio (0.9-2) Urine Color Yellow Urine Appearance Clear (Clear) Urine pH 7.5 (4.5-7.5) Ur Specific Cobb 1.022 (1.000-1.030) Urine Protein Negative (Negative) Urine Glucose (UA) Negative (Negative) Urine Ketones Trace H (Negative) Urine Blood Negative (Negative) Urine Nitrite Negative (Negative) Urine Bilirubin Negative (Negative) Urine Urobilinogen Negative (Negative) Ur Leukocyte Esterase Negative (Negative) Urine WBC (Auto) 1-5 (0-5) /hpf Urine RBC (Auto) 10-30 H (0-4) /hpf U Hyaline Cast (Auto) 1-5 (0-5) /lpf U Epithel Cells (Auto) 10-20 H (0-5) /lpf Urine Bacteria (Auto) Negative (Negative) Influenza Type A (PCR) Pos for Influ A A* (Neg) Influenza Type B (PCR) Neg for Influ B (Neg) 05/01/18 05/01/18 Range/Units 18:22 21:38 WBC (4.8-10.8) K/uL RBC (4.7-6.1) M/uL Hgb (14.0-18.0) g/dL Hct (42-52) % MCV (80-100) fL MCH (25-34) pg MCHC (32-36) g/dL RDW Std Deviation (36.4-46.3) fL RDW Coeff of Henry (11.5-14.5) % Plt Count (130-400) K/uL MPV (7.4-10.4) fL Neutrophils % (Manual) % Lymphocytes % (Manual) % Reactive Lymphs % (Man) % Monocytes % (Manual) % Eosinophils % (Manual) % Myelocytes % (Man) % Neutrophils # (Manual) (1.4-6.5) K/uL Total Absolute Neuts (1.4-6.5) K/uL Lymphocytes # (Manual) (1.2-3.4) K/uL Reactive Lymphs # K/uL Total Abs Lymphocytes (1.2-3.4) K/uL Monocytes # (Manual) (0.11-0.59) K/uL Eosinophils # (Manual) (0-0.5) K/uL Myelocytes # (Manual) (0-0) K/uL RBC Morphology PT (9.0-12.0) Seconds INR (0.9-1.1) APTT (21.0-31.0) Seconds PTT Ratio D-Dimer (0-500) ug/L FEU VBG pH 7.46 H (7.36-7.41) VBG pCO2 38 (38-50) mmHg VBG pO2 30 mmHg VBG HCO3 26 mmol/L VBG O2 Saturation < 60.0 % VBG Base Excess 2.0 mEq/L Barometric Pressure 737.6 mm/Hg Sodium 138 (136-145) mmol/L Potassium 3.2 L (3.5-5.1) mmol/L Chloride 103 (98-107) mmol/L Carbon Dioxide 23 (21-32) mmol/L Anion Gap 13.0 H (3-11) BUN 11 (7-18) mg/dl Creatinine 1.21 (0.6-1.4) mg/dl Est Cr Clr Drug Dosing 40.8 Est GFR ( Amer) 61.6 Est GFR (Non-Af Amer) 53.1 BUN/Creatinine Ratio 9.2 L (10-20) Glucose 224 H (70-99) mg/dl Calcium 7.7 L (8.5-10.1) mg/dl Phosphorus 3.1 (2.5-4.9) mg/dl Magnesium 1.8 (1.8-2.4) mg/dl Total Bilirubin (0.2-1) mg/dl AST (15-37) U/L ALT (12-78) U/L Alkaline Phosphatase (45-117) U/L Troponin I (0-0.045) ng/ml NT-Pro-B Natriuret Pep (0-1800) pg/ml Total Protein (6.4-8.2) gm/dl Albumin (3.4-5.0) gm/dl Globulin (2.5-4.0) gm/dl Albumin/Globulin Ratio (0.9-2) Urine Color Urine Appearance (Clear) Urine pH (4.5-7.5) Ur Specific Cobb (1.000-1.030) Urine Protein (Negative) Urine Glucose (UA) (Negative) Urine Ketones (Negative) Urine Blood (Negative) Urine Nitrite (Negative) Urine Bilirubin (Negative) Urine Urobilinogen (Negative) Ur Leukocyte Esterase (Negative) Urine WBC (Auto) (0-5) /hpf Urine RBC (Auto) (0-4) /hpf U Hyaline Cast (Auto) (0-5) /lpf U Epithel Cells (Auto) (0-5) /lpf Urine Bacteria (Auto) (Negative) Influenza Type A (PCR) (Neg) Influenza Type B (PCR) (Neg) Imaging Data Radiologist's Impression: Radiology results as stated below per my review and the radiologist's interpretation: XR chest 1V portable CLINICAL HISTORY: Dyspnea COMPARISON STUDY: 04/27/2018 FINDINGS: The heart is borderline enlarged. There is aortic tortuosity/ectasia. There is radiographic evidence of emphysema. There is slight increase in the basilar interstitial fibrotic-type changes. A superimposed acute inflammatory process or an element of pulmonary vascular congestion cannot be excluded. There is no lobar consolidation.[ IMPRESSION: Basilar interstitial fibrotic-type changes, slightly more prominent than on the preceding study. Electronically signed by: Vern Mccain M.D. 05/01/2018 3:22 PM Dictated: 05/01/18 1520 Transcribed: 05/01/18 1520 ECG Data Attestation: I personally reviewed and interpreted this ECG as follows: Indication: SOB/dyspnea and weakness Rate (beats per minute): 61 Rhythm: atrial fibrillation Findings: + other (left axis deviation) and + RBBB; no acute ischemic change Comparison ECG Date: from (11/11/2017) Change: no significant change MDM Narrative The patient is a pleasant 87-year-old gentleman with a past medical history of A. fib not on anticoagulation, hypertension, hyperlipidemia, sleep apnea on CPAP, diastolic heart failure presents emergency department with worsening cough and congestion after being treated outpatient for CAP with Augmentin and azithromycin per hpi. On arrival patient is mildly dyspneic but no acute distress, afebrile with stable vital signs. On exam the patient appears clinically dry. He has scattered wheezes and rhonchi. EKG without evidence of acute ischemia. Chest x-ray without overt infiltrates but with basilar interstitial fibrotic-type changes which look progressed from prior onset 04/27. WBC within normal limits. H/H 12.7/37.3 similar to prior values. Platelets 107 slightly decreased from prior. Chemistry without acidosis. Troponin 0.021 BNP 1500s. Patient was given steroids and DuoNeb with some improvement in his symptoms however still with significant wheezes and rhonchi and upon ambulatory trial while he maintained his oxygen saturation he became profoundly tachypneic. Therefore, reasonable to admit this elderly patient for further management. Resident, Dr. Enriquez, discussed case with Dr. Smith, [facility] hospitalist, who will evaluated the patient for admission. Flu PCR subsequently positive for Influenza A. Tamiflu per admitting team. This patient was managed with the assistance of resident, Dr. Enriquez. I discussed the case with the resident, examined the patient, and confirm the findings and plan as documented in this note. Impression & Plan Influenza A Discharge Plan Visit Data *Final* Discharge Date/Time: 05/01/18 21:36 Chief Complaint: Flu Like Symptoms Stated Complaint: FLU ED Provider: [facility] ED Midlevel Provider: Jennyfer Enriquez Discharge Problem: Influenza A Patient Disposition: Admitted As Inpatient Discharge Instructions Interventions: ED Discharge Assessment Last Done: 05/01/18 21:36 The scribe's documentation has been prepared under my direction and personally reviewed by me in its entirety. I confirm that the note above accurately reflects all work, treatment, procedures, and medical decision making performed by me.
[2018-05-01 18:36] LABS: HCO3 VBG 26 mmol/L; PCO2 VBG 38 mmHg (38-50); PO2 VBG 30 mmHg; pH VBG 7.46 (7.36-7.41)
[2018-05-01 18:37] LABS: Oxygen Saturation VBG < 60.0 %
[2018-05-01 18:52] LABS: Appearance Urine Clear (Clear); Bacteria Urine Automated Negative (Negative); Bilirubin Urine Negative (Negative); Blood Urine Negative (Negative); Color Urine Yellow; Glucose Urine UA Negative (Negative); Ketones Urine Trace (Negative); Leukocyte Esterase Urine Negative (Negative); Nitrite Urine Negative (Negative); Specific Gravity Urine 1.022 (1.000-1.030); Urobilinogen Urine Negative (Negative); pH Urine 7.5 (4.5-7.5)
[2018-05-01 18:59] LABS: Protein Urine Negative (Negative)
[2018-05-01] MEDS ORDERED: ACETAMINOPHEN 325 MG TAB PO PRN (19:13)
[2018-05-01] MEDS ORDERED: MAGNESIUM HYDROXIDE SUSP 30 ML UDC PO PRN (19:13)
[2018-05-01] MEDS ORDERED: ZOLPIDEM TARTRATE 5 MG TAB PO PRN (19:13)
[2018-05-01] MEDS ORDERED: ALUMINUM/MAGNESIUM SUSP 30 ML UDC PO PRN (19:13)
[2018-05-01] MEDS ORDERED: POLYETHYLENE (MIRALAX) 17 GM PACK PO PRN (19:13)
[2018-05-01] MEDS ORDERED: ONDANSETRON INJ 2 MG/ML 2 ML VIAL IV PRN (19:13)
[2018-05-01] MEDS ORDERED: OSELTAMIVIR PHOSPHATE 75 MG CAP ONE (19:23)
--- NOTE | 2018-05-01 19:27 | History & Physical Report ---
Date of Service May 01, 2018 Assessment & Plan (1) Influenza A: (2) Chronic diastolic heart failure: (3) Chronic a-fib: (4) Sleep apnea: (5) Hypertension: (6) HLD (hyperlipidemia): (7) HTN (hypertension): 87-year-old white male with a significant past medical history of sleep apnea on CPAP, prostate cancer, chronic A. fib and CHF comes to hospital emergency department because of the above chief complaints for fdc as significant shortness of breath Acute respiratory distress with respiratory rate up to 34 and 36 Significant shortness of breath Influenza A positive Differential diagnosis includes PE, and CHF History of chronic diastolic CHF I will order d-dimer, echocardiogram Started Tamiflu in the emergency room, will continue Continue DuoNeb treatment every 4 hour, Solu-Medrol 80 mg every 8 hr, Do not believe patient need antibiotic because he has no leukocytosis, and his symptoms well explained by the infection influenza A Continue supportive care, For hypertension, is stable for now continue home dose medicine of hydralazine p.o. twice daily For history of dyslipidemia, not on any medicine for now History of prostate cancer, continue leuprolide and Flomax For GERD we will continue Protonix History of hip fracture 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 Chronic a-fib "NOT ON ANTICOAGULATION 2/2 FALLS WITH RELATIVE BRADYCARDIA AND NO AV TABBY BLOCKERS" PER CARDIO AAA (abdominal aortic aneurysm) Ascending aortic aneurysm Bifascicular block Common iliac aneurysm B/L -- 1.7cm (R), 2.0cm (L) Hearing deficit Restless leg syndrome The above conditions stable GI DVT prophylaxis covered Discussed with patient, who is awake alert orientated conversational I believe his sound to make decision, he wanted do not resuscitate Discussed with patient and sons in bedside, updated them patient's conditions and care plan, answered all the questions History of Present Illness Chief Complaint: Worsening shortness of breath Primary Care Provider: Kayleen Thomas 87-year-old white male with a significant past medical history of sleep apnea on CPAP, prostate cancer, chronic A. fib and CHF comes to hospital emergency department because of the above chief complaints. pt complaints of worsening flu like symptoms that onset 5 days ago, was seen by PCP who felt not pneumonia, his temp was up to 103 at the time and was sent home. symptoms have been worsening over the past 2 days, nose congestion, no appetite, associated with diarrhea for a week, report has been cough ocasio phlegm production, denies sputum or hemoptysis Denies chest pain palpitation. During his emergency room stay, he is not was very tired, his pulse ox was 96% in nebulizer however his respiratory rate was up to 34 to 36, therefore he has having acute respiratory distress. He got 1 dose of Solu-Medrol in the emergency room, has been continued getting nebulizer treatment his respiratory rate still high Later ED report patient has influenza A Patient denies dizziness denies chest pain denies lower extremity swelling Denies nausea vomiting abdominal pain Denies dysuria urgency and frequency Denies open wound skin rashes, Denies facial droop or slurry speeches Allergies Allergy/AdvReac Type Severity Reaction Status Date / Time No Known Allergies Allergy Verified 05/01/18 15:13 Home Medications Home Medications Medication Instructions Recorded Confirmed Type Multi-Day Plus Minerals 1 dose PO DAILY 11/07/17 05/01/18 History ascorbic acid (vitamin C) 1 tab PO DAILY 11/07/17 05/01/18 History cholecalciferol (vitamin D3) 2,000 unit PO DAILY 11/07/17 05/01/18 History [Vitamin D3] ferrous sulfate 325 mg PO DAILY 11/07/17 05/01/18 History furosemide 40 mg PO 3XWK 11/07/17 05/01/18 History hydralazine 10 mg PO BID 11/07/17 05/01/18 History omeprazole 20 mg PO QAM 11/07/17 05/01/18 History potassium chloride 40 meq PO 3XWK 11/07/17 05/01/18 History pramipexole 0.125 mg PO DAILY 11/07/17 05/01/18 History tamsulosin 0.4 mg PO DAILY 11/07/17 05/01/18 History albuterol sulfate 3 ml INHALATION Q6 PRN 05/01/18 05/01/18 History amoxicillin-pot clavulanate 1 tab PO Q12H 05/01/18 05/01/18 History [Augmentin] azithromycin 1 dose PO DIRECTED 05/01/18 05/01/18 History cephalexin [Keflex] 500 mg PO TID 05/01/18 05/01/18 History leuprolide (3 month) 22.5 mg IM YEARLY 05/01/18 05/01/18 History Past Med/Surg History Medical History HTN (hypertension) (Chronic) HLD (hyperlipidemia) (Chronic) Cellulitis and abscess of face Hip fracture Left knee pain Hypertension Sleep apnea CPAP Cancer PROSTATE, 1999, S/P XRT History of back injury "TAIL BONE TILTS OUT" GERD (gastroesophageal reflux disease) History of stomach ulcers 1960' History of hip fracture left hip Osteoarthritis 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 Chronic a-fib "NOT ON ANTICOAGULATION 2/2 FALLS WITH RELATIVE BRADYCARDIA AND NO AV TABBY BLOCKERS" PER CARDIO Chronic diastolic heart failure AAA (abdominal aortic aneurysm) Ascending aortic aneurysm Bifascicular block 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 (R), 2.0cm (L) Hearing deficit Restless leg syndrome Surgical History History of hip surgery FX - LEFT Hx of bilateral cataract extraction History of colonoscopy with polypectomy H/O total knee replacement R knee 1999 History of tonsillectomy History of total knee replacement LEFT (FALL 2017) Social History Preferred Language: [place] Beliefs That Will Affect Care: None Current Living Situation: Family Feels Safe at Home: Yes Smoking Status: Never smoker Hx Alcohol Use: No Hx Substance Use: No Review of Systems All systems reviewed & are unremarkable except as noted in HPI & below Physical Exam Vital Signs (Past 24 Hours): Last Vital Signs Temp 36.5 C 05/01/18 14:11 Pulse 75 05/01/18 19:00 Resp 23 05/01/18 19:00 BP 135/72 05/01/18 19:00 Pulse Ox 98 05/01/18 19:00 Results & Data Laboratory Results Laboratory Results - last 24 hr 05/01/18 05/01/18 05/01/18 16:10 16:10 16:10 WBC 5.78 RBC 3.89 L Hgb 12.7 L Hct 37.3 L MCV 95.9 MCH 32.6 MCHC 34.0 RDW Std Deviation 50.4 H RDW Coeff of Henry 14.3 Plt Count 107 L MPV 10.3 Neutrophils % (Manual) 27.3 Lymphocytes % (Manual) 22.7 Reactive Lymphs % (Man) 40.9 Monocytes % (Manual) 6.4 Eosinophils % (Manual) 1.8 Myelocytes % (Man) 0.9 Neutrophils # (Manual) 1.58 Total Absolute Neuts 1.58 Lymphocytes # (Manual) 1.31 Reactive Lymphs # 2.36 Total Abs Lymphocytes 3.68 H Monocytes # (Manual) 0.37 Eosinophils # (Manual) 0.10 Myelocytes # (Manual) 0.05 H RBC Morphology Unremarkable PT 10.3 INR 1.0 APTT 21.1 PTT Ratio 0.8 VBG pH VBG pCO2 VBG pO2 VBG HCO3 VBG O2 Saturation VBG Base Excess Barometric Pressure Sodium 137 Potassium 3.7 Chloride 103 Carbon Dioxide 28 Anion Gap 6.0 BUN 11 Creatinine 0.95 Est Cr Clr Drug Dosing Not Reportable Est GFR ( Amer) 82.5 Est GFR (Non-Af Amer) 71.2 BUN/Creatinine Ratio 11.6 Glucose 100 H Calcium 7.9 L Phosphorus 3.0 Magnesium 2.0 Total Bilirubin 0.4 AST 39 H ALT 24 Alkaline Phosphatase 77 Troponin I 0.021 NT-Pro-B Natriuret Pep 1543 Total Protein 6.3 L Albumin 3.1 L Globulin 3.2 Albumin/Globulin Ratio 1.0 Urine Color Urine Appearance Urine pH Ur Specific [place] Urine Protein Urine Glucose (UA) Urine Ketones Urine Blood Urine Nitrite Urine Bilirubin Urine Urobilinogen Ur Leukocyte Esterase Urine WBC (Auto) Urine RBC (Auto) U Hyaline Cast (Auto) U Epithel Cells (Auto) Urine Bacteria (Auto) Influenza Type A (PCR) Influenza Type B (PCR) 05/01/18 05/01/18 05/01/18 16:22 17:55 18:22 WBC RBC Hgb Hct MCV MCH MCHC RDW Std Deviation RDW Coeff of Henry Plt Count MPV Neutrophils % (Manual) Lymphocytes % (Manual) Reactive Lymphs % (Man) Monocytes % (Manual) Eosinophils % (Manual) Myelocytes % (Man) Neutrophils # (Manual) Total Absolute Neuts Lymphocytes # (Manual) Reactive Lymphs # Total Abs Lymphocytes Monocytes # (Manual) Eosinophils # (Manual) Myelocytes # (Manual) RBC Morphology PT INR APTT PTT Ratio VBG pH 7.46 H VBG pCO2 38 VBG pO2 30 VBG HCO3 26 VBG O2 Saturation < 60.0 VBG Base Excess 2.0 Barometric Pressure 737.6 Sodium Potassium Chloride Carbon Dioxide Anion Gap BUN Creatinine Est Cr Clr Drug Dosing Est GFR ( Amer) Est GFR (Non-Af Amer) BUN/Creatinine Ratio Glucose Calcium Phosphorus Magnesium Total Bilirubin AST ALT Alkaline Phosphatase Troponin I NT-Pro-B Natriuret Pep Total Protein Albumin Globulin Albumin/Globulin Ratio Urine Color Yellow Urine Appearance Clear Urine pH 7.5 Ur Specific [place] 1.022 Urine Protein Negative Urine Glucose (UA) Negative Urine Ketones Trace H Urine Blood Negative Urine Nitrite Negative Urine Bilirubin Negative Urine Urobilinogen Negative Ur Leukocyte Esterase Negative Urine WBC (Auto) 1-5 Urine RBC (Auto) 10-30 H U Hyaline Cast (Auto) 1-5 U Epithel Cells (Auto) 10-20 H Urine Bacteria (Auto) Negative Influenza Type A (PCR) Pos for Influ A A* Influenza Type B (PCR) Neg for Influ B
[2018-05-01] MEDS ORDERED: FUROSEMIDE 40 MG in SYRINGE 0 ML IV SCH (19:30)
[2018-05-01] MEDS ORDERED: LEUPROLIDE ACETATE 22.5 MG IM SCH (19:30)
[2018-05-01 19:53] LABS: D Dimer 3450 ug/L FEU (0-500)
[2018-05-01] MEDS ORDERED: OSELTAMIVIR PHOSPHATE 75 MG CAP PO SCH (21:00)
[2018-05-01] MEDS ORDERED: OPTIRAY 320 125ml IV PRN (21:20)
--- NOTE | 2018-05-01 21:57 | CT Scan Report ---
CT angio chest PE protocol CT DOSE: 455.48 mGy.cm HISTORY: 87 years-old Male with PE. Acute shortness of breath for 5 days TECHNIQUE: Multiple CTA images of the chest were obtained after the intravenous administration of 99 ml Optiray 320. Coronal and sagittal MIPS were obtained from the axial data set and were submitted f or review. All measurements were obtained according to NASCET criteria. A dose lowering technique wa s utilized adhering to the principles of ALARA. COMPARISON: Chest radiograph 05/01/2018. FINDINGS: Study is degraded by respiratory motion artifact. CTA: Mild multichamber cardiac enlargement without pericardial effusion. Extensive three-vessel distributi on of coronary arterial calcifications noted. Left ventricular outflow tract and thoracic aorta are s uboptimally opacified secondary to contrast bolus timing. Fusiform dilation of the ascending thoracic aorta measures 5.1 x 5.0 cm. No associated dissection identified. Extensive calcification of the aor tic arch and proximal great vessels. Reflux of contrast into the IVC and hepatic veins. Main pulmonar y artery is dilated measuring up to 4.0 cm transversely. No filling defects within the pulmonary alexus rial tree identified to suggest pulmonary thromboembolic disease. Note however that the segmental and subsegmental branches are not well seen secondary to respiratory motion artifact. CT CHEST: No dominant thyroid nodule. Mildly prominent paratracheal lymph nodes are likely physiologic. No pneu mothorax or pleural effusion. Respiratory motion artifact limits evaluation of the lung parenchyma. B ilateral pleural calcifications with pleural thickening is noted. Mild bibasilar bronchial wall thick ening. Subsegmental bibasilar opacities are suggestive of probable atelectasis/scarring. There are no suspicious pulmonary nodules or masses. No overt pulmonary edema. There are a few scattered ill-defi laurence groundglass densities noted within a bronchovascular distribution of the superior segment lingula . Central airways appear to be patent. Circumscribed hypodense 1.7 cm lesion of the left hepatic lobe suggests a probable cyst. Moderate thi ckening about the left adrenal gland. Soft tissues appear to be unremarkable. Degenerative changes ar e noted about the shoulders and spine. 20% anterior endplate compression deformity is likely chronic at the T7 vertebral body no associated retropulsion or prevertebral soft tissue swelling. IMPRESSION: 1. Study is degraded by respiratory motion artifact. No evidence of pulmonary thromboembolic disease. 2. Fusiform aneurysmal dilation of the ascending thoracic aorta, 5.1 x 5.0 cm. No associated dissecti on. 3. Dilation of the main pulmonary artery suggests pulmonary arterial hypertension. 4. 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 5. Minimal patchy groundglass densities of the superior segment lingula are suggestive of a mild infe ctious or inflammatory pneumonitis. 6. Additional findings as above. The above report was generated using voice recognition software. It may contain grammatical, syntax o r spelling errors. Electronically signed by: Domingo Myers M.D. 05/01/2018 9:55 PM
[2018-05-01] MEDS: ALBUT/IPRATROP 3MG/0.5MG NEB 3 ML VIAL NEB SCH ×2 (22:07→23:06)
[2018-05-01] MEDS: HydrALAZINE 10 MG TAB PO SCH (22:16)
[2018-05-01] MEDS: methylPREDNISolone 80 MG in SYRINGE 0 ML IV SCH (22:17)
[2018-05-01 22:24] LABS: BUN Creatinine Ratio 9.2 (10-20); Calcium 7.7 mg/dl (8.5-10.1); Creatinine Clr Calc Pharmacy 40.8 ml/min; Est GFR (African American) 61.6; Est GFR (Non-African American) 53.1; Magnesium 1.8 mg/dl (1.8-2.4); Phosphorus 3.1 mg/dl (2.5-4.9); Potassium 3.2 mmol/L (3.5-5.1)
[2018-05-02] MEDS: ALBUT/IPRATROP 3MG/0.5MG NEB 3 ML VIAL NEB SCH ×7 (01:32→23:24)
[2018-05-02] MEDS: methylPREDNISolone 80 MG in SYRINGE 0 ML IV SCH (06:00)
[2018-05-02] MEDS: TAMSULOSIN HCL 0.4 MG CAP PO SCH (08:01)
[2018-05-02] MEDS: HydrALAZINE 10 MG TAB PO SCH ×2 (08:01→20:54)
[2018-05-02] MEDS: MULTIVITAMIN TAB PO SCH (08:01)
[2018-05-02] MEDS: PRAMIPEXOLE DIHYDROCHLO 0.25 MG TAB PO SCH (08:01)
[2018-05-02] MEDS: CHOLECALCIFEROL 1,000 UNITS TAB PO SCH (08:02)
[2018-05-02] MEDS: FERROUS SULFATE 325 MG TAB PO SCH (08:02)
[2018-05-02] MEDS: ASCORBIC ACID 500 MG TAB PO SCH (08:02)
[2018-05-02 08:19] LABS: Calcium 8.4 mg/dl (8.5-10.1); Creatinine Clr Calc Pharmacy 42.2 ml/min; Est GFR (African American) 64.1; Est GFR (Non-African American) 55.3; Potassium 3.3 mmol/L (3.5-5.1)
[2018-05-02 08:20] LABS: Phosphorus 3.4 mg/dl (2.5-4.9)
[2018-05-02] MEDS: ENOXAPARIN INJ 40 MG/0.4 ML SYR SQ SCH (10:00)
[2018-05-02] MEDS: POTASSIUM CHLORIDE 20 MEQ TABCR PO SCH ×2 (10:00→20:54)
[2018-05-02] MEDS: OSELTAMIVIR PHOSPHATE SUSP 30 MG/5 ML UDP PO SCH ×2 (10:31→21:45)
--- NOTE | 2018-05-02 14:01 | Medical Student Progress Note ---
Date of Service May 02, 2018 Assessment & Plan (1) Influenza A: Flu A positive, receiving IV methylprednisolone and oseltamivir, seems to be improving, both symptomatically and with his RR which is now down to 18 after being as high as 34 yesterday afternoon. His lung exam reveals rhonchi b ilaterally in the upper lobes and wheezing diffusely which may be due to an influenza bronchitis. Of note, his blood sugars have been high with the past two being 224 and 195, and this may be related to his high levels of methylprednisolone. Decrease his IV methylprednisolone to 40 q12h instead of 80 q8h, which will hopefully be a good balance between treating his symptoms and preventing hyperglycemia. He otherwise seems to be tolerating the steroids well. (2) Chronic diastolic heart failure: Not on any AV noman blockers per cardiology. (3) Chronic a-fib: History of hip fracture. Not on anticoagulation secondary to falls when relatively bradycardic due to medications, no AV noman blockers per cardiology. Not in A fib currently, RRR. (4) Sleep apnea: Been using CPAP the past five years at night for sleep apnea. Encouraged him to clean it regularly to prevent further infections, but that is unlikely the cause here. Continue to use CPAP at night. (5) Hypertension: BPs have been 120s-160s since admission, most recently 131/74. Continue hydralazine. Elevated BP above baseline potentially due to combination of influenza and steroids. (6) HLD (hyperlipidemia): Not on any home meds. No additional meds at this time. Disposition: Transfer to medicine floor from telemetry. Continue to watch for symptomatic improvement. Subjective Mr. Tyler says he is feeling much better today. He states he was weak and bed- bound most of the past week with fatigue, malaise, anorexia, fever, congestion, cough, and diarrhea, but he is now feeling much more energetic. He was sitting in a chair and has enough energy to get up and go to the bathroom when needed. He also has his appetite back for the first time all week, and he ate toast and eggs for breakfast without issue. He is also drinking more today. He says the breathing treatments have been helpful and that he is breathing better, but not back to baseline. He says he had been breathing very quickly and that is mostly gone. He still has a dry cough. He was concerned that his flu may have come from him not cleaning his CPAP frequently enough, and we discussed how he should clean the CPAP frequently to prevent infection but that this would be an uncommon pathogen. He has been using his CPAP for the past five years and has found it to be quite effective. He used it last night and got decent quality sleep. Review of Systems All systems reviewed & are unremarkable except as noted in HPI & below Endorses dry cough, some SOB, some malaise. Denies anorexia, fever, headaches, nausea, vomiting, diarrhea, constipation. Physical Exam Vital Signs (Past 24 Hours): Last Vital Signs Temp 36.4 C L 05/02/18 11:59 Pulse 92 H 05/02/18 11:59 Resp 18 05/02/18 11:59 BP 131/74 05/02/18 11:59 Pulse Ox 98 05/02/18 11:59 Constitutional: WD/WN, vitals as above Eyes: PERRL, conjunctivae normal, anicteric sclerae ENMT: external ear and nose normal, oropharynx normal Respiratory: normal respiratory effort; does not use accessory muscles Auscultation: + rhonchi and + wheezes Cardiovascular: RRR, no murmur, no edema Gastrointestinal (Abdomen): normal bowel sounds, soft, nontender, no hepatosplenomegaly Skin: no rashes, warm and dry
--- NOTE | 2018-05-02 15:49 | Hospitalist Progress Note ---
Date of Service May 02, 2018 Assessment & Plan (1) Acute respiratory failure: titrated off of oxygen with treatment of Flu A and bronchitis (2) Bronchitis: taper steroids to 40 q12, continue nebulizers breathing much improved but still with rhonchi and crackles (3) Influenza A: continue Tamiflu for 5 days total no fever, no chills more energy today symptoms for about 7 days prior to admission (4) Chronic diastolic heart failure: euvolemic on exam, had a dose of Lasix IV on admission typically on Lasix 40mg PO on MWF, will order for tomorrow (5) Chronic a-fib: rates controlled and no anticoagulation due to long history of falls no longer needs monitor, transfer to medical floor (6) Sleep apnea: (7) Hypertension: (8) HLD (hyperlipidemia): Plan: will transfer to medical floor, order PT/OT try to d/c to home tomorrow Subjective patient breathing better since admission, responding well to steroids and nebulizers eating well, no chest pain or pressure has a cough but it is non productive reviewed labs and imaging from admission K low at 3.3, PO replacement ordered updated patient's son at the bedside will transfer to medical floor Review of Systems All systems reviewed & are unremarkable except as noted in HPI & below Constitutional: + fatigue and + weakness; no fever, no chills and no sweats Respiratory: + cough and + dyspnea on exertion; no dyspnea, no hemoptysis and no wheezing Gastrointestinal: no nausea, no vomiting, no constipation and no diarrhea/loose stools Physical Exam Vital Signs (Past 24 Hours): Last Vital Signs Temp 36.4 C L 05/02/18 11:59 Pulse 92 H 05/02/18 11:59 Resp 18 05/02/18 11:59 BP 131/74 05/02/18 11:59 Pulse Ox 98 05/02/18 11:59 Constitutional: WD/WN, vitals as above Eyes: PERRL, conjunctivae normal, anicteric sclerae ENMT: external ear and nose normal, oropharynx normal Neck: trachea midline, no thyromegaly Respiratory: normal respiratory effort and + cough; no respiratory distress Auscultation: + crackles (bases), + rhonchi (upper airway bilaterally) and + wheezes (faint, end exhalation bilaterally) Cardiovascular: Rate/Rhythm: regular rate; + abnormal rhythm (irregular irregular) Heart Sounds: normal S1 and normal S2; no murmur Vessels: normal peripheral pulses; no JVD Gastrointestinal (Abdomen): normal bowel sounds, soft, nontender, no hepatosplenomegaly Musculoskeletal: no cyanosis or clubbing, extremities motor strength 5/5 Skin: no rashes, warm and dry Neurologic: patellar DTR's 2+ bilat, sensation intact and PERRL, EOMI, accommodation nl, no face palsy, no dysarthria Psychiatric: A+Ox3, euthymic affect Lymphatic: no cervical or axillary lymphadenopathy Results & Data Laboratory Results Laboratory Results - last 24 hr 05/01/18 05/01/18 05/01/18 16:10 16:10 16:10 WBC 5.78 RBC 3.89 L Hgb 12.7 L Hct 37.3 L MCV 95.9 MCH 32.6 MCHC 34.0 RDW Std Deviation 50.4 H RDW Coeff of Henry 14.3 Plt Count 107 L MPV 10.3 Neutrophils % (Manual) 27.3 Lymphocytes % (Manual) 22.7 Reactive Lymphs % (Man) 40.9 Monocytes % (Manual) 6.4 Eosinophils % (Manual) 1.8 Myelocytes % (Man) 0.9 Neutrophils # (Manual) 1.58 Total Absolute Neuts 1.58 Lymphocytes # (Manual) 1.31 Reactive Lymphs # 2.36 Total Abs Lymphocytes 3.68 H Monocytes # (Manual) 0.37 Eosinophils # (Manual) 0.10 Myelocytes # (Manual) 0.05 H RBC Morphology Unremarkable PT 10.3 INR 1.0 APTT 21.1 PTT Ratio 0.8 D-Dimer VBG pH VBG pCO2 VBG pO2 VBG HCO3 VBG O2 Saturation VBG Base Excess Barometric Pressure Sodium 137 Potassium 3.7 Chloride 103 Carbon Dioxide 28 Anion Gap 6.0 BUN 11 Creatinine 0.95 Est Cr Clr Drug Dosing Not Reportable Est GFR ( Amer) 82.5 Est GFR (Non-Af Amer) 71.2 BUN/Creatinine Ratio 11.6 Glucose 100 H Calcium 7.9 L Phosphorus 3.0 Magnesium 2.0 Total Bilirubin 0.4 AST 39 H ALT 24 Alkaline Phosphatase 77 Troponin I 0.021 NT-Pro-B Natriuret Pep 1543 Total Protein 6.3 L Albumin 3.1 L Globulin 3.2 Albumin/Globulin Ratio 1.0 Urine Color Urine Appearance Urine pH Ur Specific [place] Urine Protein Urine Glucose (UA) Urine Ketones Urine Blood Urine Nitrite Urine Bilirubin Urine Urobilinogen Ur Leukocyte Esterase Urine WBC (Auto) Urine RBC (Auto) U Hyaline Cast (Auto) U Epithel Cells (Auto) Urine Bacteria (Auto) Influenza Type A (PCR) Influenza Type B (PCR) 05/01/18 05/01/18 05/01/18 16:10 16:22 17:55 WBC RBC Hgb Hct MCV MCH MCHC RDW Std Deviation RDW Coeff of Henry Plt Count MPV Neutrophils % (Manual) Lymphocytes % (Manual) Reactive Lymphs % (Man) Monocytes % (Manual) Eosinophils % (Manual) Myelocytes % (Man) Neutrophils # (Manual) Total Absolute Neuts Lymphocytes # (Manual) Reactive Lymphs # Total Abs Lymphocytes Monocytes # (Manual) Eosinophils # (Manual) Myelocytes # (Manual) RBC Morphology PT INR APTT PTT Ratio D-Dimer 3450 H* VBG pH VBG pCO2 VBG pO2 VBG HCO3 VBG O2 Saturation VBG Base Excess Barometric Pressure Sodium Potassium Chloride Carbon Dioxide Anion Gap BUN Creatinine Est Cr Clr Drug Dosing Est GFR ( Amer) Est GFR (Non-Af Amer) BUN/Creatinine Ratio Glucose Calcium Phosphorus Magnesium Total Bilirubin AST ALT Alkaline Phosphatase Troponin I NT-Pro-B Natriuret Pep Total Protein Albumin Globulin Albumin/Globulin Ratio Urine Color Yellow Urine Appearance Clear Urine pH 7.5 Ur Specific [place] 1.022 Urine Protein Negative Urine Glucose (UA) Negative Urine Ketones Trace H Urine Blood Negative Urine Nitrite Negative Urine Bilirubin Negative Urine Urobilinogen Negative Ur Leukocyte Esterase Negative Urine WBC (Auto) 1-5 Urine RBC (Auto) 10-30 H U Hyaline Cast (Auto) 1-5 U Epithel Cells (Auto) 10-20 H Urine Bacteria (Auto) Negative Influenza Type A (PCR) Pos for Influ A A* Influenza Type B (PCR) Neg for Influ B 05/01/18 05/01/18 05/02/18 18:22 21:38 07:29 WBC RBC Hgb Hct MCV MCH MCHC RDW Std Deviation RDW Coeff of Henry Plt Count MPV Neutrophils % (Manual) Lymphocytes % (Manual) Reactive Lymphs % (Man) Monocytes % (Manual) Eosinophils % (Manual) Myelocytes % (Man) Neutrophils # (Manual) Total Absolute Neuts Lymphocytes # (Manual) Reactive Lymphs # Total Abs Lymphocytes Monocytes # (Manual) Eosinophils # (Manual) Myelocytes # (Manual) RBC Morphology PT INR APTT PTT Ratio D-Dimer VBG pH 7.46 H VBG pCO2 38 VBG pO2 30 VBG HCO3 26 VBG O2 Saturation < 60.0 VBG Base Excess 2.0 Barometric Pressure 737.6 Sodium 138 138 Potassium 3.2 L 3.3 L Chloride 103 104 Carbon Dioxide 23 23 Anion Gap 13.0 H 11.0 BUN 11 12 Creatinine 1.21 1.17 Est Cr Clr Drug Dosing 40.8 42.2 Est GFR ( Amer) 61.6 64.1 Est GFR (Non-Af Amer) 53.1 55.3 BUN/Creatinine Ratio 9.2 L 10.0 Glucose 224 H 195 H Calcium 7.7 L 8.4 L Phosphorus 3.1 3.4 Magnesium 1.8 2.0 Total Bilirubin AST ALT Alkaline Phosphatase Troponin I NT-Pro-B Natriuret Pep Total Protein Albumin Globulin Albumin/Globulin Ratio Urine Color Urine Appearance Urine pH Ur Specific [place] Urine Protein Urine Glucose (UA) Urine Ketones Urine Blood Urine Nitrite Urine Bilirubin Urine Urobilinogen Ur Leukocyte Esterase Urine WBC (Auto) Urine RBC (Auto) U Hyaline Cast (Auto) U Epithel Cells (Auto) Urine Bacteria (Auto) Influenza Type A (PCR) Influenza Type B (PCR) Medications Administered Current Inpatient Medications Acetaminophen (Tylenol) 650 mg PO Q4H PRN PRN Reason: Pain or Fever Stop: 05/31/18 19:12 Al Hydrox/Mg Hydrox/Simethicone (Maalox) 15 ml PO Q4H PRN PRN Reason: Dyspepsia Stop: 05/31/18 19:12 Albuterol (Duoneb) 3 ml NEB Q4R [facility]ALPH Stop: 05/31/18 19:59 Last Admin: 05/02/18 10:38 Dose: 3 ml Documented by: Ascorbic Acid (Vitamin C) 1,000 mg PO DAILY RALPH Stop: 06/01/18 08:59 Last Admin: 05/02/18 08:02 Dose: 1,000 mg Documented by: Enoxaparin Sodium (Lovenox) 40 mg SQ Q24H RALPH Stop: 06/01/18 08:59 Last Admin: 05/02/18 10:00 Dose: 40 mg Documented by: Ferrous Sulfate (Feosol) 325 mg PO DAILY [facility] Stop: 06/01/18 08:59 Last Admin: 05/02/18 08:02 Dose: 325 mg Documented by: Hydralazine HCl (Apresoline) 10 mg PO BID [facility] Stop: 05/31/18 20:59 Last Admin: 05/02/18 08:01 Dose: 10 mg Documented by: Methylprednisolone 40 mg/ (Syringe) 0.64 mls @ 1.5 mls/min IV Q12 RALPH Stop: 06/01/18 20:59 Magnesium Hydroxide (Milk Of Magnesia) 30 ml PO Q12H PRN PRN Reason: Constipation Stop: 05/31/18 19:12 Multivitamins (Multivitamin Tab) 1 tab PO DAILY [facility] Stop: 06/01/18 08:59 Last Admin: 05/02/18 08:01 Dose: 1 tab Documented by: Ondansetron HCl (Zofran) 4 mg IV Q6H PRN PRN Reason: Nausea Stop: 05/31/18 19:12 Oseltamivir Phosphate (Tamiflu) 30 mg PO BID [facility]; Protocol Stop: 05/07/18 08:59 Last Admin: 05/02/18 10:31 Dose: 30 mg Documented by: Polyethylene Glycol (Miralax Powder Packet) 17 gm PO DAILY PRN PRN Reason: Constipation Stop: 05/31/18 19:12 Potassium Chloride (Klor-Con M20) 20 meq PO BID [facility] Stop: 06/01/18 08:59 Last Admin: 05/02/18 10:00 Dose: 20 meq Documented by: Pramipexole Dihydrochloride (Mirapex) 0.125 mg PO DAILY [facility] Stop: 06/01/18 08:59 Last Admin: 05/02/18 08:01 Dose: 0.125 mg Documented by: Tamsulosin HCl (Flomax) 0.4 mg PO DAILY [facility] Stop: 06/01/18 08:59 Last Admin: 05/02/18 08:01 Dose: 0.4 mg Documented by: Vitamin D (Vitamin D3) 2,000 units PO DAILY [facility] Stop: 06/01/18 08:59 Last Admin: 05/02/18 08:02 Dose: 2,000 units Documented by: Zolpidem Tartrate (Ambien) 5 mg PO HS PRN PRN Reason: Sleep Stop: 05/31/18 19:12
[2018-05-02] MEDS: methylPREDNISolone 40 MG in SYRINGE 0 ML IV SCH (21:45)
[2018-05-03] MEDS: ALBUT/IPRATROP 3MG/0.5MG NEB 3 ML VIAL NEB SCH ×3 (03:13→11:12)
[2018-05-03 07:08] VITALS: TEMP 97.9
[2018-05-03 07:25] LABS: Basophils # (auto) 0.01 K/uL (0-0.2); Basophils % (auto) 0.2 %; Hematocrit (blood only) 34.9 % (42-52); Hemoglobin 11.9 g/dL (14.0-18.0); Immature Granulocytes # (auto) 0.03 K/uL (0.00-0.02); Immature Granulocytes % (auto) 0.5 %; Lymphocytes # (auto) 0.75 K/uL (1.2-3.4); Lymphocytes % (auto) 11.3 %; Mean Corpuscular Hgb Conc 34.1 g/dL (32-36); Mean Corpuscular Volume 95.1 fL (80-100); Mean Platelet Volume 10.4 fL (7.4-10.4); Monocytes # (auto) 0.34 K/uL (0.11-0.59); Monocytes % (auto) 5.1 %; Neutrophils # (auto) 5.49 K/uL (1.4-6.5); Neutrophils % (auto) 82.9 %; Platelet Count 109 K/uL (130-400); RDW Coefficient of Variation 14.3 % (11.5-14.5); Red Blood Count 3.67 M/uL (4.7-6.1); White Blood Count 6.62 K/uL (4.8-10.8)
[2018-05-03 07:54] LABS: Calcium 8.8 mg/dl (8.5-10.1); Est GFR (African American) 65.5; Est GFR (Non-African American) 56.5; Potassium 4.4 mmol/L (3.5-5.1)
[2018-05-03] MEDS: POTASSIUM CHLORIDE 20 MEQ TABCR PO SCH ×2 (09:35→09:42)
[2018-05-03] MEDS: HydrALAZINE 10 MG TAB PO SCH ×2 (09:35→09:43)
[2018-05-03] MEDS: FERROUS SULFATE 325 MG TAB PO SCH ×2 (09:35→09:42)
[2018-05-03] MEDS: PRAMIPEXOLE DIHYDROCHLO 0.25 MG TAB PO SCH (09:42)
[2018-05-03] MEDS: TAMSULOSIN HCL 0.4 MG CAP PO SCH (09:42)
[2018-05-03] MEDS: CHOLECALCIFEROL 1,000 UNITS TAB PO SCH (09:43)
[2018-05-03] MEDS: ASCORBIC ACID 500 MG TAB PO SCH (09:43)
[2018-05-03] MEDS: MULTIVITAMIN TAB PO SCH (09:44)
[2018-05-03] MEDS: ENOXAPARIN INJ 40 MG/0.4 ML SYR SQ SCH (09:44)
[2018-05-03] MEDS: OSELTAMIVIR PHOSPHATE SUSP 30 MG/5 ML UDP PO SCH (10:09)
[2018-05-03] MEDS: methylPREDNISolone 40 MG in SYRINGE 0 ML IV SCH (10:14)
[2018-05-03 11:14] VITALS: O2SAT 95
[2018-05-03] MEDS ORDERED: FUROSEMIDE 40 MG TAB PO ONE (11:42)
[2018-05-03 11:56] VITALS: BP 132/77; PULSE 74
--- NOTE | 2018-05-03 15:32 | Discharge Summary ---
Date of Service May 03, 2018 Admission HPI Per Admitting Provider 87-year-old white male with a significant past medical history of sleep apnea on CPAP, prostate cancer, chronic A. fib and CHF comes to hospital emergency department because of the above chief complaints. pt complaints of worsening flu like symptoms that onset 5 days ago, was seen by PCP who felt not pneumonia, his temp was up to 103 at the time and was sent home. symptoms have been worsening over the past 2 days, nose congestion, no appetite, associated with diarrhea for a week, report has been cough ocasio phlegm production, denies sputum or hemoptysis Denies chest pain palpitation. During his emergency room stay, he is not was very tired, his pulse ox was 96% in nebulizer however his respiratory rate was up to 34 to 36, therefore he has having acute respiratory distress. He got 1 dose of Solu-Medrol in the emergency room, has been continued getting nebulizer treatment his respiratory rate still high Later ED report patient has influenza A Patient denies dizziness denies chest pain denies lower extremity swelling Denies nausea vomiting abdominal pain Denies dysuria urgency and frequency Denies open wound skin rashes, Denies facial droop or slurry speeches Principal Diagnosis Influenza A Discharge Exam Constitutional WD/WN, vitals as above Eyes PERRL, conjunctivae normal, anicteric sclerae ENMT external ear and nose normal, oropharynx normal Neck trachea midline, no thyromegaly Respiratory normal respiratory effort and + cough Auscultation: lungs clear to auscultation bilaterally Cardiovascular Rate/Rhythm: regular rate; + abnormal rhythm (irregular irregular) Heart Sounds: normal S1 and normal S2; no murmur Vessels: normal peripheral pulses; no JVD Gastrointestinal (Abdomen) normal bowel sounds, soft, nontender, no hepatosplenomegaly Musculoskeletal no cyanosis or clubbing, extremities motor strength 5/5 Skin no rashes, warm and dry Neurologic patellar DTR's 2+ bilat, sensation intact and PERRL, EOMI, accommodation nl, no face palsy, no dysarthria Psychiatric A+Ox3, euthymic affect Lymphatic no cervical or axillary lymphadenopathy Discharge Data Allergies Allergy/AdvReac Type Severity Reaction Status Date / Time No Known Allergies Allergy Verified 05/01/18 15:13 Consultations 05/01/18 18:18 ED Decision to Admit Stat Ordered Studies 05/01/18 20:15 CT angio chest PE protocol Stat Hospital Course (1) Acute respiratory failure: titrated off of oxygen with treatment of Flu A and bronchitis breathing well today (2) Bronchitis: taper steroids to 40 q12 on 05/02, continue nebulizers breathing much improved and lungs are clear now will send home on Prednisone 40mg daily for 5 more days no wheezing today continue Albuterol PRN at home (3) Influenza A: continue Tamiflu for 3 more days total no fever, no chills more energy today (4) Chronic diastolic heart failure: euvolemic on exam, had a dose of Lasix IV on admission typically on Lasix 40mg PO on MWF, resume today (5) Chronic a-fib: rates controlled and no anticoagulation due to long history of falls no longer needs monitor, transfer to medical floor (6) Sleep apnea: (7) Hypertension: (8) HLD (hyperlipidemia): Plan: will transfer to medical floor, order PT/OT try to d/c to home tomorrow (9) Hypokalemia: resolved, 4.4 today, typically takes potassium with his Lasix 3x a week Total Time Total Time Spent Total Time Spent (In Minutes): 35 minutes Total Time Includes: Examination of the Patient, Discharge Planning, Medication Reconciliation and Other (communication with family) Discharge Plan Discharge Items Patient Disposition: Home - Self-Care Reason For Visit: INFLUENZA A,ACUTE RES DYSTRESS,POSSIBLE CHF EXAC Discharge Diagnosis: Influenza A, acute bronchitis, acute hypoxia Condition: Good Discharge Goals: Decrease discomfort and Improve function Activity: Resume your previous activity Lifting: None Bathing: No limitations Non-emergency contact: Primary Care Provider Call non-emergency contact if: you have any medication questions, your symptoms worsen and you have a fever Follow-up/Referrals: Kayleen Thomas [Primary Care Provider] - Diet: Heart Healthy Addtl Provider Instructions: Medications - OSELTAMIVIR: 30mg twice a day for 3 more days - PREDNISONE: 40mg daily for 5 more days, no taper needed Influenza A: improving, complete 3 more days of Tamiflu no longer contagious Bronchitis: responded well to steroids, complete five days of Prednisone, no taper needed FOLLOW UP - PCP in one week, call for follow up with Kayleen ALBERT Prescriptions: New oseltamivir 30 mg capsule 30 mg PO BID 3 Days Qty: 6 RF: 0 prednisone 20 mg tablet 40 mg PO DAILY 5 Days Qty: 10 RF: 0 Continued furosemide 40 mg Tablet 40 mg PO 3XWK RF: 0 hydralazine 10 mg Tablet 10 mg PO BID RF: 0 tamsulosin 0.4 mg Capsule 0.4 mg PO DAILY RF: 0 ferrous sulfate 325 mg (65 mg iron) Tablet 325 mg PO DAILY RF: 0 pramipexole 0.125 mg Tablet 0.125 mg PO DAILY RF: 0 omeprazole 20 mg Capsule,Delayed Release(Dr/Ec) 20 mg PO QAM RF: 0 cholecalciferol (vitamin D3) [Vitamin D3] 1,000 unit Capsule 2,000 unit PO DAILY RF: 0 potassium chloride 20 mEq Tablet Extended Release 40 meq PO 3XWK RF: 0 ascorbic acid (vitamin C) 500 mg Capsule 1 tab PO DAILY RF: 0 Multi-Day Plus Minerals 18 mg iron-400 mcg-25 mcg Tablet 1 dose PO DAILY RF: 0 albuterol sulfate 2.5 mg /3 mL (0.083 %) Solution For Nebulization 3 ml INHALATION Q6 PRN (Reason: Wheezing) RF: 0 leuprolide (3 month) 22.5 mg Syringe Kit 22.5 mg IM YEARLY RF: 0 Discontinued azithromycin 250 mg Tablet 1 dose PO DIRECTED RF: 0 cephalexin [Keflex] 500 mg Capsule 500 mg PO TID RF: 0 amoxicillin-pot clavulanate [Augmentin] 875-125 mg Tablet 1 tab PO Q12H RF: 0 Stand-Alone Forms: [facility] Discharge Orders: Discharge Order (Routine); Ordered 05/03/18 Ordered By: Wayne Luna Admission Data Admit Date/Time: 05/01/18 19:13 Attending Provider: Wayne Luna Admit Provider: Rio Smith Primary Care Provider: Kayleen Thomas Other Providers: Rio Smith Service: Medical Other Interventions: Discharge Summary Assessment (RN) Last Done: 05/03/18 11:54 DC Date/Time DO NOT enter until pt leaves facility: 05/03/18 12:21
== END 2018-05-03 12:21 | disposition home or self-care (01) | DRG 193 ==
LOC: ED 14:05 → 2S 19:13 → SUATTDRO 19:13 → 2S 21:36 → 4W 05-02 14:04